=== PATIENT | female | born 1965 | race Caucasian/White ===

== ENCOUNTER 2022-11-30 10:48 | Outpatient (RCR) | payer OTHER, SELFPAY | END 2022-12-21 23:59 | LOC: NS 10:48 | PROVIDERS: PCP Family Medicine; Referring Provider Family Medicine; Visit Provider Family Medicine | DX: Z71.3 Dietary counseling and surveillance (principal); R63.4 Abnormal weight loss | CPT/HCPCS: 97802 ==

== ENCOUNTER 2023-01-20 07:30 | Outpatient (RCR) | payer OTHER, SELFPAY | END 2023-01-20 23:59 | LOC: NS 07:30 | PROVIDERS: PCP Family Medicine; Referring Provider Family Medicine; Visit Provider Family Medicine | DX: Z71.3 Dietary counseling and surveillance (principal); R63.4 Abnormal weight loss | CPT/HCPCS: 97803 ==

== ENCOUNTER → 2023-11-11 | Outpatient (CLI) | payer OTHER, SELFPAY ==
--- NOTE | 2023-11-11 15:10 | US_ITS ---
STUDY: ULTRASOUND OF THE FEMALE PELVIS - COMPLETE REASON FOR EXAM: Female, 57 years old. post menopausal bleeding LMP: 02/21/2018 TECHNIQUE: Transabdominal and Transvaginal TECHNICAL QUALITY: Adequate. COMPARISON: None. FINDINGS: The uterus is anteverted and is in a midline position. The uterus measures 6.9 x 4.5 x 2.4 cm. Normal uterine cervix. The endometrium measures 4 mm in thickness, and is hyperechoic. A tiny 2 mm polyp of calcification seen in the fundus of the endometrial cavity. There is no demonstrated myometrial mass. However the uterus is diffusely heterogeneous suggestive of diffuse leiomyomatous change. Several myometrial calcifications are seen. The right ovary is visualized. The right ovary measures 2.8 x 1.9 x 1.7 cm. There is no right ovarian cyst or ovarian mass. There is no visualized right adnexal mass or complex lesion. There is normal arterial and normal venous vascularity. The left ovary is visualized. The left ovary measures 2.7 x 1.6 x 1.8 cm. There is no left ovarian cyst or ovarian mass. There is no visualized left adnexal mass or complex lesion. There is normal arterial and normal venous vascularity. There is no fluid in the cul-de-sac. The pre void volume of the bladder was 200 ml. US/Pelvic w/ Transvaginal IMPRESSION: Abnormal appearance of the uterus suspicious for extensive leiomyomatous changes. Tiny calcification or polyp at the fundus of the endometrial cavity. Electronically Signed: Berto Coreas MD at 17:57 EDT ,
== END | disposition home or self-care (01) ==
LOC: US 15:09
PROVIDERS: PCP Family Medicine; Referring Provider Nurse Practitioner Family; Visit Provider Nurse Practitioner Family
DX: N95.0 Postmenopausal bleeding (principal); N63.0 Unspecified lump in unspecified breast; N64.52 Nipple discharge
CPT/HCPCS: 76830; 76856

== ENCOUNTER 2024-01-10 10:22 | Day surgery (SDC) | payer OTHER, SELFPAY ==
--- NOTE | 2024-01-04 07:06 | EKG12_ITS ---
Test Reason : PREOP Blood Pressure : */* mmHG Vent. Rate : 73 BPM Atrial Rate : 73 BPM P-R Int : 124 ms QRS Dur : 68 ms QT Int : 380 ms P-R-T Axes : 52 62 51 degrees QTcB Int : 418 ms Normal sinus rhythm Normal ECG Confirmed by ANGELICA LOZANO, ALEXANDER ([id number]), pictures editor RUSSELL RIOS ([id number]) on 01/04/2024 2:11:15 PM Referred By: Elen Bray Confirmed By: ALEXANDER DOMINGUEZ MD
[2024-01-04 07:45] LABS: Hematocrit 45.3 % (37-47); Hemoglobin 15.2 g/dL (12.0-15.0); Mean Corp Hgb Conc 33.6 g/dL (32-36); Mean Corpuscular Hgb 30.6 pg (27.0-32.0); Mean Corpuscular Volume 91.3 fL (81-99); Mean Platelet Vol. 9.6 fl (6.2-12.0); Platelet Count 259 K/mm3 (150-450); RBC Distribution Width CV 12.4 % (11.6-14.6); RBC Distribution Width SD 41.3 fl (35.1-43.9); Red Blood Count 4.96 M/mm3 (4.2-5.4)
[2024-01-04 08:13] LABS: ALB/GLOB Ratio 1.1 RATIO (0.9-2.4); AST(SGOT) 26 U/L (15-37); Alanine Aminotransfer ALT/SGPT 40 U/L (13-56); Albumin, Serum 3.4 g/dL (3.2-5.0); Alkaline Phosphatase 102 U/L (45-117); Anion Gap 2 (5-15); BUN 12 mg/dL (7-18); Calcium,Total 8.8 mg/dL (8.5-10.1); Chloride 113 mmol/L (98-107); Creatinine, Serum 0.75 mg/dL (0.55-1.02); EST Glomerular Filtration Rate 85 mL/min (>60); Est Glom Filt Rate - Afr Amer 102 mL/min (>60); Globulin 3.1 g/dL (2.2-4.2); Glucose 59 mg/dL (74-106); Potassium 4.1 mmol/L (3.5-5.1); Protein, Total 6.5 g/dL (6.4-8.2); Sodium Level 143 mmol/L (136-145)
[2024-01-10] VITALS (8 sets, daily range): BP systolic 103–120; BP diastolic 67–80; PULSE 67–81; RESP 16; TEMP 36.1–37; O2SAT 97–100; BMI 19.9
--- NOTE | 2024-01-10 11:19 | HP.PCM_ITS ---
History and Physical Intake Vital Signs 11/01/2406:55 12/18/2414:18 Height 5 ft 10 in 5 ft 10 in Weight: 141 lb BMI 20.2 BP 118/75 Intake Visit Reasons: Surgical consultation Resident Assistant Required: No Is patient in pain?: Yes (chronic pain - headache and back pain) Feel stressed/tense/nervous/anxious/difficulty sleeping: not at all Allergies albuterol Allergy (Verified 12/19/23 15:20) Hives Medications ?Medication ?Instructions ?Recorded ?Confirmed ?Type albuterol sulfate 90 mcg/actuation 1 puff inhalation ONCE 11/02/23 12/19/23 History aerosol inhaler beclomethasone dipropionate 40 1 inh inhalation BID 11/02/23 12/19/23 History mcg/actuation HFA breath activated aerosol (Qvar RediHaler) biotin 1 mg capsule 1 mg PO QDAY 11/02/23 12/19/23 History dextrin 3 gram/3.8 gram oral g PO 11/02/23 12/19/23 History powder (Easy Fiber) levothyroxine 100 mcg tablet 100 mcg PO QDAY 11/02/23 12/19/23 History multivitamin 1 tab PO QDAY 11/02/23 12/19/23 History omega-3 acid ethyl esters 1 gram 1 cap PO QDAY 11/02/23 12/19/23 History capsule calcium carbonate (Antacid Ultra 400 mg PO QDAY 12/19/23 12/19/23 History Strength) cholecalciferol (vitamin D3) 250 250 mcg PO QWEEK 12/19/23 12/19/23 History mcg (10,000 unit) capsule cyanocobalamin (vitamin B-12) 100 mcg IM QMONTH 12/19/23 12/19/23 History 1,000 mcg/mL injection solution Is last menstrual period known: No Post menopausal: Yes Patient : No : No PFSH Medical History (Updated 12/19/23 @ 15:[address] Elen Bray MD) Osteoporosis Bladder cancer Fibromyalgia GERD (gastroesophageal reflux disease) Naseem's disease Asthma Surgical History (Updated 11/02/23 @ 08:26 by Miriam Handley) History of appendectomy H/O total cystectomy H/O tubal ligation History of Rustam fundoplication Family History (Updated 11/02/23 @ 08:27 by Miriam Handley) Mother Diabetes Thyroid disorder Hypertension Brain cancerFather Bone cancerGrandmother CVA (cerebral vascular accident) Diabetes CAD (coronary artery disease) Hypertension Social History (Updated 11/02/23 @ 08:28 by Miriam Handley) adopted: No household members: spouse and family number of children: 3 current occupational status: employed 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 she has had several episodes of vaginal bleeding for the last few months on and off. she has a history of bladder cancer that was removed in 2018 and she has had routine followup for that. she has been on vaginal estrogen. she has struggled with weight loss after 2022 rustam surgery. she has some dyspareunia and vaginal estrogen didn't help with that. this started years after her bladder surgery. Female Reproductive History Menopausal Symptoms: No night sweats ROS Const Constitutional: Reports fatigue and weight loss; Denies night sweats or weight gain ENT ENT: Reports system reviewed and no additional complaints, except as documented Cardio Card: Reports chest pain (evaluated in the ER for this not cardiac) Resp Resp: Denies cough or dyspnea GI GI: Reports as per HPI, abdominal pain and nausea; Denies constipation or vomiting : Reports nipple discharge, urinary frequency, urinary incontinence and urinary urgency; Denies urinary hesitancy, vaginal discharge, vaginal dryness, vaginal odor or vaginal pruritus Musc Musc: Reports arthralgias and back pain; Denies muscle weakness Skin Skin/Breast: Reports nipple discharge; Denies alopecia, change in hair, dry skin, breast mass, breast pain or breast skin changes Neuro Neuro: Reports system reviewed and no additional complaints, except as documented Psych Psych: Reports system reviewed and no additional complaints, except as documented Endo Endo: Reports cold intolerance; Denies excessive sweating, heat intolerance or polydipsia Sai/Lymph Hematologic/Lymphatic: Reports easy bleeding, Reports easy bruising and Denies lymphadenopathy Exam Const General: cooperative, healthy appearing, comfortable, no acute distress and well developed Orientation: alert HENMT Head: normal to inspection and normocephalic Ears: hearing grossly normal bilaterally and external ears normal Nose: external nose normal and nares normal Face and sinus: normal facial exam Neck Neck: normal visual inspection and no lymphadenopathy Thyroid: thyroid normal Chest Chest palpation & inspection: normal inspection of the chest Resp Effort & Inspection: normal respiratory effort Auscultation: clear to auscultation bilaterally Cardio Rate: regular rate Rhythm: regular rhythm Heart Sounds: S1 normal and S2 normal GI Inspection: normal to inspection and non-distended Palpation: soft and no hepatosplenomegaly General: bladder normal to palpation External Female Exam: normal external appearance and normal appearance of the urethra Urethra: normal appearance of the urethra, normal palpation and no discharge Speculum Exam - Vagina: normal appearance of the vagina and normal vaginal discharge Speculum Exam - Cervix: normal appearance of the cervix and nontender Bimanual Exam- Vagina & Uterus: normal bimanual exam, uterine size normal, bladder normal to palpation, uterine shape normal, No tender, uterine mobility normal, consistency normal, normal palpation and non-tender Bimanual Exam- Adnexa, other: normal adnexae, adnexae mobile, no masses and normal Pelvic Support: normal Musc Other: gross motor intact no deficits, full bilateral strength Skin General: no rashes or lesions noted Neuro General: patient alert, patient awake, moves all extremities and no focal motor deficits Motor: muscle tone normal throughout Extrem General: normal to inspection and no pedal edema Psych Appearance: grossly normal Mental Status: mental status grossly normal Affect: normal affect Speech and Movement: speech and movement normal Coding Level of Care Code Off vis,est,level 4 Diagnoses Post-menopausal bleeding N95.0 Breast discharge N64.52 Breast lump N63.0 Breast pain, right N64.4 Assessment and Plan Assessment and Plan (1) Post-menopausal bleeding: Status: Acute Comment: recommend d and c hysteroscopy, vaginal estrogen held (2) Breast discharge: Status: Acute (3) Breast lump: Status: Acute Comment: gen surg referral (4) Breast pain, right: Status: Acute Plan After discussing the patient's diagnosis and treatment plan options, patient wishes to proceed with surgical management. I have discussed with the patient the risks, benefits, and alternatives of the procedure which include but are not limited to risks of anesthesia, bleeding, infection, possible damage to bowel, bladder, or surrounding vasculature which could lead to additional surgery to evaluate any complications. Patient agrees to procedure and wishes to proceed. ACOG/uptodate references given for additional information regarding procedure. UPDATE- I have seen the patient and performed any clinically relevant updates t o the history and physical exam. Elen Bray MD
--- NOTE | 2024-01-10 12:05 | EMB_PTH ---
PATIENT: THOM CHRISTIANSON RACHELLE [place] [facility] [place][id number] AGE/SX: 58/F ROOM: RE01/10/[address]: Dr. Elen Bray MD : 1965 BED: DIS: 01/10/2024 SPEC #: [id number] RECD: 01/10/24 14:25 STATUS: JOHN REAshley #: [id number] VAUGHN: 01/10/24 12:[address]: Elen Bray DEPT: SURGICAL PATHOLOGY RECD BY: Gregorio Dwyer ENTERED: 01/11/24 09:20 SP TYPE: ENDOM BX/C ANDREAS DR: Dr. Trey Allred MD Tissues: Endometrium, NOS Procedures: Surgery Specimen Level IV HEADER OPERATION: Hysteroscopy, D&C PRE-OP DIAGNOSIS: Dysfunctional uterine bleeding TISSUE SUBMITTED: Endometrial curettings MICROSCOPIC DIAGNOSIS Endometrial curettings: Scant fragments of superficial benign endometrial tissue. Fragments of benign ectocervical epithelium, blood and mucus. SJ. 01/12/2024 MICROSCOPIC DESCRIPTION Slides are reviewed. GROSS DESCRIPTION Received in fixative is one container labeled with the patient's name and designated Endometrial curettings. The specimen consists of grayish-hamilton mucoid material measuring in aggregate 1.0 x 0.5 x 0.1cm. The entire specimen is submitted in one cassette. FA. 01/11/2024 TC:4 CPT:87636
--- NOTE | 2024-01-10 12:16 | PRE.ANES_ITS ---
ASA Classification* ASA Classification ASA Classification: 2 Assessment & Plan Anesthesia* Anesthesia Assessment Anesthesia Assessment: Discussed sedation and/or anesthesia options, risks, benefits, and alternatives with patient/parents/legal guardian/POA. Questions invited. The patient/parents/legal guardian/POA seems to understand and agrees to proceed with anesthesia plan. Reviewed the physical assessment, medical history, allergy history and patient home medications list prior to surgery/procedure/anesthetic and documented any changes. Performed airway and anesthesia risk assessments. Anesthesia Type Anesthesia Type: MAC History Source History Obtained from:: Patient and Chart Anesthesia Focused Assessment* Temperature: 98.5 F Pulse Rate: 77 Blood Pressure: 115/80 Respiratory Rate: 16 Pulse Ox: 100 Oxygen Delivery Method: Room Air Airway Assessment Mouth opens: >3 cm Mallampati Score: III Teeth Condition: Caps/Crowns (Patient has a Cap on left upper molar. It is tight. rest of the teeth are tight) Neck Range of motion (ROM): Full ROM Focused Labs Anesthesia Preop lab: CBC WBC 6.0 K/mm3 (4.4-11.0) 01/04/24 07:20 RBC 4.96 M/mm3 (4.2-5.4) 01/04/24 07:20 Hgb 15.2 g/dL (12.0-15.0) H 01/04/24 07:20 Hct 45.3 % (37-47) 01/04/24 07:20 Plt Count 259 K/mm3 (150-450) 01/04/24 07:20 CHEMISTRY Potassium 4.1 mmol/L (3.5-5.1) 01/04/24 07:20 Sodium 143 mmol/L (136-145) 01/04/24 07:20 BUN 12 mg/dL (7-18) 01/04/24 07:20 Creatinine 0.75 mg/dL (0.55-1.02) 01/04/24 07:20 Glucose 59 mg/dL (74-106) L 01/04/24 07:20 COAG Pre-Assessment Diagnosis/Proposed Procedure Planned Operative Procedure(s): Hysteroscopy,D&C, Possible Symphion Anesthesia History 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 When Was Last Pacemaker Check QUESTION #4 FULL TEXT: You/Your Family Experience fever (hyperthermia) with Anesthesia Last Oral Intake Last Oral intake: Last Oral Intake NPO since 07:00 01/10/24 10:51 Meds taken in AM with sips of Yes 01/10/24 10:51 water? 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 Female Yes 01/03/24 13:19 HX of Motion Sickness Yes 01/03/24 13:19 HX of N/V After Surgery Yes 01/03/24 13:19 Non-Smoker Yes 01/03/24 13:19 Duration of Surgery greater No 01/03/24 13:19 than 60 minutes Number of Risk Factors 4 01/03/24 13:19 PONV Score Severe Risk 01/03/24 13:19 Height & Weight Height & Weight: Anesthesia: Height & Weight Height 5 ft 10 in 01/10/24 10:51 Weight: 63 kg 01/10/24 10:51 Body Mass Index (BMI) 19.9 01/10/24 10:51 Respiratory Assessment Respiratory Assessment - cargo tank mechanic: Respiratory Tract Infection Hx - cargo tank mechanic Hx Respiratory Tract Infection No 01/03/24 13:19 STOP Sleep Apnea STOP Sleep Apnea - cargo tank mechanic: STOP Sleep Apnea - cargo tank mechanic Hx Hypertension No 01/03/24 13:19 Hx Sleep Apnea No 01/03/24 13:19 CPAP BIPAP Do you snore loudly (louder No 01/03/24 13:19 than talking or can be heard Do you often feel tired/ No 01/03/24 13:19 fatigued/ sleepy during daytime? Has anyone observed you stop No 01/03/24 13:19 breathing during sleep? STOP Results Negative 01/03/24 13:19 QUESTION #5 FULL TEXT : Do you snore loudly (louder than talking or can be heard through closed doors)? 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 Specify any problems Hx of Preganancy in last 3 No 01/03/24 13:19 Months Nurse Filling Out Transfusion VCHRISTIN 01/03/24 13:19 & Questions: Date: 01/03/24 01/03/24 13:19 Time: 13:21 01/03/24 13:19 Patient unable to answer at this time (ie. confused, unrespo /Reproduction History /Reproductive History - cargo tank mechanic: /Reproductive Hx- cargo tank mechanic Hx Now No 01/03/24 13:19 Gestational Age (in weeks): EDC: Hx Hx Para Hx Section SAB No 01/03/24 13:19 [facility] Medical History Wears glasses Post-menopausal Cancer Thyroid disease Kidney stones Back pain History of hiatal hernia Non-smoker Leg cramps History of irregular heartbeat Nipple discharge Osteoporosis Fibromyalgia GERD (gastroesophageal reflux disease) Naseem's disease Asthma Bladder cancer Home Medications ?Medication ?Instructions ?Recorded ?Last Taken ?Type albuterol sulfate 90 mcg/actuation 1 puff inhalation ONCE 11/02/23 Unknown History aerosol inhaler beclomethasone dipropionate 40 1 inh inhalation BID 11/02/23 12/06/23 History mcg/actuation HFA breath activated aerosol (Qvar RediHaler) dextrin 3 gram/3.8 gram oral 3 g PO DAILY 11/02/23 01/09/24 History powder (Easy Fiber) levothyroxine 100 mcg tablet 100 mcg PO QDAY 11/02/23 01/09/24 History multivitamin 1 tab PO QDAY 11/02/23 01/09/24 History calcium carbonate (Antacid Ultra 400 mg PO TID 12/19/23 01/09/24 History Strength) cyanocobalamin (vitamin B-12) 100 mcg IM QMONTH 12/19/23 12/28/23 History 1,000 mcg/mL injection solution misoprostol 200 mcg tablet 200 mcg PO .complex #2 tabs 12/20/23 01/10/24 Rx (Cytotec) ergocalciferol (vitamin D2) 1,250 1,250 mcg PO QWEEK 01/03/24 01/07/24 History mcg (50,000 unit) capsule olodaterol 2.5 mcg/actuation mist 2 puff inhalation DAILY 01/03/24 12/07/23 History for inhalation (Striverdi Respimat) Allergy/AdvReac Type Severity Reaction Status Date / Time albuterol Allergy Hives Verified 01/10/24 10:45 Family History Mother Diabetes Thyroid disorder Hypertension Brain cancer Father Bone cancer Grandmother CVA (cerebral vascular accident) Diabetes CAD (coronary artery disease) Hypertension Surgical History History of appendectomy H/O total cystectomy H/O tubal ligation History of Rustam fundoplication Social History adopted: No household members: spouse and family number of children: 3 current occupational status: employed 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
[2024-01-10] MEDS: Lidocaine 1% (20 ml mdv) 20 ML Vial (12:56)
--- NOTE | 2024-01-10 13:11 | PCM.OPRPT ---
Problems Associated Problem List Diagnoses (1) Post-menopausal bleeding: Operative Report (Standard) Operative Information Surgery/Procedure Performed: dilation and curettage hysteroscopy Surgeon: Elen Bray Date of Procedure: 01/10/24 Procedure Start Time: 12:56 Procedure Stop Time: 13:08 Pre-Operative Diagnosis: see problem list Post-Operative Diagnosis: same Select all DRAINS/GRAFTS/IMPLANTS that apply: None Type of Anesthesia: IV Sedation and Local Estimated Blood Loss: 25 Specimen collected: Yes Description of specimen(s) removed: endometrial curettings Description of surgery: Patient was prepped and draped in a normal sterile fashion under MAC anesthesia. A weighted speculum was placed in the vagina and the anterior lip of the cervix was grasped with a single-tooth tenaculum. A paracervical block was placed with 1% lidocaine. Cervix was progressively dilated to allow passage of a 5 mm hysteroscope. The lining was fully visualized and noted to have think atrophic lining . Uterine sounded to 6 cm. Curettage was performed and small amount of tissue rremoved , sent to pathology. All instruments were removed from the vagina and excellent hemostasis was noted. Patient was awoken and taken to recovery in stable condition. Surgical Findings: nl uterine cavity Computer Aide strategic partnership specialist: No Complications Complications: No Multi Select Codes Urinary/Genital Urinary/Genital CPT Codes: 16460 Hysteroscopy,EMC, Polypectomy
--- NOTE | 2024-01-10 13:16 | EX.PCM.DISCH ---
Discharge Instructions Procedure D&C Diet Discharge Diet: No restrictions Activity Discharge Activity: Return to Normal Activity, May Shower and May Take a Tub Bath (after 1 week) May resume sexual activity in: 1-2 weeks Weight Bearing Status: Weight bearing as tolerated Lifting Restrictions: none Dressing / Incision Call your doctor if you observe: Fever of 101 or Higher, Using more than 1 pad per hour, Shortness of breath and Uncontrolled pain Follow Up Care Please Follow Up With: Elen Bray MD When: Call [phone] to schedule appointment. Test Results: Test results from this visit will be discussed in further detail at your follow-up appointment, if applicable. Discharge Plan Admission Attending Provider: Elen Bray Primary Care Provider: Trey Allred Instructions Print Language: Turkish Discharge Orders/Prescriptions Prescriptions: No Action albuterol sulfate 90 mcg/actuation HFA aerosol inhaler 1 puff inhalation ONCE Patient Comments: rescue inhaler Qvar RediHaler 40 mcg/actuation HFA aerosol breath activated 1 inh inhalation BID levothyroxine 100 mcg tablet 100 mcg PO QDAY multivitamin Tablet 1 tab PO QDAY Easy Fiber 3 gram/3.8 gram powder 3 g PO DAILY cyanocobalamin (vitamin B-12) 1,000 mcg/mL solution 100 mcg IM QMONTH calcium carbonate [Antacid Ultra Strength] 400 mg calcium (1,000 mg) tablet,chewable 400 mg PO TID ergocalciferol (vitamin D2) 1,250 mcg (50,000 unit) capsule 1,250 mcg PO QWEEK Striverdi Respimat 2.5 mcg/actuation mist 2 puff inhalation DAILY misoprostol [Cytotec] 200 mcg tablet 200 mcg PO .complex Qty: 2 1RF Rx Instructions: take the night before and two hours prior to the procedure Referrals / Follow Up: Trey Allred MD [Primary Care Provider] - Disposition Disposition (needs filled in before D/C Order can be placed): Home, Self Care
--- NOTE | 2024-01-10 13:18 | PCM.POST.ANE ---
Anesthesia: Postop Eval I Current Vital Signs Temperature: 98.6 F Pulse Rate: 81 Blood Pressure: 114/75 Respiratory Rate: 16 Pulse Ox: 97 Oxygen Delivery Method: Room Air Assessment Airway patent: Yes Spontaneous unlabored respirations: Yes Mental status: Awake nausea: No Vomiting: No Anesthesia Complication: No Fluid Hydration Crystalloid volume administer (ml): 30 Total IV fluid infused: 30 Progress Note Anesthesia document: Postop Eval 1 completed: Yes
[2024-01-10] MEDS: HYDROcodone Bitartrate/Apap 5/325 Tablet PO (13:58)
--- NOTE | 2024-01-10 16:09 | POSTOPAN2_ITS ---
Anesthesia Postop Eval I Sum Postop Eval Completion status Anesthesia document: Postop Eval 1 completed: Yes Anesthesia Postop Eval I Summary Anesthesia Postop Eval I Summary: Anesthesia Postop Eval I: Assessment Summary Airway patent Yes 01/10/24 13:19 REAL ESTATE [email or web address] Spontaneous unlabored Yes 01/10/24 13:19 REAL ESTATE [email or web address] respirations Mental status Awake 01/10/24 13:19 REAL ESTATE [email or web address] nausea No 01/10/24 13:19 REAL ESTATE MANAGER.[email or web address] Vomiting No 01/10/24 13:19 REAL ESTATE [email or web address] Anesthesia Postop Eval I: Fluid Summary Crystalloid volume administer 30 01/10/24 13:19 REAL ESTATE MANAGER.JDEF (ml) Colloids volume administered ( ml) Blood Product volume administered (ml) Total IV fluid infused 30 01/10/24 13:19 REAL ESTATE [email or web address] Anesthesia Postop Eval I: Summary Notes Anesthesia Complication No 01/10/24 13:19 REAL ESTATE MANAGER.[email or web address] Anesthesia Complication Comment: Post-operative progress note Anesthesia: Postop Eval II Evaluation Mental status: Awake and Calm Pain Level: 1 nausea: No Vomiting: No Complications Anesthesia Complication: No
--- NOTE | 2024-01-10 16:09 | PCM.POSTANE2 ---
Anesthesia Postop Eval I Sum Postop Eval Completion status Anesthesia document: Postop Eval 1 completed: Yes Anesthesia Postop Eval I Summary Anesthesia Postop Eval I Summary: Anesthesia Postop Eval I: Assessment Summary Airway patent Yes 01/10/24 13:19 TALLOW [email or web address] Spontaneous unlabored Yes 01/10/24 13:19 TALLOW [email or web address] respirations Mental status Awake 01/10/24 13:19 TALLOW [email or web address] nausea No 01/10/24 13:19 TALLOW [email or web address].JDEF Vomiting No 01/10/24 13:19 TALLOW [email or web address] Anesthesia Postop Eval I: Fluid Summary Crystalloid volume administer 30 01/10/24 13:19 TALLOW [email or web address] (ml) Colloids volume administered ( ml) Blood Product volume administered (ml) Total IV fluid infused 30 01/10/24 13:19 TALLOW [email or web address] Anesthesia Postop Eval I: Summary Notes Anesthesia Complication No 01/10/24 13:19 TALLOW [email or web address].JDEF Anesthesia Complication Comment: Post-operative progress note Anesthesia: Postop Eval II Evaluation Mental status: Awake and Calm Pain Level: 1 nausea: No Vomiting: No Complications Anesthesia Complication: No
== END 2024-01-10 14:34 | disposition home or self-care (01) ==
LOC: SDC 10:23 → AC 10:24
PROVIDERS: PCP Family Medicine; Referring Provider Obstetrics & Gynecology; Visit Provider Obstetrics & Gynecology
PROC: 0UB98ZZ Excision of Uterus, Via Natural or Artificial Opening Endoscopic (ICD-10-PCS; CPT 58558; principal; 2024-01-10 11:50)
DX: N95.0 Postmenopausal bleeding (principal); E06.3 Autoimmune thyroiditis; Z79.890 Hormone replacement therapy
CPT/HCPCS: 58558; 00952; 36415; 80053; 85027; 86850; 86900; 86901; 88305; 93005; A4216

== ENCOUNTER → 2024-07-30 | Outpatient (CLI) | payer OTHER, SELFPAY ==
--- OUTSIDE RECORDS SUMMARY | 2024-07-30 07:15 | XMS RPT_ITS | CCD ---
Author Organization [facility] Care Team Providers Care Shampoo Technician Name Role Phone Robin Allred Elmer Unavailable KATALINA JACOOB Unavailable Unavailable ROSARIO, JED YADIRA Unavailable Unavailable BRIGIDA, ROBIN ELMER Unavailable Unavailable ROSARIO, JED YADIRA Unavailable Unavailable BRIGIDA, ROBIN ELMER Unavailable Unavailable ROSARIO, JED YADIRA Unavailable Unavailable BRIGIDA, ROBIN ELMER Unavailable Unavailable ROSARIO, JED YADIRA Unavailable Unavailable BRIGIDA, ROBIN ELMER Unavailable Unavailable VASQUEZ, CORRINE L Unavailable Unavailable SELF, SELF Unavailable Unavailable VASQUEZ, CORRINE L Unavailable Unavailable VASQUEZ, CORRINE L Unavailable Unavailable Rosario, Jed A Unavailable Unavailable Rosario, Jed A Unavailable Unavailable Sourav, Elpidio U. Unavailable Unavailable Miscellaneous, SJ Unavailable Unavailable Miscellaneous, SJ Unavailable Unavailable Brigida, Robin Primary Care Provider Irp, Brooklynn L Admitting Unavailable Rip, Brooklynn L Attending Unavailable Brigida, Robin Primary Care Unavailable Thomae, Preeti R Admitting Unavailable Thomae, Preeti R Attending Unavailable Rip, Brooklynn L Referring Unavailable Brigida, Robin Primary Care Unavailable Rip, Brooklynn L Admitting Unavailable Rip, Brooklynn L Attending Unavailable Brigida, Robin Primary Care Unavailable Rip, Brooklynn L Admitting Unavailable Rip, Brooklynn L Attending Unavailable Brigida, Robin Primary Care Unavailable Rip, Brooklynn L Admitting Unavailable Rip, Brooklynn L Attending Unavailable Brigida, Robin Primary Care Unavailable Sourav, Elpidio U Admitting Unavailable Sourav, Elpidio U Attending Unavailable Brigida, Robin Primary Care Unavailable Rip, Brooklynn L Admitting Unavailable Rip, Brooklynn L Attending Unavailable Brigida, Robin Primary Care Unavailable Brigida, Robin Admitting Unavailable Brigida, Robin Attending Unavailable Brigida, Robin Primary Care Unavailable Brigida, Robin Admitting Unavailable Brigida, Robin Attending Unavailable Brigida, Robin Primary Care Unavailable Spike Gandhi Attending Unavailable Brigida, Robin Primary Care Unavailable Rip, Brooklynn L Admitting Unavailable Rip, Brooklynn L Attending Unavailable Brigida, Robin Primary Care Unavailable Rip, Brooklynn L Admitting Unavailable Rip, Brooklynn L Attending Unavailable Brigida, Robin Primary Care Unavailable Brigida, Robin Attending Unavailable Iván Collins Unavailable Brigida, Robin Primary Care Unavailable Mcwilliams MAE Ru Unavailable Unavailable Brigida, Robin Unavailable Unavailable Brigida, Robin L Unavailable Unavailable Ruby Nina Unavailable Unavailable Sourav, Elpidio U Unavailable Unavailable [facility] PROCEDURE RM, [id number] Unava ilable Unavailable Rip, Brooklynn Unavailable Unavailable Brigida, Robin Unavailable Unavailable Ru Mcwilliams Unavailable Unavailable [facility] NURSE, [id number] Unavailable Unavailable McwilliamsRu gandhi II Unavailable Unavailable [facility] NURSE, [id number] Unavailable Unavailable Brigida, Robin Primary Care Provider Thomae, Preeti Unavailable Unavailable Ru Mcwilliams Unavailable Unavailable Brigida, Robin Unavailable Unavailable Brigida, Robin Unavailable Unavailable [facility] PROCEDURE RM, [id number] Unava ilable Unavailable Briigda, Robin Elmer Primary Care Provider [phone] Rakesh, Sanots Unavailable Unavailable Sourav, Elpidio U Unavailable Unavailable Mallapareddi, Edison Nag Unavailable Unavailab le Brigida, Robin L Unavailable Unavailable Unavailable Brigida, Robin Elmer Unavailable Alisa Antonio Unavailable Unavailable Mcwilliams, Ru Unavailable Jelly Veras Unavailable Alisa Cesar Unavailable Unavailable [facility] NURSE, [id number] Unavailable Unavailable McwilliamsRu gandhi II, MD Unavailable Unavailable Thomae DO, Preeti Unavailable Unavailable Robin Allred MD Unavailable Unavailable Brigida, Robin L Unavailable Unavailable Ru Mcwilliams Unavailable Unavailable Ruby Nina MD Unavailable Unavailable Sourav, Elpidio U Unavailable Unavailable Unavailable Unavailable Unavailable Unavailable Robin Allred MD Primary Care Provider [phone] Preeti Jay DO Unavailable [phone] Towe, Dr. Yaneth Vidal Attending Unavailable Brigida, Dr. Robin Payne Primary Care Unavailab le Towe, Dr. Yaneth Vidal Referring Unavailable Jean-ApulAntonio benitez Attending Unavailable Antonio Jeong Admitting Unavailable Brigida, Dr. Robin Payne Primary Care Unavailab le Brigida, Dr. Robin Payne Primary Care Unavailab le Towe, Dr. Yaneth Vidal Attending Unavailable Thoman, Dr. Preeti Voss Referring Unavailable Brigida, Dr. Robin Payne Primary Care Unavailab le Mcwilliams II, Dr. Ru York Attending Unavai lable Mcwilliams II, Dr. Ru York Referring Unavai lable Brigida, Dr. Robin Payne Primary Care Unavailab le Towe, Dr. Yaneth Vidal Attending Unavailable Brigida, Dr. Robin Payne Primary Care Unavailab le Towe, Dr. Yaneth Vidal Attending Unavailable Brigida, Dr. Robin Payne Attending Unavailab le Brigida, Dr. Robin Payne Referring Unavailab le Brigida, Dr. Robin Payne Primary Care Unavailab le Brigida, Dr. Robin Payne Primary Care Unavailab le Brigida, Dr. Robin Payne Attending Unavailab le Brigida, Dr. Robin Payne Primary Care Unavailab le Mcwilliams II, Dr. Ru York Attending Unavai lable Mcwilliams II, Dr. Ru York Referring Unavai lable Brigida, Dr. Robin Payne Primary Care Unavailab le Mallapareddi, Dr. Edison Bowden Attending Unavailable Brigida, Dr. Robin Payne Primary Care Unavailab le Mallapareddi, Dr. Edison Bowden Attending Unavailable Brigida, Dr. Robin Payne Attending Unavailab le Brigida, Dr. Robin Payne Primary Care Unavailab le Jelly Veras Attending Unavailable Jelly Veras Referring Unavailable Brigida, Dr. Robin Payne Primary Care Unavailab tono Ho, Dr. Jordin Lee Referring Unavai lable Brigida, Dr. Robin Payne Primary Care Unavailab le Thoman, Dr. Preeti Voss Admitting Unavailable Thomae, Dr. Preeti Voss Attending Unavailable Brigida, Dr. Robin Payne Primary Care Unavailab le Thomae, Dr. Preeti Voss Admitting Unavailable Thomae, Dr. Preeti Voss Attending Unavailable Thomae, Dr. Preeti Voss Referring Unavailable Brigida, Dr. Robin Payne Primary Care Unavailab le Thomae, Dr. Preeti Voss Attending Unavailable Robin Allred MD Primary Care Provider [place] CARTOGRAPHIC TECHNICIAN-HOSPICE HOME CARE COORDINATOR, Yovani Live Unavailable Juanis LOZANO MPH, Edison Ayala S Unavailable Luca CARTOGRAPHIC TECHNICIAN-HOSPICE HOME CARE COORDINATOR, Yovani L Unavailable [phone] Robin Allred MD Unavailable [phone] KAUSHIK BARBER Attending Unavailable RUI VARGAS Referring Unavailable BRIGIDA, ROBIN L Primary Care Unavailable Ru Mcwilliams MD Unavailable BRIGIDA, ROBIN L Primary Care Unavailable BRIGIDA, ROBIN L Primary Care Unavailable BRIGIDA, ROBIN L Primary Care Unavailable BRIGIDA, ROBIN L Primary Care Unavailable BRIGIDA, ROBIN L Primary Care Unavailable Robin lAlred MD Primary Care Provider Robin Allred MD Unavailable [phone] Ru Mcwilliams MD Unavailable RU MCWILLIAMS Referring Unavailable BRIGIDA, ROBIN L Primary Care Unavailable JELLY VERAS Referring Unavailable BRIGIDA, ROBIN L Primary Care Unavailable BRIGIDA, ROBIN L Referring Unavailable BRIGIDA, ROBIN L Primary Care Unavailable JELLY VERAS Referring Unavailable BRIGIDA, ROBIN L Primary Care Unavailable VARGAS RUI C Referring Unavailable BRIGIDA, ROBIN L Primary Care Unavailable VARGAS, RUI C Referring Unavailable BRIGIDA, ROBIN L Primary Care Unavailable NIRANJAN ACEVEDO Attending Unavailable SPEEDY, RUI C Referring Unavailable BRIGIDA, ROBIN L Primary Care Unavailable RAYMOND AYERS Referring Unavailable BRIGIDA, ROBIN L Primary Care Unavailable BRIGIDA, ROBIN L Referring Unavailable BRIGIDA, ROBIN L Primary Care Unavailable BRIGIDA, ROBIN L Primary Care Unavailable JED QUIROZ Attending Unavailable JED QUIROZ Referring Unavailable BRIGIDA, ROBIN L Primary Care Unavailable JED QUIROZ Referring Unavailable BRIGIDA, ROBIN L Primary Care Unavailable BRIGIDA, ROBIN L Referring Unavailable BRIGIDA, ROBIN L Primary Care Unavailable BROOKLYNN CHRISTENSEN Referring Unavailable BRIGIDA, ROBIN L Primary Care Unavailable BONY SY Referring Unavailable BRIGIDA, ROBIN L Primary Care Unavailable BRIGIDA, ROBIN L Primary Care Unavailable BRIGIDA, ROBIN L Referring Unavailable BRIGIDA, ROBIN L Primary Care Unavailable Brigida, Robin Primary Care Unavailable Tierra Capellan Attending Unavailable Tierra Capellan Referring Unavailable TaliaonyElen Referring Unavailable Brigida, Robin Primary Care Unavailable Nelda Velez Attending Unavailable Brigida, Robin Referring Unavailable Brigida, Robin Primary Care Unavailable Elen Bray Attending Unavailable Brigida, Robin Primary Care Unavailable Brigida, Robin Attending Unavailable Brigida, Robin Primary Care Unavailable Brigida, Robin Attending Unavailable Brigida, Robin Primary Care Unavailable Tierra Capellan Attending Unavailable BarkTierra quintana Referring Unavailable Brigida, Robin Primary Care Unavailable Tierra Capellan Attending Unavailable BarkTierra quintana Referring Unavailable Brigida, Robin Primary Care Unavailable Brigida, Robin Attending Unavailable Brigida, Robin Referring Unavailable BarkTierra quintana Attending Unavailable Brigida, Robin Primary Care Unavailable Elen Bray Consulting Unavailable Brigida, Robin Primary Care Unavailable Elen Bray Attending Unavailable Marcanthony Elen Referring Unavailable Brigida, Robin Primary Care Unavailable Elen Bray Attending Unavailable Brigida, Robin Referring Unavailable Ceasar Louie Attending Unavailable Brigida, Robin Primary Care Unavailable TaliaonyElen Referring Unavailable Marcanthony Elen Referring Unavailable Brigida, Robin Primary Care Unavailable TaliaonyElen Attending Unavailable JELLY VERAS Attending Unavailable BRIGIDA, ROBIN L Primary Care Unavailable RUI VARGAS Attending Unavailable JELLY VERAS Referring Unavailable BRIGIDA, ROBIN L Primary Care Unavailable RUI VARGAS Attending Unavailable BRIGIDA, ROBIN L Primary Care Unavailable BRIGIDA, ROBIN L Primary Care Unavailable RAYMOND AYERS Attending Unavailable BRIGIDA, ROBIN L Primary Care Unavailable BRIGIDA, ROBIN L Attending Unavailable BRIGIDA, ROBIN L Primary Care Unavailable BROOKLYNN CHRISTENSEN Attending Unavailable BRIGIDA, ROBIN L Primary Care Unavailable BRIGIDA, ROBIN L Primary Care Unavailable BRIGIDA, ROBIN L Primary Care Unavailable BONY SY Attending Unavailable BRIGIDA, ROBIN L Primary Care Unavailable BONY SY Attending Unavailable BRIGIDA, ROBIN L Primary Care Unavailable BRIGIDA, ROBIN L Primary Care Unavailable BRIGIDA, ROBIN L Primary Care Unavailable BRIGIDA, ROBIN L Primary Care Unavailable BRIGIDA, ROBIN L Referring Unavailable BRIGIDA, ROBIN L Attending Unavailable BRIGIDA, ROBIN L Primary Care Unavailable BRIGIDA, ROBIN L Primary Care Unavailable BRIGIDA, ROBIN L Referring Unavailable BRIGIDA, ROBIN L Primary Care Unavailable BRIGIDA, ROBIN L Referring Unavailable Allergies Allergy Classification Reported Allergen(s) Allergy Type Date of Onset Reaction(s) Facility Albuterol (9 sources) Albuterol; Translations: [albuterol] Drug Allergy 3 Hives, Rash, Unknown [facility] (20 sources) albuterol; Translations: [ALBUTEROL] Propensity to adverse reactions to drug 8 Anxiety, Headache, Unknown, Hives, Rash [facility] (1 source) Albuterol Drug Allergy 4 [facility] Repository Medications Current Medications Medication Drug Class(es) Dates Sig (Normalized) Sig (Original) acetaminophen 325 mg / HYDROcodone bitartrate 5 mg oral tablet (5 sources) Opioid Agonist Start: 04-05-2023 End: 04-28-2023 take 1 tablet by mouth every six hours for pain HYDROcodone-acetami nophen ([place]) 5-325 mg tablet Indications: Malignant neoplasm of urinary bladder, unspecified site (CMS/HCC) Take 1 tablet by mouth every 6 hours if needed for severe pain (7 - 10). 20 tablet 0 04/05/2023 04/28/2023 Discontinued (Med List Cleanup) Start: 12-18-2019 take 1 tablet by shari th every six hours as needed Lincoln 5 mg-325 mg oral tablet ; 1 tab(s) orally every 6 hours, As Needed Quantity: 24 Refills: 0 Ordered: 18-Dec-2019 Ru Mcwilliams Start: 18-Dec-2019 Status: Other Generic Substitution Allowed Comments: Caution federal law prohibits the transfer of this drug to any person other than the person for whom it was prescribed.May cause drowsiness. Alcohol may intensify this effect. Use care when operating dangerous machinery.This product contains acetaminophen. Do not use with any other product containing acetaminophen to prevent possible liver damage.Using more of this medication than prescribed may cause serious breathing problems. Comment on above: Caution [employer] law prohibits the transfer of this drug to any person other than the person for whom it was prescribed.May cause drowsiness. Alcohol may intensify this effect. Use care when operating dangerous machinery.This product contains acetaminophen. Do not use with any other product containing acetaminophen to prevent possible liver damage.Using more of this medication than prescribed may cause serious breathing problems. acetaminophen 325 mg / oxyCODONE hydrochloride 5 mg oral tablet (1 source) Opioid Agonist Start: 019 take 1 tablet by mouth every six hours as needed Percocet 5/325 oral tablet ; 1 tab(s) orally every 6 hours, As Needed -for pain Quantity: 24 Refills: 0 Ordered: 30-Jan-2019 Ru Mcwilliams Start: 30-Jan-2019 Status: Other Generic Substitution Allowed Comments: Caution [employer] law prohibits the transfer of this drug to any person other than the person for whom it was prescribed.May cause drowsiness. Alcohol may intensify this effect. Use care when operating dangerous machinery.This prescription cannot be refilled.This product contains acetaminophen. Do not use with any other product containing acetaminophen to prevent possible liver damage.Using more of this medication than prescribed may cause serious breathing problems. Comment on above: Caution [employer] law prohibits the transfer of this drug to any person other than the person for whom it was prescribed.May cause drowsiness. Alcohol may intensify this effect. Use care when operating dangerous machinery.This prescription cannot be refilled.This product contains acetaminophen. Do not use with any other product containing acetaminophen to prevent possible liver damage.Using more of this medication than prescribed may cause serious breathing problems. [id number] 200 actuat albuterol 0.09 mg/actuat metered dose inhaler (20 sources) beta2-Adrenergic Agonist Start: 024 take 2 puff(s) by inhalation every four hours albuterol 90 mcg/actuation inhaler Indications: Moderate persistent asthma without complication ([facility]) Inhale 2 puffs every 4 hours. 18 g 1 11/23/2023 Active Start: 08-06-2021 take 2 puff(s) by in halation every four hours albuterol 90 mcg/actuation inhaler Inhale 2 puffs every 4 hours. 08/06/2021 Active Start: 12-22-2020 End: 01-20-2023 take 1 puff(s) by inhalation three times daily albuterol (ProAir RespiClick) 90 mcg/actuation aerosol powdr breath activated inhaler Inhale 1 puff 3 times a day. 0 12/22/2020 01/20/2023 Discontinued (Therapy completed) Start: 12-22-2020 take 2 puff(s) by in halation three times daily as needed for wheezing ProAir RespiClick 108 (90 Base) MCG/ACT Inhalation Aerosol Powder Breath Activated INHALE 2 PUFFS 3 times daily PRN wheezing Quantity: 1 Refills: 11 Ordered: 25-May-2021 Robin Allred MD Start : 22-Dec-2020 Active Start: 11-20-2020 End: 12-19-2020 take 2 puff(s) by inhalation every four hours albuterol 90 mcg/inh inhalation aerosol ; 2 puff(s) inhaled every 4 hours Quantity: 18 Refills: 0 Ordered: 20-Nov-2020 Alisa Antonio Start: 20-Nov-2020 End: 19-Dec-2020 Generic Substitution Allowed Comments: For inhalation only.It is very important that you take or use this exactly as directed. Do not skip doses or discontinue unless directed by your doctor.Obtain medical advice before taking any non-prescription drugs as some may affect the action of this medication.Shake well before use. Start: 06-04-2020 take 2 puff(s) by mo uth four times daily as needed for wheezing Albuterol Sulfate HFA 108 (90 Base) MCG/ACT Inhalation Aerosol Solution 2 PUFF(S) BY MOUTH, FOUR TIMES A DAY, NEEDED FOR WHEEZING Quantity: 1 Refills: 1 Robin Allred MD Start : 04-Jun-2020 Active 8.5 GM Inhaler Start: 01-24-2019 take 2 puff(s) by in halation three times daily as needed for wheezing ProAir RespiClick 108 (90 Base) MCG/ACT Inhalation Aerosol Powder Breath Activated INHALE 2 PUFFS 3 times daily PRN wheezing Quantity: 1 Refills: 1 Robin Allred MD Start : 24-Jan-2019 Active Comment on above: For inhalation only. It is very important that you take or use this exactly as directed. Do not skip doses or discontinue unless directed by your doctor.Obtain medical advice before taking any non-prescription drugs as some may affect the action of this medication.Shake well before use. alendronic acid 70 mg oral tablet (4 sources) Bisphosphonate Start: 11-28-19 End: 11-28-19 take 1 tablet by mouth in the morning alendronate (Fosamax) 70 mg tablet Indications: Age-related osteoporosis without current pathological fracture Take 1 tablet (70 mg) by mouth every 7 days. Take in the morning with a full glass of water, on an empty stomach, and do not take anything else by mouth or lie down for the next 30 min. 4 tablet 11/28/2023 12/20/2023 Discontinued (Discontinued by another clinician) amoxicillin 500 mg oral capsule (2 sources) Penicillin-class Antibacterial Start: 12-20-19 End: 12-30-19 take 1 capsule by mouth every eight hours amoxicillin (Amoxil) 500 mg capsule Indications: Acute frontal sinusitis, recurrence not specified Take 1 capsule (500 mg) by mouth every 8 hours for 10 days. 30 capsule 12/20/2023 12/30/2023 Active amoxicillin 875 mg / clavulanate 125 mg oral tablet (2 sources) Penicillin-class Antibacterial Start: 02-10-20 End: 02-20-20 take 1 tablet by mouth twice daily amoxicillin-pot clavulanate (Augmentin) 875-125 mg tablet Indications: Upper respiratory tract infection, unspecified type Take 1 tablet (875 mg) by mouth 2 times a day for 10 days. 20 tablet 02/10/2024 02/20/2024 Active ascorbic acid 500 mg oral tablet (1 source) Vitamin C Start: 11-21-19 End: 12-04-19 take 1 tablet by mouth twice daily Vitamin C 500 mg oral tablet ; 1 tab(s) orally 2 times a day Quantity: 28 Refills: 0 Ordered: 20-Nov-2020 Alisa Antonio Start: 20-Nov-2020 End: 03-Dec-2020 Generic Substitution Allowed azithromycin 250 mg oral tablet (8 sources) Macrolide Antimicrobial Start: 02-07-20 24 End: 04-03-20 25 azithromycin (Zithromax Z-Amandeep) 250 mg tablet Indications: Upper respiratory tract infection, unspecified type Take 2 tabs (500 mg) by mouth today, then take 1 tab daily for 4 days. 6 tablet 1 02/07/2024 05/24/2024 Discontinued (Med List Cleanup) Start: 01-13-2022 Azithromycin 2 50 MG Oral Tablet TAKE 2 TABLETS ON DAY 1 THEN TAKE 1 TABLET A DAY FOR 4 DAYS. Quantity: 1 Refills: 1 Ordered: 13-Jan-2022 Juanis LOZANO, MPH, Edison Ayala Start : 13-Jan-2022 Active B complex-vitamin C-folic acid (Nephro-Johana Rx) 1-60-300 mg-mg-mcg tablet (19 sources) take 1 tablet by mouth twice daily B complex-vitamin C-folic acid (Nephro-Johana Rx) 1-60-300 mg-mg-mcg tablet Take 1 tablet by mouth 2 times a day. Active breath-actuated 120 actuat beclomethasone dipropionate 0.08 mg/actuat metered dose inhaler (20 sources) Corticosteroid Start: End: 5 beclomethasone dipropionate (Qvar) 80 mcg/actuation inhaler Indications: Moderate persistent asthma without complication ([facility]) Inhale 2 Inhalations 2 times a day. Rinse mouth with water after use to reduce aftertaste and incidence of candidiasis. Do not swallow. 8.7 g 1 12/26/2023 12/25/2024 Active Start: 12-10-2020 End: 12-22-2020 take 1 puff(s) by inhalation twice daily Qvar RediHaler 80 MCG/ACT Inhalation Aerosol Breath Activated INHALE 1 PUFFS Twice daily Quantity: 1 Refills: 1 Ordered: 10-Dec-2020 Robin Allred MD Start : 10-Dec-2020 End : 22-Dec-2020 Complete beclomethasone H FA (Qvar) 40 mcg/actuation inhaler Inhale 2 Inhalations 2 times a day. Rinse mouth with water after use to reduce aftertaste and incidence of candidiasis. Do not swallow. Active 60 actuat budesonide 0.09 mg/actuat dry powder inhaler (20 sources) Corticosteroid Start: 11-20-2020 End: 12-19-2020 take 2 puff(s) by inhalation twice daily Pulmicort Flexhaler 90 mcg/inh inhalation powder ; 2 puff(s) inhaled 2 times a day Quantity: 1 Refills: 0 Ordered: 20-Nov-2020 Alisa Antonio Start: 20-Nov-2020 End: 19-Dec-2020 Generic Substitution Allowed Comments: For inhalation only.Rinse mouth thoroughly after use. Start: 09-19-2015 take 1 puff(s) by mo [facility] twice daily Pulmicort Flexhaler 180 MCG/ACT Inhalation Aerosol Powder Breath Activated INHALE 1 PUFF TWICE DAILY. RINSE MOUTH AFTER USE. Quantity: 3 Refills: 3 Ordered: 20-Nov-2020 Robin Allred MD Start : 19-Sep-2015 Active take 0.25 mg by inha lation twice daily budesonide 0.25 MG/2ML inhalation suspension Inhale 0.25 mg 2 times daily. 0 Active Budesonide Powde r Refills: 0 DO Active Budesonide Powde r Refills: 0 Active Comment on above: For inhalation only. Rinse mouth thoroughly after use. calcium carbonate 500 mg chewable tablet (10 sources) calcium carbonat e (Tums) 200 mg calcium chewable tablet Chew 1 tablet (500 mg) 3 times a day. Active cevimeline 30 mg oral capsule (20 sources) Cholinergic Receptor Agonist Start: 07-21-19 End: 11-23-19 take 1 capsule by mouth three times daily cevimeline (Evoxac) 30 mg capsule Indications: Dry mouth Take 1 capsule (30 mg) by mouth 3 times a day. 90 capsule 11 11/23/2023 11/22/2024 Active ciprofloxacin 250 mg oral tablet (20 sources) Quinolone Antimicrobial Start: 03-10-19 End: 03-13-19 take 1 tablet by mouth twice daily ciprofloxacin (Cipro) 250 mg tablet Indications: History of bladder cancer Take 1 tablet (250 mg) by mouth 2 times a day for 3 days. 6 tablet 0 03/10/2023 03/13/2023 Active Start: 10-20-2022 take 1 tablet by [facility] twice daily Ciprofloxacin HCl - 250 MG Oral Tablet Take 1 tablet twice daily Quantity: 6 Refills: 0 Ordered: 20-Oct-2022 Ru Mcwilliams II, MD Start : 20-Oct-2022 Active Start: 04-14-2022 take 1 tablet by shari th twice daily Ciprofloxacin HCl - 250 MG Oral Tablet Take 1 tablet twice daily Quantity: 6 Refills: 0 Ordered: 14-Apr-2022 Ru Mcwilliams II, MD Start : 14-Apr-2022 Active Start: 2021 take 1 tablet by shari th twice daily Ciprofloxacin HCl - 250 MG Oral Tablet Take 1 tablet twice daily Quantity: 6 Refills: 0 Ordered: 09-Dec-2021 Ru Mcwilliams II, MD Start : 09-Dec-2021 Active Start: 08-05-2021 End: 08-31-2021 take 1 tablet by mouth twice daily Ciprofloxacin HCl - 250 MG Oral Tablet Take 1 tablet twice daily Quantity: 6 Refills: 0 Ordered: 05-Aug-2021 Ru Mcwilliams II, MD Start : 05-Aug-2021 End : 31-Aug-2021 Complete Start: 01-19-2021 take 1 tablet by shari th twice daily Ciprofloxacin HCl - 250 MG Oral Tablet Take 1 tablet twice daily Quantity: 6 Refills: 0 Ordered: 19-Jan-2021 Ru Mcwilliams II, MD Start : 19-Jan-2021 Active Start: 05-05-2020 take 1 tablet by shari th twice daily Ciprofloxacin HCl - 250 MG Oral Tablet Take 1 tablet twice daily Quantity: 6 Refills: 0 Ordered: 08-Sep-2020 Ru Mcwilliams II, MD Start : 08-Sep-2020 Active Start: 10-03-2019 take 1 tablet by shari th twice daily Ciprofloxacin HCl - 250 MG Oral Tablet Take 1 tablet twice daily Quantity: 6 Refills: 0 Ru Mcwilliams II, MD Start : 03-Oct-2019 Active Start: 05-23-2019 take 1 tablet by shari th every twelve hours Ciprofloxacin HCl - 250 MG Oral Tablet TAKE 1 TABLET Every twelve hours Quantity: 6 Refills: 0 Ru Mcwilliams II, MD Start : 23-May-2019 Active Start: 01-17-2019 take 1 tablet by shari th twice daily Ciprofloxacin HCl - 250 MG Oral Tablet Take 1 tablet twice daily Quantity: 6 Refills: 0 Ru Mcwilliams II, MD Start : 17-Jan-2019 Active cycloSPORINE 0.5 mg/ml ophthalmic suspension (1 source) Calcineurin Inhibitor Immunosuppressant Start: 02-11-2023 End: 02-18-2023 take 1 drop(s) into the eye(s) twice daily cycloSPORINE (Restasis) 0.05 % ophthalmic emulsion Indications: Keratoconjunctivitis sicca (CMS/HCC) Administer 1 drop into both eyes 2 times a day. 60 each 1 02/11/2023 02/18/2023 Discontinued (Therapy completed) ergocalciferol 1.25 mg oral capsule (14 sources) Provitamin D2 Compound Start: 11-23-2023 End: 02-06-2025 take 1 capsule by mouth every week ergocalciferol (Vitamin D-2) 1.25 MG (58666 UT) capsule Indications: Hypovitaminosis D Take 1 capsule (50,000 Units) by mouth 1 (one) time per week. 12 capsule 1 02/07/2024 02/06/2025 Active esomeprazole 40 mg delayed release oral capsule (1 source) Proton Pump Inhibitor Start: 02-10-2023 End: 04-11-2023 take 1 capsule by mouth once daily before mealtime esomeprazole (NexIUM) [address] capsule Indications: History of Wen fundoplication Take 1 capsule (40 mg) by mouth once daily in the morning. Take before meals. Do not open capsule. 30 capsule 1 02/10/2023 04/11/2023 Active estradiol 0.1 mg/ml vaginal cream (20 sources) Estrogen Start: 08-02-2023 End: 08-01-2024 estradiol (Estrace) 0.01 % (0.1 mg/gram) vaginal cream Indications: Vaginal dryness, menopausal Insert 0.5 Applicatorfuls (2 g) into the vagina once daily at bedtime. At bedtime for 2 weeks, then at bedtime twice a week. 42.5 g 11 08/02/2023 05/24/2024 Discontinued (Med List Cleanup) 14 actuat fluticasone furoate 0.1 mg/actuat dry powder inhaler (3 sources) Corticosteroid Start: 03-09-2024 End: 05-24-2024 take 1 puff(s) by mouth once daily fluticasone furoate (Arnuity Ellipta) 100 mcg/actuation inhaler Indications: Moderate persistent asthma without complication ([facility]) Inhale 1 puff once daily. Rinse mouth with water after use to reduce aftertaste and incidence of candidiasis. Do not swallow. 1 each 11 03/09/2024 05/24/2024 Discontinued (Med List Cleanup) Start: 08-06-2021 End: 08-07-2021 take 2 puff(s) by mouth twice daily Fluticasone Propionate HFA 110 MCG/ACT Inhalation Aerosol INHALE 2 PUFFS TWICE DAILY. RINSE MOUTH AFTER USE. Quantity: 1 Refills: 3 Ordered: 06-Aug-2021 Robin Allred MD Start : 06-Aug-2021 End : 07-Aug-2021 Complete lifitegrast 50 mg/ml ophthalmic solution (1 source) Lymphocyte Function-Associated Antigen-1 Antagonist Start: 02-10-2023 End: 03-12-2023 take 1 drop(s) into the eye(s) twice daily lifitegrast (Xiidra) 5 % dropperette Indications: Keratoconjunctivitis sicca (CMS/HCC) Administer 1 drop into affected eye(s) 2 times a day. 60 each 0 02/10/2023 03/12/2023 Active megestrol acetate 40 mg oral tablet (9 sources) Progestin Start: 02-18-2023 End: 02-18-2024 take 3 tablets by mouth once daily megestrol (Megace) 40 mg tablet Indications: Cachexia (CMS/HCC) Take 3 tablets (120 mg total) by mouth once daily. 42 tablet 25 02/18/2023 04/28/2023 Discontinued (Med List Cleanup) 120 actuat mometasone furoate 0.22 mg/actuat dry powder inhaler (3 sources) Corticosteroid Start: 09-19-2015 End: 12-15-2020 take 2 puff(s) by inhalation twice daily Asmanex (120 Metered Doses) 220 MCG/INH Inhalation Aerosol Powder Breath Activated INHALE 2 PUFFS TWICE DAILY. Quantity: 1 Refills: 0 Ordered: 26-Nov-2020 Juanis LOZANO, MPH, Edison Ayala Start : 19-Sep-2015 End : 15-Dec-2020 Complete multivitamin tablet (20 sources) take 1 tablet by mouth once daily multivitamin tablet Take 1 tablet by mouth once daily. Active take 1 tablet by mouth once yolanda y multivitamin tablet Take 1 tablet by mouth once daily. 0 Active nutritional supplements powder (20 sources) Start: 02-03-2023 End: 02-03-2024 take 1 dose by mouth once daily nutritional supplements powder Take 1 packet by mouth once daily. 02/03/2023 02/03/2024 Active Start: 02-03-2023 End: 02-03-2024 take 1 dose by mouth once daily nutritional supplements powder Take 1 packet by mouth once daily. 0 02/03/2023 02/03/2024 Active Start: 02-03-2023 End: 02-18-2023 nutritional supplements powd er Indications: CPT 67881 DX E44.0 Take 1 packet by mouth once daily. Pro Source Extra Calories supplementTake 1 bottle by mouth if needed (moderate protein calorie malnutrition). Pro Source Extra Calories supplement 780 g 11 02/03/2023 02/18/2023 Discontinued (Therapy completed) Start: 02-03-2023 End: 02-03-2024 nutritional supplements powd er Indications: CPT 20771 DX E44.0 Take 1 packet by mouth once daily. Pro Source Extra Calories supplementTake 1 bottle by mouth if needed (moderate protein calorie malnutrition). Pro Source Extra Calories supplement 780 g 11 02/03/2023 02/03/2024 Active 60 actuat olodaterol 0.0025 mg/actuat inhalation spray (20 sources) beta2-Adrenergic Agonist Start: 12-26-2023 take 2 puff(s) by inhalation once daily olodaterol (Striverdi Respimat) 2.5 mcg/actuation inhaler Indications: Moderate persistent asthma without complication ([facility]HS-HCC) Inhale 2 puffs once daily. 4 g 1 12/26/2023 Active Start: 08-12-2023 take 2 puff(s) by in halation once daily olodaterol (Striverdi Respimat) 2.5 mcg/actuation inhaler Indications: Moderate persistent asthma without complication (HHS-HCC) Inhale 2 puffs once daily. 4 g 1 11/23/2023 Active Start: 11-21-2020 End: 12-16-2020 take 2 puff(s) by inhalation once daily Striverdi Respimat 2.5 MCG/ACT Inhalation Aerosol Solution INHALE 2 PUFFS Daily Quantity: 1 Refills: 11 Ordered: 25-May-2021 Robin Allred MD Start : 21-Nov-2020 Active omega-3 acid ethyl esters (long-term) 1000 mg oral capsule (20 sources) omega-3 acid eth yl esters (Lovaza) 1 gram capsule Take 1 capsule (1 g) by mouth 2 times a day. Active omeprazole 20 mg delayed release oral capsule (20 sources) Proton Pump Inhibitor Start: 08-08-2017 omeprazole (PRILOSEC) 20 MG capsule Start: 05-09-2017 take 1 capsule by mo [facility] once daily Omeprazole 40 MG Oral Capsule Delayed Release TAKE 1 CAPSULE Daily Quantity: 30 Refills: 11 Ordered: 25-May-2021 Robin Allred MD Start : 09-May-2017 Active take 1 tablet by shari th once daily omeprazole 20 mg oral delayed release tablet ; 1 tab(s) orally once a day Quantity: 0 Refills: 0 Ordered: 26-Jan-2019 Maryan Fuentes Status: Other Generic Substitution Allowed ondansetron 4 mg oral tablet (20 sources) Serotonin-3 Receptor Antagonist Start: 05-24-2024 End: 05-31-2024 take 1 tablet by mouth every eight hours for nausea ondansetron (Zofran) 4 mg tablet Indications: History of Wen fundoplication Take 1 tablet (4 mg) by mouth every 8 hours if needed for nausea or vomiting for up to 7 days. 20 tablet 05/24/2024 05/31/2024 Active Start: 11-20-2020 End: 11-22-2020 take 1 tablet by mouth three times daily ondansetron 4 mg oral tablet, disintegrating ; 1 tab(s) orally 3 times a day Quantity: 9 Refills: 0 Ordered: 20-Nov-2020 Alisa Antonio Start: 20-Nov-2020 End: 22-Nov-2020 Generic Substitution Allowed Start: 03-21-2020 take 1 tablet by shari th three times daily as needed for nausea Ondansetron 4 MG Oral Tablet Disintegrating TAKE 4 MG 3 times daily prn nausea Quantity: 30 Refills: 1 Ordered: 21-Mar-2020 Preeti Jay DO Start : 21-Mar-2020 Active Start: 08-10-2019 take 1 tablet by shari th three times daily as needed for nausea Ondansetron 4 MG Oral Tablet Disintegrating TAKE 4 MG 3 times daily prn nausea Quantity: 10 Refills: 1 Preeti Jay DO Start : 10-Aug-2019 Active pantoprazole 40 mg delayed release oral tablet (12 sources) Proton Pump Inhibitor Start: 02-11-2023 End: 02-18-2023 take 1 tablet by mouth once daily pantoprazole (ProtoNix) 40 mg EC tablet Indications: Epigastric pain Take 1 tablet (40 mg) by mouth once daily. Do not crush, chew, or split. 30 tablet 1 02/11/2023 02/18/2023 Discontinued (Therapy completed) Start: 01-04-2022 End: 08-03-2022 take 1 tablet by mouth twice daily pantoprazole (ProtoNix) 40 mg EC tablet Take 1 tablet (40 mg) by mouth 2 times a day. 0 01/04/2022 08/03/2022 Discontinued (Therapy completed) phenazopyridine hydrochloride 200 mg oral tablet (5 sources) Start: 04-05-2023 End: 04-28-2023 take 1 tablet by mouth three times daily as needed for muscle spasms phenazopyridine (Pyridium) 200 mg tablet Indications: Malignant neoplasm of urinary bladder, unspecified site (CMS/HCC) Take 1 tablet (200 mg) by mouth 3 times a day as needed for bladder spasms. 30 tablet 0 04/05/2023 04/28/2023 Discontinued (Med List Cleanup) Start: 01-30-2019 take 1 tablet by shari th every eight hours as needed Pyridium 200 mg oral tablet ; 1 tab(s) orally every 8 hours, As Needed Quantity: 21 Refills: 0 Ordered: 30-Jan-2019 Ru Mcwilliams Start: 30-Jan-2019 Status: Other Generic Substitution Allowed Comments: May discolor urine or feces.Medication should be taken with plenty of water.Take with food or milk. Comment on above: May discolor urine o r feces.Medication should be taken with plenty of water.Take with food or milk. sulfamethoxazole 800 mg / trimethoprim 160 mg oral tablet (1 source) Dihydrofolate Reductase Inhibitor Antibacterial, Sulfonamide Antimicrobial Start: 019 take 1 tablet by mouth twice daily Bactrim DS 800 mg-160 mg oral tablet ; 160 milligram(s) orally 2 times a day Quantity: 6 Refills: 0 Ordered: 30-Jan-2019 Ru Mcwilliams Start: 30-Jan-2019 Status: Other Generic Substitution Allowed Comments: Avoid prolonged or excessive exposure to direct and/or artificial sunlight while taking this medication.Finish all this medication unless otherwise directed by prescriber.Medicati on should be taken with plenty of water. Comment on above: Avoid prolonged or e xcessive exposure to direct and/or artificial sunlight while taking this medication.Finish all this medication unless otherwise directed by prescriber.Medication should be taken with plenty of water. levothyroxine sodium 0.1 mg oral tablet (20 sources) l-Thyroxine Start: 020 Levothyroxine Sodium 75 MCG Oral Tablet Quantity: 30 Refills: 0 Ordered: 23-Sep-2019 DO Start : 27-Aug-2019 Active Start: 01-24-2019 End: 12-25-2024 take 1 tablet by mouth once daily levothyroxine (Synthroid, Levoxyl) 100 mcg tablet Indications: Acquired hypothyroidism Take 1 tablet (100 mcg) by mouth once daily. 30 tablet 11 12/26/2023 12/25/2024 Active Start: 01-24-2019 take 1 tablet by shari th once daily levothyroxine 50 MCG tablet Take 50 mcg by mouth daily. 0 07/24/2019 Active Start: 01-24-2019 take 1 tablet by shari th once daily Levothyroxine Sodium 75 MCG Oral Tablet Take 1 tablet daily Quantity: 30 Refills: 5 Robin Allred MD Start : 24-Jan-2019 Active Start: 06-30-2017 levothyroxine (SYNTHROID, LEVOTHROID) 25 MCG tablet take 1 tablet by shari th once daily levothyroxine 100 mcg (0.1 mg) oral tablet ; 1 tab(s) orally once a day Quantity: 0 Refills: 0 Ordered: 20-Nov-2020 Debi Garcia Generic Substitution Allowed take 1 tablet by shari th once daily levothyroxine 50 mcg (0.05 mg) oral tablet ; 1 tab(s) orally once a day Quantity: 0 Refills: 0 Ordered: 07-Aug-2019 Llia Lanza Status: Other Generic Substitution Allowed traMADol hydrochloride 50 mg oral tablet (7 sources) Opioid Agonist Start: 06-27-2017 traMADol (ULTR AM) 50 mg tablet vitamin b12 1 mg/ml injectable solution (20 sources) Vitamin B12 cyanocobalamin, vitamin B-12, 1,000 mcg/mL kit Inject 1,000 mcg as directed every 28 (twenty-eight) days. Active take 1 tablet by mouth once yolanda y Vitamin B12 1000 mcg oral tablet ; 1 tab(s) orally once a day Quantity: 0 Refills: 0 Ordered: 26-Jan-2019 Maryan Fuentes Status: Other Generic Substitution Allowed Cyanocobalamin ( Vitamin B 12) 500 MCG tablet Take by mouth. 0 Active Vitamin B 12 TAB S Refills: 0 DO Active Vitamin B 12 TAB S Refills: 0 Active zinc sulfate 220 mg oral capsule (1 source) Start: 11-20-2020 End: 12-03-2020 take 1 capsule by mouth once daily at mealtime zinc sulfate 220 mg oral capsule ; 1 cap(s) orally once a day Quantity: 14 Refills: 0 Ordered: 20-Nov-2020 Alisa Antonio Start: 20-Nov-2020 End: 03-Dec-2020 Generic Substitution Allowed Comments: Take with food or milk. Comment on above: Take with food or milk. Completed/Discontinued Medications Medication Drug Class(es) Dates Sig (Normalized) Sig (Original) barium sulfate (E-Z-Paque) 96 % (w/w) suspension 110 mL (1 source) Start: 07-25-2023 End: 07-25-2023 take 110 mL by mouth once 110 mL, oral, Once in imaging, Starting on Tue07/25/23 at 0936, For 1 dose barium sulfate (EZ HD BARIUM) 98 % suspension 347 mL (1 source) Start: 07-25-2023 End: 07-25-2023 347 mL (rounded from 346.9388 mL = 340 g), oral, Once in imaging, Starting on Tue07/25/23 at 0936, For 1 dose benzonatate 200 mg oral capsule (9 sources) Non-narcotic Antitussive Start: 01-13-2022 take 1 capsule by mouth three times daily as needed Benzonatate 200 MG Oral Capsule TAKE 1 CAPSULE 3 TIMES DAILY NEEDED. Quantity: 30 Refills: 1 Ordered: 13-Jan-2022 Juanis LOZANO, MPH, Edison Ayala Start : 13-Jan-2022 Active busPIRone hydrochloride 10 mg oral tablet (6 sources) Start: 06-29-2022 take 1 tablet by mouth three times daily busPIRone HCl - 10 MG Oral Tablet TAKE 1 TABLET 3 TIMES DAILY. Quantity: 90 Refills: 3 Ordered: 29-Jun-2022 Preeti Jay DO Start : 29-Jun-2022 Active codeine phosphate 2 mg/ml / guaiFENesin 20 mg/ml oral solution (2 sources) Opioid Agonist Start: 01-19-2022 take 10 mL by mouth every six hours guaiFENesin-Codeine 100-10 MG/5ML Oral Solution TAKE 10 ML Every 6 hours as needed Quantity: 100 Refills: 0 Ordered: 19-Jan-2022 Juanis LOZANO, MPH, Edison Ayala Start : 19-Jan-2022 Active dexlansoprazole 60 mg delayed release oral capsule (12 sources) Proton Pump Inhibitor Start: 12-17-2021 End: 08-03-2022 take 1 capsule by mouth once daily dexlansoprazole (Dexilant) [address] capsule Take 1 capsule (60 mg) by mouth once daily. 0 12/17/2021 08/03/2022 Discontinued (Therapy completed) Dosoquin 5500-200 UNIT-MCG Oral Tablet (2 sources) Start: 08-16-2019 Dosoquin 5500-200 UNIT-MCG Oral Tablet Refills: 0 Robin Allred MD Start : 16-Aug-2019 Active gadoterate meglumine (Dotarem) 0.5 mmol/mL contrast injection 12 mL (1 source) Start: 08-23-2023 End: 08-23-2023 inject 12 mL intravenously once 12 mL, intravenous, Once in imaging, Starting on Tue08/23/23 at 1401, For 1 dose, Administer undiluted as rapid I.V. bolus injection iohexol (OMNIPaque) 350 mg iodine/mL solution 72 mL (2 sources) Start: 03-21-2023 End: 03-21-2023 iohexol (OMNIPaque) 350 mg iodine/mL solution 72 mL levoFLOXacin 750 mg oral tablet (2 sources) Quinolone Antimicrobial Start: 01-19-2022 take 1 tablet by mouth once daily levoFLOXacin 750 MG Oral Tablet TAKE 1 TABLET ONCE DAILY. Quantity: 7 Refills: 0 Ordered: 19-Jan-2022 Juanis LOZANO, MPH, Edison Ayala Start : 19-Jan-2022 Active 24 hr metoprolol succinate 50 mg extended release oral tablet (20 sources) beta-Adrenergic Lorrie Start: 12-22-2018 End: 07-22-2022 take 1 tablet by mouth every twenty-four hours in the morning metoprolol succinate XL (Toprol-XL) 50 mg 24 hr tablet Take 1 tablet (50 mg) by mouth in the morning. 0 12/22/2018 07/22/2022 Discontinued (Reorder) Start: 12-22-2018 take 2 tablets by mo [facility] once daily Metoprolol Succinate ER 50 MG Oral Tablet Extended Release 24 Hour TAKE 2 TABLETS DAILY. Quantity: 60 Refills: 11 Ordered: 25-May-2021 Robin Allred MD Start : 22-Dec-2018 Active Start: 12-22-2018 take 1.5 tablets by mouth once daily Metoprolol Succinate ER 50 MG Oral Tablet Extended Release 24 Hour TAKE 1.5 TABLET Daily Quantity: 45 Refills: 2 Robin Allred MD Start : 22-Dec-2018 Active Start: 04-20-2018 take 1 tablet by shari once daily metoprolol succinate 50 MG tablet XL Take 50 mg by mouth daily. 0 07/24/2019 Active Start: 04-20-2018 take 1 tablet by shari once daily Metoprolol Succinate ER 25 MG Oral Tablet Extended Release 24 Hour TAKE 1 TABLET BY MOUTH DAILY Quantity: 30 Refills: 11 Robin Allred MD Start : 20-Apr-2018 Active take 1 tablet by shari once daily metoprolol tartrate 50 mg oral tablet ; 1 tab(s) orally once a day Quantity: 0 Refills: 0 Ordered: 07-Aug-2019 Lila Lanza Status: Other Generic Substitution Allowed oxyCODONE hydrochloride 5 mg oral tablet (6 sources) Opioid Agonist take 1 tablet by mouth every eight hours oxyCODONE HCl - 5 MG Oral Tablet TAKE 1 TABLET Every 8 hours PRN Quantity: 0 Refills: 0 Ordered: 09-Jun-2022 DO Active predniSONE 50 mg oral tablet (7 sources) Start: 01-13-2022 take 1 tablet by mouth once daily predniSONE 50 MG Oral Tablet TAKE 1 TABLET DAILY DIRECTED. Quantity: 5 Refills: 1 Ordered: 13-Jan-2022 Juanis LOZANO, MPH, Edison Ayala Start : 13-Jan-2022 Active Start: 08-31-2021 predniSONE 10 MG Oral Tablet take 4 tablets for 2 days, then 3 tablets for 2, take 2 tablets for 2 days then take 1 tablet for 2 days. Quantity: 21 Refills: 0 Ordered: 31-Aug-2021 Luca MAEMAJORYovani Start : 31-Aug-2021 Active Start: 11-20-2020 End: 11-28-2020 take 3 tablets by mouth once daily at mealtime, then take 1 tablet by mouth once daily, then take 1 tablet by mouth once daily predniSONE 20 mg oral tablet ; 3 tab(s) orally once a day x 3 days2 tab(s) orally once a day x 3 days1 tab(s) orally once a day x 3 days Quantity: 18 Refills: 0 Ordered: 20-Nov-2020 Alisa Antonio Start: 20-Nov-2020 End: 28-Nov-2020 Generic Substitution Allowed Comments: It is very important that you take or use this exactly as directed. Do not skip doses or discontinue unless directed by your doctor.Obtain medical advice before taking any non-prescription drugs as some may affect the action of this medication.Take with food or milk. Comment on above: It is very important that you take or use this exactly as directed. Do not skip doses or discontinue unless directed by your doctor.Obtain medical advice before taking any non-prescription drugs as some may affect the action of this medication.Take with food or milk. 60 actuat salmeterol 0.05 mg/actuat dry powder inhaler (20 sources) beta2-Adrenergic Agonist Start: 09-19-2015 End: 11-21-2020 Serevent Diskus 50 MCG/DOSE Inhalation Aerosol Powder Breath Activated USE ONE INHALATION BY MOUTH TWICE DAILY IN THE MORNING AND EVENING(APPROXIMATELY 12 HOURS APART) Quantity: 3 Refills: 3 Ordered: 20-Nov-2020 Robin Allred MD Start : 19-Sep-2015 End : 21-Nov-2020 Complete take 1 puff(s) by inhalation twi ce daily Serevent Diskus 50 mcg inhalation powder ; 1 puff(s) inhaled 2 times a day Quantity: 0 Refills: 0 Ordered: 20-Nov-2020 Debi Garcia Generic Substitution Allowed take 1 puff(s) by inhalation twi ce daily salmeterol (SEREVENT DISKUS) 50 MCG/DOSE Aerosol Powder, breath activated Inhale 1 puff 2 times daily. 0 Active sincalide 0.005 mg injection (1 source) Cholecystokinin Analog Start: 2022 End: 2022 sincalide (Kinevac) injection 1.4 mcg Start: 2022 End: 2022 sincalide (Kinevac) injectio n 1.4 mcg SUMAtriptan 50 mg oral tablet (1 source) Serotonin-1b and Serotonin-1d Receptor Agonist Start: 06-04-2020 take 1 tablet by mouth every two hours SUMAtriptan Succinate 50 MG Oral Tablet TAKE 1 TABLET FOR MIGRAINE RELIEF. MAY REPEAT EVERY 2 HOURS. MAX 200MG/DAY. Quantity: 9 Refills: 1 Juanis LOZANO, MPH, Edison Ayala Start : 04-Jun-2020 Active technetium Tc-99m mebrofenin (Choletec) radio-isotope injection 6 millicurie (1 source) Start: 2022 End: 2022 technetium Tc-99m mebrofenin (Choletec) radio-isotope injection 6 millicurie technetium Tc-99m sulfur colloid (Nycomed-SC) radio-isotope solution 1.1 millicurie (1 source) Start: 11-22-2022 End: 11-22-2022 technetium Tc-99m sulfur colloid (Nycomed-SC) radio-isotope solution 1.1 millicurie Problems Active Problems Problem Classification Problem Date Documented Date Episodic/Chronic Abdominal hernia (20 sources) Hiatal hernia; Translations: [Diaphragmatic hernia without obstruction or gangrene] Onset: 05-12-19 Episodic Acute and chronic tonsillitis (2 sources) Tonsillitis; Translations: [Acute tonsillitis] Episodic Asthma (20 sources) Asthma; Translations: [Asthma, unspecified type, unspecified] Onset: 08-15-19 20 08-15-2019 Chronic Blindness and vision defects (4 sources) Eye / vision finding; Translations: [Unspecified visual disturbance] Onset: 05-25-19 25 05-24-2024 Episodic Cancer; other and unspecified primary (20 sources) H/O: malignant neoplasm; Translations: [Personal history of malignant neoplasm of bladder] Onset: 08-15-19 20 08-15-2019 Episodic Cardiac dysrhythmias (20 sources) Ventricular premature beats; Translations: [Other premature beats] Onset: 04-02-19 23 04-02-2022 Chronic Cardiac dysrhythmias (20 sources) Palpitations; Translations: [Palpitations] Episodic Essential hypertension (20 sources) Benign essential hypertension; Translations: [Benign essential hypertension] Onset: 04-02-1904-02-2022 Chronic Fluid and electrolyte disorders (8 sources) Dehydration; Translations: [Dehydration] 11-20-2020 Episodic Gastritis and duodenitis (1 source) Unspecified chronic gastritis without bleeding; Translations: [Unspecified chronic gastritis without bleeding] Onset: 06-30-19 Chronic Genitourinary symptoms and ill-defined conditions (15 sources) Urinary incontinence; Translations: [Urinary incontinence] Chronic Genitourinary symptoms and ill-defined conditions (20 sources) Nocturia; Translations: [Blood in urine] 03-10-2023 Episodic Headache; including migraine (20 sources) Refractory migraine with aura; Translations: [Migraine with aura, with intractable migraine, so stated, without mention of status migrainosus] Onset: 04-02-1904-02-2022 Chronic Headache; including migraine (20 sources) Tension-type headache; Translations: [Headache] Episodic Heart valve disorders (1 source) Non-rheumatic mitral valve prolapse; Translations: [Nonrheumatic mitral (valve) prolapse] 07-17-2022 Chronic Lymphadenitis (20 sources) Lymphadenopathy; Translations: [Enlargement of lymph nodes] Episodic Malaise and fatigue (12 sources) Fatigue; Translations: [Fatigue, unspecified type] Onset: 08-15-1908-15-2019 Episodic Menopausal disorders (6 sources) Postmenopausal bleeding; Translations: [Postmenopausal bleeding] Onset: 07-20-19 24 07-19-2023 Chronic Multiple myeloma (1 source) Multiple myeloma 10-16-2020 Comment on above: BLADDER CA, FHX MICHELLE ST CA, OVARIAN, PROSTATE, MULTIPLE MYELOMA Nausea and vomiting (20 sources) Nausea; Translations: [Nausea alone] Onset: 05-12-19 Episodic Neoplasms of unspecified nature or uncertain behavior (10 sources) Neoplasm of bladder; Translations: [Neoplasm of unspecified behavior of bladder] 04-14-2023 Episodic Noninfectious gastroenteritis (12 sources) Colitis; Translations: [Colitis] Onset: 08-15-1924-2020 Episodic Nutritional deficiencies (20 sources) Vitamin D deficiency; Translations: [Unspecified vitamin D deficiency] Onset: 04-02-1904-02-2022 Chronic Osteoarthritis (20 sources) Primary osteoarthritis, right hand; Translations: [Primary osteoarthritis, right ankle and foot] Onset: 08-15-19 20 08-15-2019 Chronic Osteoporosis (10 sources) Senile osteoporosis; Translations: [Age-related osteoporosis without current pathological fracture] Onset: 12-15-19 24 12-15-2023 Chronic Other bone disease and musculoskeletal deformities (12 sources) Disorder of skeletal system; Translations: [Disorder of bone and cartilage] Onset: 08-15-1908-15-2019 Chronic Other circulatory disease (20 sources) H/O: heart disorder; Translations: [Personal history of other diseases of circulatory system] Episodic Other connective tissue disease (2 sources) Pain in right hand; Translations: [Pain in right hand] Onset: 09-14-19 Episodic Other connective tissue disease (20 sources) Neuropathic pain; Translations: [Neuralgia, neuritis, and radiculitis, unspecified] Episodic Other connective tissue disease (12 sources) Trochanteric bursitis; Translations: [Greater trochanteric bursitis of right hip] Onset: 08-15-19 20 08-15-2019 Episodic Other connective tissue disease (20 sources) Pain in left lower limb; Translations: [Pain in limb] Episodic Other connective tissue disease (12 sources) Pain of bilateral hands; Translations: [Bilateral hand pain] Onset: 08-15-19 20 08-15-2019 Other diseases of bladder and urethra (14 sources) Mass of urinary bladder; Translations: [Bladder mass] Episodic Other eye disorders (20 sources) Dry eyes; Translations: [Tear film insufficiency, unspecified] Onset: 08-15-19 20 08-15-2019 Episodic Other gastrointestinal disorders (2 sources) Swallowing problem; Translations: [Dysphagia, unspecified] Episodic Other gastrointestinal disorders (7 sources) Esophageal dysphagia; Translations: [Other dysphagia] Episodic Other gastrointestinal disorders (2 sources) Dysphagia, pharyngoesophageal phase; Translations: [Dysphagia, pharyngoesophageal phase] Onset: 05-12-19 Episodic Other gastrointestinal disorders (1 source) Other ascites; Translations: [Other ascites] Onset: 10-13-19 Episodic Other gastrointestinal disorders (1 source) Other specified diseases of intestine; Translations: [Other specified diseases of intestine] Onset: 08-04-19 Episodic Other gastrointestinal disorders (1 source) Constipation, unspecified; Translations: [Constipation, unspecified] Onset: 08-04-19 Episodic Other gastrointestinal disorders (1 source) Dysphagia; Translations: [Dysphagia, unspecified] 07-17-2022 Episodic Other injuries and conditions due to external causes (20 sources) Effects of lightning; Translations: [Late effect of certain other external causes] Episodic Other lower respiratory disease (20 sources) Solitary nodule of lung; Translations: [Solitary pulmonary nodule] Episodic Comment on above: [address] cardiac s eptember 2019 pt low risk and recommend repeat October 2020; Other lower respiratory disease (17 sources) Dyspnea; Translations: [Shortness of breath] Onset: 01-14-20 Episodic Other lower respiratory disease (16 sources) Cough; Translations: [Cough] Episodic Other lower respiratory disease (6 sources) Rib pain; Translations: [Pleurodynia] 12-20-2023 Episodic Other nervous system disorders (1 source) Neuropathy; Translations: [Idiopathic progressive neuropathy] 07-17-2022 Chronic Other nervous system disorders (1 source) Mortons neuroma of left foot; Translations: [Lesion of plantar nerve, left lower limb] 05-24-2024 Chronic Other nervous system disorders (4 sources) Other chronic pain; Translations: [Other chronic pain] Onset: 05-25-19 Chronic Other nervous system disorders (20 sources) Numbness and tingling sensation of skin; Translations: [Disturbance of skin sensation] Episodic Other non-traumatic joint disorders (20 sources) Hip pain; Translations: [Pain in joint, pelvic region and thigh] Episodic Other non-traumatic joint disorders (6 sources) Pain in left knee; Translations: [Pain in joint, lower leg] Onset: 05-25-1905-24-2024 Episodic Other non-traumatic joint disorders (2 sources) Chronic pain of right upper limb; Translations: [Pain in right shoulder] 05-24-2024 Episodic Other non-traumatic joint disorders (4 sources) Pain in right shoulder; Translations: [Pain in right shoulder] Onset: 05-25-19 Episodic Other non-traumatic joint disorders (12 sources) Pain in right hip joint; Translations: [Hip pain, right] Onset: 08-15-1908-15-2019 Other non-traumatic joint disorders (12 sources) Bilateral wrist pain; Translations: [Bilateral wrist pain] Onset: 08-15-1908-15-2019 Other nutritional; endocrine; and metabolic disorders (2 sources) Hypermagnesemia; Translations: [Hypermagnesemia] Chronic Other nutritional; endocrine; and metabolic disorders (13 sources) Obesity; Translations: [Obesity, unspecified] Chronic Other nutritional; endocrine; and metabolic disorders (20 sources) H/O: thyroid disorder; Translations: [Personal history of other endocrine, metabolic, and immunity disorders] Episodic Other nutritional; endocrine; and metabolic disorders (1 source) Weight loss; Translations: [Abnormal weight loss] 12-20-2022 Episodic Other and delivery including normal (20 sources) Delivery normal; Translations: [Normal delivery] Episodic Comment on above: 02/14/1983-40 WEEKS, VAGINAL, FEMALE #7 1oz07/18/1984-40 WEEKS, VAGINAL, MALE #8 12oz10/04/1990-40 WEEKS, VAGINAL, FEMALE #7 8oz; Other screening for suspected conditions (not mental disorders or infectious disease) (20 sources) Endometrium thickened; Translations: [Nonspecific (abnormal) findings on radiological and other examination of genitourinary organs] Chronic Other screening for suspected conditions (not mental disorders or infectious disease) (20 sources) Thyroid hormone tests abnormal; Translations: [Mammography abnormal] Onset: 04-02-19 Resolved : 07-22-19 Episodic Comment on above: october 2019 = 0; 06/22/2021: Janice Canas. Genetic Result: Negative Breast Cancer Riskscore- Remaining Lifetime Risk 15.4%; Other skin disorders (2 sources) Feeling of lump in throat; Translations: [Other symptoms involving head and neck] Episodic Other upper respiratory disease (20 sources) Chronic pharyngitis; Translations: [Chronic pharyngitis] Onset: 04-02-19 Resolved : 11-23-1904-02-2022 Chronic Other upper respiratory disease (2 sources) Edema of pharynx; Translations: [Edema of pharynx or nasopharynx] Episodic Pleurisy; pneumothorax; pulmonary collapse (16 sources) Pneumothorax; Translations: [Other pneumothorax] Onset: 06-05-19 Episodic Pneumonia (except that caused by tuberculosis or sexually transmitted disease) (18 sources) Pneumonia due to other virus not elsewhere classified; Translations: [Pneumonia] Onset: 06-05-1911-20-2020 Episodic Pneumonia (except that caused by tuberculosis or sexually transmitted disease) (1 source) Pneumonia (except that caused by tuberculosis or sexually transmitted disease) 11-20-2020 Residual codes; unclassified (13 sources) Hypersomnia; Translations: [Hypersomnia, unspecified] Chronic Residual codes; unclassified (12 sources) Family history of arthritis; Translations: [Family history of rheumatoid arthritis] Onset: 08-15-1908-15-2019 Episodic Residual codes; unclassified (7 sources) H/O: ; Translations: [Personal history of other genital system and obstetric disorders] Episodic Residual codes; unclassified (20 sources) History of clinical finding in subject; Translations: [Asymptomatic postmenopausal status (age-related) (natural)] Episodic Comment on above: 2017; Residual codes; unclassified (3 sources) Other specified postprocedural states; Translations: [Other specified postprocedural states] Onset: 06-30-19 Episodic Residual codes; unclassified (1 source) Early satiety; Translations: [Early satiety] Episodic Residual codes; unclassified (3 sources) History of fundoplication; Translations: [Other specified postprocedural states] 02-10-2023 Episodic Residual codes; unclassified (2 sources) Menopause present; Translations: [Asymptomatic menopausal state] 11-23-2023 Episodic Rheumatoid arthritis and related disease (20 sources) Inflammatory polyarthropathy; Translations: [Unspecified inflammatory polyarthropathy] Chronic Spondylosis; intervertebral disc disorders; other back problems (20 sources) Thoracic spondylosis; Translations: [Thoracic spondylosis without myelopathy] Chronic Spondylosis; intervertebral disc disorders; other back problems (20 sources) Neck pain; Translations: [Backache] Onset: 08-15-19 20 08-15-2019 Episodic Sprains and strains (1 source) Strain of supraspinatus muscle; Translations: [Strain of other muscles, fascia and tendons at shoulder and upper arm level, left arm, initial encounter] 05-24-2024 Episodic Syncope (1 source) Syncope and collapse; Translations: [Syncope and collapse] 07-17-2022 Episodic Systemic lupus erythematosus and connective tissue disorders (20 sources) Keratoconjunctivitis sicca; 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] Onset: 08-15-19 20 08-15-2019 Chronic Thyroid disorders (20 sources) Hypothyroidism; Translations: [Hypothyroidism, unspecified] Onset: 08-15-19 20 08-15-2019 Chronic Unclassified (1 source) Unknown / UNK(Unknown) Onset: 01-02-20 18 Unclassified (2 sources) SOB + 11-20-2020 Comment on above: SOB + Unclassified (1 source) 4 MOS 09-08-2020 Comment on above: 4 MOS Unclassified (3 sources) Cough, unspecified; Translations: [Cough, unspecified] Onset: 01-20-20 22 Unclassified (2 sources) Chronic pain of right upper limb 05-24-2024 Unclassified (2 sources) Chronic pain of left knee 05-24-2024 Unclassified (2 sources) Results; Translations: [Results] Onset: 08-02-19 24 Past or Other Problems Problem Classification Problem Date Documented Da te Episodic/Chronic Abdominal pain (20 sources) Abdominal pain; Translations: [Right upper quadrant pain] Onset: 3 09-24-2022 Episodic Administrative/social admission (1 source) Patient care statuses; Translations: [Encounter for nonprocreative genetic counseling] 10-12-2023 Episodic Calculus of urinary tract (20 sources) Kidney stone; Translations: [History of calculus of kidney] Onset: 3 07-17-2022 Episodic Cancer of bladder (20 sources) Malignant tumor of urinary bladder; Translations: [Malignant neoplasm of bladder, part unspecified] Onset: 3 Resolved: 4 Chronic Cancer of bladder (2 sources) Personal history of malignant neoplasm of bladder; Translations: [Personal history of malignant neoplasm of bladder] Onset: 4 Episodic Diseases of mouth; excluding dental (20 sources) Xerostomia; Translations: [Disturbance of salivary secretion] Onset: 0 08-15-2019 Episodic Esophageal disorders (20 sources) Gastroesophageal reflux disease; Translations: [Esophageal reflux] Onset: 3 Resolved: 3 Chronic Fracture of upper limb (11 sources) Displaced fracture of medial phalanx of right little finger, initial encounter for closed fracture; Translations: [Closed fracture of middle phalanx of little finger] Onset: 8 06-29-2017 Episodic Nonmalignant breast conditions (20 sources) Pain of breast; Translations: [Mastodynia] Onset: 4 Resolved: 4 07-19-2023 Episodic Nonspecific chest pain (20 sources) Chest pain; Translations: [Chest pain, unspecified] Onset: 2 11-30-2023 Episodic Nutritional deficiencies (4 sources) Cachexia; Translations: [Cachexia] Onset: 4 02-18-2023 Episodic Other and unspecified benign neoplasm (1 source) Polyp of stomach and duodenum; Translations: [Polyp of stomach and duodenum] Onset: 3 Episodic Other connective tissue disease (20 sources) Fibromyalgia; Translations: [Myalgia and myositis, unspecified] Onset: 3 04-02-2022 Episodic Other gastrointestinal disorders (3 sources) Heartburn; Translations: [Heartburn] Onset: 3 Episodic Other gastrointestinal disorders (2 sources) Other dysphagia; Translations: [Other dysphagia] Onset: 3 Episodic Other gastrointestinal disorders (4 sources) Dysphagia, unspecified; Translations: [Dysphagia, unspecified] Onset: 3 Episodic Other infections; including parasitic (1 source) History of hepatitis C; Translations: [Personal history of other infectious and parasitic diseases] Episodic Other lower respiratory disease (1 source) Other disorders of lung; Translations: [Other disorders of lung] Onset: 3 Episodic Other lower respiratory disease (3 sources) Shortness of breath; Translations: [Shortness of breath] Onset: 2 Episodic Other lower respiratory disease (4 sources) Pleurodynia; Translations: [Pleurodynia] Onset: 4 Episodic Other nutritional; endocrine; and metabolic disorders (5 sources) Abnormal weight loss; Translations: [Abnormal weight loss] Onset: 3 Episodic Other upper respiratory infections (20 sources) Acute frontal sinusitis; Translations: [Acute frontal sinusitis, unspecified] Onset: 4 12-20-2023 Episodic Residual codes; unclassified (17 sources) Family history of breast cancer; Translations: [Family history of malignant neoplasm of breast] Onset: 4 10-12-2023 Episodic Residual codes; unclassified (17 sources) Family history of malignant neoplasm of ovary; Translations: [Family history of malignant neoplasm of ovary] Onset: 4 10-12-2023 Episodic Residual codes; unclassified (17 sources) Family history of cancer of colon; Translations: [Family history of malignant neoplasm of digestive organs] Onset: 4 10-12-2023 Episodic Residual codes; unclassified (4 sources) Asymptomatic menopausal state; Translations: [Asymptomatic menopausal state] Onset: 4 Episodic Unclassified (1 source) [id number] G37.9 URGENT Onset: 8 Unclassified (20 sources) Patient encounter status; Translations: [Encounter for routine gynecological examination] Unclassified (6 sources) History of clinical finding in subject; Translations: [History of menopause] Unclassified (3 sources) Coronary artery finding; Translations: [Agatston coronary artery calcium score less than 100] Unclassified (1 source) Cough, unspecified; Translations: [Cough, unspecified] Onset: 2 Unclassified (20 sources) Onset: 4 Resolved: 4 07-21-2023 Viral infection (20 sources) Disease caused by 2019-nCoV; Translations: [Other specified viral infection] Resolved: 1 Episodic NEGATED: Highlighted row has not occurred!Residual codes; unclassified (20 sources) Disease Episodic Results Test Name Value Interpretation Reference Range Facility XR KNEE LEFT 1-2 VIEWSon XR KNEE LEFT 1-2 VIEWS Interpreted By: Leonela Bobby, STUDY: XR KNEE LEFT 1-2 VIEWS; ; 05/24/2024 9:32 am INDICATION: Signs/Symptoms:pain. ,M25.562 Pain in left knee,G89.29 Other chronic pain COMPARISON: None. ACCESSION NUMBER(S): [id number] ORDERING CLINICIAN: ROBIN ALLRED FINDINGS: Two views of the left knee were performed. There is no acute fracture or dislocation. There are mild tricompartmental degenerative changes, more pronounced in the medial femorotibial compartment with joint space narrowing and small marginal osteophytes. No significant suprapatellar joint effusion is noted. No obvious soft tissue abnormality. IMPRESSION: Mild tricompartmental osteoarthrosis, more pronounced in the medial femorotibial compartment. MACRO: None Signed by: Leonela Bobby 05/25/2024 2:30 PM Dictation workstation: [id number] [facility] XR SHOULDER RIGHT 2+ VIEWSon 05-24-2024 XR SHOULDER RIGHT 2+ VIEWS Interpreted By: Leonela Bobby, STUDY: XR SHOULDER RIGHT 2+ VIEWS; ; 05/24/2024 9:33 am INDICATION: Signs/Symptoms:pain. ,M25.511 Pain in right shoulder,G89.29 Other chronic pain COMPARISON: None. ACCESSION NUMBER(S): [id number] ORDERING CLINICIAN: ROBIN ALLRED FINDINGS: There is an amorphous calcific density projecting over the expected location of the distal rotator cuff tendons just superior to the greater tuberosity of the proximal right humerus, concerning for hydroxyapatite deposition. There is no acute fracture or dislocation. Moderate degenerative changes of the acromioclavicular joint are noted. No obvious soft tissue abnormality. IMPRESSION: 1. Findings concerning for calcific tendinitis of the rotator cuff tendons. 2. Moderate acromioclavicular joint arthrosis. MACRO: None Signed by: Leonela Bobby 05/25/2024 2:12 PM Dictation workstation: [id number] [facility] TSH W/REFLEX TO FT4on 2024 TSH W/REFLEX TO FT4 0.56 mIU/L Normal 0.40-4.50 [facility] Comment on above: Performed By: #### 1 3850, 546, 76520 #### [facility] [address], [address] [place] [id number] Rn Supplemental: Shoaib Xie MD VITAMIN B12on 05-16-2024 Cobalamin (Vitamin B12) [Mass/Vol] 508 pg/mL Normal 200-1100 [facility] Comment on above: Performed By: #### 1 7306, 927, 48181 #### [facility] [address], [address] [place] [address] Rn Supplemental: Shoaib Xie MD VITAMIN D,25-OH,TOTAL,IAon 0 05-16-2024 VITAMIN D,25-OH,TOTAL,IA 84 ng/mL Normal 30-100 [facility] Comment on above: Result Comment: Ninfa min D Status 25-OH Vitamin D: Deficiency: <20 ng/mL Insufficiency: 20 - 29 ng/mL Optimal: > or = 30 ng/mL For 25-OH Vitamin D testing on patients on D2-supplementation and patients for whom quantitation of D2 and D3 fractions is required, the QuestAssureD(TM) 25-OH VIT D, (D2,D3), LC/MS/MS is recommended: order code 75098 (patients >2yrs). See Note 1 Note 1 For additional information, please refer to http://education.Hoonto/faq/UPA294 (This link is being provided for informational/ educational purposes only.) Performed By: #### 1 7306, 927, 74685 #### [facility] [address], [address] [place] [address] Rn Supplemental: Shoaib Xie MD Comprehensive metabolic 2000 panelon 05-15-2024 Albumin BCP dye [Mass/Vol] 4.0 g/dL Normal 3.4-5.0 [facility] Comment on above: Performed By: #### 2 4323-8 ####GORAN SLATER ([id number])[facility] ([place])[address] [place] [address] ALP [Catalytic activity/Vol] 49 U/L Normal 33-110 [facility] Comment on above: Performed By: #### 2 4323-8 ####GORAN SLATER (58843)[facility] ([place])[address] [place] [address]17 ALT With P-5'-P [Catalytic activity/Vol] 17 U/L Normal 7-45 [facility] Comment on above: Result Comment: Neeru ents treated with Sulfasalazine may generate falsely decreased results for ALT. Performed By: #### 2 4323-8 ####GORAN SLATER (32456)[facility] ([place])[address] [place] [address]2096 Anion gap [Moles/Vol] 9 mmol/L Low 10-20 [facility] Comment on above: Performed By: #### 2 4323-8 ####GORAN SLATER (79381)[facility] ([place])[address] [place] [address] 16268 AST With P-5'-P [Catalytic activity/Vol] 15 U/L Normal 9-39 [facility] Comment on above: Performed By: #### 2 4323-8 ####GORAN SLATER (50574)[facility] ([place])[address] [place] [address] 93510 Bilirubin [Mass/Vol] 0.8 mg/dL Normal 0.0-1.2 [facility] Comment on above: Performed By: #### 2 432-8 ####GORAN SLATER (51185)[facility] ([place])[address] [place] [address] Calcium [Mass/Vol] 8.8 mg/dL Normal 8.6-10.3 [facility] Comment on above: Performed By: #### 2 432-8 ####GORAN SLATER (15556)[facility] ([place])[address] [place] [address] 68222 Chloride [Moles/Vol] 107 mmol/L Normal 98-107 [facility] Comment on above: Result Comment: Conf irmed by repeat analysis Performed By: #### 2 4323-8 ####GORAN SLATER (93772)[facility] ([place])[address] [place] [address] 95666 CO2 [Moles/Vol] 29 mmol/L Normal 21-32 [facility] Comment on above: Result Comment: Conf irmed by repeat analysis Performed By: #### 2 4323-8 ####GORAN SLATER (15720)[facility] ([place])[address] [place] [address] 53543 Creatinine [Mass/Vol] 0.71 mg/dL Normal 0.50-1.05 [facility] Comment on above: Performed By: #### 2 4323-8 ####GORAN SLATER (39566)[facility] ([place])[address] [place] [address]271 GFR/1.73 sq M.predicted MDRD (S/P/Bld) [Vol rate/Area] mL/min/{1.73_m2} Normal >60 [facility] Comment on above: Result Comment: Calc ulations of estimated GFR are performed using the 2020 CKD-EPI Study Refit equation without the race variable for the IDMS-Traceable creatinine methods. https://jasn.asnjournals.org/content/early//ASN.322483097 8 Performed By: #### 2 4323-8 ####GORAN SLATER (54814)[facility] ([place])[address] [place] [address] 67738 Glucose [Mass/Vol] 82 mg/dL Normal 74-99 [facility] Comment on above: Performed By: #### 2 4323-8 ####GORAN SLATER (74390)[facility] ([place])[address] [place] [address] 98050 Potassium [Moles/Vol] 4.1 mmol/L Normal 3.5-5.3 [facility] Comment on above: Result Comment: Conf irmed by repeat analysis Performed By: #### 2 4323-8 ####GORAN SLATER (31777)[facility] ([place])[address] [place] [address] 92388 Protein [Mass/Vol] 6.0 g/dL Low 6.4-8.2 [facility] Comment on above: Performed By: #### 2 4323-8 ####GORAN SLATER (73275)[facility] ([place])[address] [place] [address] 81195 Sodium [Moles/Vol] 141 mmol/L Normal 136-145 [facility] Comment on above: Result Comment: Conf irmed by repeat analysis Performed By: #### 2 4323-8 ####GORAN SLATER (52059)[facility] ([place])[address] [place] [address] Urea nitrogen [Mass/Vol] 13 mg/dL Normal 6-23 [facility] Comment on above: Performed By: #### 2 4323-8 ####GORAN SLATER (78052)[facility] ([place])[address] [place] [address] Heterophile Abon 02-10-2024 Heterophile Ab IA.rapid Ql (S/P/Bld) Negative Normal Negative [facility] Comment on above: Performed By: #### 2 4323-8 #### GORAN SLATER (50241) [facility] ([place]) [address] [place] [address]237 XR CHEST 2 VIEWSon XR CHEST 2 VIEWS Interpreted By: Simeon Levine, STUDY: XR CHEST 2 VIEWS INDICATION: Signs/Symptoms:Rib Pain. COMPARISON: None ACCESSION NUMBER(S): [id number] ORDERING CLINICIAN: BONY SY FINDINGS: No consolidation, effusion, edema, pneumothorax. Heart size within normal limits. IMPRESSION: Evidence of acute intrathoracic abnormality. Signed by: Simeon Watters 02/11/2024 10:35 AM Dictation workstation: [id number] Normal [facility] Paper Cutter Office Visit Reporton 01-25-2024 Paper Cutter Office Visit Report [facility] [address], [address] [place] [address] OFFICE VISIT Date of Service: 01/25/24 MR#: [id number] Acct: [id number] Name: FELA CHRISTIANSON JULY Rep #: [id number] : 1965 Provider: Dr. Elne savage MD Age/Sex: 58/F Location: [facility] [place] Status: Signed Intake Vital Signs 12/19/23 15:18 01/10/24 10:51 01/25/24 12:52 Height 5 ft 10 in 5 ft 10 in 5 ft 10 in Weight: 140 lb 2 oz BMI 20.0 BP 113/75 Intake Visit Reasons: 2 wk D C Patient Registration Manager Required: No Is patient in pain?: No Feel stressed/tense/nervous/anxio us/difficulty sleeping: not at all Allergies albuterol Allergy (Verified 01/25/24 12:52) Hives Medications ???Medication ???Instructions ???Recorded ???Confirmed ???Type albuterol sulfate 90 mcg/actuation 1 puff inhalation ONCE 11/02/23 01/25/24 History aerosol inhaler beclomethasone dipropionate 40 1 inh inhalation BID 11/02/23 01/25/24 History mcg/actuation HFA breath activated aerosol (Qvar RediHaler) dextrin 3 gram/3.8 gram oral 3 g PO DAILY 11/02/23 01/25/24 History powder (Easy Fiber) levothyroxine 100 mcg tablet 100 mcg PO QDAY 11/02/23 01/25/24 History multivitamin 1 tab PO QDAY 11/02/23 01/25/24 History calcium carbonate (Antacid Ultra 400 mg PO TID 12/19/23 01/25/24 History Strength) cyanocobalamin (vitamin B-12) 100 mcg IM QMONTH 12/19/23 01/25/24 History 1,000 mcg/mL injection solution misoprostol 200 mcg tablet 200 mcg PO .complex #2 tabs 12/20/23 01/25/24 Rx (Cytotec) ergocalciferol (vitamin D2) 1,250 1,250 mcg PO QWEEK 01/03/24 01/25/24 History mcg (50,000 unit) capsule olodaterol 2.5 mcg/actuation mist 2 puff inhalation DAILY 01/03/24 01/25/24 History for inhalation (Striverdi Respimat) Patient : No : No PFSH Medical History Wears glasses Post-menopausal Cancer Thyroid disease Kidney stones Back pain History of hiatal hernia Non-smoker Leg cramps History of irregular heartbeat Nipple discharge Osteoporosis Fibromyalgia GERD (gastroesophageal reflux disease) Naseem's disease Asthma Bladder cancer Surgical History History of appendectomy H/O total cystectomy H/O tubal ligation History of Wen fundoplication Family History Mother Diabetes Thyroid disorder Hypertension Brain cancer Father Bone cancer Grandmother CVA (cerebral vascular accident) Diabetes CAD (coronary artery disease) Hypertension Social History adopted: No household members: spouse and family number of children: 3 current occupational status: employed 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 ROS Const Constitutional: Reports system reviewed and no additional complaints, except as documented GI GI: Denies abdominal pain, cramping, nausea or vomiting : Denies pelvic pain, urinary frequency, urinary incontinence, urinary urgency, vaginal discharge, vaginal dryness or vaginal odor Exam Const General: cooperative, healthy appearing, comfortable and no acute distress GI Inspection: normal to inspection Palpation: soft and nontender Coding Level of Care Code Off vis,est,level 3 Diagnoses Post-menopausal bleeding N95.0 Assessment and Plan Assessment and Plan (1) Post-menopausal bleeding: Status: Acute Comment: recommend d and c hysteroscopy, vaginal estrogen held Plan Problem list updated and treatment plans were reviewed with the patient and relevant educational handouts given. See problem list details for specific plan information. 01/25/24 1302 Date lEen Andrade Signature: Date (if applicable) CC: Normal [facility] Discharge Instructionon 12-22 Discharge Instruction [facility] Medical Records Department [address] [place] [address] Instructions for Home/Discharge Instructions 01/10/24 1316 MR#: [id number] Acct: [id number] Name: FELA CHRISTIANSON Rep #: [id number] : 1965 58 From: Elen Bray MD PCP: Dr. Robin Allred MD Status:REG SDC Discharge Instructions Procedure D C Diet Discharge Diet: No restrictions Activity Discharge Activity: Return to Normal Activity, May Shower and May Take a Tub Bath (after 1 week) May resume sexual activity in: 1-2 weeks Weight Bearing Status: Weight bearing as tolerated Lifting Restrictions: none Dressing / Incision Call your doctor if you observe: Fever of 101 or Higher, Using more than 1 pad per hour, Shortness of breath and Uncontrolled pain Follow Up Care Please Follow Up With: Elen Bray MD When: Call [phone] to schedule appointment. Test Results: Test results from this visit will be discussed in further detail at your follow-up appointment, if applicable. Discharge Plan Admission Attending Provider: Elen Bray Primary Care Provider: Robin Allred Instructions Print Language: Latvian Discharge Orders/Prescriptions Prescriptions: No Action albuterol sulfate 90 mcg/actuation HFA aerosol inhaler 1 puff inhalation ONCE Patient Comments: rescue inhaler Qvar RediHaler 40 mcg/actuation HFA aerosol breath activated 1 inh inhalation BID levothyroxine 100 mcg tablet 100 mcg PO QDAY multivitamin Tablet 1 tab PO QDAY Easy Fiber 3 gram/3.8 gram powder 3 g PO DAILY cyanocobalamin (vitamin B-12) 1,000 mcg/mL solution 100 mcg IM QMONTH calcium carbonate [Antacid Ultra Strength] 400 mg calcium (1,000 mg) tablet,chewable 400 mg PO TID ergocalciferol (vitamin D2) 1,250 mcg (50,000 unit) capsule 1,250 mcg PO QWEEK Striverdi Respimat 2.5 mcg/actuation mist 2 puff inhalation DAILY misoprostol [Cytotec] 200 mcg tablet 200 mcg PO .complex Qty: 2 1RF Rx Instructions: take the night before and two hours prior to the procedure Referrals / Follow Up: Robin Allred MD [Primary Care Provider] - Disposition Disposition (needs filled in before D/C Order can be placed): Home, Self Care 01/10/241315 Elen Bray MD CC: Dr. Robin Allred MD Signed [facility] MR/POSTOP.ANEon 01-10-2024 MR/POSTOP.[facility] Medical Records Department [address] [place] [address] Anesthesia Postop Eval I 01/10/24 1318 MR#: [id number] Acct: [id number] Name: FELA CHRISTIANSON JULY Rep #: [id number] : 1965 58 From: Sonia Prajapati CRNA PCP: Dr. Robin Allred MD Status:REG SDC Y Race: C Location: [place] [address] Anesthesia: Postop Eval I Current Vital Signs Temperature: 98.6 F Pulse Rate: 81 Blood Pressure: 114/75 Respiratory Rate: 16 Pulse Ox: 97 Oxygen Delivery Method: Room Air Assessment Airway patent: Yes Spontaneous unlabored respirations: Yes Mental status: Awake nausea: No Vomiting: No Anesthesia Complication: No Fluid Hydration Crystalloid volume administer (ml): 30 Total IV fluid infused: 30 Progress Note Anesthesia document: Postop Eval 1 completed: Yes 01/10/241318 Date Sonia Estevezigneugenie Signature: Date CC: Signed [facility] MR/WWEYOIKU4ci 01-10-2024 MR/POSTOPAN2 [facility] Medical Records Department [address] [place] [address] Anesthesia Postop Eval II 01/10/24 1609 MR#: [id number] Acct: [id number] Name: FELA CHRISTIANSON JULY Rep #: [id number] : 1965 58 From: Darian Murray MD PCP: Dr. Robin Allred MD Status:DEP [facility] Y Race: C Location: [facility] Anesthesia Postop Eval I Sum Postop Eval Completion status Anesthesia document: Postop Eval 1 completed: Yes Anesthesia Postop Eval I Summary Anesthesia Postop Eval I Summary: Anesthesia Postop Eval I: Assessment Summary Airway patent Yes 01/10/24 13:19 ENFORCEMENT MANAGER.JDEF Spontaneous unlabored Yes 01/10/24 13:19 ENFORCEMENT MANAGER.JDEF respirations Mental status Awake 01/10/24 13:19 ENFORCEMENT MANAGER.JDEF nausea No 01/10/24 13:19 ENFORCEMENT MANAGER.JDEF Vomiting No 01/10/24 13:19 ENFORCEMENT MANAGER.JDEF Anesthesia Postop Eval I: Fluid Summary Crystalloid volume administer 30 01/10/24 13:19 ENFORCEMENT MANAGER.JDEF (ml) Colloids volume administered ( ml) Blood Product volume administered (ml) Total IV fluid infused 30 01/10/24 13:19 ENFORCEMENT MANAGER.JDEF Anesthesia Postop Eval I: Summary Notes Anesthesia Complication No 01/10/24 13:19 ENFORCEMENT MANAGER.JDEF Anesthesia Complication Comment: Post-operative progress note Anesthesia: Postop Eval II Evaluation Mental status: Awake and Calm Pain Level: 1 nausea: No Vomiting: No Complications Anesthesia Complication: No 01/10/24 1610 Date Darian Murray MD Cosigner Signature: Date CC: Signed Normal [facility] Operative Reporton 4 Operative Report [facility] Medical Records Department [address] [place] [address] Operative Report 01/10/24 1311 MR#: [id number] Acct: [id number] Name: FELA CHRISTIANSON RACHELLE Rep #: [id number] : 1965 58 From: Elen Bray MD PCP: Dr. Robin Allred MD Status:REG [facility] Location: [place] [address] Problems Associated Problem List Diagnoses (1) Post-menopausal bleeding: Operative Report (Standard) Operative Information Surgery/Procedure Performed: dilation and curettage hysteroscopy Surgeon: Elen Bray Date of Procedure: 01/10/24 Procedure Start Time: 12:56 Procedure Stop Time: 13:08 Pre-Operative Diagnosis: see problem list Post-Operative Diagnosis: same Select all DRAINS/GRAFTS/IMPLANTS that apply: None Type of Anesthesia: IV Sedation and Local Estimated Blood Loss: 25 Specimen collected: Yes Description of specimen(s) removed: endometrial curettings Description of surgery: Patient was prepped and draped in a normal sterile fashion under MAC anesthesia. A weighted speculum was placed in the vagina and the anterior lip of the cervix was grasped with a single-tooth tenaculum. A paracervical block was placed with 1% lidocaine. Cervix was progressively dilated to allow passage of a 5 mm hysteroscope. The lining was fully visualized and noted to have think atrophic lining . Uterine sounded to 6 cm. Curettage was performed and small amount of tissue rremoved , sent to pathology. All instruments were removed from the vagina and excellent hemostasis was noted. Patient was awoken and taken to recovery in stable condition. Surgical Findings: nl uterine cavity Motion Picture Projectionist structural fitter: No Complications Complications: No Multi Select Codes Urinary/Genital Urinary/Genital CPT Codes: 08696 Hysteroscopy,EMC, Polypectomy 01/10/24 1316 Cosigner Signature (if applicable): CC: Dr. Robin Allred MD; Dr. Elen Bray MD Signed Normal [facility] Surgery Specimen Level Bryn 01-10-2024 Surgery Specimen Level IV -------- Patient Age/Sex Location Account Attending Physician -------- MEGHANFELA July/ [facility] [id number] Dr. Elen Bray MD -------- Specimen: [id number] Received: 01/10/24 Status: JOHN Holm Num: [id number] Spec Type: ENDOM BX/C Subm Dr: Dr. Elen Bray MD HEADER OPERATION: Hysteroscopy, D C PRE-OP DIAGNOSIS: Dysfunctional uterine bleeding TISSUE SUBMITTED: Endometrial curettings -------- MICROSCOPIC DIAGNOSIS Endometrial curettings: Scant fragments of superficial benign endometrial tissue. Fragments of benign ectocervical epithelium, blood and mucus. SJ. 01/12/2024 MICROSCOPIC DESCRIPTION Slides are reviewed. GROSS DESCRIPTION Received in fixative is one container labeled with the patient's name and designated Endometrial curettings. The specimen consists of grayish-hamilton mucoid material measuring in aggregate 1.0 x 0.5 x 0.1cm. The entire specimen is submitted in one cassette. FA. 01/11/2024 TC:4 CPT:94467 -------- Patient Age/Sex Location Account Attending Physician -------- FELA CHRISTIANSON July [facility] [id number] Dr. Elen Bray MD -------- Signed (signature on file) Dr. David Sethi MD 01/12/24 1503 -------- Normal [facility] Comment on above: Performed By: #### P ELAINA #### [facility] [address] [place], [address] 12 Lead EKGon 01-04-2024 12 Lead EKG [facility] Cardiovascular Services [address] [place] [address] 12 Lead EKG 01/04/24 0712 MR#: [id number] Acct: [id number] Name: FELA CHRISTIANSON Rep #: [id number] : 1965 58 From: Ceasar Louie MD Attending Dr: Dr. Elen Bray MD Status: PRE [facility] Ordering Dr: Elen Bray MD Date: 01/04/24 Location: [facility] Sex: F C Admitted: Test Reason : PREOP Blood Pressure : */* mmHG Vent. Rate : 73 BPM Atrial Rate : 73 BPM P-R Int : 124 ms QRS Dur : 68 ms QT Int : 380 ms P-R-T Axes : 52 62 51 degrees QTcB Int : 418 ms Normal sinus rhythm Normal ECG Confirmed by CEASAR LOUIE MD ([id number]), photography editor TASNEEM RIOS ([id number]) on 01/04/2024 2:11:15 PM Referred By: Elen Bray Confirmed By: CEASAR LOUIE MD 01/04/24 1411 Date Ceasar Louie MD CC: Dr. Robin Allred MD; Dr. Elen Bray MD Signed Normal [facility] CBC-Complete Blood Cnt No Di ffon 01-04-2024 Erythrocyte distribution width (RBC) [Ratio] 12.4 % Normal 11.6-14.6 [facility] Comment on above: Performed By: #### L 100.0500, L500.4050, BTSPAT #### [facility] [address] [place], [address] Hematocrit (Bld) [Volume fraction] 45.3 % Normal 37-47 [facility] Comment on above: Performed By: #### L 100.0500, L500.4050, BTSPAT #### [facility] [address] [place], [address] Hemoglobin (Bld) [Mass/Vol] 15.2 g/dL High 12.0-15.0 [facility] Comment on above: Performed By: #### L 100.0500, L500.4050, BTSPAT #### [facility] [address] [place], [address] MCH (RBC) [Entitic mass] 30.6 pg Normal 27.0-32.0 [facility] Comment on above: Performed By: #### L 100.0500, L500.4050, BTSPAT #### [facility] [address] [place], [address] MCHC (RBC) [Mass/Vol] 33.6 g/dL Normal 32-36 [facility] Comment on above: Performed By: #### L 100.0500, L500.4050, BTSPAT #### [facility] [address] [place], [address] MCV (RBC) [Entitic vol] 91.3 fL Normal 81-99 [facility] Comment on above: Performed By: #### L 100.0500, L500.4050, BTSPAT #### [facility] [address] [place], [address] Platelet mean volume (Bld) [Entitic vol] 9.6 fL Normal 6.2-12.0 [facility] Comment on above: Performed By: #### L 100.0500, L500.4050, BTSPAT #### [facility] [address] [place], [address] Platelets (Bld) [#/Vol] 259 10*3/uL Normal 150-450 [facility] Comment on above: Performed By: #### L 100.0500, L500.4050, BTSPAT #### [facility] [address] [place], [address] RBC (Bld) [#/Vol] 4.96 10*6/uL Normal 4.2-5.4 [facility] Comment on above: Performed By: #### L 100.0500, L500.4050, BTSPAT #### [facility] [address] [place], [address] RDW SD 41.3 fl Normal 35.1-43.9 [facility] Comment on above: Performed By: #### L 100.0500, L500.4050, BTSPAT #### [facility] [address] [place], [address] WBC (Bld) [#/Vol] 6.0 10*3/uL Normal 4.4-11.0 [facility] Comment on above: Performed By: #### L 100.0500, L500.4050, BTSPAT #### [facility] [address] [place], [address] Comprehensive Metabolic Prof [facility] 01-04-2024 Albumin [Mass/Vol] 3.4 g/dL Normal 3.2-5.0 [facility] Comment on above: Performed By: #### L 100.0500, L500.4050, BTSPAT #### [facility] [address] [place], [address] Albumin/Globulin [Mass ratio] 1.1 {ratio} Normal 0.9-2.4 [facility] Comment on above: Performed By: #### L 100.0500, L500.4050, BTSPAT #### [facility] [address] [place], [address] ALK P 102 U/L Normal 45-117 [facility] Comment on above: Performed By: #### L 100.0500, L500.4050, BTSPAT #### [facility] [address] [place], [address] ALT [Catalytic activity/Vol] 40 U/L Normal 13-56 [facility] Comment on above: Performed By: #### L 100.0500, L500.4050, BTSPAT #### [facility] [address] [place], [address] AST [Catalytic activity/Vol] 26 U/L Normal 15-37 [facility] Comment on above: Performed By: #### L 100.0500, L500.4050, BTSPAT #### [facility] [address] [place], [address] Bilirubin [Mass/Vol] 0.60 mg/dL Normal 0.20-1.00 [facility] Comment on above: Result Comment: For patients on eltrombopag therapy, use of Dimension [place] TBIL is not recommended. Performed By: #### L 100.0500, L500.4050, BTSPAT #### [facility] [address] [place], [address] BUN/CRE 16.0 RATIO Normal 10-20 [facility] Comment on above: Performed By: #### L 100.0500, L500.4050, BTSPAT #### [facility] [address] [place], [address] CA,Total 8.8 mg/dL Normal 8.5-10.1 [facility] Comment on above: Performed By: #### L 100.0500, L500.4050, BTSPAT #### [facility] [address] [place], [address] Chloride [Moles/Vol] 113 mmol/L High 98-107 [facility] Comment on above: Performed By: #### L 100.0500, L500.4050, BTSPAT #### [facility] [address] [place], [address] CO2 [Moles/Vol] 29.0 mmol/L Normal 21.0-32.0 [facility] Comment on above: Performed By: #### L 100.0500, L500.4050, BTSPAT #### [facility] [address] [place], [address] Creatinine [Mass/Vol] 0.75 mg/dL Normal 0.55-1.02 [facility] Comment on above: Result Comment: The validity of the calculated GFR GFRAA in patients over 70 years has not been determined. Clinical correlation is essential. Performed By: #### L 100.0500, L500.4050, BTSPAT #### [facility] [address] [place], [address] EST GFR - AA 102 mL/min Normal >60 [facility] Comment on above: Result Comment: Afri can [place] GFR Calc Performed By: #### L 100.0500, L500.4050, BTSPAT #### [facility] [address] [place], [address] GAP 2 Low 5-15 [facility] Comment on above: Performed By: #### L 100.0500, L500.4050, BTSPAT #### [facility] [address] [place], [address] GFR/1.73 sq M.predicted among non-blacks MDRD (S/P/Bld) [Vol rate/Area] 85 mL/min/{1.73_m2} Normal >60 [facility] Comment on above: Result Comment: Non- GFR Calc Performed By: #### L 100.0500, L500.4050, BTSPAT #### [facility] [address] [place], [address] Globulin (S) [Mass/Vol] 3.1 g/dL Normal 2.2-4.2 [facility] Comment on above: Performed By: #### L 100.0500, L500.4050, BTSPAT #### [facility] [address] [place], [address] Glucose [Mass/Vol] 59 mg/dL Low 74-106 [facility] Comment on above: Performed By: #### L 100.0500, L500.4050, BTSPAT #### [facility] [address] [place], [address] Potassium [Moles/Vol] 4.1 mmol/L Normal 3.5-5.1 [facility] Comment on above: Performed By: #### L 100.0500, L500.4050, BTSPAT #### [facility] [address] [place], [address] Sodium [Moles/Vol] 143 mmol/L Normal 136-145 [facility] Comment on above: Performed By: #### L 100.0500, L500.4050, BTSPAT #### [facility] [address] [place], [address] T PROT 6.5 g/dL Normal 6.4-8.2 [facility] Comment on above: Performed By: #### L 100.0500, L500.4050, BTSPAT #### [facility] [address] [place], [address] Urea nitrogen [Mass/Vol] 12 mg/dL Normal 7-18 [facility] Comment on above: Performed By: #### L 100.0500, L500.4050, BTSPAT #### [facility] [address] [place], [address] Type AND Screen - PAT ONLYon 01-04-2024 Ab SCREEN GEL Negative Normal [facility] Comment on above: Order Comment: Surge ry Date: 01/10/24 Reason for Laboratory Test PRE-OP [id number] No N N S HYSTEROSCOPY, D C, SYMPHION Performed By: #### L 100.0500, L500.4050, BTSPAT #### [facility] [address] [place], [address] ABO and Rh group Nom (Bld) Blood group O Rh(D) positive Normal [facility] Comment on above: Order Comment: Surge ry Date: 01/10/24 Reason for Laboratory Test PRE-OP [id number] No N N S HYSTEROSCOPY, D C, SYMPHION Performed By: #### L 100.0500, L500.4050, BTSPAT #### [facility] [address] [place], [address] CT CHEST WO IV CONTRASTon CT CHEST WO IV CONTRAST Interpreted By: Karthik Brar, STUDY: CT CHEST WO IV CONTRAST; 12/29/2023 8:02 am INDICATION: Signs/Symptoms:Continuing left rib pain. COMPARISON: CT chest dated 11/20/2020. ACCESSION NUMBER(S): [id number] ORDERING CLINICIAN: BROOKLYNN CHRISTENSEN TECHNIQUE: Helical data acquisition of the chest was obtained without IV contrast material. Images were reformatted in axial, coronal, and sagittal planes. FINDINGS: LUNGS AND AIRWAYS: The trachea and central airways are patent. No endobronchial lesion. There is mild biapical pleuroparenchymal scarring. No focal consolidation, pleural effusion, or pneumothorax. A few calcified granulomas are visualized within the bilateral lungs. No discrete suspicious noncalcified solid pulmonary nodules. MEDIASTINUM AND LINDA, LOWER NECK AND AXILLA: The visualized thyroid gland is within normal limits. No evidence of thoracic lymphadenopathy by CT criteria. Esophagus appears within normal limits as seen. HEART AND VESSELS: The thoracic aorta is of normal course and caliber with mild vascular calcifications. Main pulmonary artery and its branches are normal in caliber. No coronary artery calcifications are seen. The study is not optimized for evaluation of coronary arteries. The cardiac chambers are not enlarged. No evidence of pericardial effusion. UPPER ABDOMEN: The visualized subdiaphragmatic structures demonstrate no remarkable findings. CHEST WALL AND OSSEOUS STRUCTURES: The chest wall soft tissues are unremarkable. No acute osseous abnormalities or suspicious osseous lesions. Multilevel discogenic degenerative changes are noted throughout the thoracic spine with scattered intervertebral disc space narrowing and vertebral body osteophytosis. IMPRESSION: 1. No acute osseous abnormalities or suspicious osseous lesions. 2. No acute cardiopulmonary process. MACRO: None Signed by: Karthik Brar 12/30/2023 7:18 PM Dictation workstation: [id number] [facility] Surgery Visit Reporton 12-27 Surgery Visit Report [facility] [address] [place], [place] [address] OFFICE VISIT Date of Service: 12/28/23 MR#: [id number] Acct: [id number] Name: FELA CHRISTIANSON Rep #: [id number] : 1965 Provider: Dr. Nelda jordan MD Age/Sex: 58/F Location: [facility] Status: Signed Intake Vital Signs 12/19/23 15:18 12/28/23 08:53 Height 5 ft 10 in 5 ft 10 in Weight: 141 lb 140 lb BMI 20.2 20.0 BP 118/75 111/72 Blood Pressure Location Rt brachial Position Sitting Respiration 18 Pulse 87 Pulse Source Monitor Temp 97.3 F L Temp Source Temporal Pulse Oximetry (%) 99 Oxygen Delivery Method room air Intake Visit Reasons: BREAST PAIN/NIPPLE DISCHARGE Chief Complaint: breast pain/ nipple discharge Is patient in pain?: No Allergies albuterol Allergy (Verified 12/28/23 08:54) Hives Medications ???Medication ???Instructions ???Recorded ???Confirmed ???Type albuterol sulfate 90 mcg/actuation 1 puff inhalation ONCE 11/02/23 12/28/23 History aerosol inhaler beclomethasone dipropionate 40 1 inh inhalation BID 11/02/23 12/28/23 History mcg/actuation HFA breath activated aerosol (Qvar RediHaler) biotin 1 mg capsule 1 mg PO QDAY 11/02/23 12/28/23 History dextrin 3 gram/3.8 gram oral g PO 11/02/23 12/28/23 History powder (Easy Fiber) levothyroxine 100 mcg tablet 100 mcg PO QDAY 11/02/23 12/28/23 History multivitamin 1 tab PO QDAY 11/02/23 12/28/23 History omega-3 acid ethyl esters 1 gram 1 cap PO QDAY 11/02/23 12/28/23 History capsule calcium carbonate (Antacid Ultra 400 mg PO QDAY 12/19/23 12/28/23 History Strength) cholecalciferol (vitamin D3) 250 250 mcg PO QWEEK 12/19/23 12/28/23 History mcg (10,000 unit) capsule cyanocobalamin (vitamin B-12) 100 mcg IM QMONTH 12/19/23 12/28/23 History 1,000 mcg/mL injection solution misoprostol 200 mcg tablet 200 mcg PO .complex #2 tabs 12/20/23 12/28/23 Rx (Cytotec) PFSH Medical History (Updated 12/28/23 @ 08:53 by Marley Brar LPN) Nipple discharge Osteoporosis Bladder cancer Fibromyalgia GERD (gastroesophageal reflux disease) Naseem's disease Asthma Surgical History History of appendectomy H/O total cystectomy H/O tubal ligation History of Wen fundoplication Family History Mother Diabetes Thyroid disorder Hypertension Brain cancer Father Bone cancer Grandmother CVA (cerebral vascular accident) Diabetes CAD (coronary artery disease) Hypertension Social History adopted: No household members: spouse and family number of children: 3 current occupational status: employed 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 Patient states she has had this for quite a while but does seem like its gotten worse more recently since she has had weight loss due to her Wen surgery/complications with surgery. Patient is lost about 88 pounds. Patient states that she does get spontaneous clear nipple discharge daily. Patient states the pain is a burning type pain and can occasionally be throbbing. Patient did have an MRI however the read states the quality is limited due to the breast not being against the coils-but does call it negative for malignancy. Patient does have a strong family history of breast cancer her 3 paternal aunts were diagnosed as well as her maternal aunt and her niece is currently dealing with inflammatory breast cancer. Patient did have genetic testing in 2021 myriad which was negative. Patient was also seen at the breast center at . Nurse practitioner who did review all these results and did recommend evening primrose oil back in August. Patient states that the primrose oil did not do anything to help with the pain or discomfort. ROS General General: Yes weight change (loss 88) and fatigue; No appetite, colon cancer, breast cancer or weakness HEENT HEENT: Yes swollen glands; No difficulty swallowing, eye injury, eye surgery or hoarseness Endo Endocrine: Yes thyroid disease; No diabetes mellitus, thyroid cancer, Hair loss, heat intolerance or cold intolerance Skin Skin: No rash or changing moles Breast Breast: Yes nipple discharge and breast pain; No left breast lump, right breast lump, abnormal mammog (more content not included)... Normal [facility] Paper Cutter Office Visit Reporton 12-19-2023 Paper Cutter Office Visit Report [facility]'s [address], [address] [place] [address] OFFICE VISIT Date of Service: 12/19/23 MR#: [id number] Acct: [id number] Name: FELA CHRISTIANSON JULY Rep #: [id number] : 1965 Provider: Dr. Elen savage MD Age/Sex: 58/F Location: [facility] [place] Status: Signed Intake Vital Signs 11/02/23 07:55 12/19/23 15:18 Height 5 ft 10 in 5 ft 10 in Weight: 141 lb BMI 20.2 BP 118/75 Intake Visit Reasons: Surgical consultation Patient Registration Manager Required: No Is patient in pain?: Yes (chronic pain - headache and back pain) Feel stressed/tense/nervous/anxio us/difficulty sleeping: not at all Allergies albuterol Allergy (Verified 12/19/23 15:20) Hives Medications ???Medication ???Instructions ???Recorded ???Confirmed ???Type albuterol sulfate 90 mcg/actuation 1 puff inhalation ONCE 11/02/23 12/19/23 History aerosol inhaler beclomethasone dipropionate 40 1 inh inhalation BID 11/02/23 12/19/23 History mcg/actuation HFA breath activated aerosol (Qvar RediHaler) biotin 1 mg capsule 1 mg PO QDAY 11/02/23 12/19/23 History dextrin 3 gram/3.8 gram oral g PO 11/02/23 12/19/23 History powder (Easy Fiber) levothyroxine 100 mcg tablet 100 mcg PO QDAY 11/02/23 12/19/23 History multivitamin 1 tab PO QDAY 11/02/23 12/19/23 History omega-3 acid ethyl esters 1 gram 1 cap PO QDAY 11/02/23 12/19/23 History capsule calcium carbonate (Antacid Ultra 400 mg PO QDAY 12/19/23 12/19/23 History Strength) cholecalciferol (vitamin D3) 250 250 mcg PO QWEEK 12/19/23 12/19/23 History mcg (10,000 unit) capsule cyanocobalamin (vitamin B-12) 100 mcg IM QMONTH 12/19/23 12/19/23 History 1,000 mcg/mL injection solution Is last menstrual period known: No Post menopausal: Yes Patient : No : No [facility] Medical History (Updated 12/19/23 @ 15:[address] Elen Bray MD) Osteoporosis Bladder cancer Fibromyalgia GERD (gastroesophageal reflux disease) Naseem's disease Asthma Surgical History (Updated 11/02/23 @ 08:26 by Miriam Handley) History of appendectomy H/O total cystectomy H/O tubal ligation History of Wen fundoplication Family History (Updated 11/02/23 @ 08:27 by Miriam Handley) Mother Diabetes Thyroid disorder Hypertension Brain cancer Father Bone cancer Grandmother CVA (cerebral vascular accident) Diabetes CAD (coronary artery disease) Hypertension Social History (Updated 11/02/23 @ 08:28 by Miriam Handley) adopted: No household members: spouse and family number of children: 3 current occupational status: employed 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 she has had several episodes of vaginal bleeding for the last few months on and off. she has a history of bladder cancer that was removed in 2019 and she has had routine followup for that. she has been on vaginal estrogen. she has struggled with weight loss after 2022 wen surgery. she has some dyspareunia and vaginal estrogen didn't help with that. this started years after her bladder surgery. Female Reproductive History Menopausal Symptoms: No night sweats ROS Const Constitutional: Reports fatigue and weight loss; Denies night sweats or weight gain ENT ENT: Reports system reviewed and no additional complaints, except as documented Cardio Card: Reports chest pain (evaluated in the ER for this not cardiac) Resp Resp: Denies cough or dyspnea GI GI: Reports as per HPI, abdominal pain and nausea; Denies constipation or vomiting : Reports nipple discharge, urinary frequency, urinary incontinence and urinary urgency; Denies urinary hesitancy, vaginal discharge, vaginal dryness, vaginal odor or vaginal pruritus Musc Musc: Reports arthralgias and back pain; Denies muscle weakness Skin Skin/Breast: Reports nipple discharge; Denies alopecia, change in hair, dry skin, breast mass, breast pain or breast skin changes Neuro Neuro: Reports system reviewed and no additional complaints, except as documented Psych Psych: Reports system reviewed and no additional complaints, except as documented Endo Endo: Reports cold intolerance; Denies excessive sweating, heat intolerance or polydipsia Sai/Lymph Hematologic/Lymphatic: Reports easy bleeding, Reports easy bruising and Denies lymphadenopathy Exam Const General: cooperative, healthy appearing, comfortable, no ac (more content not included)... Normal [facility] CBC W Auto Differential pane l (Bld)on 11-30-2023 Basophils (Bld) [#/Vol] 0.03 10*3/uL [facility] Basophils/100 WBC (Bld) 0.5 % 0.0 - 2.0 % [facility] Eosinophils (Bld) [#/Vol] 0.17 10*3/uL [facility] Eosinophils/100 WBC (Bld) 2.8 % 0.0 - 6.0 % [facility] Erythrocyte distribution width (RBC) [Ratio] 12.2 % 11.5 - 14.5 % [facility] Hematocrit (Bld) [Volume fraction] 43.8 % 36.0 - 46.0 % [facility] Hemoglobin (Bld) [Mass/Vol] 14.5 g/dL 12.0 - 16.0 g/dL [facility] Immature granulocytes (Bld) [#/Vol] 0.01 10*3/uL [facility] Immature granulocytes/100 WBC (Bld) 0.2 % 0.0 - 0.9 % [facility] Comment on above: Immature Granulocyte Count (IG) includes promyelocytes, myelocytes and metamyelocytes but does not include bands. Percent differential counts (%) should be interpreted in the context of the absolute cell counts (cells/UL). Lymphocytes (Bld) [#/Vol] 1.69 10*3/uL [facility] Lymphocytes/100 WBC (Bld) 28.1 % 13.0 - 44.0 % [facility] MCH (RBC) [Entitic mass] 30.2 pg 26.0 - 34.0 pg [facility] MCHC (RBC) [Mass/Vol] 33.1 g/dL 32.0 - 36.0 g/dL [facility] MCV (RBC) [Entitic vol] 91 fL 80 - 100 fL [facility] Monocytes (Bld) [#/Vol] 0.55 10*3/uL [facility] Monocytes/100 WBC (Bld) 9.1 % 2.0 - 10.0 % [facility] Neutrophils (Bld) [#/Vol] 3.57 10*3/uL [facility] Comment on above: Percent differential counts (%) should be interpreted in the context of the absolute cell counts (cells/uL). Neutrophils/100 WBC (Bld) 59.3 % 40.0 - 80.0 % [facility] Nucleated RBC/100 WBC (Bld) [Ratio] 0.0 % [facility] Platelets (Bld) [#/Vol] 180 10*3/uL [facility] RBC (Bld) [#/Vol] 4.80 10*6/uL [facility] WBC (Bld) [#/Vol] 6.0 10*3/uL [facility] Basophils (Bld) [#/Vol] 0.03 x10*3/uL Normal 0.00-0.10 [facility] Comment on above: Performed By: #### 7021-8 #### GORAN SLATER ([id number]) [facility] ([place]) [address] [place] [address] 89274 Basophils/100 WBC (Bld) 0.5 % Normal 0.0-2.0 [facility] Comment on above: Performed By: #### 7021-8 #### GORAN SLATER ([id number]) [facility] ([place]) [address] [place] [address] 81882 Eosinophils (Bld) [#/Vol] 0.17 x10*3/uL Normal 0.00-0.70 [facility] Comment on above: Performed By: #### 70-8 #### GORAN SLATER ([id number]) [facility] ([place]) [address] [place] [address] 46995 Eosinophils/100 WBC (Bld) 2.8 % Normal 0.0-6.0 [facility] Comment on above: Performed By: #### 70-8 #### GORAN SLATER ([id number]) [facility] ([place]) [address] [place] [address] 32879 Erythrocyte distribution width (RBC) [Ratio] 12.2 % Normal 11.5-14.5 [facility] Comment on above: Performed By: #### 7021-8 #### GORAN SLATER ([id number]) [facility] ([place]) [address] [place] [address] 91846 Hematocrit (Bld) [Volume fraction] 43.8 % Normal 36.0-46.0 [facility] Comment on above: Performed By: #### 7021-8 #### GORAN SLATER ([id number]) [facility]) [address] [place] [address] 98656 Hemoglobin (Bld) [Mass/Vol] 14.5 g/dL Normal 12.0-16.0 [facility] Comment on above: Performed By: #### 7021-8 #### GORAN SLATER ([id number]) [facility]) [address] [place] [address] 49707 Immature granulocytes (Bld) [#/Vol] 0.01 x10*3/uL Normal 0.00-0.70 [facility] Comment on above: Performed By: #### 5 7021-8 #### GORAN SLATER ([id number]) [facility]) [address] [place] [address] 55628 Immature granulocytes/100 WBC (Bld) 0.2 % Normal 0.0-0.9 [facility] Comment on above: Result Comment: Rosey ture Granulocyte Count (IG) includes promyelocytes, myelocytes and metamyelocytes but does not include bands. Percent differential counts (%) should be interpreted in the context of the absolute cell counts (cells/UL). Performed By: #### 5 7021-8 #### GORAN SLATER ([id number]) [facility]) [address] [place] [address] 20849 Lymphocytes (Bld) [#/Vol] 1.69 x10*3/uL Normal 1.20-4.80 [facility] Comment on above: Performed By: #### 5 7021-8 #### GORAN SLATER ([id number]) [facility]) [address] [place] [address] 58556 Lymphocytes/100 WBC (Bld) 28.1 % Normal 13.0-44.0 [facility] Comment on above: Performed By: #### 5 7021-8 #### GORAN SLATER ([id number]) [facility]) [address] [place] [address] 33405 MCH (RBC) [Entitic mass] 30.2 pg Normal 26.0-34.0 [facility] Comment on above: Performed By: #### 5 7021-8 #### GORAN SLATER ([id number]) [facility]) [address] [place] [address] 29596 MCHC (RBC) [Mass/Vol] 33.1 g/dL Normal 32.0-36.0 [facility] Comment on above: Performed By: #### 5 7021-8 #### GORAN SLATER (49701) [facility]) [facility] [place] [address] MCV (RBC) [Entitic vol] 91 fL Normal 80-100 [facility] Comment on above: Performed By: #### 5 7021-8 #### GORAN SLATER ([id number]) [facility]) [address] [place] [address] 81303 Monocytes (Bld) [#/Vol] 0.55 x10*3/uL Normal 0.10-1.00 [facility] Comment on above: Performed By: #### 5 7021-8 #### GORAN SLATER (50193) [facility]) [address] [place] [address] 93460 Monocytes/100 WBC (Bld) 9.1 % Normal 2.0-10.0 [facility] Comment on above: Performed By: #### 5 7021-8 #### GORAN SLATER (48201) [facility]) [address] [place] [address] 72173 Neutrophils (Bld) [#/Vol] 3.57 x10*3/uL Normal 1.20-7.70 [facility] Comment on above: Result Comment: Perc ent differential counts (%) should be interpreted in the context of the absolute cell counts (cells/uL). Performed By: #### 5 7021-8 #### GORAN SLATER (84022) [facility]) [address] [place] [address] 19888 Neutrophils/100 WBC (Bld) 59.3 % Normal 40.0-80.0 [facility] Comment on above: Performed By: #### 5 7021-8 #### GORAN SLATER ([id number]) [facility]) [address] [place] [address] 57069 Nucleated RBC/100 WBC (Bld) [Ratio] 0.0 /100 WBCs Normal 0.0-0.0 [facility] Comment on above: Performed By: #### 5 7021-8 #### GORAN SLATER (93087) [facility]) [facility] [place] [address] Platelets (Bld) [#/Vol] 180 x10*3/uL Normal 150-450 [facility] Comment on above: Performed By: #### 5 7021-8 #### GORAN SLATER ([id number]) [facility]) [facility] [place] [address] RBC (Bld) [#/Vol] 4.80 x10*6/uL Normal 4.00-5.20 [facility] Comment on above: Performed By: #### 5 7021-8 #### GORAN SLATER ([id number]) [facility]) [address] [place] [address] WBC (Bld) [#/Vol] 6.0 x10*3/uL Normal 4.4-11.3 [facility] Comment on above: Performed By: #### 5 7021-8 #### GORAN SLATER ([id number]) [facility]) [address] [place] [address] Comprehensive metabolic 2000 panelon 11-30-2023 Albumin BCP dye [Mass/Vol] 4.0 g/dL 3.4 - 5.0 g/dL [facility] ALP [Catalytic activity/Vol] 73 U/L 33 - 110 U/L [facility] ALT With P-5'-P [Catalytic activity/Vol] 19 U/L 7 - 45 U/L [facility] Comment on above: Patients treated wit h Sulfasalazine may generate falsely decreased results for ALT. Anion gap [Moles/Vol] 9 mmol/L Low 10 - 20 mmol/L [facility] AST With P-5'-P [Catalytic activity/Vol] 16 U/L 9 - 39 U/L [facility] Bilirubin [Mass/Vol] 0.7 mg/dL 0.0 - 1.2 mg/dL [facility] Calcium [Mass/Vol] 9.1 mg/dL 8.6 - 10. 3 mg/dL [facility] Chloride [Moles/Vol] 107 mmol/L 98 - 107 mmol/L [facility] CO2 [Moles/Vol] 29 mmol/L 21 - 32 mmol/L [facility] Creatinine [Mass/Vol] 0.82 mg/dL 0.50 - 1.05 mg/dL [facility] GFR/1.73 sq M.predicted among non-blacks MDRD (S/P/Bld) [Vol rate/Area] 84 mL/min/{1.73_m2} - PINF [facility] Comment on above: Calculations of alexia mated GFR are performed using the 2020 CKD-EPI Study Refit equation without the race variable for the IDMS-Traceable creatinine methods. https://jasn.asnjournals.org/content//ASN.451027622 8 Glucose [Mass/Vol] 79 mg/dL 74 - 99 mg/dL [facility] Interpretation and review of laboratory results Abnormal [facility] Potassium [Moles/Vol] 3.6 mmol/L 3.5 - 5.3 mmol/L [facility] Protein [Mass/Vol] 6.3 g/dL Low 6.4 - 8.2 g/dL [facility] Sodium [Moles/Vol] 141 mmol/L 136 - 145 mmol/L [facility] Urea nitrogen [Mass/Vol] 17 mg/dL 6 - 23 mg/dL [facility] Albumin BCP dye [Mass/Vol] 4.0 g/dL Normal 3.4-5.0 [facility] Comment on above: Performed By: #### 2 4323-8 #### GORAN SLATER ([id number]) [facility]) [address] [place] [address] 32613 ALP [Catalytic activity/Vol] 73 U/L Normal 33-110 [facility] Comment on above: Performed By: #### 2 4323-8 #### GORAN SLATER ([id number]) [facility]) [facility] [place] [address] ALT With P-5'-P [Catalytic activity/Vol] 19 U/L Normal 7-45 [facility] Comment on above: Result Comment: Neeru ents treated with Sulfasalazine may generate falsely decreased results for ALT. Performed By: #### 2 4323-8 #### GORAN SLATER (21485) [facility]) [address] [place] [address] 90356 Anion gap [Moles/Vol] 9 mmol/L Low 10-20 [facility] Comment on above: Performed By: #### 2 4323-8 #### GORAN SLATER (23117) [facility]) [address] [place] [address] 07339 AST With P-5'-P [Catalytic activity/Vol] 16 U/L Normal 9-39 [facility] Comment on above: Performed By: #### 2 4323-8 #### GORAN SLATER (34292) [facility]) [address] [place] [address] 75722 Bilirubin [Mass/Vol] 0.7 mg/dL Normal 0.0-1.2 [facility] Comment on above: Performed By: #### 2 4323-8 #### GORAN SLATER (62087) [facility]) [address] [place] [address] 11892 Calcium [Mass/Vol] 9.1 mg/dL Normal 8.6-10.3 [facility] Comment on above: Performed By: #### 2 4323-8 #### GORAN SLATER (71079) [facility]) [address] [place] [address] 13849 Chloride [Moles/Vol] 107 mmol/L Normal 98-107 [facility] Comment on above: Performed By: #### 2 4323-8 #### GORAN SLATER (99829) [facility]) [address] [place] [address] 92194 CO2 [Moles/Vol] 29 mmol/L Normal 21-32 [facility] Comment on above: Performed By: #### 2 4323-8 #### GORAN SLATER (55735) [facility]) [address] [place] [address] 85818 Creatinine [Mass/Vol] 0.82 mg/dL Normal 0.50-1.05 [facility] Comment on above: Performed By: #### 2 432-8 #### GORAN SLATER (77562) [facility]) [address] [place] [address] 67032 Glomerular filtration rate/1.73 sq M.predicted 84 mL/min/1.73m*2 Normal >60 [facility] Comment on above: Result Comment: Calc ulations of estimated GFR are performed using the 2020 CKD-EPI Study Refit equation without the race variable for the IDMS-Traceable creatinine methods. https://jasn.asnjournals.org/content//ASN.480914071 8 Performed By: #### 2 432-8 #### GORAN SLATER ([id number]) [facility]) [address] [place] [address] 12733 Glucose [Mass/Vol] 79 mg/dL Normal 74-99 [facility] Comment on above: Performed By: #### 2 4322-8 #### GORAN SLATER (77790) [facility]) [address] [place] [address] 31287 Potassium [Moles/Vol] 3.6 mmol/L Normal 3.5-5.3 [facility] Comment on above: Performed By: #### 2 4322-8 #### GORAN SLATER ([id number]) [facility]) [address] [place] [address] 92660 Protein [Mass/Vol] 6.3 g/dL Low 6.4-8.2 [facility] Comment on above: Performed By: #### 2 4322-8 #### GORAN SLATER ([id number]) [facility]) [address] [place] [address] 22192 Sodium [Moles/Vol] 141 mmol/L Normal 136-145 [facility] Comment on above: Performed By: #### 2 4322-8 #### GORAN SLATER ([id number]) [facility]) [address] [place] [address] Urea nitrogen [Mass/Vol] 17 mg/dL Normal 6-23 [facility] Comment on above: Performed By: #### 2 4323-8 #### GORAN SLATER ([id number]) [facility]) [address] [place] [address] D-Dimer, VTE ExclusionOrdere d By: Sherrie Glez on 11-30-2023 Fibrin D-dimer FEU (PPP) [Mass/Vol] 215 NINF [facility] ECG 12 leadOrdered By: Mindy Whaley on 11-30-2023 Atrial Rate 72 BPM [facility] Work Phone: P Bath 71 degrees [facility] Work Phone: P Offset 184 [facility] Work Phone: P Onset 134 [facility] Work Phone: CT Interval 168 [facility] Work Phone: Q Onset 218 [facility] Work Phone: QRS Count 12 beats [facility] Work Phone: QRS Duration 78 ms [facility] Work Phone: QT Interval 392 [facility] Work Phone: QTC Calculation(Bazett ) 429 [facility] Work Phone: QTC Fredericia 416 [facility] Work Phone: R Bath 70 degrees [facility] Work Phone: T Bath 61 degrees [facility] Work Phone: T Offset 414 [facility] Work Phone: Ventricular Rate 72 BPM [facility] Work Phone: [facility] Work Phone: Atrial Rate 78 BPM [facility] Work Phone: P Bath 74 degrees [facility] Work Phone: P Offset 187 ms [facility] Work Phone: P Onset 137 ms [facility] Work Phone: CT Interval 158 ms [facility] Work Phone: Q Onset 216 ms [facility] Work Phone: QRS Count 13 beats [facility] Work Phone: QRS Duration 86 ms [facility] Work Phone: QT Interval 384 ms [facility] Work Phone: QTC Calculation(Bazett ) 437 ms [facility] Work Phone: QTC Fredericia 419 ms [facility] Work Phone: R Bath 59 degrees [facility] Work Phone: T Bath 57 degrees [facility] Work Phone: T Offset 408 ms [facility] Work Phone: Ventricular Rate 78 BPM [facility] Work Phone: [facility] Work Phone: ECG 12 leadon 11-30-2023 Normal sinus rhythm Normal ECG No previous ECGs available See ED provider note for full interpretation and clinical correlation Confirmed by Alisa Whaley ([id number]) on 11/30/2023 5:52:43 PM MUSE Carine Whaley, CARTOGRAPHIC TECHNICIAN-HOSPICE HOME CARE COORDINATOR - 11/30/2023 Normal sinus rhythm Normal ECG No previous ECGs available See ED provider note for full interpretation and clinical correlation Confirmed by Alisa Whaley ([id number]) on 11/30/2023 5:52:43 PM [facility] Work Phone: Normal sinus rhythm Normal ECG When compared with ECG of 29-MAY-2022 13:34, T wave amplitude has increased in Anterior leads See ED provider note for full interpretation and clinical correlation Confirmed by Alisa Whaley ([id number]) on 11/30/2023 5:51:41 PM MUSE Carine Whaley APRN-HOSPICE HOME CARE COORDINATOR - 11/30/2023 Normal sinus rhythm Normal ECG When compared with ECG of 29-MAY-2022 13:34, T wave amplitude has increased in Anterior leads See ED provider note for full interpretation and clinical correlation Confirmed by Alisa Whaley ([id number]) on 11/30/2023 5:51:41 PM [facility] Work Phone: ECG 12-LEADon 11-30-2023 ECG 12-LEAD Ventricular Rate 72 Atrial Rate 72 P-R Interval 168 QRS Duration 78 Q-T Interval 392 QTC Calculation(Bazett) 429 P Bath 71 R Bath 70 T Bath 61 QRS Count 12 Q Onset 218 P Onset 134 P Offset 184 T Offset 414 QTC Fredericia 416 Diagnosis Normal sinus rhythm Normal ECG No previous ECGs available See ED provider note for full interpretation and clinical correlation Confirmed by Alisa Whaley ([id number]) on 11/30/2023 5:52:43 PM Normal [facility] ECG 12-LEAD Ventricular Rate 78 Atrial Rate 78 P-R Interval 158 QRS Duration 86 Q-T Interval 384 QTC Calculation(Bazett) 437 P Bath 74 R Bath 59 T Bath 57 QRS Count 13 Q Onset 216 P Onset 137 P Offset 187 T Offset 408 QTC Fredericia 419 Diagnosis Normal sinus rhythm Normal ECG When compared with ECG of 29-MAY-2022 13:34, T wave amplitude has increased in Anterior leads See ED provider note for full interpretation and clinical correlation Confirmed by Alisa Whaley ([id number]) on 11/30/2023 5:51:41 PM Normal [facility] Fibrin D-dimer FEUon 024 Fibrin D-dimer FEU (PPP) [Mass/Vol] 215 ng/mL FEU Normal <=500 [facility] Comment on above: Order Comment: The V TE Exclusion D-Dimer assay is reported in ng/mL Fibrinogen Equivalent Units (FEU).Per project controls scheduler's instructions for use, a value of less than 500 ng/mL (FEU) may help to exclude DVT or PE in outpatients when the assay is used with a clinical pretest probability assessment.(AEMR must utilize and document eCalc 'Wells Score Deep Vein Thrombosis Risk' for DVT exclusion only. Emergency Department should utilize Guidelines for Emergency Department Use of the VTE Exclusion D-Dimer and Clinical Pretest probability assessment model for DVT or PE exclusion.) Performed By: #### 4 8065-7 ####ZIMMER BRYON ([id number])[facility])[address] [place] [address] Fibrin D-dimer FEU (PPP) [Ma ss/Vol]Ordered By: Sherrie Glez on 11-30-2023 Interpretation and review of laboratory results Normal [facility] The VTE Exclusion D- Dimer assay is reported in ng/mL Fibrinogen Equivalent Units (FEU). Per project controls scheduler's instructions for use, a value of less than 500 ng/mL (FEU) may help to exclude DVT or PE in outpatients when the assay is used with a clinical pretest probability assessment.(AEMR must utilize and document eCalc 'Wells Score Deep Vein Thrombosis Risk' for DVT exclusion only. Emergency Department should utilize Guidelines for Emergency Department Use of the VTE Exclusion D-Dimer and Clinical Pretest probability assessment model for DVT or PE exclusion.) [facility] Natriuretic peptide B [Mass/ Vol]on 11-30-2023 Interpretation and review of laboratory results Normal [facility] Natriuretic peptide B (Bld) [Mass/Vol] 35 pg/mL 0 - 99 pg/mL [facility] <100 pg/mL - Heart f ailure unlikely 100-299 pg/mL - Intermediate probability of acute heart failure exacerbation. Correlate with clinical context and patient history. >=300 pg/mL - Heart Failure likely. Correlate with clinical context and patient history. BNP testing is performed using different testing methodology at [facility] than [facility]. Direct result comparisons should only be made within the same method. [facility] Natriuretic peptide B (Bld) [Mass/Vol] 35 pg/mL Normal 0-99 [facility] Comment on above: Order Comment: <100 pg/mL - Heart failure grdqnbsy256-028 pg/mL - Intermediate probability of acute heart failure exacerbation. Correlate with clinical context and patient history. >=300 pg/mL - Heart Failure likely. Correlate with clinical context and patient history.BNP testing is performed using different testing methodology at [facility] than at other [facility]. Direct result comparisons should only be made within the same method. Performed By: #### 3 [id number] ####GORAN SLATER ([id number])[facility] ([place])[facility] [place] [id number] SARS coronavirus 2 RNAon SARS-CoV-2 (COVID-19) RNA OCTAVIANO+probe Ql (Resp) Not detected Normal Not Detected [facility] Comment on above: Order Comment: This assay has received FDA Emergency Use Authorization (EUA) and is only authorized for the duration of time that circumstances exist to justify the authorization of the emergency use of in vitro diagnostic tests for the detection of SARS-CoV-2 virus and/or diagnosis of COVID-19 infection under section 564(b)(1) of the Act, 21 U.S.C. 360bbb-3(b)(1). This assay is an in vitro diagnostic nucleic acid amplification test for the qualitative detection of SARS-CoV-2 from nasopharyngeal specimens and has been validated for use at [facility]. Negative results do not preclude COVID-19 infections and should not be used as the sole basis for diagnosis, treatment, or other management decisions. Performed By: #### 9 [id number] ####GORAN SLATER ([id number])[facility] ([place])[address] [place] [id number] SARS-CoV-2 (COVID-19) RNA NA A+probe Ql (Resp)on 11-30-2023 Interpretation and review of laboratory results Normal [facility] This assay has recei estella FDA Emergency Use Authorization (EUA) and is only authorized for the duration of time that circumstances exist to justify the authorization of the emergency use of in vitro diagnostic tests for the detection of SARS-CoV-2 virus and/or diagnosis of COVID-19 infection under section 564(b)(1) of the Act, 21 U.S.C. 360bbb-3(b)(1). This assay is an in vitro diagnostic nucleic acid amplification test for the qualitative detection of SARS-CoV-2 from nasopharyngeal specimens and has been validated for use at [facility]. Negative results do not preclude COVID-19 infections and should not be used as the sole basis for diagnosis, treatment, or other management decisions. [facility] Sars-CoV-2 PCRon 11-30-2023 SARS-CoV-2 (COVID-19) RNA OCTAVIANO+probe Ql (Resp) Not detected Not Detected [facility] Tropinin I.cardiac panel Hig h sensitivity methodon 11-30-2023 Interpretation and review of laboratory results Normal [facility] Less than 99th perce ntile of normal range cutoff- Female and children under 18 years old <14 ng/L; Male <21 ng/L: Negative Repeat testing should be performed if clinically indicated. Female and children under 18 years old 14-50 ng/L; Male 21-50 ng/L: Consistent with possible cardiac damage and possible increased clinical risk. Serial measurements may help to assess extent of myocardial damage. >50 ng/L: Consistent with cardiac damage, increased clinical risk and myocardial infarction. Serial measurements may help assess extent of myocardial damage. NOTE: Children less than 1 year old may have higher baseline troponin levels and results should be interpreted in conjunction with the overall clinical context. NOTE: Troponin I testing is performed using a different testing methodology at [facility] than at [facility]. Direct result comparisons should only be made within the same method. [facility] Interpretation and review of laboratory results Normal [facility] Less than 99th perce ntile of normal range cutoff- Female and children under 18 years old <14 ng/L; Male <21 ng/L: Negative Repeat testing should be performed if clinically indicated. Female and children under 18 years old 14-50 ng/L; Male 21-50 ng/L: Consistent with possible cardiac damage and possible increased clinical risk. Serial measurements may help to assess extent of myocardial damage. >50 ng/L: Consistent with cardiac damage, increased clinical risk and myocardial infarction. Serial measurements may help assess extent of myocardial damage. NOTE: Children less than 1 year old may have higher baseline troponin levels and results should be interpreted in conjunction with the overall clinical context. NOTE: Troponin I testing is performed using a different testing methodology at [facility] than [facility] other [facility]. Direct result comparisons should only be made within the same method. [facility] Troponin I, High Sensitivity , Initialon 11-30-2023 Tropinin I.cardiac panel High sensitivity method ng/L 0 - 13 ng/L [facility] Troponin I.cardiac panelon 1 Tropinin I.cardiac panel High sensitivity method <3 Normal 0-13 [facility] Comment on above: Order Comment: Less than 99th percentile of normal range cutoff-Female and children under 18 years old <14 ng/L; Male <21 ng/L: NegativeRepeat testing should be performed if clinically indicated.Female and children under 18 years old 14-50 ng/L; Male 21-50 ng/L:Consistent with possible cardiac damage and possible increased clinicalrisk. Serial measurements may help to assess extent of myocardial damage.>50 ng/L: Consistent with cardiac damage, increased clinical risk andmyocardial infarction. Serial measurements may help assess extent ofmyocardial damage.NOTE: Children less than 1 year old may have higher baseline troponinlevels and results should be interpreted in conjunction with the overallclinical context.NOTE: Troponin I testing is performed using a differenttesting methodology at [facility] than at [facility]. Direct result comparisons should onlybe made within the same method. Performed By: #### 8 [id number] ####ZIMMER BRYON ([id number])[facility] ([place])[address] [place] [address] Tropinin I.cardiac panel High sensitivity method <3 Normal 0-13 [facility] Comment on above: Order Comment: Less than 99th percentile of normal range cutoff-Female and children under 18 years old <14 ng/L; Male <21 ng/L: NegativeRepeat testing should be performed if clinically indicated.Female and children under 18 years old 14-50 ng/L; Male 21-50 ng/L:Consistent with possible cardiac damage and possible increased clinicalrisk. Serial measurements may help to assess extent of myocardial damage.>50 ng/L: Consistent with cardiac damage, increased clinical risk andmyocardial infarction. Serial measurements may help assess extent ofmyocardial damage.NOTE: Children less than 1 year old may have higher baseline troponinlevels and results should be interpreted in conjunction with the overallclinical context.NOTE: Troponin I testing is performed using a differenttesting methodology at [facility] than at [facility]. Direct result comparisons should onlybe made within the same method. Performed By: #### 8 [id number] ####ZIMMER BRYON ([id number])[facility] ([place])[address] [place] [address] Troponin, High Sensitivity, 1 Houron 11-30-2023 Tropinin I.cardiac panel High sensitivity method ng/L 0 - 13 ng/L [facility] XR CHEST 1 VIEWon 11-30-2023 XR CHEST 1 VIEW Interpreted By: Wesley Subramanian, STUDY: XR CHEST 1 VIEW; 11/30/2023 12:26 pm INDICATION: Signs/Symptoms:sob. COMPARISON: 11/08/2023. ACCESSION NUMBER(S): [id number] ORDERING CLINICIAN: JED QUIROZ FINDINGS: CARDIOMEDIASTINAL SILHOUETTE: Cardiomediastinal silhouette is normal in size and configuration. LUNGS: Mild irregular interstitial thickening is seen. No localized consolidation. No pleural effusion or pneumothorax. ABDOMEN: No remarkable upper abdominal findings. BONES: No acute osseous changes. IMPRESSION: 1. Mild irregular interstitial thickening which may be chronic. Interstitial edema and atypical infection not excluded. No focal consolidation. MACRO: None. Signed by: Wesley Carbajal 11/30/2023 12:49 PM Dictation workstation: [id number] [facility] XR Chest Single viewon 11-29 1. Mild irregular interstitial thickening which may be chronic. Interstitial edema and atypical infection not excluded. No focal consolidation. MACRO: None. Signed by: Wesley Carbajal 11/30/2023 12:49 PM Dictation workstation: [id number] MMODAL Interpreted By: Wesley Subramanian, STUDY: XR CHEST 1 VIEW; 11/30/2023 12:26 pm INDICATION: Signs/Symptoms:sob. COMPARISON: 11/08/2023. ACCESSION NUMBER(S): [id number] ORDERING CLINICIAN: JED QUIROZ FINDINGS: CARDIOMEDIASTINAL SILHOUETTE: Cardiomediastinal silhouette is normal in size and configuration. LUNGS: Mild irregular interstitial thickening is seen. No localized consolidation. No pleural effusion or pneumothorax. ABDOMEN: No remarkable upper abdominal findings. BONES: No acute osseous changes. [facility] MMODAL Wesley Carbajal MD - 11/30/2023 Interpreted By: Wesley Carbajal, STUDY: XR CHEST 1 VIEW; 11/30/2023 12:26 pm INDICATION: Signs/Symptoms:sob. COMPARISON: 11/08/2023. ACCESSION NUMBER(S): [id number] ORDERING CLINICIAN: JED QUIROZ FINDINGS: CARDIOMEDIASTINAL SILHOUETTE: Cardiomediastinal silhouette is normal in size and configuration. LUNGS: Mild irregular interstitial thickening is seen. No localized consolidation. No pleural effusion or pneumothorax. ABDOMEN: No remarkable upper abdominal findings. BONES: No acute osseous changes. IMPRESSION: 1. Mild irregular interstitial thickening which may be chronic. Interstitial edema and atypical infection not excluded. No focal consolidation. MACRO: None. Signed by: Wesley Carbajal 11/30/2023 12:49 PM Dictation workstation: [id number] [facility] Work Phone: Radiology Study observation (narrative) [facility] Work Phone: XR Chest Single viewOrdered By: Wesley Carbajal on 11-30-2023 [facility] Work Phone: DEXA BONE DENSITYon 11-25-19 DEXA BONE DENSITY Interpreted By: Elmer Garcia, STUDY: DEXA BONE AJUEHQX06/4/2024 8:02 am INDICATION: Signs/Symptoms:screen. The patient is a 57 y/o year old F. COMPARISON: None. ACCESSION NUMBER(S): [id number] ORDERING CLINICIAN: ROBIN ALLRED TECHNIQUE: DEXA BONE DENSITY FINDINGS: SPINE L1-L4 Bone Mineral Density: 0.972 T-Score -1.8 Z-Score -0.8 Bone Mineral Density change vs baseline: Not reported Bone Mineral Density change vs previous: Not reported LEFT FEMUR -TOTAL Bone Mineral Density: 0.763 T-Score -1.9 Z-Score -1.2 Bone Mineral Density change vs baseline: Not reported Bone Mineral Density change vs previous: Not reported LEFT FEMUR -NECK Bone Mineral Density: 0.774 T-Score -1.9 Z-Score -0.8 RIGHT FEMUR -TOTAL Bone Mineral Density: 0.688 T-Score -2.5 Z-Score -1.8 Bone Mineral Density change vs baseline: Not reported Bone Mineral Density change vs previous: Not reported RIGHT FEMUR -NECK Bone Mineral Density: 0.707 T-Score -2.4 Z-Score -1.3 World Health Organization (WHO) criteria for post-menopausal, Women: Normal: T-score at or above -1 SD Osteopenia: T-score between -1 and -2.5 SD Osteoporosis: T-score at or below -2.5 SD 10-year Fracture Risk: Major Osteoporotic Fracture 8.5 Hip Fracture 1.6 Note: If no FRAX score is reported, it is because: Some T-score for Spine Total or Hip Total or Femoral Neck at or below -2.5 This exam was performed at [facility]'s [facility] on a [employer] Dexa Unit. IMPRESSION: DEXA: According to World Health Organization criteria, classification is osteoporosis. Followup recommended in two years or sooner as clinically warranted. All images and detailed analysis are available on the Radiology PACS. MACRO: None Signed by: Elmer Tijerina 11/25/2023 11:14 AM Dictation workstation: [id number] [facility] DXA Skeletal system Views fo r bone densityon 11-25-2023 DEXA: According to W orld Health Organization criteria, classification is osteoporosis. Followup recommended in two years or sooner as clinically warranted. All images and detailed analysis are available on the Radiology PACS. MACRO: None Signed by: Elmer Tijerina 11/25/2023 11:14 AM Dictation workstation: [id number] MMODAL Interpreted By: Elmer Garica, STUDY: DEXA BONE [id number]/4/2024 8:02 am INDICATION: Signs/Symptoms:screen. The patient is a 57 y/o year old F. COMPARISON: None. ACCESSION NUMBER(S): [id number] ORDERING CLINICIAN: ROBIN ALLRED TECHNIQUE: DEXA BONE DENSITY FINDINGS: SPINE L1-L4 Bone Mineral Density: 0.972 T-Score -1.8 Z-Score -0.8 Bone Mineral Density change vs baseline: Not reported Bone Mineral Density change vs previous: Not reported LEFT FEMUR -TOTAL Bone Mineral Density: 0.763 T-Score -1.9 Z-Score -1.2 Bone Mineral Density change vs baseline: Not reported Bone Mineral Density change vs previous: Not reported LEFT FEMUR -NECK Bone Mineral Density: 0.774 T-Score -1.9 Z-Score -0.8 RIGHT FEMUR -TOTAL Bone Mineral Density: 0.688 T-Score -2.5 Z-Score -1.8 Bone Mineral Density change vs baseline: Not reported Bone Mineral Density change vs previous: Not reported RIGHT FEMUR -NECK Bone Mineral Density: 0.707 T-Score -2.4 Z-Score -1.3 World Health Organization (WHO) criteria for post-menopausal, Women: Normal: T-score at or above -1 SD Osteopenia: T-score between -1 and -2.5 SD Osteoporosis: T-score at or below -2.5 SD 10-year Fracture Risk: Major Osteoporotic Fracture 8.5 Hip Fracture 1.6 Note: If no FRAX score is reported, it is because: Some T-score for Spine Total or Hip Total or Femoral Neck at or below -2.5 This exam was performed at [facility] on a [employer] Dexa Unit. [facility] Elmer Tijerina MD - 11/25/2023 Interpreted By: Elmer Tijerina, STUDY: DEXA BONE [id number]/4/2024 8:02 am INDICATION: Signs/Symptoms:screen. The patient is a 57 y/o year old F. COMPARISON: None. ACCESSION NUMBER(S): [id number] ORDERING CLINICIAN: ROBIN ALLRED TECHNIQUE: DEXA BONE DENSITY FINDINGS: SPINE L1-L4 Bone Mineral Density: 0.972 T-Score -1.8 Z-Score -0.8 Bone Mineral Density change vs baseline: Not reported Bone Mineral Density change vs previous: Not reported LEFT FEMUR -TOTAL Bone Mineral Density: 0.763 T-Score -1.9 Z-Score -1.2 Bone Mineral Density change vs baseline: Not reported Bone Mineral Density change vs previous: Not reported LEFT FEMUR -NECK Bone Mineral Density: 0.774 T-Score -1.9 Z-Score -0.8 RIGHT FEMUR -TOTAL Bone Mineral Density: 0.688 T-Score -2.5 Z-Score -1.8 Bone Mineral Density change vs baseline: Not reported Bone Mineral Density change vs previous: Not reported RIGHT FEMUR -NECK Bone Mineral Density: 0.707 T-Score -2.4 Z-Score -1.3 World Health Organization (WHO) criteria for post-menopausal, Women: Normal: T-score at or above -1 SD Osteopenia: T-score between -1 and -2.5 SD Osteoporosis: T-score at or below -2.5 SD 10-year Fracture Risk: Major Osteoporotic Fracture 8.5 Hip Fracture 1.6 Note: If no FRAX score is reported, it is because: Some T-score for Spine Total or Hip Total or Femoral Neck at or below -2.5 This exam was performed at [facility] on a [employer] Dexa Unit. IMPRESSION: DEXA: According to World Health Organization criteria, classification is osteoporosis. Followup recommended in two years or sooner as clinically warranted. All images and detailed analysis are available on the Radiology PACS. MACRO: None Signed by: Elmer Tijerina 11/25/2023 11:14 AM Dictation workstation: [id number] [facility] Work Phone: Radiology Study observation (narrative) [facility] Work Phone: DXA Skeletal system Views fo r bone densityOrdered By: Elmer Tijerina on 11-25-2023 [facility] Work Phone: Pelvic w/ Transvaginalon Pelvic w/ Transvaginal [facility] Imaging Services [address] [place] [address] Pelvic w/ Transvaginal MR#: [id number] Acct: [id number] Name: FELA CHRISTIANSON Rep #: [id number] : 1965 F 57 From: Berto gilliam MD PCP: Dr. Robin Allred MD Status: REG CLI Study: Pelvic w/ Transvaginal Date of Exam: 11/11/23 Exam# [id number] Ordering Dr: Tierra Capellan :[id number] STUDY: ULTRASOUND OF THE FEMALE PELVIS - COMPLETE REASON FOR EXAM: Female, 57 years old. post menopausal bleeding LMP: 02/21/2018 TECHNIQUE: Transabdominal and Transvaginal TECHNICAL QUALITY: Adequate. COMPARISON: None. FINDINGS: The uterus is anteverted and is in a midline position. The uterus measures 6.9 x 4.5 x 2.4 cm. Normal uterine cervix. The endometrium measures 4 mm in thickness, and is hyperechoic. A tiny 2 mm polyp of calcification seen in the fundus of the endometrial cavity. There is no demonstrated myometrial mass. However the uterus is diffusely heterogeneous suggestive of diffuse leiomyomatous change. Several myometrial calcifications are seen. The right ovary is visualized. The right ovary measures 2.8 x 1.9 x 1.7 cm. There is no right ovarian cyst or ovarian mass. There is no visualized right adnexal mass or complex lesion. There is normal arterial and normal venous vascularity. The left ovary is visualized. The left ovary measures 2.7 x 1.6 x 1.8 cm. There is no left ovarian cyst or ovarian mass. There is no visualized left adnexal mass or complex lesion. There is normal arterial and normal venous vascularity. There is no fluid in the cul-de-sac. The pre void volume of the bladder was 200 ml. US/Pelvic w/ Transvaginal IMPRESSION: Abnormal appearance of the uterus suspicious for extensive leiomyomatous changes. Tiny calcification or polyp at the fundus of the endometrial cavity. Electronically Signed: Berto Coreas MD at 17:57 EDT , CC: LUIZA Capellan; Dr. Robin Allred MD Dynamic Balancer: Signed [facility] XR RIBS 2 VIEWS LEFT WITH CH EST PA OR APon 11-08-2023 XR RIBS 2 VIEWS LEFT WITH CHEST PA OR AP Interpreted By: Leonela Bobby, STUDY: XR RIBS 2 VIEWS LEFT WITH CHEST PA OR AP; ; 11/08/2023 8:44 am INDICATION: Signs/Symptoms:pain. ,R07.81 Pleurodynia COMPARISON: Chest radiograph dated 06/09/2022 ACCESSION NUMBER(S): [id number] ORDERING CLINICIAN: RAYMOND AYERS FINDINGS: Cardiac silhouette is stable in size and morphology. Bilateral lungs demonstrate hyperinflation with coarse interstitial markings, likely favored to be related to chronic lung parenchymal changes. No consolidative airspace opacity. No large pleural effusions or pneumothorax. Evaluation for nondisplaced fractures is limited due to diffuse osseous demineralization. Within this limitation, no definite radiographic evidence of displaced rib fractures. IMPRESSION: Diffuse osseous demineralization limiting evaluation for subtle nondisplaced fractures. Within this limitation, no displaced fracture deformity in the left thoracic rib cage. A CT chest can be performed for definitive evaluation if there is persistent clinical concern. MACRO: None Signed by: Leonela Bobby 11/09/2023 2:52 PM Dictation workstation: [id number] [facility] Paper Cutter Office Visit Reporton 11-02-2023 Paper Cutter Office Visit Report [facility] [address], [address] [place] [address] OFFICE VISIT Date of Service: 11/02/23 MR#: [id number] Acct: [id number] Name: FELA CHRISTIANSON JULY Rep #: [id number] : 1965 Provider: LUIZA Alvarado Age/Sex: 57/F Location: [facility] [place] Status: Signed Intake Vital Signs 01/20/23 07:30 11/02/23 07:55 Height 5 ft 10 in 5 ft 10 in Weight: 138 lb BMI 19.8 BP 109/72 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 breast Patient Registration Manager Required: No Is patient in pain?: Yes (rt breast) Pain scale (1-10): 3 Allergies albuterol Allergy (Verified 11/02/23 08:21) Hives Medications ???Medication ???Instructions ???Recorded ???Confirmed ???Type albuterol sulfate 90 mcg/actuation 1 puff inhalation ONCE 11/02/23 11/02/23 History aerosol inhaler beclomethasone dipropionate 40 1 inh inhalation BID 11/02/23 11/02/23 History mcg/actuation HFA breath activated aerosol (Qvar RediHaler) biotin 1 mg capsule 1 mg PO QDAY 11/02/23 11/02/23 History dextrin 3 gram/3.8 gram oral g PO 11/02/23 11/02/23 History powder (Easy Fiber) levothyroxine 100 mcg tablet 100 mcg PO QDAY 11/02/23 11/02/23 History multivitamin 1 tab PO QDAY 11/02/23 11/02/23 History omega-3 acid ethyl esters 1 gram 1 cap PO QDAY 11/02/23 11/02/23 History capsule Is last menstrual period known: Yes Last Menstrual Period: 10/04/18 Post menopausal: Yes Patient : No : No Control Method: menopause PFSH Medical History (Updated 11/02/23 @ 09:57 by LUIZA Carvalho) Bladder cancer Fibromyalgia GERD (gastroesophageal reflux disease) Naseem's disease Asthma Surgical History (Updated 11/02/23 @ 08:26 by Miriam Handley) History of appendectomy H/O total cystectomy H/O tubal ligation History of Wen fundoplication Family History (Updated 11/02/23 @ 08:27 by Miriam Handley) Mother Diabetes Thyroid disorder Hypertension Brain cancer Father Bone cancer Grandmother CVA (cerebral vascular accident) Diabetes CAD (coronary artery disease) Hypertension Social History (Updated 11/02/23 @ 08:28 by Miriam Handley) adopted: No household members: spouse and family number of children: 3 current occupational status: employed 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 She reports she is have right breast pain and discharge. She reports she did have MRI of breast tissue that was negative however that on the report it states the image did not have good placement. We do not have records today to review. Also have concerns with vaginal dryness; currently taking estrogen cream via applicator. Does not feel this has been helpful thus far. She reports when she had intercourse she feels needles. History of bladder cancer-diagnosed 2018. Treatment through Dr. Mcwilliams. Routine follow ups every 6 months. Patient reports she has had 2 episode of bleeding; she cannot determine whether this is from urethra or from vagina. States approx 3 weeks ago she was in shower and all of a sudden started bleeding. This stopped on its own. Does not believe she has had ultrasound to further evaluate. Last PAP: June of 2023 patient reports as negative. History of abnormal PAP: no Last mammogram: June 2023 see above. History of abnormal mammogram: no Colon cancer screenin Other preventative health care screenings: Brigida- pcp; Dr. Champagne-Gynecology; Dr. Blanton- breast surgeon. Female Reproductive History Last Menstrual Period: 10/04/18 Questions: sexually active: Yes (painful; see hpi), dyspareunia: Yes and PCB: No Menopausal Treatment: Yes Vaginal Estrogen ROS Const Constitutional: Denies chills, fatigue, fever(s), headache(s) or weight loss Eyes Eyes: Denies change in vision ENT ENT: Denies dizziness Resp Resp: Denies cough GI GI: Denies abdominal pain, constipation or nausea : Denies difficulty voiding, dysuria, hematuria, pelvic pain, prolapse symptoms, urinary incontinence, vaginal discharge, vaginal dryness, vaginal odor or vaginal pruritus Skin Skin/Breast: Denies alopecia or rash Neuro Neuro: Denies dizziness Psych Psych: Denies anxiety or depression Endo Endo: Denies cold intolerance, excessive sweating or heat intolerance Exam Const General: cooperative, healthy appearing, comfortable, n (more content not included)... Normal [facility] CBC panel Auto (Bld)on 10-27 Erythrocyte distribution width (RBC) [Ratio] 12.5 % Normal 11.5-14.5 [facility] Comment on above: Performed By: #### 2 432-8 #### GORAN SLATER ([id number]) [facility] ([place]) [address] [place] [address] 93925 Hematocrit (Bld) [Volume fraction] 48.2 % High 36.0-46.0 [facility] Comment on above: Performed By: #### 2 4322-8 #### GORAN SLATER ([id number]) [facility] ([place]) [address] [place] [address] 83113 Hemoglobin (Bld) [Mass/Vol] 15.7 g/dL Normal 12.0-16.0 [facility] Comment on above: Performed By: #### 2 4322-8 #### GORAN SLATER ([id number]) [facility] ([place]) [address] [place] [address] 50795 MCH (RBC) [Entitic mass] 30.7 pg Normal 26.0-34.0 [facility] Comment on above: Performed By: #### 2 4322-8 #### GORAN SLATER ([id number]) [facility] ([place]) [address] [place] [address] 06007 MCHC (RBC) [Mass/Vol] 32.6 g/dL Normal 32.0-36.0 [facility] Comment on above: Performed By: #### 2 4322-8 #### GORAN SLATER ([id number]) [facility] ([place]) [address] [place] [address] 93849 MCV (RBC) [Entitic vol] 94 fL Normal 80-100 [facility] Comment on above: Performed By: #### 2 4322-8 #### GORAN SLATER ([id number]) [facility] ([place]) [address] [place] [address] 36269 Nucleated RBC/100 WBC (Bld) [Ratio] 0.0 /100 WBCs Normal 0.0-0.0 [facility] Comment on above: Performed By: #### 2 432-8 #### GORAN SLATER ([id number]) [facility] ([place]) [address] [place] [address] 68702 Platelets (Bld) [#/Vol] 219 x10*3/uL Normal 150-450 [facility] Comment on above: Performed By: #### 2 4323-8 #### GORAN SLATER ([id number]) [facility] ([place]) [address] [place] [address] 89869 RBC (Bld) [#/Vol] 5.12 x10*6/uL Normal 4.00-5.20 [facility] Comment on above: Performed By: #### 2 4323-8 #### GORAN SLATER ([id number]) [facility] ([place]) [address] [place] [address] 80340 WBC (Bld) [#/Vol] 5.7 x10*3/uL Normal 4.4-11.3 [facility] Comment on above: Performed By: #### 2 4323-8 #### GORAN SLATER ([id number]) [facility] ([place]) [address] [place], [place] [id number] Calcidiolon 10-28-2023 25-hydroxyvitamin D3 [Mass/Vol] 19 ng/mL Low 30-100 [facility] Comment on above: Order Comment: Defic iency: < 20 ng/mlInsufficiency: 20-29 ng/mlSufficiency: 30-100 ng/mlThis assay accurately quantifies the sum of Vitamin D3, 25-Hydroxy and Vitamin D2,25-Hydroxy. Performed By: #### 2 4323-8 #### GORAN SLATER ([id number]) [facility] ([place]) [address] [place] [address] 45812 Cobalaminson 10-28-2023 Cobalamin (Vitamin B12) [Mass/Vol] 247 pg/mL Normal 211-911 [facility] Comment on above: Performed By: #### 2 4323-8 #### GORAN SLATER ([id number]) [facility] ([place]) [address] [place] [address] 58357 Comprehensive metabolic 2000 panelon 10-28-2023 Albumin BCP dye [Mass/Vol] 4.1 g/dL Normal 3.4-5.0 [facility] Comment on above: Performed By: #### 2 4323-8 #### GORAN SLATER ([id number]) [facility] ([place]) [facility] [place] [address] ALP [Catalytic activity/Vol] 73 U/L Normal 33-110 [facility] Comment on above: Performed By: #### 2 4323-8 #### GORAN SLATER ([id number]) [facility] ([place]) [address] [place] [address] 80903 ALT With P-5'-P [Catalytic activity/Vol] 21 U/L Normal 7-45 [facility] Comment on above: Result Comment: Neeru ents treated with Sulfasalazine may generate falsely decreased results for ALT. Performed By: #### 2 4323-8 #### GORAN SLATER ([id number]) [facility] ([place]) [address] [place] [address] 06797 Anion gap [Moles/Vol] 11 mmol/L Normal 10-20 [facility] Comment on above: Performed By: #### 2 432-8 #### GORAN SLATER ([id number]) [facility] ([place]) [address] [place] [address] 28872 AST With P-5'-P [Catalytic activity/Vol] 17 U/L Normal 9-39 [facility] Comment on above: Performed By: #### 2 4323-8 #### GORAN SLATER ([id number]) [facility] ([place]) [address] [place] [address] 21282 Bilirubin [Mass/Vol] 0.9 mg/dL Normal 0.0-1.2 [facility] Comment on above: Performed By: #### 2 4323-8 #### GORAN SLATER ([id number]) [facility] ([place]) [address] [place] [address] 61555 Calcium [Mass/Vol] 9.3 mg/dL Normal 8.6-10.3 [facility] Comment on above: Performed By: #### 2 4323-8 #### GORAN SLATER ([id number]) [facility] ([place]) [address] [place] [address] 19172 Chloride [Moles/Vol] 105 mmol/L Normal 98-107 [facility] Comment on above: Performed By: #### 2 4323-8 #### GORAN SLATER ([id number]) [facility] ([place]) [address] [place] [address] 30585 CO2 [Moles/Vol] 30 mmol/L Normal 21-32 [facility] Comment on above: Performed By: #### 2 4323-8 #### GORAN SLATER ([id number]) [facility] ([place]) [address] [place] [address] 42025 Creatinine [Mass/Vol] 0.77 mg/dL Normal 0.50-1.05 [facility] Comment on above: Performed By: #### 2 4323-8 #### GORAN SLATER ([id number]) [facility] ([place]) [address] [place] [address] 44974 GFR/1.73 sq M.predicted MDRD (S/P/Bld) [Vol rate/Area] mL/min/{1.73_m2} Normal >60 [facility] Comment on above: Result Comment: Calc ulations of estimated GFR are performed using the 2020 CKD-EPI Study Refit equation without the race variable for the IDMS-Traceable creatinine methods. https://jasn.asnjournals.org/content//ASN.035370999 8 Performed By: #### 2 4323-8 #### GORAN SLATER ([id number]) [facility] ([place]) [address] [place] [address] 32495 Glucose [Mass/Vol] 87 mg/dL Normal 74-99 [facility] Comment on above: Performed By: #### 2 4323-8 #### GORAN SLATER (26692) [facility] ([place]) [address] [place] [address] 45701 Potassium [Moles/Vol] 3.9 mmol/L Normal 3.5-5.3 [facility] Comment on above: Performed By: #### 2 4323-8 #### GORAN SLATER ([id number]) [facility] ([place]) [facility] [place] [address] Protein [Mass/Vol] 6.3 g/dL Low 6.4-8.2 [facility] Comment on above: Performed By: #### 2 4323-8 #### GORAN SLATER ([id number]) [facility] ([place]) [address] [place] [address] 76343 Sodium [Moles/Vol] 142 mmol/L Normal 136-145 [facility] Comment on above: Performed By: #### 2 4323-8 #### GORAN SLATER ([id number]) [facility] ([place]) [address] [place], [place] [address] Urea nitrogen [Mass/Vol] 18 mg/dL Normal 6-23 [facility] Comment on above: Performed By: #### 2 4323-8 #### GORAN SLATER ([id number]) [facility] ([place]) [address] [place], [place] [address] BI MR BREAST BILATERAL WITH CONTRAST FULL PROTOCOLon 08-23-2023 BI MR BREAST BILATERAL WITH CONTRAST FULL PROTOCOL Interpreted By: Kathryn Kenny and Jiang Sirui STUDY: BI MR BREAST BILATERAL WITH CONTRAST FULL PROTOCOL; 08/23/2023 2:00 pm ACCESSION NUMBER(S): [id number] ORDERING CLINICIAN: RUI VARGAS INDICATION: Right breast nipple pain with discharge. Recent negative screening mammogram 07/28/2023 and recent negative sonographic evaluation of the subareolar right breast 08/09/2023. COMPARISON: Ultrasound 08/09/2023 Mammogram 07/28/2023 TECHNIQUE: Using a dedicated breast coil, STIR axial and T1-weighted fat saturation axial images of the breasts were obtained, the latter both before and after intravenous administration of Gadolinium DTPA. On an independent workstation, 3-D images were formulated using Alex and Ani including time enhancement curves, subtraction images and MIP images. Intravenous contrast: 12 mL of Dotarem FINDINGS: The breasts are suboptimally positioned in the coil, with bilateral lateral deviation of the nipples. Density: Heterogeneous fibroglandular tissue. There is symmetric marked bilateral background enhancement, limiting the sensitivity of breast MRI. RIGHT BREAST: No suspicious mass or nonmass enhancement is identified. Nonenhancing proteinaceous debris throughout the subareolar ducts. No axillary or internal mammary lymphadenopathy is appreciated. LEFT BREAST: No suspicious mass or nonmass enhancement is identified. Nonenhancing proteinaceous debris throughout the subareolar ducts. No axillary or internal mammary lymphadenopathy is appreciated. NON-BREAST FINDINGS: None, although evaluation of intrathoracic and intra-abdominal structures is limited due to artifacts. IMPRESSION: No MRI evidence of malignancy in either breast. Bilateral ductal ectasia. Independent clinical evaluation of the nipple discharge recommended. BI-RADS CATEGORY: BI-RADS Category: 2 Benign. Recommendation: Clinical Follow-up and Continued Annual Screening. Recommended Date: 1 Year. Laterality: Bilateral. For any future breast imaging appointments, please call [phone]). I personally reviewed the image(s) / study and I agree with the findings as stated by Will Camara MD. This study was interpreted at [facility], [place], [place]. MACRO: None Signed by: Kathryn Kenny 08/24/2023 10:16 AM Dictation workstation: [id number] [facility] BI US BREAST LIMITED RIGHTon 08-09-2023 BI US BREAST LIMITED RIGHT Interpreted By: Adryan Aguero, STUDY: BI US BREAST LIMITED RIGHT; 08/09/2023 10:16 am ACCESSION NUMBER(S): [id number] ORDERING CLINICIAN: RUI VARGAS INDICATION: Nipple discharge COMPARISON: None. FINDINGS: Targeted ultrasound was performed of the right breast by a registered system operator. The examination was limited to the nipple and periareolar area. There is no ductal dilatation. No solid or cystic mass. No architectural distortion. IMPRESSION: No abnormality seen. BI-RADS CATEGORY: BI-RADS Category: 1 Negative. Recommendation: Annual Screening. Recommended Date: 1 Year. Laterality: Bilateral. For any future breast imaging appointments, please call [phone] ([phone]). MACRO: None Signed by: Adryan Aguero 08/09/2023 12:35 PM Dictation workstation: [id number] [facility] US Breast - right limitedon 08-09-2023 No abnormality seen. BI-RADS CATEGORY: BI-RADS Category: 1 Negative. Recommendation: Annual Screening. Recommended Date: 1 Year. Laterality: Bilateral. For any future breast imaging appointments, please call [phone] ([phone]). MACRO: None Signed by: Adryan Aguero 08/09/2023 12:35 PM Dictation workstation: [id number] [facility] Interpreted By: Adryan Hernandes, STUDY: BI US BREAST LIMITED RIGHT; 08/09/2023 10:16 am ACCESSION NUMBER(S): [id number] ORDERING CLINICIAN: RUI VARGAS INDICATION: Nipple discharge COMPARISON: None. FINDINGS: Targeted ultrasound was performed of the right breast by a registered system operator. The examination was limited to the nipple and periareolar area. There is no ductal dilatation. No solid or cystic mass. No architectural distortion. MMODAL Adryan Aguero MD - 08/09/2023 Interpreted By: Adryan Aguero, STUDY: BI US BREAST LIMITED RIGHT; 08/09/2023 10:16 am ACCESSION NUMBER(S): [id number] ORDERING CLINICIAN: RUI VARGAS INDICATION: Nipple discharge COMPARISON: None. FINDINGS: Targeted ultrasound was performed of the right breast by a registered system operator. The examination was limited to the nipple and periareolar area. There is no ductal dilatation. No solid or cystic mass. No architectural distortion. IMPRESSION: No abnormality seen. BI-RADS CATEGORY: BI-RADS Category: 1 Negative. Recommendation: Annual Screening. Recommended Date: 1 Year. Laterality: Bilateral. For any future breast imaging appointments, please call [phone] ([phone]). MACRO: None Signed by: Adryan Aguero 08/09/2023 12:35 PM Dictation workstation: [id number] [facility] Work Phone: Radiology Study observation (narrative) [facility] Work Phone: US Breast - right limitedOrd ered By: Adryan Aguero on 08-09-2023 [facility] Work Phone: BI MAMMO BILATERAL SCREENING TOMOSYNTHESISon 07-28-2023 BI MAMMO BILATERAL SCREENING TOMOSYNTHESIS Interpreted By: Elmer Tijerina, STUDY: BI MAMMO BILATERAL SCREENING TOMOSYNTHESIS; 07/28/2023 7:45 am ACCESSION NUMBER(S): [id number] ORDERING CLINICIAN: JELLY VERAS INDICATION: Screening. COMPARISON: Digital mammograms dated 07/21/2022 FINDINGS: CC and MLO 2D digital mammograms and digital breast tomosynthesis images were obtained of the bilateral breasts. 3-D volume images were reconstructed in 4 views at an independent workstation as 1 mm slices through the breasts in both the CC and MLO projections. Density: There are areas of scattered fibroglandular tissue. Well-defined ovoid mass is seen in the medial aspect of the left breast, similar to prior studies. No new or enlarging mass or focal asymmetry is identified. No suspicious microcalcifications or foci of architectural distortion are seen. There has been no significant change. This study was interpreted with CAD. IMPRESSION: No mammographic evidence of malignancy. BI-RADS CATEGORY: BI-RADS Category: 2 Benign. Recommendation: Routine Screening Mammogram in 1 Year. Recommended Date: 1 Year. Laterality: Bilateral. MACRO: None Signed by: Elmer Tijerina 07/28/2023 9:37 AM Dictation workstation: [id number] [facility] DBT Breast - bilateralon No mammographic evid ence of malignancy. BI-RADS CATEGORY: BI-RADS Category: 2 Benign. Recommendation: Routine Screening Mammogram in 1 Year. Recommended Date: 1 Year. Laterality: Bilateral. MACRO: None Signed by: Elmer Tijerina 07/28/2023 9:37 AM Dictation workstation: [id number] [facility] Interpreted By: Elmer Garcia, STUDY: BI MAMMO BILATERAL SCREENING TOMOSYNTHESIS; 07/28/2023 7:45 am ACCESSION NUMBER(S): [id number] ORDERING CLINICIAN: JELLY VERAS INDICATION: Screening. COMPARISON: Digital mammograms dated 07/21/2022 FINDINGS: CC and MLO 2D digital mammograms and digital breast tomosynthesis images were obtained of the bilateral breasts. 3-D volume images were reconstructed in 4 views at an independent workstation as 1 mm slices through the breasts in both the CC and MLO projections. Density: There are areas of scattered fibroglandular tissue. Well-defined ovoid mass is seen in the medial aspect of the left breast, similar to prior studies. No new or enlarging mass or focal asymmetry is identified. No suspicious microcalcifications or foci of architectural distortion are seen. There has been no significant change. This study was interpreted with CAD. [facility]AL Elmer Tijerina MD - 07/28/2023 Interpreted By: Elmer Tijerina, STUDY: BI MAMMO BILATERAL SCREENING TOMOSYNTHESIS; 07/28/2023 7:45 am ACCESSION NUMBER(S): [id number] ORDERING CLINICIAN: JELLY VERAS INDICATION: Screening. COMPARISON: Digital mammograms dated 07/21/2022 FINDINGS: CC and MLO 2D digital mammograms and digital breast tomosynthesis images were obtained of the bilateral breasts. 3-D volume images were reconstructed in 4 views at an independent workstation as 1 mm slices through the breasts in both the CC and MLO projections. Density: There are areas of scattered fibroglandular tissue. Well-defined ovoid mass is seen in the medial aspect of the left breast, similar to prior studies. No new or enlarging mass or focal asymmetry is identified. No suspicious microcalcifications or foci of architectural distortion are seen. There has been no significant change. This study was interpreted with CAD. IMPRESSION: No mammographic evidence of malignancy. BI-RADS CATEGORY: BI-RADS Category: 2 Benign. Recommendation: Routine Screening Mammogram in 1 Year. Recommended Date: 1 Year. Laterality: Bilateral. MACRO: None Signed by: Elmer Tijerina 07/28/2023 9:37 AM Dictation workstation: [id number] [facility] Work Phone: Radiology Study observation (narrative) [facility] Work Phone: DBT Breast - bilateralOrdere d By: Elmer Tijerina on 07-28-2023 [facility] Work Phone: FL UPPER GI W KUBon 07-25-19 24 FL UPPER GI W KUB Interpreted By: Elmer Garcia, STUDY: Double-contrast upper GI series with small-bowel follow-through dated 07/25/2023. INDICATION: Pain. COMPARISON: None. ACCESSION NUMBER(S): [id number] ORDERING CLINICIAN: ROBIN ALLRED TECHNIQUE: Furnace Fitter radiograph of the abdomen was obtained. The patient was then asked to drink liquid barium solution while the esophagus stomach and duodenal sweep were assessed under active fluoroscopy.. FINDINGS: The visualized lungs are clear. There is a nonspecific nonobstructive bowel gas pattern. Postoperative changes status post Wen fundoplication are present. Contrast readily passes down the esophagus into the stomach. The esophageal mucosa is unremarkable. The gastric mucosa is unremarkable. The duodenal bulb was grossly unremarkable. The duodenal sweep has a normal anatomic lie. IMPRESSION: 1. Postoperative changes, as above. 2. No evidence of persistent mass or stenosis identified. Signed by: Elmer Tijerina 07/25/2023 12:57 PM Dictation workstation: [id number] [facility] XR Abdomen and RF Gastrointe stinal tract upper W contrast Cami 07-25-2023 1. Postoperative arnel nges, as above. 2. No evidence of persistent mass or stenosis identified. Signed by: Elmer Tijerina 07/25/2023 12:57 PM Dictation workstation: [id number] [facility] Interpreted By: Elmer Garcia, STUDY: Double-contrast upper GI series with small-bowel follow-through dated 07/25/2023. INDICATION: Pain. COMPARISON: None. ACCESSION NUMBER(S): [id number] ORDERING CLINICIAN: ROBIN ALLRED TECHNIQUE: Furnace Fitter radiograph of the abdomen was obtained. The patient was then asked to drink liquid barium solution while the esophagus stomach and duodenal sweep were assessed under active fluoroscopy.. FINDINGS: The visualized lungs are clear. There is a nonspecific nonobstructive bowel gas pattern. Postoperative changes status post Wen fundoplication are present. Contrast readily passes down the esophagus into the stomach. The esophageal mucosa is unremarkable. The gastric mucosa is unremarkable. The duodenal bulb was grossly unremarkable. The duodenal sweep has a normal anatomic lie. [facility]AL Elmer Tijerina MD - 07/25/2023 Interpreted By: Elmer Tijerina, STUDY: Double-contrast upper GI series with small-bowel follow-through dated 07/25/2023. INDICATION: Pain. COMPARISON: None. ACCESSION NUMBER(S): [id number] ORDERING CLINICIAN: ROBIN ALLRED TECHNIQUE: Furnace Fitter radiograph of the abdomen was obtained. The patient was then asked to drink liquid barium solution while the esophagus stomach and duodenal sweep were assessed under active fluoroscopy.. FINDINGS: The visualized lungs are clear. There is a nonspecific nonobstructive bowel gas pattern. Postoperative changes status post Wen fundoplication are present. Contrast readily passes down the esophagus into the stomach. The esophageal mucosa is unremarkable. The gastric mucosa is unremarkable. The duodenal bulb was grossly unremarkable. The duodenal sweep has a normal anatomic lie. IMPRESSION: 1. Postoperative changes, as above. 2. No evidence of persistent mass or stenosis identified. Signed by: Elmer Tijerina 07/25/2023 12:57 PM Dictation workstation: [id number] [facility] Work Phone: Radiology Study observation (narrative) [facility] Work Phone: XR Abdomen and RF Gastrointe stinal tract upper W contrast POOrdered By: Elmer Tijerina on 07-25-2023 [facility] Work Phone: Sjogrens syndrome-A extracta ble nuclear Abon 07-21-2023 Sjogrens syndrome-A extractable nuclear Ab IA Qn (S) <0.2 Normal <1.0 [facility] Comment on above: Result Comment: < 1. 0 = NEGATIVE >=1.0 = POSITIVE Performed By: #### 3 3569-5 #### CONNIE Live ([id number]) [facility] ([facility]) [address] [place] [address] Sjogrens syndrome-B extracta ble nuclear Abon 07-21-2023 Sjogrens syndrome-B extractable nuclear Ab IA Qn (S) <0.2 Normal <1.0 [facility] Comment on above: Result Comment: < 1. 0 = NEGATIVE >=1.0 = POSITIVE Performed By: #### 4 5142-7 #### CONNIE Live ([id number]) [facility] ([facility]) [address] [place] [address] US PELVIS TRANSABDOMINAL WIT H TRANSVAGINALon 07-20-2023 US PELVIS TRANSABDOMINAL WITH TRANSVAGINAL Interpreted By: Jessenia Lord, STUDY: US PELVIS TRANSABDOMINAL WITH TRANSVAGINAL; 07/20/2023 9:03 am INDICATION: Signs/Symptoms:Possible vaginal bleeding. LMP 2019 COMPARISON: None. ACCESSION NUMBER(S): [id number] ORDERING CLINICIAN: JELLY VERAS TECHNIQUE: Multiple multiplanar static dobson scale, color and spectral waveform sonographic images of the pelvis were obtained. Transabdominal and endovaginal ultrasound was performed. Transabdominal imaging is limited because the bladder is not well distended FINDINGS: UTERUS: The uterus is normal in size measuring 7.3 x 4.4 x 2.9 cm in longitudinal, transverse and AP dimensions respectively. ENDOMETRIUM: The endometrial canal is normal in thickness measuring 0.4 cm. RIGHT ADNEXA: The right ovary is not visualized. LEFT ADNEXA: The left ovary is not visualized. CUL DE SAC: No gross free fluid is seen in the pelvic cul-de-sac. IMPRESSION: Normal-size uterus with no endometrial canal thickening. Nonvisualization of ovaries; no adnexal masses. MACRO: None Signed by: Jessenia Lord 07/21/2023 11:09 AM Dictation workstation: [id number] [facility] XR ABDOMEN 1 VIEWon 07-06-19 XR ABDOMEN 1 VIEW Interpreted By: Chun Lane, STUDY: XR ABDOMEN 1 VIEW; 07/06/2023 10:30 am INDICATION: Signs/Symptoms:KIDNEY STONES. COMPARISON: 04/14/2023 ACCESSION NUMBER(S): [id number] ORDERING CLINICIAN: RU MCWILLIAMS FINDINGS: No definitive calcifications are seen overlying the expected location of the bilateral kidneys. Nonobstructive bowel gas pattern. Limited evaluation of pneumoperitoneum on supine imaging, however no gross evidence of free air is noted. Osseous structures demonstrate no acute bony changes. IMPRESSION: 1. No definitive evidence of nephrolithiasis. Further evaluation with ultrasound may imaging may be obtained as indicated. MACRO: None Signed by: Chun Wynn 07/08/2023 8:38 PM Dictation workstation: [id number] [facility] CBC panel Auto (Bld)on 06-20 Erythrocyte distribution width (RBC) [Ratio] 12.7 % Normal 11.5-14.5 [facility] Comment on above: Performed By: #### 5 8410-2 #### GORAN SLATER ([id number]) [facility] [facility] ([place]) [address] [place] [address] 95989 Hematocrit (Bld) [Volume fraction] 44.2 % Normal 36.0-46.0 [facility] Comment on above: Performed By: #### 5 8410-2 #### GORAN SLATER ([id number]) [facility] ([place]) [address] [place] [address] Hemoglobin (Bld) [Mass/Vol] 14.1 g/dL Normal 12.0-16.0 [facility] Comment on above: Performed By: #### 5 8410-2 #### GORAN SLATER ([id number]) [facility] ([place]) [address] [place], [place] [id number] MCH (RBC) [Entitic mass] 29.9 pg Normal 26.0-34.0 [facility] Comment on above: Performed By: #### 5 8410-2 #### GORAN SLATER (64684) [facility] ([place]) [address] [place] [address] 84608 MCHC (RBC) [Mass/Vol] 31.9 g/dL Low 32.0-36.0 [facility] Comment on above: Performed By: #### 5 8410-2 #### GORAN SLATER (95481) [facility] ([place]) [address] [place] [address] 96789 MCV (RBC) [Entitic vol] 94 fL Normal 80-100 [facility] Comment on above: Performed By: #### 5 8410-2 #### GORAN SLATER ([id number]) [facility] ([place]) [address] [place] [address] 63477 Nucleated RBC/100 WBC (Bld) [Ratio] 0.0 /100 WBCs Normal 0.0-0.0 [facility] Comment on above: Performed By: #### 5 8410-2 #### GORAN SLATER (43589) [facility] ([place]) [address] [place] [address] 33925 Platelets (Bld) [#/Vol] 217 x10*3/uL Normal 150-450 [facility] Comment on above: Performed By: #### 5 8410-2 #### GORAN SLATER (43455) [facility] ([place]) [address] [place] [address] RBC (Bld) [#/Vol] 4.71 x10*6/uL Normal 4.00-5.20 [facility] Comment on above: Performed By: #### 5 8410-2 #### GORAN SLATER ([id number]) [facility] ([place]) [address] [place] [address] WBC (Bld) [#/Vol] 4.9 x10*3/uL Normal 4.4-11.3 [facility] Comment on above: Performed By: #### 5 8410-2 #### GORAN SLATER ([id number]) [facility] ([place]) [address] [place] [address] Comprehensive metabolic 2000 panelon 06-21-2023 Albumin BCP dye [Mass/Vol] 3.9 g/dL Normal 3.4-5.0 [facility] Comment on above: Performed By: #### 2 4323-8 #### GORAN SLATER (11096) [facility] ([place]) [address] [place] [address] ALP [Catalytic activity/Vol] 69 U/L Normal 33-110 [facility] Comment on above: Performed By: #### 2 4323-8 #### GORAN SLATER (07337) [facility] ([place]) [address] [place] [address] ALT With P-5'-P [Catalytic activity/Vol] 27 U/L Normal 7-45 [facility] Comment on above: Result Comment: Neeru ents treated with Sulfasalazine may generate falsely decreased results for ALT. Performed By: #### 2 4322-8 #### GORAN SLATER (51660) [facility] ([place]) [address] [place] [address] Anion gap [Moles/Vol] 8 mmol/L Low 10-20 [facility] Comment on above: Performed By: #### 2 4322-8 #### GORAN SLATER ([id number]) [facility] ([place]) [address] [place] [address] AST With P-5'-P [Catalytic activity/Vol] 21 U/L Normal 9-39 [facility] Comment on above: Performed By: #### 2 4322-8 #### GORAN SLATER (87109) [facility] ([place]) [address] [place] [address] 92959 Bilirubin [Mass/Vol] 0.8 mg/dL Normal 0.0-1.2 [facility] Comment on above: Performed By: #### 2 4322-8 #### GORAN SLATER ([id number]) [facility] ([place]) [address] [place] [address] Calcium [Mass/Vol] 9.1 mg/dL Normal 8.6-10.3 [facility] Comment on above: Performed By: #### 2 4322-8 #### GORAN SLATER (97650) [facility] ([place]) [address] [place] [address] Chloride [Moles/Vol] 106 mmol/L Normal 98-107 [facility] Comment on above: Performed By: #### 2 4322-8 #### GORAN SLATER (08441) [facility] ([place]) [address] [place] [address] CO2 [Moles/Vol] 31 mmol/L Normal 21-32 [facility] Comment on above: Performed By: #### 2 4322-8 #### GORAN SLATER (50127) [facility] ([place]) [address] [place] [address] Creatinine [Mass/Vol] 0.73 mg/dL Normal 0.50-1.05 [facility] Comment on above: Performed By: #### 2 4323-8 #### GORAN SLATER (76791) [facility] ([place]) [address] [place] [address] 94679 GFR/1.73 sq M.predicted MDRD (S/P/Bld) [Vol rate/Area] mL/min/{1.73_m2} Normal >60 [facility] Comment on above: Result Comment: Calc ulations of estimated GFR are performed using the 2020 CKD-EPI Study Refit equation without the race variable for the IDMS-Traceable creatinine methods. https://jasn.asnjournals.org/content/early/ASN.811781639 8 Performed By: #### 2 4323-8 #### GORAN SLATER (73512) [facility] ([place]) [address] [place] [address] 68932 Glucose [Mass/Vol] 86 mg/dL Normal 74-99 [facility] Comment on above: Performed By: #### 2 4323-8 #### GORAN SLATER (34838) [facility] ([place]) [address] [place] [address] 06196 Potassium [Moles/Vol] 4.3 mmol/L Normal 3.5-5.3 [facility] Comment on above: Performed By: #### 2 4323-8 #### GORAN SLATER (35750) [facility] ([place]) [address] [place] [address] 62035 Protein [Mass/Vol] 5.8 g/dL Low 6.4-8.2 [facility] Comment on above: Performed By: #### 2 4323-8 #### GORAN SLATER (50593) [facility] ([place]) [address] [place] [address] 13814 Sodium [Moles/Vol] 141 mmol/L Normal 136-145 [facility] Comment on above: Performed By: #### 2 4323-8 #### GORAN SLATER (42128) [facility] ([place]) [address] [place] [address] 61240 Urea nitrogen [Mass/Vol] 16 mg/dL Normal 6-23 [facility] Comment on above: Performed By: #### 2 4323-8 #### GORAN SLATER (39505) [facility] ([place]) [facility] [place] [address] Lipid 1996 panelon 4 Cholesterol [Mass/Vol] 148 mg/dL Normal 0-199 [facility] Comment on above: Result Comment: Age Desirable Borderline High High 0-19 Y 0 - 169 170 - 199 >/= 200 20-24 Y 0 - 189 190 - 224 >/= 225 >24 Y 0 - 199 200 - 239 >/= 240 All ranges are based on fasting samples. Specific therapeutic targets will vary based on patient-specific cardiac risk. Pediatric guidelines reference:Pediatrics 2011, 128(S5).Adult guidelines reference: NCEP ATPIII Guidelines,CODIE 2001, 258:2486-97 Venipuncture immediately after or during the administration of Metamizole may lead to falsely low results. Testing should be performed immediately prior to Metamizole dosing. Performed By: #### 2 4331-1 #### GORAN SLATER (06382) [facility] ([place]) [address] [place] [address] 01615 Cholesterol in HDL [Mass/Vol] 49.0 mg/dL Normal [facility] Comment on above: Result Comment: Age Very Low Low Normal High 0-19 Y < 35 < 40 40-45 ---- 20-24 Y ---- < 40 >45 ---- >24 Y ---- < 40 40-60 >60 Performed By: #### 2 4331-1 #### GORAN SLATER (75071) [facility] ([place]) [facility] [place] [address] Cholesterol in LDL [Mass/Vol] 88 mg/dL Normal <=99 [facility] Comment on above: Result Comment: Near Borderline AGE Desirable Optimal High High Very High 0-19 Y 0 - 109 --- 110-129 >/= 130 ---- 20-24 Y 0 - 119 --- 120-159 >/= 160 ---- >24 Y 0 - 99 100-129 130-159 160-189 >/=190 Performed By: #### 2 4331-1 #### GORAN SLATER (21922) [facility] ([place]) [address] [place] [address] 43994 Cholesterol in VLDL [Mass/Vol] 11 mg/dL Normal 0-40 [facility] Comment on above: Performed By: #### 2 4331-1 #### GORAN SLATER (34005) [facility] ([place]) [address] [place] [address] 92421 CHOLESTEROL/HDL RATIO 3.0 Normal [facility] Comment on above: Result Comment: Ref Values Desirable < 3.4 High Risk > 5.0 Performed By: #### 2 4331-1 #### GORAN SLATER (75226) [facility] ([place]) [address] [place] [address] 80711 NON HDL CHOLESTEROL 99 mg/dL Normal 0-149 [facility] Comment on above: Result Comment: Age Desirable Borderline High High Very High 0-19 Y 0 - 119 120 - 144 >/= 145 >/= 160 20-24 Y 0 - 149 150 - 189 >/= 190 ---- >24 Y 30 mg/dL above LDL Cholesterol goal Performed By: #### 2 4331-1 #### GORAN SLATER (07613) [facility] ([place]) [address] [place] [address] 79561 Triglyceride [Mass/Vol] 56 mg/dL Normal 0-149 [facility] Comment on above: Result Comment: Age Desirable Borderline High High Very High 0 D-90 D 19 - 174 ---- ---- ---- 91 D- 9 Y 0 - 74 75 - 99 >/= 100 ---- 10-19 Y 0 - 89 90 - 129 >/= 130 ---- 20-24 Y 0 - 114 115 - 149 >/= 150 ---- >24 Y 0 - 149 150 - 199 200- 499 >/= 500 Venipuncture immediately after or during the administration of Metamizole may lead to falsely low results. Testing should be performed immediately prior to Metamizole dosing. Performed By: #### 2 4331-1 #### GORAN SLATER (90310) [facility] ([place]) [address] [place] [address] TSH WITH REFLEX TO FREE T4 I F ABNORMALon 06-21-2023 TSH Qn 2.46 m[IU]/L Normal 0.44-3.98 [facility] Comment on above: Order Comment: TSH t esting is performed using different testing methodology at [facility] other [facility] Direct result comparisons should only be made within the same method. Performed By: #### T HYDS #### GORAN SLATER (03512) [facility] ([place]) [address] [place] [address] CBC panel Auto (Bld)on 04-24 Erythrocyte distribution width (RBC) [Ratio] 12.9 % Normal 11.5-14.5 [facility] Comment on above: Performed By: #### 5 8410-2 #### GOARN SLATER (67385) [facility] ([place]) [address] [place] [address] Hematocrit (Bld) [Volume fraction] 42.5 % Normal 36.0-46.0 [facility] Comment on above: Performed By: #### 5 8410-2 #### GORAN SLATER (22524) [facility] ([place]) [address] [place] [address] Hemoglobin (Bld) [Mass/Vol] 13.9 g/dL Normal 12.0-16.0 [facility] Comment on above: Performed By: #### 5 8410-2 #### GORAN SLATER (22414) [facility] ([place]) [address] [place], [place] [address] MCH (RBC) [Entitic mass] 30.8 pg Normal 26.0-34.0 [facility] Comment on above: Performed By: #### 5 8410-2 #### GORAN SLATER (97827) [facility] ([place]) [address] [place] [address] MCHC (RBC) [Mass/Vol] 32.7 g/dL Normal 32.0-36.0 [facility] Comment on above: Performed By: #### 5 8410-2 #### GORAN SLATER (27008) [facility] ([place]) [address] [place] [address] 26595 MCV (RBC) [Entitic vol] 94 fL Normal 80-100 [facility] Comment on above: Performed By: #### 5 8410-2 #### GORAN SLATER (65141) [facility] ([place]) [address] [place] [address] 50053 Nucleated RBC/100 WBC (Bld) [Ratio] 0.0 /100 WBCs Normal 0.0-0.0 [facility] Comment on above: Performed By: #### 5 8410-2 #### GORAN SLATER (59976) [facility] ([place]) [address] [place] [address] 44649 Platelets (Bld) [#/Vol] 295 x10*3/uL Normal 150-450 [facility] Comment on above: Performed By: #### 5 8410-2 #### GORAN SLATER (59434) [facility] ([place]) [address] [place] [address] 00073 RBC (Bld) [#/Vol] 4.52 x10*6/uL Normal 4.00-5.20 [facility] Comment on above: Performed By: #### 5 8410-2 #### GORAN SLATER (99658) [facility] ([place]) [address] [place] [address] 84466 WBC (Bld) [#/Vol] 4.5 x10*3/uL Normal 4.4-11.3 [facility] Comment on above: Performed By: #### 5 8410-2 #### GORAN SLATER (93551) [facility] ([place]) [address] [place] [address] 79088 Comprehensive metabolic 2000 panelon 04-25-2023 Albumin BCP dye [Mass/Vol] 3.6 g/dL Normal 3.4-5.0 [facility] Comment on above: Performed By: #### 2 4323-8 #### GORAN SLATER (03829) [facility] ([place]) [address] [place] [address] ALP [Catalytic activity/Vol] 102 U/L Normal 33-110 [facility] Comment on above: Performed By: #### 2 4323-8 #### GORAN SLATER (79453) [facility] ([place]) [address] [place] [address] ALT With P-5'-P [Catalytic activity/Vol] 25 U/L Normal 7-45 [facility] Comment on above: Result Comment: Neeru ents treated with Sulfasalazine may generate falsely decreased results for ALT. Performed By: #### 2 432-8 #### GORAN SLATER (07347) [facility] ([place]) [address] [place] [address] Anion gap [Moles/Vol] 9 mmol/L Low 10-20 [facility] Comment on above: Performed By: #### 2 432-8 #### GORAN SLATER (95439) [facility] ([place]) [address] [place] [address] AST With P-5'-P [Catalytic activity/Vol] 19 U/L Normal 9-39 [facility] Comment on above: Performed By: #### 2 4323-8 #### GORAN SLATER (73365) [facility] ([place]) [address] [place] [address] Bilirubin [Mass/Vol] 0.6 mg/dL Normal 0.0-1.2 [facility] Comment on above: Performed By: #### 2 4323-8 #### GORAN SLATER (34005) [facility] ([place]) [address] [place] [address] Calcium [Mass/Vol] 9.2 mg/dL Normal 8.6-10.3 [facility] Comment on above: Performed By: #### 2 4323-8 #### GORAN SLATER (03639) [facility] ([place]) [address] [place] [address] Chloride [Moles/Vol] 108 mmol/L High 98-107 [facility] Comment on above: Performed By: #### 2 4323-8 #### GORAN SLATER (44440) [facility] ([place]) [address] [place] [address] 42956 CO2 [Moles/Vol] 31 mmol/L Normal 21-32 [facility] Comment on above: Performed By: #### 2 4323-8 #### GORAN SLATER (24028) [facility] ([place]) [address] [place] [address] 56238 Creatinine [Mass/Vol] 0.75 mg/dL Normal 0.50-1.05 [facility] Comment on above: Performed By: #### 2 4323-8 #### GORAN SLATER (04767) [facility] ([place]) [address] [place] [address] 31256 GFR/1.73 sq M.predicted MDRD (S/P/Bld) [Vol rate/Area] mL/min/{1.73_m2} Normal >60 [facility] Comment on above: Result Comment: Calc ulations of estimated GFR are performed using the 2020 CKD-EPI Study Refit equation without the race variable for the IDMS-Traceable creatinine methods. https://jasn.asnjournals.org/content//ASN.611006949 8 Performed By: #### 2 4323-8 #### GORAN SLATER ([id number]) [facility] ([place]) [address] [place] [address] 93419 Glucose [Mass/Vol] 87 mg/dL Normal 74-99 [facility] Comment on above: Performed By: #### 2 4323-8 #### GORAN SLATER (54742) [facility]) [address] [place] [address] 42184 Potassium [Moles/Vol] 4.2 mmol/L Normal 3.5-5.3 [facility] Comment on above: Performed By: #### 2 4323-8 #### GORAN SLATER (58063) [facility]) [address] [place] [address] 39791 Protein [Mass/Vol] 5.9 g/dL Low 6.4-8.2 [facility] Comment on above: Performed By: #### 2 4323-8 #### GORAN SLATER (40005) [facility]) [address] [place] [address] Sodium [Moles/Vol] 144 mmol/L Normal 136-145 [facility] Comment on above: Performed By: #### 2 4323-8 #### GORAN SLATER (92898) [facility] ([place]) [address] [place] [address] 37139 Urea nitrogen [Mass/Vol] 13 mg/dL Normal 6-23 [facility] Comment on above: Performed By: #### 2 4323-8 #### GORAN SLATER (87181) [facility]) [address] [place] [address] 04652 Lipid 1996 panelon 4 Cholesterol [Mass/Vol] 145 mg/dL Normal 0-199 [facility] Comment on above: Result Comment: Age Desirable Borderline High High 0-19 Y 0 - 169 170 - 199 >/= 200 20-24 Y 0 - 189 190 - 224 >/= 225 >24 Y 0 - 199 200 - 239 >/= 240 All ranges are based on fasting samples. Specific therapeutic targets will vary based on patient-specific cardiac risk. Pediatric guidelines reference:Pediatrics 2011, 128(S5).Adult guidelines reference: NCEP ATPIII Guidelines,CODIE 2001, 258:2486-97 Venipuncture immediately after or during the administration of Metamizole may lead to falsely low results. Testing should be performed immediately prior to Metamizole dosing. Performed By: #### 2 4331-1 #### GORAN SLATER (34090) [facility] ([place]) [address] [place] [address] 74403 Cholesterol in HDL [Mass/Vol] 46.0 mg/dL Normal [facility] Comment on above: Result Comment: Age Very Low Low Normal High 0-19 Y < 35 < 40 40-45 ---- 20-24 Y ---- < 40 >45 ---- >24 Y ---- < 40 40-60 >60 Performed By: #### 2 4331-1 #### GORAN SLATER (84316) [facility] ([place]) [address] [place] [address] 93893 Cholesterol in LDL [Mass/Vol] 87 mg/dL Normal <=99 [facility] Comment on above: Result Comment: Near Borderline AGE Desirable Optimal High High Very High 0-19 Y 0 - 109 --- 110-129 >/= 130 ---- 20-24 Y 0 - 119 --- 120-159 >/= 160 ---- >24 Y 0 - 99 100-129 130-159 160-189 >/=190 Performed By: #### 2 4331-1 #### GORAN SLATER (40500) [facility]) [address] [place] [address] 33282 Cholesterol in VLDL [Mass/Vol] 12 mg/dL Normal 0-40 [facility] Comment on above: Performed By: #### 2 4331-1 #### GORAN SLATER (98485) [facility] ([place]) [address] [place] [address] 25790 CHOLESTEROL/HDL RATIO 3.2 Normal [facility] Comment on above: Result Comment: Ref Values Desirable < 3.4 High Risk > 5.0 Performed By: #### 2 4331-1 #### GORAN SLATER (71334) [facility] ([place]) [address] [place] [address] 50520 NON HDL CHOLESTEROL 99 mg/dL Normal 0-149 [facility] Comment on above: Result Comment: Age Desirable Borderline High High Very High 0-19 Y 0 - 119 120 - 144 >/= 145 >/= 160 20-24 Y 0 - 149 150 - 189 >/= 190 ---- >24 Y 30 mg/dL above LDL Cholesterol goal Performed By: #### 2 4331-1 #### GORAN SLATER (36342) [facility] ([place]) [address] [place] [address] 63068 Triglyceride [Mass/Vol] 61 mg/dL Normal 0-149 [facility] Comment on above: Result Comment: Age Desirable Borderline High High Very High 0 D-90 D 19 - 174 ---- ---- ---- 91 D- 9 Y 0 - 74 75 - 99 >/= 100 ---- 10-19 Y 0 - 89 90 - 129 >/= 130 ---- 20-24 Y 0 - 114 115 - 149 >/= 150 ---- >24 Y 0 - 149 150 - 199 200- 499 >/= 500 Venipuncture immediately after or during the administration of Metamizole may lead to falsely low results. Testing should be performed immediately prior to Metamizole dosing. Performed By: #### 2 4331-1 #### ZIMMER BRYON ([id number]) [facility] ([place]) [address] [place] [address] TSH WITH REFLEX TO FREE T4 I F ABNORMALon 04-25-2023 TSH Qn 1.57 m[IU]/L Normal 0.44-3.98 [facility] Comment on above: Order Comment: TSH t esting is performed using different testing methodology at [facility] than [facility] other [facility]. Direct result comparisons should only be made within the same method. Performed By: #### T HYDS #### ZIMMER BRYON ([id number]) [facility] ([place]) [address] [place], [place] [id number] XR Abdomen Single viewon 1. Bilateral double- J ureteral stents now present. 2. Multiple small pelvic calcifications may represent phleboliths. Ureteral calculi can not be excluded by x-ray. Signed by: Wesley Carbajal 04/15/2023 9:46 AM Dictation workstation: [id number] [facility] Interpreted By: Wesley Subramanian, STUDY: XR ABDOMEN 1 VIEW; 04/14/2023 9:02 am INDICATION: Signs/Symptoms:KIDNEY STONES. COMPARISON: CT urogram of 03/21/2023. X-ray of 08/03/2022. ACCESSION NUMBER(S): [id number] ORDERING CLINICIAN: RU MCWILLIAMS FINDINGS: 2 frontal views of the abdomen were obtained. Lung bases are clear. There is moderate gaseous distention of the stomach. Moderate colonic fecal residue and bowel gas partially obscures visualization of the central and lower abdomen. A nonspecific nonobstructive bowel gas pattern is demonstrated. Bilateral double-J ureteral stents are now seen with proximal coils projecting at the renal pelves level and distal coils projecting in the region of the urinary bladder near midline. There are multiple small round pelvic calcifications which may represent phleboliths. Suture line overlies the pubic symphysis. Lower lumbar degenerative changes are again seen. [facility] Wesley Carbajal MD - 04/15/2023 Interpreted By: Wesley Carbajal, STUDY: XR ABDOMEN 1 VIEW; 04/14/2023 9:02 am INDICATION: Signs/Symptoms:KIDNEY STONES. COMPARISON: CT urogram of 03/21/2023. X-ray of 08/03/2022. ACCESSION NUMBER(S): [id number] ORDERING CLINICIAN: RU MCWILLIAMS FINDINGS: 2 frontal views of the abdomen were obtained. Lung bases are clear. There is moderate gaseous distention of the stomach. Moderate colonic fecal residue and bowel gas partially obscures visualization of the central and lower abdomen. A nonspecific nonobstructive bowel gas pattern is demonstrated. Bilateral double-J ureteral stents are now seen with proximal coils projecting at the renal pelves level and distal coils projecting in the region of the urinary bladder near midline. There are multiple small round pelvic calcifications which may represent phleboliths. Suture line overlies the pubic symphysis. Lower lumbar degenerative changes are again seen. IMPRESSION: 1. Bilateral double-J ureteral stents now present. 2. Multiple small pelvic calcifications may represent phleboliths. Ureteral calculi can not be excluded by x-ray. Signed by: Wesley Carbajal 04/15/2023 9:46 AM Dictation workstation: [id number] [facility] Work Phone: XR Abdomen Single viewOrdere d By: Wesley Carbajal on 04-15-2023 [facility] Work Phone: XR Abdomen Single viewon Radiology Study observation (narrative) [facility] Work Phone: CT Kidney and Ureter and Uri nary bladder 3D post processing WO and W contrast Bryn 03-22-2023 Interpreted By: Cristian Singh and Tavana Shahrzad STUDY: CT UROGRAPHY WITH 3D VOLUME RENDERED IMAGING; 03/21/2023 4:00 pm INDICATION: Signs/Symptoms:hx of bladder cancer, hematuria. Per clinical notes: Patient has a history of bladder cancer diagnosed in 2019 under surveillance by cystoscopy. Last cystoscopy was on 03/10/2023 without evidence of malignancy. COMPARISON: CT 10/12/2022 ACCESSION NUMBER(S): [id number] ORDERING CLINICIAN: RU MCWILLIAMS TECHNIQUE: Multiple contiguous axial images of the abdomen and pelvis were obtained without contrast. Then, multiple contiguous axial images of the abdomen and pelvis were obtained after the intravenous administration of 72 cc Omnipaque 350. Contrast utilizing CT urography protocol. Coronal and sagittal reformatted images were reconstructed from the axial data. 3D-reconstructions of the pelvocaliceal systems, urinary bladder, and kidneys were processed on an independent workstation and reviewed. FINDINGS: KIDNEY PARENCHYMA: No suspicious renal lesions identified. PELVICALICEAL SYSTEM/URETERS: No evidence of duplication of the collecting systems. No hydroureteronephrosis. No nephroureterolithiasis. Evaluation mid to distal right ureter as well as the mid left ureter is suboptimal due to poor contrast opacification. However, no abnormal ureteral thickening or focal filling defects are identified within the opacified segments. BLADDER: The bladder is under distended, limiting evaluation. Within this limitation, no focal bladder lesion or abnormal bladder wall thickening is identified. REPRODUCTIVE ORGANS: The uterus is present. No suspicious adnexal lesions. LIVER: Unchanged simple cyst in segment 8. BILE DUCTS: No significant intrahepatic or extrahepatic dilatation. GALLBLADDER: No significant abnormality. SPLEEN: No significant abnormality. PANCREAS: No significant abnormality. ADRENALS: No significant abnormality. VESSELS: Mild vascular calcifications. No aneurysm. RETROPERITONEUM/LYMPH NODES: No evidence of abdominopelvic lymphadenopathy by CT criteria. BOWEL/MESENTERY/PERITONEUM: Apparent postsurgical changes of Wen fundoplication noted. No inflammatory bowel wall thickening or dilatation. The appendix is not definitively visualized, however, there are no secondary signs of appendicitis. There is organized fluid collection. Small free fluid is noted in the cul-de-sac, similar to prior examination on 09/22/2022. ABDOMINAL WALL: Small fat containing periumbilical hernia. MUSCULOSKELETAL: Mild degenerative changes of the lumbar spine, most pronounced at L4-5 with loss of intervertebral disc height and endplate sclerosis. No acute osseous abnormalities. LOWER CHEST: No acute abnormality. [facility] Cristian Robles M D - 03/22/2023 Interpreted By: Cristian Robles and Tavana Shahrzad STUDY: CT UROGRAPHY WITH 3D VOLUME RENDERED IMAGING; 03/21/2023 4:00 pm INDICATION: Signs/Symptoms:hx of bladder cancer, hematuria. Per clinical notes: Patient has a history of bladder cancer diagnosed in 2019 under surveillance by cystoscopy. Last cystoscopy was on 03/10/2023 without evidence of malignancy. COMPARISON: CT 10/12/2022 ACCESSION NUMBER(S): [id number] ORDERING CLINICIAN: RU MCWILLIAMS TECHNIQUE: Multiple contiguous axial images of the abdomen and pelvis were obtained without contrast. Then, multiple contiguous axial images of the abdomen and pelvis were obtained after the intravenous administration of 72 cc Omnipaque 350. Contrast utilizing CT urography protocol. Coronal and sagittal reformatted images were reconstructed from the axial data. 3D-reconstructions of the pelvocaliceal systems, urinary bladder, and kidneys were processed on an independent workstation and reviewed. FINDINGS: KIDNEY PARENCHYMA: No suspicious renal lesions identified. PELVICALICEAL SYSTEM/URETERS: No evidence of duplication of the collecting systems. No hydroureteronephrosis. No nephroureterolithiasis. Evaluation mid to distal right ureter as well as the mid left ureter is suboptimal due to poor contrast opacification. However, no abnormal ureteral thickening or focal filling defects are identified within the opacified segments. BLADDER: The bladder is under distended, limiting evaluation. Within this limitation, no focal bladder lesion or abnormal bladder wall thickening is identified. REPRODUCTIVE ORGANS: The uterus is present. No suspicious adnexal lesions. LIVER: Unchanged simple cyst in segment 8. BILE DUCTS: No significant intrahepatic or extrahepatic dilatation. GALLBLADDER: No significant abnormality. SPLEEN: No significant abnormality. PANCREAS: No significant abnormality. ADRENALS: No significant abnormality. VESSELS: Mild vascular calcifications. No aneurysm. RETROPERITONEUM/LYMPH NODES: No evidence of abdominopelvic lymphadenopathy by CT criteria. BOWEL/MESENTERY/PERITONEUM: Apparent postsurgical changes of Wen fundoplication noted. No inflammatory bowel wall thickening or dilatation. The appendix is not definitively visualized, however, there are no secondary signs of appendicitis. There is organized fluid collection. Small free fluid is noted in the cul-de-sac, similar to prior examination on 09/22/2022. ABDOMINAL WALL: Small fat containing periumbilical hernia. MUSCULOSKELETAL: Mild degenerative changes of the lumbar spine, most pronounced at L4-5 with loss of intervertebral disc height and endplate sclerosis. No acute osseous abnormalities. LOWER CHEST: No acute abnormality. IMPRESSION: 1. Suboptimal evaluation of the mid to distal right and the mid left ureter due to poor contrast opacification. Otherwise, no abnormal ureteral thickening or filling defects identified within the collecting systems bilaterally. 2. No nephroureterolithiasis or hydroureteronephrosis. No suspicious renal lesions. No evidence of metastatic disease in the abdomen or pelvis. 3. Evaluation of the bladder is limited due to underdistention. Within this limitation, no focal soft tissue lesion or abnormal bladder wall thickening is identified. Recommend correlation with recent cystoscopy findings. 4. Additional findings as above. I personally reviewed the images/study and I agree with the findings as stated. This study was interpreted at [place], [place]. MACRO: None Signed by: Cristian Robles 03/22/2023 7:25 PM Dictation workstation: [id number] [facility] Work Phone: CT Kidney and Ureter and Uri nary bladder 3D post processing WO and W contrast IVOrdered By: Cristian Robles on 03-22-2023 [facility] Work Phone: CT Kidney and Ureter and Uri nary bladder 3D post processing WO and W contrast Bryn 03-21-2023 Radiology Study observation (narrative) [facility] Work Phone: NM Gallbladder Views W richard cystokinin and W radionuclide Bryn 2022 Normal hepatobiliary imaging with no sign of cystic duct obstruction or biliary dyskinesia. Images were interpreted at [facility]. MACRO: None Signed by: Corrine Sy 2022 12:23 PM Dictation workstation: [id number] [facility] Interpreted By: Corrine Ch, STUDY: NM HEPATOBILIARY W CHOLECYSTOKININ; 2022 12:00 pm INDICATION: Signs/Symptoms:Post-prandial upper abdominal pain, unintentional weight loss. Normal RUQ US. Please assess function of gallbladder.. COMPARISON: None. ACCESSION NUMBER(S): [id number] ORDERING CLINICIAN: BRADY LI TECHNIQUE: DIVISION OF NUCLEAR MEDICINE [facility]PATOBILIARY SCAN [facility]), QUANTITATIVE The patient received an intravenous dose of 6 mCi of Tc-99m mebrofenin (Choletec). Sequential images of the upper abdomen were then acquired over the next 60 minutes. An intravenous infusion of the cholecystokinin (CCK) analogue, Sincalide, was then administered followed by an additional period of imaging. Computer quantification of gallbladder emptying was also performed FINDINGS: There is prompt accumulation of activity within the liver and normal subsequent excretion via the biliary ductal system into the small bowel. The gallbladder first visualizes at about 10-15 minutes after radiopharmaceutical injection and progressively fills. After Sincalide administration, there is prompt contraction of the gallbladder with further anterograde transit of activity into the small bowel. The gallbladder ejection fraction is calculated to be 93 % (normal above 38%). [facility] Corrine Sy MD - 2022 Interpreted By: Corrine Sy, STUDY: NM HEPATOBILIARY W CHOLECYSTOKININ; 2022 12:00 pm INDICATION: Signs/Symptoms:Post-prandial upper abdominal pain, unintentional weight loss. Normal RUQ US. Please assess function of gallbladder.. COMPARISON: None. ACCESSION NUMBER(S): [id number] ORDERING CLINICIAN: BRADY LI TECHNIQUE: DIVISION OF NUCLEAR MEDICINE HEPATOBILIARY SCAN ([facility]), QUANTITATIVE The patient received an intravenous dose of 6 mCi of Tc-99m mebrofenin (Choletec). Sequential images of the upper abdomen were then acquired over the next 60 minutes. An intravenous infusion of the cholecystokinin (CCK) analogue, Sincalide, was then administered followed by an additional period of imaging. Computer quantification of gallbladder emptying was also performed FINDINGS: There is prompt accumulation of activity within the liver and normal subsequent excretion via the biliary ductal system into the small bowel. The gallbladder first visualizes at about 10-15 minutes after radiopharmaceutical injection and progressively fills. After Sincalide administration, there is prompt contraction of the gallbladder with further anterograde transit of activity into the small bowel. The gallbladder ejection fraction is calculated to be 93 % (normal above 38%). IMPRESSION: Normal hepatobiliary imaging with no sign of cystic duct obstruction or biliary dyskinesia. Images were interpreted at [facility]. MACRO: None Signed by: Corrine Sy 2022 12:23 PM Dictation workstation: [id number] [facility] Work Phone: Radiology Study observation (narrative) [facility] Work Phone: NM Gallbladder Views W richard cystokinin and W radionuclide IVOrdered By: Corrine Sy on 2022 [facility] Work Phone: US Abdomen RUQon 12-07-2022 Normal ultrasound of the liver and gallbladder. Pancreas poorly visualized. MACRO: None Signed by: Adryan Aguero 12/07/2022 3:06 PM Dictation workstation: [id number] [facility] Interpreted By: Adryan Hernandes, STUDY: US RIGHT UPPER QUADRANT; 12/07/2022 8:06 am INDICATION: Signs/Symptoms:Post-prandial pain that radiates to her back, assess for gallstones. COMPARISON: None. ACCESSION NUMBER(S): [id number] ORDERING CLINICIAN: BRADY LI TECHNIQUE: Multiple images of the right upper quadrant were obtained. FINDINGS: LIVER: The visualized portions of the liver are grossly unremarkable and free of any focal lesions. The length of the right lobe is 15.2 cm. GALLBLADDER: The gallbladder is nondistended, and demonstrates no evidence of gallstones, wall thickening or surrounding fluid. The gallbladder wall measures 2 mm. Sonographic Velez's sign is negative. BILIARY TREE: No intra or extrahepatic biliary dilatation is identified. The common bile duct measures 2 mm. PANCREAS: The pancreas is poorly visualized due to overlying bowel gas. RIGHT KIDNEY: The right kidney is normal in size, measuring 11 cm in craniocaudal dimension. The renal cortical echogenicity and thickness are within normal limits. No hydronephrosis or renal calculi are seen. [facility] Adryan Aguero MD - 12/07/2022 Interpreted By: Adryan Aguero, STUDY: US RIGHT UPPER QUADRANT; 12/07/2022 8:06 am INDICATION: Signs/Symptoms:Post-prandial pain that radiates to her back, assess for gallstones. COMPARISON: None. ACCESSION NUMBER(S): [id number] ORDERING CLINICIAN: BRADY LI TECHNIQUE: Multiple images of the right upper quadrant were obtained. FINDINGS: LIVER: The visualized portions of the liver are grossly unremarkable and free of any focal lesions. The length of the right lobe is 15.2 cm. GALLBLADDER: The gallbladder is nondistended, and demonstrates no evidence of gallstones, wall thickening or surrounding fluid. The gallbladder wall measures 2 mm. Sonographic Velez's sign is negative. BILIARY TREE: No intra or extrahepatic biliary dilatation is identified. The common bile duct measures 2 mm. PANCREAS: The pancreas is poorly visualized due to overlying bowel gas. RIGHT KIDNEY: The right kidney is normal in size, measuring 11 cm in craniocaudal dimension. The renal cortical echogenicity and thickness are within normal limits. No hydronephrosis or renal calculi are seen. IMPRESSION: Normal ultrasound of the liver and gallbladder. Pancreas poorly visualized. MACRO: None Signed by: Adryan Aguero 12/07/2022 3:06 PM Dictation workstation: [id number] [facility] Work Phone: Radiology Study observation (narrative) [facility] Work Phone: US Abdomen RUQOrdered By: Jerry Aguero on 12-07-2022 [facility] Work Phone: NM Stomach Views for gastric emptying solid phase W radionuclide Cami 11-22-2022 Interpreted By: Abelardo Narayanan and Ohs Zachary STUDY: NM GASTRIC EMPTYING SOLID; 11/22/2022 10:38 am INDICATION: Signs/Symptoms: Epigastric pain R10.13: Abdominal pain, epigastric. COMPARISON: Upper GI series with small-bowel follow-through dated 09/20/2022. ACCESSION NUMBER(S): [id number] ORDERING CLINICIAN: BRADY LI TECHNIQUE: DIVISION OF NUCLEAR MEDICINE GASTRIC EMPTYING QUANTIFICATION The patient received an oral radiolabeled solid-phase meal utilizing 1.1 mCi of Tc-99m sulfur colloid in cooked egg. Sequential anterior and posterior images of the abdomen were then acquired over the next four hours. Computer quantification of gastric emptying (using geometric mean activity) was performed. FINDINGS: The image series shows accelerated anterograde flow of radiotracer into the stomach and small bowel after a solid meal. Computer quantification demonstrates gastric retention as follows: 6 % at 1 hr (normal max 90%, normal min 30%) 2 % at 2 hr (normal max 60%) Emptying study was discontinued after 2 hours due to near complete emptying. IMPRESSION 1. Accelerated anterograde flow of radiotracer into the stomach and small bowel after a solid meal with <30% gastric retention after 1 hour, suggestive of rapid gastric emptying. I personally reviewed the images/study and I agree with the findings as stated. This study was interpreted at [place], [place]. Signed by: Abelardo Narayanan 11/22/2022 10:55 AM Dictation workstation: [id number] [facility] Abelardo Narayanan MD - 03/2022 Interpreted By: Abelardo Narayanan and Ohs Zachary STUDY: NM GASTRIC EMPTYING SOLID; 11/22/2022 10:38 am INDICATION: Signs/Symptoms: Epigastric pain R10.13: Abdominal pain, epigastric. COMPARISON: Upper GI series with small-bowel follow-through dated 09/20/2022. ACCESSION NUMBER(S): [id number] ORDERING CLINICIAN: BRADY LI TECHNIQUE: DIVISION OF NUCLEAR MEDICINE GASTRIC EMPTYING QUANTIFICATION The patient received an oral radiolabeled solid-phase meal utilizing 1.1 mCi of Tc-99m sulfur colloid in cooked egg.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 06/11/2020: Negative 04/20/2019: Negative History of Tension headache (307.81) (G44.209) History of Thoracic spondylosis (721.2) (M47.814) Surgical History History of Appendectomy History of Bladder surgery Removed cancer History of Colonoscopy History of Tubal Ligation Family History Family history of arthritis (V17.7) (Z82.61) Family history of asthma (V17.5) (Z82.5) Family history of diabetes mellitus (V18.0) (Z83.3) Family history of hyperlipidemia (V18.19) (Z83.438) Family history of hypertension (V17.49) (Z82.49) Family history of neoplasm of brain (V19.8) (Z84.89) Family history of Family history of multiple myeloma (V16.7) (Z80.7) Family history of asthma (V17.5) (Z82.5) Family history of polycystic ovarian syndrome (V18.7) (Z84.2) Family history of Graves' disease (V18.19) (Z83.49) Family history of gynecomastia (V18.7) (Z84.2) Family history of Cervical cancer screening Family history of asthma (V17.5) (Z82.5) Family history of diabetes mellitus (V18.0) (Z83.3) Family history of hyperlipidem (more content not included)... Normal [facility] Tobacco Screening.on Adult depression screening assessment No [facility] Work Phone: Tobacco use status CPHS b) No [facility] Work Phone: Radiologyon 09-01-2021 Thyroid gland Normal [facility] Work Phone: Tobacco Screening.on 022 Fall risk assessment a) No falls within the last year LD-Vqphivl-H [employer] Work Phone: Tobacco use status CPHS b) No PS-Ixewvll-G [employer] Phone: Blood Urea Nitrogen, Serumon 07-27-2021 Urea nitrogen [Mass/Vol] 13 mg/dL 6 - 23 IV-Mivmixg-M [facility] Work Phone: CT Abdomen and Pelvis with I V Contraston 07-27-2021 CT Abdomen and Pelvis W contrast IV Normal [facility] Work Phone: Creatinine, Serumon 07-28-19 Creatinine [Mass/Vol] 0.79 mg/dL See Below [facility] Work Phone: Comment on above: Reference Range: 0.5 0 - 1.05 Creatinine, Serum 88 {mL/min/1.73m2} >90 [facility] Work Phone: [phone] Comment on above: CALCULATIONS OF ALEXIA MATED GFR ARE PERFORMED USING THE 2020 CKD-EPI STUDY REFIT EQUATION WITHOUT THE RACE VARIABLE FOR THE IDMS-TRACEABLE CREATININE METHODS.https://jasn.asnjournals.org/content//ASN.2 727781175 LMPon 07-21-2021 Last menstrual period start date MENOPAUSE [facility] [address] Work Phone: [phone] Mamm - Screening Mammogram w / [employer] 06-24-2021 MG Breast Screening Normal [facility] [address] Work Phone: [phone] Laboratory - Cytologyon Cytology report Cyto stain.thin prep Doc (Cvx/Vag) [facility] [address] Work Phone: [phone] Tobacco Screening.on 022 Last menstrual period start date Menopause [facility] [address] Work Phone: [phone] Tobacco use status CPHS b) No [facility] [address] Work Phone: [phone] Hemoglobinon 05-25-2021 Hemoglobin (Bld) [Mass/Vol] 15.3 g/dL See Below [facility] Work Phone: Comment on above: Reference Range: 12. 0 - 16.0 Laboratory - Chemistry and C hemistry - challengeon 05-25-2021 Anion gap [Moles/Vol] 11 mmol/L 10 - 20 [facility] Work Phone: Calcium [Mass/Vol] 9.2 mg/dL 8.6 - 10.3 [facility] Work Phone: Chloride [Moles/Vol] 106 mmol/L 98 - 107 [facility] Work Phone: CO2 [Moles/Vol] 28 mmol/L 21 - 32 [facility] Work Phone: Creatinine [Mass/Vol] 0.77 mg/dL See Below [facility] Work Phone: Comment on above: Reference Range: 0.5 0 - 1.05 Glucose [Mass/Vol] 74 mg/dL 74 - 99 [facility] Work Phone: Potassium [Moles/Vol] 3.9 mmol/L 3.5 - 5.3 [facility] Work Phone: Sodium [Moles/Vol] 141 mmol/L 136 - 145 [facility] Work Phone: TSH Qn 3.67 m[IU]/L See Below [facility] Work Phone: Comment on above: Reference Range: 0.4 4 - 3.98 TSH testing is performed using different testing methodology at [facility] than at other [facility]. Direct result comparisons should only be made within the same method. Urea nitrogen [Mass/Vol] 17 mg/dL 6 - 23 [facility] Work Phone: No Panel Informationon 05-25 >90 >90 [facility] Work Phone: Comment on above: CALCULATIONS OF ALEXIA MATED GFR ARE PERFORMED USING THE 2020 CKD-EPI STUDY REFIT EQUATION WITHOUT THE RACE VARIABLE FOR THE IDMS-TRACEABLE CREATININE METHODS.https://jasn.asnjournals.org/content/22/ASN.2 013985858 Tobacco Screening.on Adult depression screening assessment No [facility] Work Phone: Tobacco use status CP b) No [facility] Work Phone: Vitamin B12, Serumon Cobalamin (Vitamin B12) [Mass/Vol] 326 pg/mL 211 - 911 [facility] Work Phone: Vitamin D 25-Hydroxyon 05-25 25-hydroxyvitamin D3 [Mass/Vol] 18 ng/mL Abnormal [facility] Work Phone: [phone] Comment on above: .DEFICIENCY: < 20 NG /MLINSUFFICIENCY: 20-29 NG/MLSUFFICIENCY: 30-100 NG/MLTHIS ASSAY ACCURATELY QUANTIFIES THE SUM OFVITAMIN D3, 25-HYDROXY AND VIT D2,25-HYDROXY. Tobacco Screening.on Tobacco use status CP b) No [facility] Work Phone: [phone] Tobacco Screening.on Fall risk assessment a) No falls within the last year OK-Muhljpw-U [facility] Work Phone: Tobacco use status CP b) No RT-Jbcekbx-G [facility] Work Phone: Radiologyon 01-14-2021 XR Chest 2 Views Normal [facility] Work Phone: Radiologyon 12-22-2020 XR Chest 2 Views Normal [facility] Work Phone: XR Chest 2 Views Please click on the link to view the study images Normal [facility] Work Phone: Tobacco Screening.on Tobacco use status CP b) No [facility] Work Phone: Complete Blood Count + Diffe rentialon 11-20-2020 Erythrocyte distribution width (RBC) [Ratio] 14.2 % See Below [facility] Work Phone: Comment on above: Reference Range: 11. 5 - 14.5 Hematocrit (Bld) [Volume fraction] 48.6 % above high threshold See Below [facility] Work Phone: Comment on above: Reference Range: 36. 0 - 46.0 Hemoglobin (Bld) [Mass/Vol] 16.3 g/dL above high threshold See Below [facility] Work Phone: [phone] Comment on above: Reference Range: 12. 0 - 16.0 MCHC (RBC) [Mass/Vol] 33.5 g/dL See Below [facility] Work Phone: [phone] Comment on above: Reference Range: 32. 0 - 36.0 MCV (RBC) [Entitic vol] 87 fL 80 - 100 [facility] Work Phone: [phone] Platelets (Bld) [#/Vol] 171 10*3/uL 150 - 450 [facility] Work Phone: [phone] RBC (Bld) [#/Vol] 5.59 {x10E12/L} above high threshold See Below [facility] Work Phone: [phone] Comment on above: Reference Range: 4.0 0 - 5.20 WBC (Bld) [#/Vol] 4.7 10*3/uL 4.4 - 11.3 [facility] Work Phone: Complete Blood Count + Differential SEE MANUAL DIFF [facility] Work Phone: Complete Blood Count + Differential 0.7 {/100_WBC} [facility] Work Phone: [phone] Laboratory - Chemistry and C hemistry - challengeon 11-20-2020 Anion gap [Moles/Vol] 11 mmol/L 10 - 20 [facility] Work Phone: [phone] Calcium [Mass/Vol] 8.4 mg/dL below low threshold 8.6 - 10.3 [facility] Work Phone: [phone] Chloride [Moles/Vol] 107 mmol/L 98 - 107 [facility] Work Phone: [phone] CO2 [Moles/Vol] 24 mmol/L 21 - 32 [facility] Work Phone: Creatinine [Mass/Vol] 0.68 mg/dL See Below [facility] Work Phone: Comment on above: Reference Range: 0.5 0 - 1.05 Glucose [Mass/Vol] 101 mg/dL above high threshold 74 - 99 [facility] Work Phone: Potassium [Moles/Vol] 3.6 mmol/L 3.5 - 5.3 [facility] Work Phone: Sodium [Moles/Vol] 138 mmol/L 136 - 145 [facility] Work Phone: Urea nitrogen [Mass/Vol] 14 mg/dL 6 - 23 [facility] Work Phone: Laboratory - Hematology and Cell countson 11-20-2020 Band form neutrophils/100 WBC (Bld) 11.0 % Abnormal 0.0 - 5.0 [facility] Work Phone: Basophils/100 WBC (Bld) 0.0 % 0.0 - 2.0 [facility] Work Phone: Lymphocytes/100 WBC (Bld) 14.0 % See Below [facility] Work Phone: Comment on above: Reference Range: 13. 0 - 44.0 Monocytes/100 WBC (Bld) 4.0 % 2.0 - 10.0 [facility] Work Phone: Lactate, Levelon 11-20-2020 Lactate [Moles/Vol] 0.8 mmol/L 0.4 - 2.0 [facility] Work Phone: Comment on above: Venipuncture immedia tely after or during the administration of Metamizole may lead to falsely low results. Testing should be performed immediately prior to Metamizole dosing. No Panel Informationon 11-20 NORMAL [facility] Work Phone: 0.05 {x10E9/L} See Below [facility] Work Phone: Comment on above: Reference Range: 0.0 0 - 0.50 0.00 {x10E9/L} See Below [facility] Work Phone: Comment on above: Reference Range: 0.0 0 - 0.10 Reference Range: 0.0 0 - 0.70 0.19 {x10E9/L} See Below [facility] Work Phone: Comment on above: Reference Range: 0.1 0 - 1.00 0.66 {x10E9/L} below low threshold See Below [facility] Work Phone: Comment on above: Reference Range: 1.2 0 - 4.80 0.52 {x10E9/L} See Below [facility] Work Phone: Comment on above: Reference Range: 0.0 0 - 0.70 3.29 {x10E9/L} See Below [facility] Work Phone: Comment on above: Reference Range: 1.2 0 - 7.00 3.81 {x10E9/L} See Below [facility] Work Phone: Comment on above: Reference Range: 1.2 0 - 7.70 1.0 % 0.0 - 2.0 [facility] Work Phone: 0.0 % 0.0 - 6.0 [facility] Work Phone: 70.0 % See Below [facility] Work Phone: [phone] Comment on above: Reference Range: 40. 0 - 80.0 Percent differential counts (%) should be interpreted in the context of the absolute cell counts (cells/L). >60 >60 [facility] Work Phone: Comment on above: CALCULATIONS OF ALEXIA MATED GFR ARE PERFORMED USING THE MDRD STUDY EQUATION FOR THE IDMS-TRACEABLE CREATININE METHODS. CLIN CHEM 2007;53:766-10 616 {ng/mL_FEU} Abnormal < or = 500 [facility] Work Phone: Comment on above: The VTE Exclusion D- Dimer assay is reported in ng/mL Fibrinogen Equivalent Units (FEU). Per manufacturers instructions for use, a value of less than 500 ng/mL (FEU) may help to exclude DVT or PE in outpatients when the assay is used with a clinical pretest probability assessment. (AEMR must utilize and document eCalc Wells Score Deep Vein Thrombosis Risk for DVT exclusion only; Emergency Department should utilize Guidelines for Emergency Department Use of the VTE Exclusion D-Dimer and Clinical Pretest probability assessment model for DVT or PE exclusion.) [email or web address] 1:8080/m usescripts/museweb.dll?Retri eveTestByDateTime?PatientID= [id number]&Date=20-11-2020&Ti me=[id number]&TestTyp e=ECG&Site=14&OutputType=PDF &Ext=PDF [facility] Work Phone: Please see physicia n note for formal interpretation confirmed by Scribe [facility] Work Phone: [phone] Normal [facility] Work Phone: [phone] [facility] Work Phone: [phone] [facility] Work Phone: [phone] [facility] Work Phone: [phone] [facility] Work Phone: [phone] 1 [facility] Work Phone: [phone] 1 [facility] Work Phone: [phone] 1 [facility] Work Phone: [phone] 1 [facility] Work Phone: [phone] 1 [facility] Work Phone: [phone] 1 [facility] Work Phone: [phone] 1 [facility] Work Phone: [phone] 1 [facility] Work Phone: [phone] [facility] Work Phone: [phone] [facility] Work Phone: Radiologyon 11-20-2020 XR Chest Single view Normal [facility] Work Phone: TH CT Angio Chest For PEon 0 11-20-[address] Angio Chest For PE Normal [facility] Work Phone: Troponin I, Serumon 11-21-19 Troponin I.cardiac [Mass/Vol] ng/mL See Below [facility] Work Phone: Comment on above: Reference Range: 0.0 0 - 0.03LESS THAN 0.04 NG/ML: NEGATIVEREPEAT TESTING IN THREE TO SIX HOURSIF CLINICALLY INDICATED.0.04 - 0.5 NG/ML: CONSISTENT WITH POSSIBLECARDIAC DAMAGE AND POSSIBLE INCREASEDCLINICAL RISK.SERIAL MEASUREMENTS MAY HELP ASSESS EXTENT OFMYOCARDIAL DAMAGE.>0.5 NG/ML: CONSISTENT WITH CARDIAC DAMAGE,INCREASED CLINICAL RISK AND MYOCARDIALINFARCTION. SERIAL MEASUREMENTS MAY HELPASSESS EXTENT OF MYOCARDIAL DAMAGE..Note: Troponin I testing is performed using different testing methodology at [facility] than at other [facility]. Direct result comparisons should only be made within the same method. ULTRASOUND LIMITED BREASTon 10-13-2020 ULTRASOUND LIMITED BREAST Patient Name: FELA CHRISTIANSON STUDY: BREAST ULTRASOUND; 10/13/2020 8:45 am ACCESSION NUMBER(S): [id number] ORDERING CLINICIAN: DANIELA JOHNSON INDICATION: Right breast lump associated with pain since 8 months. Family history of breast cancer in paternal aunt. COMPARISON: Screening mammogram dated 06/19/2020. FINDINGS: Targeted ultrasound the right breast in the region palpable concern was performed by registered system operator utilizing elastography. Sonographic evaluation of the subareolar region in the right breast demonstrates a dilated duct within the region of palpable concern. There is no solid mass or internal vascularity within this region. This region is soft on elastography. Targeted ultrasound reveals no other suspicious masses. IMPRESSION: 1. Benign dilated duct in the subareolar right breast corresponding to the region of palpable concern. Recommend clinical follow-up. 2. No sonographic evidence of malignancy. BI-RADS CATEGORY: Category: 2 - Benign. Recommendation: 1 Year Screening and clinical follow-up. For any future breast imaging appointments, please call [phone] I personally reviewed the images/study and I agree with the assistant professor of radiology physician, Dr. Leonela Bobby's findings, as stated. This study was interpreted at [facility]. Electronically signed by: ANGEL DUMONT MD Normal [facility] Ultrasound Limited Breaston 10-13-2020 MG Breast Screening Normal -[facility] Work Phone: Tobacco Screening.on 021 Fall risk assessment a) No falls within the last year FN-[facility]ntlkv[facility] Work Phone: Tobacco use status [facility] b) No PG-Fybkeex-T [facility] Work Phone: CT Urogramon 05-20-2020 CT Urogram Interpreted by: JH CREWS05/20/20 10:16N: [id number] Name: FELA CHRISTIANSON STUDY:CT UROGRAPHY WITH AND WITHOUT CONTRAST; 05/20/2020 9:53 am INDICATION:BLADDER CANCER. COMPARISON:Right upper quadrant ultrasound 16 April 2020; CT abdomen andpelvis with contrast 12 October 2019; CT urogram 29 December 2018 ORDERING CLINICIAN:RU MCWILLIAMS TECHNIQUE:CT Abdomen and pelvis from the lung bases through the symphysis pubisusing CT Urogram protocol, including CT of the abdomen and pelviswithout IV contrast, followed by 2-phase CT of both the abdomen andpelvis after the uneventful administration of 150 mL Omnipaque 350intravenous contrast, including nephrographic and excretory phases ofthe abdomen and pelvis. No oral contrast. Sagittal and coronalreformatted images of both the nephrographic and excretory phaseswere created and reviewed. 3D maximum intensity projections (3D MIPS) of the contrast-opacifiedurinary tract were created, reviewed and saved FINDINGS:KIDNEYS AND URINARY TRACT: RIGHT:Stone: NegativeHydronephrosis: NegativeUreteral stricture: NegativeParenchymal mass: Negative. No solid, enhancing or otherwise suspectparenchymal mass lesionUrothelial mass: Negative. No soft tissue attenuation fillingdefects in the excreted contrast-opacified collecting system orureter.Limitations: Distal 2/3 of the ureter was not well enough opacifiedto evaluate. No portion of the unopacified ureter is expansile tosuggest an underlying lesionCongenital variant anatomy: Negative; no variant anatomy such asduplicated uretersOther: n/a LEFT:Stone: Solitary 3 mm or smaller (too small to measure attenuation)nonobstructing lower pole stone is unchanged from the oldestcomparison exam available, CT urogram 08 January 2019. No new stone.No ureteral stoneHydronephrosis: NegativeUreteral stricture: NegativeParenchymal mass: Negative. No solid, enhancing or otherwise suspectparenchymal mass lesionUrothelial mass: Negative. No soft tissue attenuation fillingdefects in the excreted contrast-opacified collecting system orureter.Limitations: The middle one third of the ureter was not well enoughopacified on the excretory phase to evaluate for an underlyinglesion. No portion of the unopacified ureter is expansile to suggestan underlying lesionCongenital variant anatomy: Negative; no variant anatomy such asduplicated uretersOther: n/a URINARY BLADDER:Stone: NegativeUrothelial mass: Negative. No soft tissue attenuation fillingdefects in the excreted contrast-opacified urinary bladderLimitations: The nondependent one third of the urinary bladder wasnot well enough opacified with excreted contrast to evaluate for anunderlying lesionWall thickening: NegativeSurrounding acute inflammatory change: NegativeDiverticula: NegativeTrabeculations: NegativeCongenital variant anatomy: Negative. No variant anatomy such asurachal remnantFistula: NegativeOther: n/a ABDOMEN: LIVER: Normal. No enlargement or evidence of cirrhosis or fattychange. No mass or other suspect lesion. SPLEEN: Normal. No enlargement, mass or evidence of splenic veinthrombosis. PANCREAS: Normal. No CT evidence of acute or chronic pancreatitis. Noduct dilation. No mass. GALLBLADDER: Normal CT appearance. No dilation, calcified, orgas-containing stones. Other types of gallstones could be occult onCT and detectable only by ultrasound. BILE DUCTS: Normal. No biliary duct dilation. ADRENAL GLANDS: Normal. No nodule or mass. LYMPH NODES: No adenopathy, intraperitoneal, retroperitoneal, pelvicor otherwise APPENDIX: Diminutive or surgically absent. If the appendix is stillpresent I do not suspect appendicitis or neoplasm COLON: Normal. No sign of acute diverticulitis or other colitis. Noannular constricting mass. SMALL BOWEL: Normal. No small bowel dilation or any other sign ofsmall bowel obstruction. No sign of active inflammatory bowel disease. STOMACH / DUODENUM: Grossly normal by CT which has limitedsensitivity and specificity for the stomach and duodenum. RETROPERITONEUM: Normal. No acute hemorrhage or inflammatory change.Lymph nodes in a separate dedicated section. OMENTUM, MESENTERY AND PERITONEAL SPACES:Free intraperitoneal air: NegativeFree intraperitoneal fluid: NegativeAbscess: NegativeOther: n/a PELVIS: The uterus is present. There is no suspect adnexal cyst ormass. No free fluid, mass or adenopathy. VASCULATURE: No abdominal aortic or iliac artery aneurysm. No highgrade stenosis of the major abdominal aortic branch vessels. Portalvenous system patent. ABDOMINAL WALL:Hernia: NegativeOther: No acute or contributory abnormality. LOWER CHEST: No acute findings including no nodules suspect formetastatic disease or other malignancy BONES: No acute findings including no aggressive osseous lesionsuspect for metastatic disease or other malignancy IMPRESSION:3 MM OR SMALLER NONOBSTRUCTING LOWER POLE LEFT RENAL STONE REMAINSTHE ONLY STONE IN THE ENTIRE URINARY TRACT, UNCHANGED BACK TO THEOLDEST EXAM AVAILABLE, CT UROGRAM 08 JANUARY 2019 NO OTHER CONTRIBUTORY ABNORMALITIES NO EVIDENCE OF METACHRONOUS UROTHELIAL LESION IN THE OPACIFIEDURINARY TRACT, NOTING THAT THE NONDEPENDENT ONE THIRD OF THE URINARYBLADDER, THE DISTAL 2/3 OF THE RIGHT URETER AND THE MIDDLE ONE THIRDOF THE LEFT URETER WERE NOT WELL ENOUGH OPACIFIED TO EVALUATE. I NOTETHAT NO PORTION OF EITHER UNOPACIFIED URETER IS EXPANSILE TO SUGGESTAN UNDERLYING LESION NO METASTATIC DISEASE IN THE ABDOMEN OR PELVIS NO HYDROURETERONEPHROSIS NO EVIDENCE OF ACUTE INFLAMMATION ANYWHERE IN THE URINARY TRACT NO SOLID RENAL PARENCHYMAL MASS NO VARIANT ANATOMY SUCH URACHAL REMNANT OR DUPLICATED/ECTOPICURETERS NO ACUTE UNANTICIPATED PROCESS IN THE ABDOMEN OR PELVIS OUTSIDE THEURINARY TRACTElectronically signed by: JH CREWS 05/20/20 10:16 Normal RG-Sriniii-U [facility] Work Phone: Lipid Panelon 11-20-2019 Cholesterol [Mass/Vol] 196 mg/dL 0 - 199 [facility] Work Phone: Comment on above: . AGE DESIRABLE BORD HEMA HIGH HIGH 0-19 Y 0 - 169 170 - 199 >/= 200 20-24 Y 0 - 189 190 - 224 >/= 225 >24 Y 0 - 199 200 - 239 >/= 240 All ranges are based on fasting samples. Specific therapeutic targets will vary based on patient-specific cardiac risk.. Pediatric guidelines reference:Pediatrics 2011, 128(S5). Adult guidelines reference: NCEP ATPIII Guidelines, CODIE 2001, 258:2486-97. Venipuncture immediately after or during the administration of Metamizole may lead to falsely low results. Testing should be performed immediately prior to Metamizole dosing. Cholesterol in HDL [Mass/Vol] 42.0 mg/dL [facility] Work Phone: Comment on above: . AGE VERY LOW LOW N ORMAL HIGH 0-19 Y < 35 < 40 40-45 ---- 20- 24 Y ---- < 40 >45 ---- >24 Y ---- < 40 40-60 >60. Cholesterol in LDL [Mass/Vol] 136 mg/dL above high threshold 0 - 99 [facility] Work Phone: Comment on above: . NEAR BORD AGE BERENICE RABLE OPTIMAL HIGH HIGH VERY HIGH 0-19 Y 0 - 109 --- 110-129 >/= 130 ---- 20-24 Y 0 - 119 --- 120-159 >/= 160 ---- >24 Y 0 - 99 100-129 130-159 160-189 >/=190. Cholesterol.total/ Cholesterol in HDL [Mass ratio] 4.7 {ratio} [facility] Work Phone: Comment on above: REF VALUESDESIRABLE < 3.4HIGH RISK > 5.0 Triglyceride [Mass/Vol] 90 mg/dL 0 - 149 [facility] Work Phone: Comment on above: . AGE DESIRABLE BORD HEMA HIGH HIGH VERY HIGH 0 D-90 D 19 - 174 ---- ---- ----91 D- 9 Y 0 - 74 75 - 99 >/= 100 ---- 10-19 Y 0 - 89 90 - 129 >/= 130 ---- 20-24 Y 0 - 114 115 - 149 >/= 150 ---- >24 Y 0 - 149 150 - 199 200- 499 >/= 500. Venipuncture immediately after or during the administration of Metamizole may lead to falsely low results. Testing should be performed immediately prior to Metamizole dosing. Lipid Panel 18 mg/dL 0 - 40 [facility] Work Phone: Magnesium, Serumon 0 Magnesium [Mass/Vol] 2.20 mg/dL See Below [facility] Work Phone: Comment on above: Reference Range: 1.6 0 - 2.40 T4 - Free Thyroxine, Serumon 11-09-2019 Free T4 [Mass/Vol] 1.04 ng/dL See Below [facility] Work Phone: Comment on above: Reference Range: 0.6 1 - 1.12 Thyroxine Free testing is performed using different testing methodology at [facility] than at other [facility]. Direct result comparisons should only be made within the same method.. Biotin can cause falsely elevated free T4 results. Patients taking a Biotin dose of up to 10 mg/day should refrain from taking Biotin for 24 hours before sample collection. Patient taking a Biotin dose of >10 mg/day should consult with their physician or the laboratory before the blood draw. Thyroidon 11-09-2019 TSH Qn 5.12 {mIU/L} above high threshold See Below [facility] Work Phone: Comment on above: Reference Range: 0.4 4 - 3.98 TSH testing is performed using different testing methodology at [facility] than at other [facility]. Direct result comparisons should only be made within the same method. Otheron 11-07-2019 Name CHRISTIANSONTATY Isis Pathologist: OZZIE MCGREGORate of Procedure: 11/07/2019Date Received: 11/07/2019Date Reported 11/09/2019Submitting Physician: JELLY VERAS MDLocation: [facility] Copy To/Referring/Attending:JELLY VERAS MD Other External # FINAL DIAGNOSISA. ENDOMETRIUM, BIOPSY:-- SUPERFICIAL STRIPS OF INACTIVE ENDOMETRIUM.-- FRAGMENTS OF BENIGN SQUAMOUS AND ENDOCERVICAL EPITHELIUM. Electronically Signed Out By JUANITA BOX MD/SUADBy the signature on this report, the individual or group listed as making theFinal Interpretation/Diagnosis certifies that they have reviewed this case. Clinical History:Fixative (A): FORMALINClinical Diagnosis History: Thickened endometrium - (R93.89)Specimens Submitted As:A: ENDOMETRIAL BIOPSY Gross Description:Received in formalin, labeled with the patient's name and hospital number andEMB, are multiple fragments of mucus, blood and soft tissue, aggregating to1.1 x 0.2 x 0.1 cm. The specimen is submitted in toto in one cassette. 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 COMPARISON:CT urogram dated 01/08/2019; ORDERING CLINICIAN:RU MCWILLIAMS TECHNIQUE:CT of the abdomen and pelvis was performed. Standard contiguousaxial images were obtained at 3 mm slice thickness through theabdomen and pelvis. Coronal and sagittal reconstructions at 3 mmslice thickness were performed. 90 ml of contrast Omnipaque 350 were administered intravenouslywithout immediate complication. Positive oral contrast was alsoadministered. FINDINGS:LOWER CHEST:Included lung bases demonstrate mild dependent atelectasisbilaterally without focal consolidation or pleural effusion. Heart is normal in size without pericardial effusion. ABDOMEN: LIVER:Liver is normal in size and homogeneous in attenuation. There isredemonstration of several small low-density lesions measuring up to0.4 cm in size in segments 2, 7, and 8, which are similar in size andappearance compared to prior examination in December of 2018. There are no new liver lesions are seen. Portal vein is patent. BILE DUCTS:There is no intrahepatic or extrahepatic biliary dilatation. GALLBLADDER:Gallbladder is not distended, and is otherwise unremarkable inappearance with no radiopaque stones or wall thickening. PANCREAS:Pancreas is within normal limits, with no evidence of pancreaticductal dilatation or peripancreatic stranding. SPLEEN:Spleen is normal in size and otherwise unremarkable. ADRENAL GLANDS:Bilateral adrenal glands are within normal limits. KIDNEYS AND URETERS:Kidneys are normal in size and symmetric in enhancement, with noevidence of hydronephrosis bilaterally. A 0.4 cm stone is noted in the lower pole of the left kidney. PELVIS: BLADDER:Bladder is incompletely distended, but is otherwise unremarkableappearance, with no evidence of wall thickening or mass like lesions. REPRODUCTIVE ORGANS:Uterus is present, with prominent endometrial measuring up to 15 mm.No suspicious adnexal masses or fluid collections are seen. BOWEL:Stomach is decompressed and otherwise unremarkable in appearance.Small bowel is nondilated. Is not definitely visualized, but there isno evidence of free fluid or acute inflammatory changes in the rightlower quadrant. Colon is nondilated and otherwise is unremarkable new appearance. VESSELS:There is no aneurysmal dilatation of the abdominal aorta. The IVCappears normal. PERITONEUM/RETROPERITONEUM/L YMPH NODES:There is no free or loculated fluid collection, no freeintraperitoneal air. The retroperitoneum appears normal. Noabdominopelvic lymphadenopathy is present. BONES AND ABDOMINAL WALL:No suspicious osseous lesions are seen. There are multilevel discogenic degenerative changes of the lumbarspine, most pronounced at L4-L5. The abdominal wall soft tissues appear normal. IMPRESSION:1. Bladder is incompletely distended, but is otherwise unremarkablein appearance, with no evidence of focal wall thickening or mass likelesions. There is no abdominopelvic lymphadenopathy.2. If patient is postmenopausal, detailed gynecological examinationand ultrasound is recommended to further evaluate prominentendometrium.3. A 0.4 cm nonoccluding radiopaque stone is seen in the lower poleof the left kidney, stable in appearance compared to prior exam andof December 2018.4. Several tiny low-density lesions in segments 2, 7 and 8 of theliver could not be definitely characterize, but are unchanged in sizeor appearance compared to prior examination, and likely representsmall cysts. I personally reviewed the images/study and Dr. Mann'sinterpretation and I agree with the findings as stated. This studywas analyzed and interpreted at [place], [place].Electronically signed by: CRISTIAN ROBLES 10/13/19 14:31 Normal MV-Cpjkbhu-Y [facility] Work Phone: Comment on above: ORDER REVISED TO A C T ABDOMEN AND PELVIS W IV CONTRAST BY RADIOLOGIST; Original Order Number: [id number] HLA B27on 08-21-2019 HLA-B27 Negative Normal [facility] Comment on above: Result Comment: (NOT E) HLA-B*27 Negative B27 allele interpretation for all loci based on IMGT/HLA database version 3.38 This test was developed and its performance characteristics determined by [facility]. It has not been cleared or approved by the Food and Drug Administration. [facility] CLIA ID Number [id number] This test was performed using PCR (Polymerase Chain Reaction)/SSOP (Sequence Specific Oligonucleotide Probes) technique. SBT (Sequence Based Typing) and/or SSP (Sequence Specific Primers) may be used as supplemental methods when necessary. Please contact HLA Customer Service at if you have any questions. Director of HLA Laboratory Dr Juvenal Perez, PhD PERFORMED AT [facility] DNA Performed By: #### A CBC, CMPF, ESR, CPK, CREACT, MG, URIC, B12, TSH2 #### Testing performed at [facility] [address] [place] [address] #### LRBCF, LACEZ, LTTG, LUCILA, LIMEL #### Testing performed at [facility] [address] [place] [address] [address] [place] [address] #### [id number], LACCGA, LVB6 #### Testing performed at [facility] #### LANCA #### Testing performed at [facility] [address] [place] [address] [address] [place] [address] Testing performed at [facility] VIT.B1 THIAMINE-BLDon 2019 VIT.B1 THIAMINE-BLD 135.1 [facility] Comment on above: Result Comment: Refe rence range: 66.5 to 200.0 Unit: nmol/L (NOTE) This test was developed and its performance characteristics determined by [facility]. It has not been cleared or approved by the Food and Drug Administration. PERFORMED AT [facility] Performed By: #### A CBC, CMPF, ESR, CPK, CREACT, MG, URIC, B12, TSH2 #### [place] [address] #### LRBCF, LACEZ, LTTG, LUCILA, LIMEL #### Testing performed at [address] [address] #### [id number], LACCGA, LVB6 #### Testing performed at [facility] #### LANCA #### [place] [address] Testing performed at [facility] VITAMIN B6on 08-19-2019 VITAMIN B6 LVL 11.4 [facility] Comment on above: Result Comment: Refe rence range: 2.0 to 32.8 Unit: ug/L (NOTE) This test was developed and its performance characteristics determined by [facility]. It has not been cleared or approved by the Food and Drug Administration. PERFORMED AT [facility] Performed By: #### A CBC, CMPF, ESR, CPK, CREACT, MG, URIC, B12, TSH2 #### [place] [address] #### LRBCF, LACEZ, LTTG, LUCILA, LIMEL #### Testing performed at [address] [address] #### [id number], LACCGA, LVB6 #### Testing performed at [facility] #### LANCA #### Testing performed at [address] [address] Testing performed at [facility] CCP AB IGG IGAon 08-17-2019 ACC AB IGG IGA 4 [facility] Comment on above: Result Comment: Refe rence range: 0 to 19 Unit: units (NOTE) Negative <20 Weak positive 20 - 39 Moderate positive 40 - 59 Strong positive >59 PERFORMED AT [facility] Performed By: #### A CBC, CMPF, ESR, CPK, CREACT, MG, URIC, B12, TSH2 #### [place] [address] #### LRBCF, LACEZ, LTTG, LUCILA, LIMEL #### Testing performed [address] [place] [place] [address] #### [id number], LACCGA, LVB6 #### Testing performed at [facility] #### LANCA #### Testing performed at [address] [address] Testing performed at [facility] KYE W/REFLEX IF POSon 2019 KYE-DIRECT Negative [facility] Comment on above: Result Comment: Refe rence range: Negative PERFORMED AT [facility] Performed By: #### A CBC, CMPF, ESR, CPK, CREACT, MG, URIC, B12, TSH2 #### [place] [address] #### LRBCF, LACEZ, LTTG, LUCILA, LIMEL #### Testing performed at [address] [address] #### [id number], LACCGA, LVB6 #### Testing performed at [facility] #### LANCA #### Testing performed at [address] [place] [address] Testing performed at [facility] ANCA PANELon 08-16-2019 3 (CT-3) ABS <3.5 [facility] Comment on above: Result Comment: Refe rence range: 0.0 to 3.5 Unit: U/mL PERFORMED AT [facility] Performed By: #### A CBC, CMPF, ESR, CPK, CREACT, MG, URIC, B12, TSH2 #### Testing performed at [address] [address] #### LRBCF, LACEZ, LTTG, LUCILA, LIMEL #### Testing performed at [address] [place] [address] #### [id number], LACCGA, LVB6 #### Testing performed at [facility] #### LANCA #### Testing performed at [address] [place] [address] Testing performed at [facility] MPO ABS <9.0 Normal [facility] Comment on above: Result Comment: Refe rence range: 0.0 to 9.0 Unit: U/mL PERFORMED AT [facility] Performed By: #### A CBC, CMPF, ESR, CPK, CREACT, MG, URIC, B12, TSH2 #### [place] [address] #### LRBCF, LACEZ, LTTG, LUCILA, LIMEL #### Testing performed at [address] [place] [address] #### [id number], LACCGA, LVB6 #### Testing performed at [facility] #### LANCA #### Testing performed at [address] [address] Testing performed at [facility] ATYPICAL PANCA <1:20 Normal [facility] Comment on above: Result Comment: Refe rence range: Neg:<1:20 Unit: titer (NOTE) The atypical pANCA pattern has been observed in a significant percentage of patients with ulcerative colitis, primary sclerosing cholangitis and autoimmune hepatitis. PERFORMED AT [facility] Performed By: #### A CBC, CMPF, ESR, CPK, CREACT, MG, URIC, B12, TSH2 #### Testing performed at [address] [address] #### LRBCF, LACEZ, LTTG, LUCILA, LIMEL #### Testing performed at [address] [place] [address] #### [id number], LACCGA, LVB6 #### Testing performed at [facility] #### LANCA #### Testing performed at [address] [address] Testing performed at [facility] CYTOPLASMIC (C-ANCA) <1:20 Normal [facility] Comment on above: Result Comment: Refe rence range: Neg:<1:20 Unit: titer Performed By: #### A CBC, CMPF, ESR, CPK, CREACT, MG, URIC, B12, TSH2 #### Testing performed at [address] [address] #### LRBCF, LACEZ, LTTG, LUCILA, LIMEL #### Testing performed at [address] [address] #### [id number], LACCGA, LVB6 #### Testing performed at [facility] #### LANCA #### Testing performed at [address] [address] Testing performed at [facility] PERINUCLEAR (P-ANCA) <1:20 Normal [facility] Comment on above: Result Comment: Refe rence range: Neg:<1:20 Unit: titer (NOTE) The presence of positive fluorescence exhibiting P-ANCA or C-ANCA patterns alone is not specific for the diagnosis of Miguel's Granulomatosis (WG) or microscopic polyangiitis. Decisions about treatment should not be based solely on ANCA IFA results. The [employer] ANCA [employer] Consensus recommends follow up testing of positive sera with both CT-3 and MPO-ANCA enzyme immunoassays. As many as 5% serum samples are positive only by EIA. Ref. AM J Clin Pathol 1999;111:507-513. Performed By: #### A CBC, CMPF, ESR, CPK, CREACT, MG, URIC, B12, TSH2 #### Testing performed at [address] [address] #### LRBCF, LACEZ, LTTG, LUCILA, LIMEL #### Testing performed at [address] [place] [address] #### [id number], LACCGA, LVB6 #### Testing performed at [facility] #### LANCA #### Testing performed at [address] [place] [address] Testing performed at [facility] ANGIO-CONVERTING ENZon 08-15 MARIAH 26 Normal [facility] Comment on above: Result Comment: Refe rence range: 14 to 82 Unit: U/L PERFORMED AT [facility] Performed By: #### A CBC, CMPF, ESR, CPK, CREACT, MG, URIC, B12, TSH2 #### [place] [address] #### LRBCF, LACEZ, LTTG, LUCILA, LIMEL #### Testing performed at [address] [address] #### [id number], LACCGA, LVB6 #### Testing performed at [facility] #### LANCA #### Testing performed at [address] [address] Testing performed at [facility] HEP PANEL A,B,Con 08-16-2019 HEP A AB TOTAL Negative Normal NEGATIVE [facility] Comment on above: Performed By: #### A CBC, CMPF, ESR, CPK, CREACT, MG, URIC, B12, TSH2 #### [place] [address] #### LRBCF, LACEZ, LTTG, LUCILA, LIMEL #### Testing performed at [address] [place] [address] #### [id number], LACCGA, LVB6 #### Testing performed at [facility] #### LANCA #### Testing performed at [address] [place] [address] Testing performed at [facility] HEP B CORE AB Negative Normal NEGATIVE [facility] Comment on above: Performed By: #### A CBC, CMPF, ESR, CPK, CREACT, MG, URIC, B12, TSH2 #### Testing performed at [address] [address] #### LRBCF, LACEZ, LTTG, LUCILA, LIMEL #### Testing performed at [address] [address] #### [id number], LACCGA, LVB6 #### Testing performed at [facility] #### LANCA #### Testing performed at [address] [address] Testing performed at [facility] HEP B SURFACE AB Negative Abnormal POSITIVE [facility] Comment on above: Result Comment: Clinical Interpretation of Immune Status Negative: patient is considered to be not immune to infection with HBV Intermediate: unable to determine if anti-HBs is present at levels consistent with immunity Positive: anti-HBs detected, patient is considered to be immune to infection with HBV Performed By: #### A CBC, CMPF, ESR, CPK, CREACT, MG, URIC, B12, TSH2 #### Testing performed at [address] [address] #### LRBCF, LACEZ, LTTG, LUCILA, LIMEL #### Testing performed at [address] [address] #### [id number], LACCGA, LVB6 #### Testing performed at [facility] #### LANCA #### Testing performed at [address] [address] Testing performed at [facility] HEP C AB Negative Normal NEGATIVE [facility] Comment on above: Performed By: #### A CBC, CMPF, ESR, CPK, CREACT, MG, URIC, B12, TSH2 #### Testing performed at [address] [address] #### LRBCF, LACEZ, LTTG, LUCILA, LIMEL #### Testing performed at [address] [address] #### [id number], LACCGA, LVB6 #### Testing performed at [facility] #### LANCA #### Testing performed at [address] [address] Testing performed at [facility] HEP B SURFACE AG Negative Normal NEGATIVE [facility] Comment on above: Performed By: #### A CBC, CMPF, ESR, CPK, CREACT, MG, URIC, B12, TSH2 #### Testing performed at [address] [address] #### LRBCF, LACEZ, LTTG, LUCILA, LIMEL #### Testing performed at [address] [address] #### [id number], LACCGA, LVB6 #### Testing performed at [facility] #### LANCA #### Testing performed at [address] [address] Testing performed at [facility] PUSHPA AND PE, SERUMon 08-16-19 20 Albumin [Mass/Vol] 3.8 g/dL Normal [facility] Comment on above: Result Comment: Refe rence range: 2.9 to 4.4 Unit: g/dL Performed By: #### A CBC, CMPF, ESR, CPK, CREACT, MG, URIC, B12, TSH2 #### Testing performed at [address] [address] #### LRBCF, LACEZ, LTTG, LUCILA, LIMEL #### Testing performed at [address] [address] #### [id number], LACCGA, LVB6 #### Testing performed at [facility] #### LANCA #### Testing performed at [address] [address] Testing performed at [facility] Albumin/Globulin [Mass ratio] 1.2 {ratio} Normal [facility] Comment on above: Result Comment: Refe rence range: 0.7 to 1.7 Performed By: #### A CBC, CMPF, ESR, CPK, CREACT, MG, URIC, B12, TSH2 #### [place] [address] #### LRBCF, LACEZ, LTTG, LUCILA, LIMEL #### Testing performed at [address] [place] [address] #### [id number], LACCGA, LVB6 #### Testing performed at [facility] #### LANCA #### Testing performed at [address] [place] [address] Testing performed at [facility] [id number] 0.2 [facility] Comment on above: Result Comment: Refe rence range: 0.0 to 0.4 Unit: g/dL Performed By: #### A CBC, CMPF, ESR, CPK, CREACT, MG, URIC, B12, TSH2 #### [place] [address] #### LRBCF, LACEZ, LTTG, LUCILA, LIMEL #### Testing performed at [address] [place] [address] #### [id number], LACCGA, LVB6 #### Testing performed at [facility] #### LANCA #### Testing performed at [address] [place] [address] Testing performed at [facility] [id number] 0.8 Normal [facility] Comment on above: Result Comment: Refe rence range: 0.4 to 1.0 Unit: g/dL Performed By: #### A CBC, CMPF, ESR, CPK, CREACT, MG, URIC, B12, TSH2 #### Testing performed at [place] [id number] #### LRBCF, LACEZ, LTTG, LUCILA, LIMEL #### Testing performed at [address] [place] [address] #### [id number], LACCGA, LVB6 #### Testing performed at [facility] #### LANCA #### Testing performed at [address] [address] Testing performed at [facility] BETA GLOBULIN 1.2 [facility] Comment on above: Result Comment: Refe rence range: 0.7 to 1.3 Unit: g/dL Performed By: #### A CBC, CMPF, ESR, CPK, CREACT, MG, URIC, B12, TSH2 #### Testing performed at [address] [address] #### LRBCF, LACEZ, LTTG, LUCILA, LIMEL #### Testing performed at [address] [address] #### [id number], LACCGA, LVB6 #### Testing performed at [facility] #### LANCA #### Testing performed at [address] [address] Testing performed at [facility] GAMMA GLOBULIN 1.2 [facility] Comment on above: Result Comment: Refe rence range: 0.4 to 1.8 Unit: g/dL Performed By: #### A CBC, CMPF, ESR, CPK, CREACT, MG, URIC, B12, TSH2 #### Testing performed at [address] [address] #### LRBCF, LACEZ, LTTG, LUCILA, LIMEL #### Testing performed at [address] [address] #### [id number], LACCGA, LVB6 #### Testing performed at [facility] #### LANCA #### Testing performed at [address] [address] Testing performed at [facility] Globulin (S) [Mass/Vol] 3.4 g/dL [facility] Comment on above: Result Comment: Refe rence range: 2.2 to 3.9 Unit: g/dL Performed By: #### A CBC, CMPF, ESR, CPK, CREACT, MG, URIC, B12, TSH2 #### Testing performed at [place] [id number] #### LRBCF, LACEZ, LTTG, LUCILA, LIMEL #### Testing performed at [place] [address] [place] [address] [place] [address] #### [id number], LACCGA, LVB6 #### Testing performed at [facility] #### LANCA #### Testing performed at [place] [address] [place] [address] Testing performed at [facility] IgA [Mass/Vol] 237 mg/dL Normal [facility] Comment on above: Result Comment: Refe rence range: 87 to 352 Unit: mg/dL Performed By: #### A CBC, CMPF, ESR, CPK, CREACT, MG, URIC, B12, TSH2 #### [place] [address] #### LRBCF, LACEZ, LTTG, LUCILA, LIMEL #### Testing performed at [address] [place] [address] #### [id number], LACCGA, LVB6 #### Testing performed at [facility] #### LANCA #### Testing performed at [address] [place] [address] Testing performed at [facility] IgG [Mass/Vol] 1123 mg/dL Normal [facility] Comment on above: Result Comment: Refe rence range: 586 to 1602 Unit: mg/dL Performed By: #### A CBC, CMPF, ESR, CPK, CREACT, MG, URIC, B12, TSH2 #### Testing performed at [address] [address] #### LRBCF, LACEZ, LTTG, LUCILA, LIMEL #### Testing performed at [place] [address] [place] [address] #### [id number], LACCGA, LVB6 #### Testing performed at [facility] #### LANCA #### Testing performed at [address] [address] Testing performed at [facility] IgM [Mass/Vol] 143 mg/dL Normal [facility] Comment on above: Result Comment: Refe rence range: 26 to 217 Unit: mg/dL Performed By: #### A CBC, CMPF, ESR, CPK, CREACT, MG, URIC, B12, TSH2 #### Testing performed at [address] [address] #### LRBCF, LACEZ, LTTG, LUCILA, LIMEL #### Testing performed at [address] [address] #### [id number], LACCGA, LVB6 #### Testing performed at [facility] #### LANCA #### Testing performed at [address] [address] Testing performed at [facility] IMMUNOFIX: Comment Normal [facility] Comment on above: Result Comment: No m onoclonality detected. Performed By: #### A CBC, CMPF, ESR, CPK, CREACT, MG, URIC, B12, TSH2 #### Testing performed at [address] [address] #### LRBCF, LACEZ, LTTG, LUCILA, LIMEL #### Testing performed at [address] [address] #### [id number], LACCGA, LVB6 #### Testing performed at [facility] #### LANCA #### Testing performed at [address] [address] Testing performed at [facility] M-SPIKE Not Observed Normal [facility] Comment on above: Result Comment: Refe rence range: Not Observed Unit: g/dL Performed By: #### A CBC, CMPF, ESR, CPK, CREACT, MG, URIC, B12, TSH2 #### Testing performed at [address] [address] #### LRBCF, LACEZ, LTTG, LUCILA, LIMEL #### Testing performed at [address] [place] [address] #### [id number], LACCGA, LVB6 #### Testing performed at [facility] #### LANCA #### Testing performed at [address] [place] [address] Testing performed at [facility] PLEASE NOTE: Comment [facility] Comment on above: Result Comment: (NOT E) Protein electrophoresis scan will follow via computer, mail, or manager spa delivery. PERFORMED AT [facility] Performed By: #### A CBC, CMPF, ESR, CPK, CREACT, MG, URIC, B12, TSH2 #### Testing performed at [address] [address] #### LRBCF, LACEZ, LTTG, LUCILA, LIMEL #### Testing performed at [address] [place] [address] #### [id number], LACCGA, LVB6 #### Testing performed at [facility] #### LANCA #### Testing performed at [address] [place] [address] Testing performed at [facility] Protein [Mass/Vol] 7.2 g/dL [facility] Comment on above: Result Comment: Refe rence range: 6.0 to 8.5 Unit: g/dL Performed By: #### A CBC, CMPF, ESR, CPK, CREACT, MG, URIC, B12, TSH2 #### Testing performed at [address] [address] #### LRBCF, LACEZ, LTTG, LUCILA, LIMEL #### Testing performed at [address] [place] [address] #### [id number], LACCGA, LVB6 #### Testing performed at [facility] #### LANCA #### Testing performed at [address] [address] Testing performed at [facility] RBC FOLATEon 08-16-2019 FOLATE,HEMOLYSATE 464.0 [facility] Comment on above: Result Comment: Refe rence range: Not Estab. Unit: ng/mL Performed By: #### A CBC, CMPF, ESR, CPK, CREACT, MG, URIC, B12, TSH2 #### Testing performed at [address] [address] #### LRBCF, LACEZ, LTTG, LUCILA, LIMEL #### Testing performed at [address] [address] #### [id number], LACCGA, LVB6 #### Testing performed at [facility] #### LANCA #### Testing performed at [address] [address] Testing performed at [facility] FOLATE,RBC 1033 [facility] Comment on above: Result Comment: Refe rence range: >498 Unit: ng/mL PERFORMED AT [facility] Performed By: #### A CBC, CMPF, ESR, CPK, CREACT, MG, URIC, B12, TSH2 #### Testing performed at [address] [address] #### LRBCF, LACEZ, LTTG, LUCILA, LIMEL #### Testing performed at [address] [address] #### [id number], LACCGA, LVB6 #### Testing performed at [facility] #### LANCA #### Testing performed at [address] [address] Testing performed at [facility] Hematocrit (Bld) [Volume fraction] 44.9 % [facility] Comment on above: Result Comment: Refe rence range: 34.0 to 46.6 Unit: % Performed By: #### A CBC, CMPF, ESR, CPK, CREACT, MG, URIC, B12, TSH2 #### Testing performed at [address] [address] #### LRBCF, LACEZ, LTTG, LUCILA, LIMEL #### Testing performed at [address] [address] #### [id number], LACCGA, LVB6 #### Testing performed at [facility] #### LANCA #### Testing performed at [address] [address] Testing performed at [facility] D-QSLJQTALT-OLD,IGAon 2019 TTG- IGA <2 Normal [facility] Comment on above: Result Comment: Refe rence range: 0 to 3 Unit: U/mL (NOTE) Negative 0 - 3 Weak Positive 4 - 10 Positive >10 Tissue Transglutaminase (tTG) has been identified as the endomysial antigen. Studies have demonstr- ated that endomysial IgA antibodies have over 99% specificity for gluten sensitive enteropathy. PERFORMED AT [facility] Performed By: #### A CBC, CMPF, ESR, CPK, CREACT, MG, URIC, B12, TSH2 #### Testing performed at [address] [address] #### LRBCF, LACEZ, LTTG, LUCILA, LIMEL #### Testing performed at [address] [address] #### [id number], LACCGA, LVB6 #### Testing performed at [facility] #### LANCA #### Testing performed at [address] [address] Testing performed at [facility] VIT D, 1,25 DIHYDROXon 08-15 VIT. D 1,25 65.6 Normal [facility] Comment on above: Result Comment: Refe rence range: 19.9 to 79.3 Unit: pg/mL PERFORMED AT [facility] Performed By: #### A CBC, CMPF, ESR, CPK, CREACT, MG, URIC, B12, TSH2 #### Testing performed at [address] [address] #### LRBCF, LACEZ, LTTG, LUCILA, LIMEL #### Testing performed at [address] [address] #### [id number], LACCGA, LVB6 #### Testing performed at [facility] #### LANCA #### Testing performed at [address] [address] Testing performed at [facility] 25 0H VITAMIN D LEVELon 07-23 25 0H VITAMIN D LEVEL 21.3 NG/ML Low >30 [facility] Comment on above: Result Comment: DEFICIENT <20 NG/ML INSUFFICIENT 20-<30 NG/ML SUFFICIENT 30-100 NG/ML POTENTIAL TOXICITY >100 NG/ML Performed By: #### A CBC, CMPF, ESR, CPK, CREACT, MG, URIC, B12, TSH2 #### Testing performed at [address] [address] #### LRBCF, LACEZ, LTTG, LUCILA, LIMEL #### Testing performed at [address] [address] #### [id number], LACCGA, LVB6 #### Testing performed at [facility] #### LANCA #### Testing performed at [address] [address] Testing performed at [facility] C REACTIVE PROTEINon 020 CRP [Mass/Vol] 5.7 mg/L Normal 0-10.0 [facility] Comment on above: Performed By: #### A CBC, CMPF, ESR, CPK, CREACT, MG, URIC, B12, TSH2 #### Testing performed at [address] [address] #### LRBCF, LACEZ, LTTG, LUCILA, LIMEL #### Testing performed at [address] [address] #### [id number], LACCGA, LVB6 #### Testing performed at [facility] #### LANCA #### Testing performed at [address] [address] Testing performed at [facility] CBCon 08-15-2019 ABSOLUTE BAS 0.0 10*3/uL Normal 0.0-0.2 [facility] Comment on above: Performed By: #### A CBC, CMPF, ESR, CPK, CREACT, MG, URIC, B12, TSH2 #### [place] [address] #### LRBCF, LACEZ, LTTG, LUCILA, LIMEL #### Testing performed at [address] [address] #### [id number], LACCGA, LVB6 #### Testing performed at [facility] #### LANCA #### Testing performed at [address] [address] Testing performed at [facility] ABSOLUTE EOS 0.10 10*3/uL Normal 0.0-0.7 [facility] Comment on above: Performed By: #### A CBC, CMPF, ESR, CPK, CREACT, MG, URIC, B12, TSH2 #### [place] [address] #### LRBCF, LACEZ, LTTG, LUCILA, LIMEL #### Testing performed at [address] [address] #### [id number], LACCGA, LVB6 #### Testing performed at [facility] #### LANCA #### Testing performed at [address] [address] Testing performed at [facility] ABSOLUTE NEUTROPHIL COUNT 4.7 10*3/uL Normal 1.4-6.5 [facility] Comment on above: Performed By: #### A CBC, CMPF, ESR, CPK, CREACT, MG, URIC, B12, TSH2 #### Testing performed at [address] [address] #### LRBCF, LACEZ, LTTG, LUCILA, LIMEL #### Testing performed at [address] [place] [address] #### [id number], LACCGA, LVB6 #### Testing performed at [facility] #### LANCA #### Testing performed at [address] [place] [address] Testing performed at [facility] Basophils/100 WBC (Bld) 0.5 % Normal 0.0-2.0 [facility] Comment on above: Performed By: #### A CBC, CMPF, ESR, CPK, CREACT, MG, URIC, B12, TSH2 #### Testing performed at [address] [address] #### LRBCF, LACEZ, LTTG, LUCILA, LIMEL #### Testing performed at [address] [address] #### [id number], LACCGA, LVB6 #### Testing performed at [facility] #### LANCA #### Testing performed at [address] [address] Testing performed at [facility] DTYPE AUTO DIFF Normal [facility] Comment on above: Performed By: #### A CBC, CMPF, ESR, CPK, CREACT, MG, URIC, B12, TSH2 #### Testing performed at [address] [address] #### LRBCF, LACEZ, LTTG, LUCILA, LIMEL #### Testing performed at [address] [place] [address] #### [id number], LACCGA, LVB6 #### Testing performed at [facility] #### LANCA #### Testing performed at [address] [place] [address] Testing performed at [facility] Eosinophils/100 WBC (Bld) 1.7 % Normal 0.0-11.0 [facility] Comment on above: Performed By: #### A CBC, CMPF, ESR, CPK, CREACT, MG, URIC, B12, TSH2 #### [place] [address] #### LRBCF, LACEZ, LTTG, LUCILA, LIMEL #### Testing performed at [address] [place] [address] #### [id number], LACCGA, LVB6 #### Testing performed at [facility] #### LANCA #### Testing performed at [address] [address] Testing performed at [facility] Lymphocytes (Bld) [#/Vol] 1.80 10*3/uL Normal 1.2-3.4 [facility] Comment on above: Performed By: #### A CBC, CMPF, ESR, CPK, CREACT, MG, URIC, B12, TSH2 #### [place] [address] #### LRBCF, LACEZ, LTTG, LUCILA, LIMEL #### Testing performed at [address] [address] #### [id number], LACCGA, LVB6 #### Testing performed at [facility] #### LANCA #### Testing performed at [address] [place] [address] Testing performed at [facility] Lymphocytes/100 WBC (Bld) 25.1 % Normal 20.0-55.0 [facility] Comment on above: Performed By: #### A CBC, CMPF, ESR, CPK, CREACT, MG, URIC, B12, TSH2 #### Testing performed at [address] [address] #### LRBCF, LACEZ, LTTG, LUCILA, LIMEL #### Testing performed at [address] [place] [address] #### [id number], LACCGA, LVB6 #### Testing performed at [facility] #### LANCA #### Testing performed at [address] [place] [address] Testing performed at [facility] Monocytes (Bld) [#/Vol] 0.6 10*3/uL Normal 0.0-0.7 [facility] Comment on above: Performed By: #### A CBC, CMPF, ESR, CPK, CREACT, MG, URIC, B12, TSH2 #### [place] [address] #### LRBCF, LACEZ, LTTG, LUCILA, LIMEL #### Testing performed at [address] [address] #### [id number], LACCGA, LVB6 #### Testing performed at [facility] #### LANCA #### Testing performed at [address] [address] Testing performed at [facility] Monocytes/100 WBC (Bld) 8.0 % Normal 0.0-10.0 [facility] Comment on above: Performed By: #### A CBC, CMPF, ESR, CPK, CREACT, MG, URIC, B12, TSH2 #### [place] [address] #### LRBCF, LACEZ, LTTG, LUCILA, LIMEL #### Testing performed at [address] [place] [address] #### [id number], LACCGA, LVB6 #### Testing performed at [facility] #### LANCA #### Testing performed at [address] [place] [address] Testing performed at [facility] Neutrophils/100 WBC (Bld) 64.7 % Normal 37.0-75.0 [facility] Comment on above: Performed By: #### A CBC, CMPF, ESR, CPK, CREACT, MG, URIC, B12, TSH2 #### [place] [address] #### LRBCF, LACEZ, LTTG, LUCILA, LIMEL #### Testing performed at [address] [place] [address] #### [id number], LACCGA, LVB6 #### Testing performed at [facility] #### LANCA #### Testing performed [address] [facility] [place] [address] Testing performed at [facility] Erythrocyte distribution width (RBC) [Ratio] 14.4 % Normal 11.5-14.5 [facility] Comment on above: Performed By: #### A CBC, CMPF, ESR, CPK, CREACT, MG, URIC, B12, TSH2 #### [place] [address] #### LRBCF, LACEZ, LTTG, LUCILA, LIMEL #### Testing performed at [address] [place] [address] #### [id number], LACCGA, LVB6 #### Testing performed at [facility] #### LANCA #### Testing performed at [address] [place] [address] Testing performed at [facility] Hematocrit (Bld) [Volume fraction] 46.3 % Normal 36.0-48.0 [facility] Comment on above: Performed By: #### A CBC, CMPF, ESR, CPK, CREACT, MG, URIC, B12, TSH2 #### [place] [address] #### LRBCF, LACEZ, LTTG, LUCILA, LIMEL #### Testing performed at [address] [place] [address] #### [id number], LACCGA, LVB6 #### Testing performed at [facility] #### LANCA #### Testing performed at [address] [place] [address] Testing performed at [facility] Hemoglobin (Bld) [Mass/Vol] 15.0 g/dL Normal 12.0-16.0 [facility] Comment on above: Performed By: #### A CBC, CMPF, ESR, CPK, CREACT, MG, URIC, B12, TSH2 #### [place] [address] #### LRBCF, LACEZ, LTTG, LUCILA, LIMEL #### Testing performed at [address] [address] #### [id number], LACCGA, LVB6 #### Testing performed at [facility] #### LANCA #### Testing performed at [address] [address] Testing performed at [facility] MCH (RBC) [Entitic mass] 28.7 pg Normal 26.0-35.0 [facility] Comment on above: Performed By: #### A CBC, CMPF, ESR, CPK, CREACT, MG, URIC, B12, TSH2 #### [place] [address] #### LRBCF, LACEZ, LTTG, LUCILA, LIMEL #### Testing performed at [address] [address] #### [id number], LACCGA, LVB6 #### Testing performed at [facility] #### LANCA #### Testing performed at [address] [address] Testing performed at [facility] MCHC (RBC) [Mass/Vol] 32.5 g/dL Normal 27.0-37.0 [facility] Comment on above: Performed By: #### A CBC, CMPF, ESR, CPK, CREACT, MG, URIC, B12, TSH2 #### Testing performed at [facility] [place] [facility] [address] [place] [address] #### LRBCF, LACEZ, LTTG, LUCILA, LIMEL #### Testing performed at [address] [address] #### [id number], LACCGA, LVB6 #### Testing performed at [facility] #### LANCA #### Testing performed at [address] [address] Testing performed at [facility] MCV (RBC) [Entitic vol] 88.5 fL Normal 80.0-100.0 [facility] Comment on above: Performed By: #### A CBC, CMPF, ESR, CPK, CREACT, MG, URIC, B12, TSH2 #### Testing performed at [address] [address] #### LRBCF, LACEZ, LTTG, LUCILA, LIMEL #### Testing performed at [address] [address] #### [id number], LACCGA, LVB6 #### Testing performed at [facility] #### LANCA #### Testing performed at [address] [address] Testing performed at [facility] Platelet mean volume (Bld) [Entitic vol] 9.1 fL Normal 7.4-11.0 [facility] Comment on above: Performed By: #### A CBC, CMPF, ESR, CPK, CREACT, MG, URIC, B12, TSH2 #### Testing performed at [address] [address] #### LRBCF, LACEZ, LTTG, LUCILA, LIMEL #### Testing performed at [address] [address] #### [id number], LACCGA, LVB6 #### Testing performed at [facility] #### LANCA #### Testing performed at [address] [address] Testing performed at [facility] Platelets (Bld) [#/Vol] 262 10*3/uL Normal 130.0-400.0 [facility] Comment on above: Performed By: #### A CBC, CMPF, ESR, CPK, CREACT, MG, URIC, B12, TSH2 #### Testing performed at [address] [address] #### LRBCF, LACEZ, LTTG, LUCILA, LIMEL #### Testing performed at [address] [place] [address] #### [id number], LACCGA, LVB6 #### Testing performed at [facility] #### LANCA #### Testing performed at [address] [address] Testing performed at [facility] RBC (Bld) [#/Vol] 5.23 10*6/uL Normal 4.0-5.4 [facility] Comment on above: Performed By: #### A CBC, CMPF, ESR, CPK, CREACT, MG, URIC, B12, TSH2 #### Testing performed at [address] [address] #### LRBCF, LACEZ, LTTG, LUCILA, LIMEL #### Testing performed at [address] [address] #### [id number], LACCGA, LVB6 #### Testing performed at [facility] #### LANCA #### Testing performed at [address] [place] [address] Testing performed at [facility] WBC (Bld) [#/Vol] 7.3 10*3/uL Normal 3.6-11.0 [facility] Comment on above: Performed By: #### A CBC, CMPF, ESR, CPK, CREACT, MG, URIC, B12, TSH2 #### Testing performed at [address] [address] #### LRBCF, LACEZ, LTTG, LUCILA, LIMEL #### Testing performed at [address] [place] [address] #### [id number], LACCGA, LVB6 #### Testing performed at [facility] #### LANCA #### Testing performed at [address] [place] [address] [facility] FASTINGon 08-15-2019 A:G RATIO 1.2 RATIO Low 1.3-2.2 [facility] Comment on above: Performed By: #### A CBC, CMPF, ESR, CPK, CREACT, MG, URIC, B12, TSH2 #### [place] [address] #### LRBCF, LACEZ, LTTG, LUCILA, LIMEL #### Testing performed at [address] [address] #### [id number], LACCGA, LVB6 #### Testing performed at [facility] #### LANCA #### Testing performed at [address] [address] Testing performed at [facility] Albumin [Mass/Vol] 4.2 G/dl Normal 3.5-5.0 [facility] Comment on above: Performed By: #### A CBC, CMPF, ESR, CPK, CREACT, MG, URIC, B12, TSH2 #### Testing performed at [place] [address] #### LRBCF, LACEZ, LTTG, LUCILA, LIMEL #### Testing performed at [address] [place] [address] #### [id number], LACCGA, LVB6 #### Testing performed at [facility] #### LANCA #### Testing performed at [address] [place] [address] Testing performed at [facility] ALP [Catalytic activity/Vol] 98 U/L Normal 38-126 [facility] Comment on above: Performed By: #### A CBC, CMPF, ESR, CPK, CREACT, MG, URIC, B12, TSH2 #### Testing performed at [address] [address] #### LRBCF, LACEZ, LTTG, LUCILA, LIMEL #### Testing performed at [place] [address] [place] [address] #### [id number], LACCGA, LVB6 #### Testing performed at [facility] #### LANCA #### Testing performed at [address] [place] [address] Testing performed at [facility] ALT [Catalytic activity/Vol] 19 U/L Normal 14-54 [facility] Comment on above: Performed By: #### A CBC, CMPF, ESR, CPK, CREACT, MG, URIC, B12, TSH2 #### Testing performed at [address] [address] #### LRBCF, LACEZ, LTTG, LUCILA, LIMEL #### Testing performed at [address] [place] [address] #### [id number], LACCGA, LVB6 #### Testing performed at [facility] #### LANCA #### Testing performed at [address] [place] [address] Testing performed at [facility] AST [Catalytic activity/Vol] 18 U/L Normal 15-41 [facility] Comment on above: Performed By: #### A CBC, CMPF, ESR, CPK, CREACT, MG, URIC, B12, TSH2 #### Testing performed at [address] [address] #### LRBCF, LACEZ, LTTG, LUCILA, LIMEL #### Testing performed at [address] [place] [address] #### [id number], LACCGA, LVB6 #### Testing performed at [facility] #### LANCA #### Testing performed at [address] [place] [address] Testing performed at [facility] Bilirubin [Mass/Vol] 0.6 mg/dL Normal 0.2-1.2 [facility] Comment on above: Performed By: #### A CBC, CMPF, ESR, CPK, CREACT, MG, URIC, B12, TSH2 #### [place] [address] #### LRBCF, LACEZ, LTTG, LUCILA, LIMEL #### Testing performed at [address] [place] [address] #### [id number], LACCGA, LVB6 #### Testing performed at [facility] #### LANCA #### Testing performed at [address] [place] [address] Testing performed at [facility] Creatinine [Mass/Vol] 0.79 mg/dL Normal 0.52-1.04 [facility] Comment on above: Performed By: #### A CBC, CMPF, ESR, CPK, CREACT, MG, URIC, B12, TSH2 #### Testing performed at [address] [address] #### LRBCF, LACEZ, LTTG, LUCILA, LIMEL #### Testing performed at [address] [place] [address] #### [id number], LACCGA, LVB6 #### Testing performed at [facility] #### LANCA #### Testing performed at [address] [place] [address] Testing performed at [facility] EST. GFR, >60 Normal [facility] Comment on above: Performed By: #### A CBC, CMPF, ESR, CPK, CREACT, MG, URIC, B12, TSH2 #### Testing performed at [address] [address] #### LRBCF, LACEZ, LTTG, LUCILA, LIMEL #### Testing performed at [address] [place] [address] #### [id number], LACCGA, LVB6 #### Testing performed at [facility] #### LANCA #### Testing performed at [facility] [address] [place], [place] [address] [place] [address] Testing performed at [facility] EST. GFR,Non >60 Normal [facility] Comment on above: Performed By: #### A CBC, CMPF, ESR, CPK, CREACT, MG, URIC, B12, TSH2 #### Testing performed at [address] [address] #### LRBCF, LACEZ, LTTG, LUCILA, LIMEL #### Testing performed at [address] [address] #### [id number], LACCGA, LVB6 #### Testing performed at [facility] #### LANCA #### Testing performed at [address] [address] Testing performed at [facility] GFR/1.73 sq M predicted among non-blacks MDRD (S/P/Bld) [Vol rate/Area] Average GFR for 50-59 years old = 93. Normal [facility] Comment on above: Result Comment: Bleach Tester luis Kidney disease, GFR = <60. Kidney failure, GFR = <15. The GFR estimate is not adjusted for extreme body surface area or acute process, nor has it been validated for women or ethnic groups other than and . Performed By: #### A CBC, CMPF, ESR, CPK, CREACT, MG, URIC, B12, TSH2 #### Testing performed at [address] [address] #### LRBCF, LACEZ, LTTG, LUCILA, LIMEL #### Testing performed at [address] [place] [address] #### [id number], LACCGA, LVB6 #### Testing performed at [facility] #### LANCA #### Testing performed at [address] [place] [address] Testing performed at [facility] Protein [Mass/Vol] 7.7 g/dL Normal 6.3-8.2 [facility] Comment on above: Performed By: #### A CBC, CMPF, ESR, CPK, CREACT, MG, URIC, B12, TSH2 #### Testing performed at [place] [id number] #### LRBCF, LACEZ, LTTG, LUCILA, LIMEL #### Testing performed at [address] [place] [address] #### [id number], LACCGA, LVB6 #### Testing performed at [facility] #### LANCA #### Testing performed at [address] [place] [address] Testing performed at [facility] Urea nitrogen [Mass/Vol] 15 mg/dL Normal 7-20 [facility] Comment on above: Performed By: #### A CBC, CMPF, ESR, CPK, CREACT, MG, URIC, B12, TSH2 #### Testing performed at [address] [address] #### LRBCF, LACEZ, LTTG, LUCILA, LIMEL #### Testing performed at [address] [place] [address] #### [id number], LACCGA, LVB6 #### Testing performed at [facility] #### LANCA #### Testing performed at [address] [place] [address] Testing performed at [facility] Calcium [Mass/Vol] 9.6 mg/dL Normal 8.4-10.2 [facility] Comment on above: Performed By: #### A CBC, CMPF, ESR, CPK, CREACT, MG, URIC, B12, TSH2 #### Testing performed at [address] [address] #### LRBCF, LACEZ, LTTG, LUCILA, LIMEL #### Testing performed at [facility] [address] [place] [address] [place] [address] #### [id number], LACCGA, LVB6 #### Testing performed at [facility] #### LANCA #### Testing performed at [facility] [place] [address] [place] [address] [place] [address] Testing performed at [facility] Chloride [Moles/Vol] 107 mmol/L Normal 98-107 [facility] Comment on above: Performed By: #### A CBC, CMPF, ESR, CPK, CREACT, MG, URIC, B12, TSH2 #### Testing performed at [address] [address] #### LRBCF, LACEZ, LTTG, LUCILA, LIMEL #### Testing performed at [place] [address] [place] [address] [place] [address] #### [id number], LACCGA, LVB6 #### Testing performed at [facility] #### LANCA #### Testing performed at [address] [place] [address] [place] [address] Testing performed at [facility] CO2 [Moles/Vol] 26 mmol/L Normal 22-30 [facility] Comment on above: Performed By: #### A CBC, CMPF, ESR, CPK, CREACT, MG, URIC, B12, TSH2 #### Testing performed at [address] [address] #### LRBCF, LACEZ, LTTG, LUCILA, LIMEL #### Testing performed at [facility] [address] [place] [address] [place] [address] #### [id number], LACCGA, LVB6 #### Testing performed at [facility] #### LANCA #### Testing performed at [facility] [address] [address] [place] [address] Testing performed at [facility] Glucose [Mass/Vol] 95 mg/dL Normal 70-100 [facility] Comment on above: Result Comment: NORMAL <100 mg/dL PREDIABETES 101-126 mg/dL DIABETES 126 mg/dL or higher Performed By: #### A CBC, CMPF, ESR, CPK, CREACT, MG, URIC, B12, TSH2 #### Testing performed at [place] [id number] #### LRBCF, LACEZ, LTTG, LUCILA, LIMEL #### Testing performed at [address] [place] [address] #### [id number], LACCGA, LVB6 #### Testing performed at [facility] #### LANCA #### Testing performed at [address] [address] Testing performed at [facility] Potassium [Moles/Vol] 3.8 mmol/L Normal 3.5-5.1 [facility] Comment on above: Performed By: #### A CBC, CMPF, ESR, CPK, CREACT, MG, URIC, B12, TSH2 #### [place] [address] #### LRBCF, LACEZ, LTTG, LUCILA, LIMEL #### Testing performed at [address] [address] #### [id number], LACCGA, LVB6 #### Testing performed at [facility] #### LANCA #### Testing performed at [address] [address] Testing performed at [facility] Sodium [Moles/Vol] 142 mmol/L Normal 136-145 [facility] Comment on above: Performed By: #### A CBC, CMPF, ESR, CPK, CREACT, MG, URIC, B12, TSH2 #### Testing performed at [place] [address] #### LRBCF, LACEZ, LTTG, LUCILA, LIMEL #### Testing performed at [address] [place] [address] #### [id number], LACCGA, LVB6 #### Testing performed at [facility] #### LANCA #### Testing performed at [address] [address] Testing performed at [facility] CPKon 08-15-2019 CPK 81 IU/L Normal 26-140 [facility] Comment on above: Performed By: #### A CBC, CMPF, ESR, CPK, CREACT, MG, URIC, B12, TSH2 #### [place] [address] #### LRBCF, LACEZ, LTTG, LUCILA, LIMEL #### Testing performed at [address] [address] #### [id number], LACCGA, LVB6 #### Testing performed at [facility] #### LANCA #### Testing performed at [address] [address] Testing performed at [facility] ESRon 08-15-2019 ESR (Bld) [Velocity] 22 mm/h Normal 0-30 [facility] Comment on above: Performed By: #### A CBC, CMPF, ESR, CPK, CREACT, MG, URIC, B12, TSH2 #### Testing performed at [address] [address] #### LRBCF, LACEZ, LTTG, LUCILA, LIMEL #### Testing performed at [address] [place] [address] #### [id number], LACCGA, LVB6 #### Testing performed at [facility] #### LANCA #### Testing performed at [address] [place] [address] Testing performed at [facility] MAGNESIUMon 08-15-2019 Magnesium [Mass/Vol] 2.5 mg/dL High 1.6-2.3 [facility] Comment on above: Performed By: #### A CBC, CMPF, ESR, CPK, CREACT, MG, URIC, B12, TSH2 #### Testing performed at [facility] [address] [facility] [place] [address] #### LRBCF, LACEZ, LTTG, LUCILA, LIMEL #### Testing performed at [facility] [address] [place], [place] [address]ox [facility] [place] [address] [place] [address] #### [id number], LACCGA, LVB6 #### Testing performed at [facility] #### LANCA #### Testing performed at [facility] [address] [place], [place] [address]ox [facility] [place] [address] [place] [address] Testing performed at [facility] 08-15-2019 IMPRESSION: 1. Moder ate to severe degenerative disc changes L4-L5 and L5-S1 with lower lumbar facet osteoarthritis. 2. No acute osseous abnormality or listhesis. 3. Unremarkable SI joint series. [facility] EXAM: XR SPINE LUMBO SACRAL AP AND LATERAL, XR SACROILIAC JOINTS MIN 3 VIEWS HISTORY: Back pain. COMPARISON: None. TECHNIQUE: 3 views of the lumbar spine. 3 views of the sacroiliac joints. FINDINGS: LUMBAR SPINE: There are 5 lumbar type segments. There is moderate to severe intervertebral disc space narrowing L4-L5 and L5-S1. Both levels show vacuum disc phenomenon, endplate sclerosis, and endplate osteophytes. There is a small smooth bone fragment along the anterior superior corner of the L5 vertebrae which may be related to a limbus vertebrae or remote trauma. There is no acute compression fracture. There is mild lower lumbar facet osteoarthritis. There is no listhesis of the lumbar vertebrae. SACROILIAC JOINTS: The SI joint spaces appear generally symmetric and maintained. No dominant osseous erosions or abnormal joint line sclerosis. No osseous destructive lesion is seen. [facility] User, 08/15/2019 3:54 PM EDT EXAM: XR SPINE LUMBOSACRAL AP AND LATERAL, XR SACROILIAC JOINTS MIN 3 VIEWS HISTORY: Back pain. COMPARISON: None. TECHNIQUE: 3 views of the lumbar spine. 3 views of the sacroiliac joints. FINDINGS: LUMBAR SPINE: There are 5 lumbar type segments. There is moderate to severe intervertebral disc space narrowing L4-L5 and L5-S1. Both levels show vacuum disc phenomenon, endplate sclerosis, and endplate osteophytes. There is a small smooth bone fragment along the anterior superior corner of the L5 vertebrae which may be related to a limbus vertebrae or remote trauma. There is no acute compression fracture. There is mild lower lumbar facet osteoarthritis. There is no listhesis of the lumbar vertebrae. SACROILIAC JOINTS: The SI joint spaces appear generally symmetric and maintained. No dominant osseous erosions or abnormal joint line sclerosis. No osseous destructive lesion is seen. IMPRESSION IMPRESSION: 1. Moderate to severe degenerative disc changes L4-L5 and L5-S1 with lower lumbar facet osteoarthritis. 2. No acute osseous abnormality or listhesis. 3. Unremarkable SI joint series. [facility] IMPRESSION: No acute osseous abnormality or significant arthropathy of the hands and wrists. Bilateral negative ulnar variance. [facility] EXAM: XR HANDS-RHEUM ATOLOGY EVAL ONLY, XR WRIST RIGHT AP AND LATERAL, XR WRIST LEFT AP AND LATERAL HISTORY: Hand and wrist pain. COMPARISON: 08/24/2017. TECHNIQUE: Frontal and lateral views of the hands. Frontal and lateral views of the wrists. FINDINGS: Bilateral hands: Bone mineralization is appropriate. Alignment is anatomic. No acute fracture or dislocation is identified. There are suspected remote injury involving the volar base of the fifth digit middle phalanx. No significant erosive or degenerative arthropathy. Bilateral wrists: Bone mineralization is appropriate. Negative ulnar variance is present measuring 2 to 3 mm. No acute fracture or dislocation is identified. No significant erosive or degenerative arthropathy. [facility] User, Interfaces - 08/15/2019 3:18 PM EDT EXAM: XR HANDS-RHEUMATOLOGY EVAL ONLY, XR WRIST RIGHT AP AND LATERAL, XR WRIST LEFT AP AND LATERAL HISTORY: Hand and wrist pain. COMPARISON: 08/24/2017. TECHNIQUE: Frontal and lateral views of the hands. Frontal and lateral views of the wrists. FINDINGS: Bilateral hands: Bone mineralization is appropriate. Alignment is anatomic. No acute fracture or dislocation is identified. There are suspected remote injury involving the volar base of the fifth digit middle phalanx. No significant erosive or degenerative arthropathy. Bilateral wrists: Bone mineralization is appropriate. Negative ulnar variance is present measuring 2 to 3 mm. No acute fracture or dislocation is identified. No significant erosive or degenerative arthropathy. IMPRESSION IMPRESSION: No acute osseous abnormality or significant arthropathy of the hands and wrists. Bilateral negative ulnar variance. [facility] [employer] RHEUMATOID FACTORon 08-15-19 20 RHEUMATOID FACTOR <8.6 Normal <12 [facility] Comment on above: Performed By: #### A CBC, CMPF, ESR, CPK, CREACT, MG, URIC, B12, TSH2 #### Testing performed at [address] [address] #### LRBCF, LACEZ, LTTG, LUCILA, LIMEL #### Testing performed at [place] [address] [place] [address] #### [id number], LACCGA, LVB6 #### Testing performed at [facility] #### LANCA #### Testing performed at [address] [place] [address] Testing performed at [facility] TSHon 08-15-2019 TSH Qn 15.311 uIU/ML High 0.45-5.33 [facility] Comment on above: Performed By: #### A CBC, CMPF, ESR, CPK, CREACT, MG, URIC, B12, TSH2 #### [place] [address] #### LRBCF, LACEZ, LTTG, LUCILA, LIMEL #### Testing performed at [address] [place] [address] #### [id number], LACCGA, LVB6 #### Testing performed at [facility] #### LANCA #### Testing performed at [address] [place] [address] Testing performed at [facility] URIC ACIDon 08-15-2019 Urate [Mass/Vol] 4.5 mg/dL Normal 2.5-6.2 [facility] Comment on above: Performed By: #### A CBC, CMPF, ESR, CPK, CREACT, MG, URIC, B12, TSH2 #### Testing performed at [address] [address] #### LRBCF, LACEZ, LTTG, LUCILA, LIMEL #### Testing performed at [address] [place] [address] #### YUM625, LACCGA, LVB6 #### Testing performed at [facility] #### LANCA #### Testing performed at [address] [address] Testing performed at [facility] VITAMIN B12on 08-15-2019 Cobalamin (Vitamin B12) [Mass/Vol] 1191 pg/mL High 180-914 [facility] Comment on above: Performed By: #### A CBC, CMPF, ESR, CPK, CREACT, MG, URIC, B12, TSH2 #### Testing performed at [facility] [address] [place] [address] #### LRBCF, LACEZ, LTTG, LUCILA, LIMEL #### Testing performed at [address] [address] #### ARG553, LACCGA, LVB6 #### Testing performed at [facility] #### LANCA #### Testing performed at [address] [address] Testing performed at [facility] XR HANDS-RHEUMATOLOGY EVAL O NLYon 08-15-2019 XR HANDS-RHEUMATOLOGY EVAL ONLY EXAM: XR HANDS-RHEUMATOLOGY EVAL ONLY, XR WRIST RIGHT AP AND LATERAL, XR WRIST LEFT AP AND LATERAL HISTORY: Hand and wrist pain. COMPARISON: 08/24/2017. TECHNIQUE: Frontal and lateral views of the hands. Frontal and lateral views of the wrists. FINDINGS: Bilateral hands: Bone mineralization is appropriate. Alignment is anatomic. No acute fracture or dislocation is identified. There are suspected remote injury involving the volar base of the fifth digit middle phalanx. No significant erosive or degenerative arthropathy. Bilateral wrists: Bone mineralization is appropriate. Negative ulnar variance is present measuring 2 to 3 mm. No acute fracture or dislocation is identified. No significant erosive or degenerative arthropathy. IMPRESSION: No acute osseous abnormality or significant arthropathy of the hands and wrists. Bilateral negative ulnar variance. Normal [facility] XR SACROILIAC JOINTS MIN 3 V IEWSon 08-15-2019 XR SACROILIAC JOINTS MIN 3 VIEWS EXAM: XR SPINE LUMBOSACRAL AP AND LATERAL, XR SACROILIAC JOINTS MIN 3 VIEWS HISTORY: Back pain. COMPARISON: None. TECHNIQUE: 3 views of the lumbar spine. 3 views of the sacroiliac joints. FINDINGS: LUMBAR SPINE: There are 5 lumbar type segments. There is moderate to severe intervertebral disc space narrowing L4-L5 and L5-S1. Both levels show vacuum disc phenomenon, endplate sclerosis, and endplate osteophytes. There is a small smooth bone fragment along the anterior superior corner of the L5 vertebrae which may be related to a limbus vertebrae or remote trauma. There is no acute compression fracture. There is mild lower lumbar facet osteoarthritis. There is no listhesis of the lumbar vertebrae. SACROILIAC JOINTS: The SI joint spaces appear generally symmetric and maintained. No dominant osseous erosions or abnormal joint line sclerosis. No osseous destructive lesion is seen. IMPRESSION: 1. Moderate to severe degenerative disc changes L4-L5 and L5-S1 with lower lumbar facet osteoarthritis. 2. No acute osseous abnormality or listhesis. 3. Unremarkable SI joint series. Normal [facility] XR SPINE CERVICAL 4 VIEWSon 08-15-2019 XR SPINE CERVICAL 4 VIEWS EXAM: XR SPINE CERVICAL 4 VIEWS HISTORY: Neck pain COMPARISON: None. TECHNIQUE: 5 views of the cervical spine. FINDINGS: The cervical vertebral bodies are normally aligned. There is mild intervertebral disc space narrowing at C5-C6. Prevertebral soft tissues are normal in thickness. There is suggestion of mild bony foraminal narrowing on the right at C5-C6. Otherwise, neural foramina appear patent bilaterally. There are no dominant osseous erosions. Lung apices are grossly clear. IMPRESSION: 1. Mild degenerative disc changes at C5-C6. 2. Suggested mild bony foraminal narrowing on the right at C5-C6. 3. No acute osseous abnormality or subluxation. Normal [facility] IMPRESSION: 1. Mild degenerative disc changes at C5-C6. 2. Suggested mild bony foraminal narrowing on the right at C5-C6. 3. No acute osseous abnormality or subluxation. [facility] EXAM: XR SPINE CERVI STEFFANY 4 VIEWS HISTORY: Neck pain COMPARISON: None. TECHNIQUE: 5 views of the cervical spine. FINDINGS: The cervical vertebral bodies are normally aligned. There is mild intervertebral disc space narrowing at C5-C6. Prevertebral soft tissues are normal in thickness. There is suggestion of mild bony foraminal narrowing on the right at C5-C6. Otherwise, neural foramina appear patent bilaterally. There are no dominant osseous erosions. Lung apices are grossly clear. [facility] User, Interfaces - 08/15/2019 3:54 PM EDT EXAM: XR SPINE CERVICAL 4 VIEWS HISTORY: Neck pain COMPARISON: None. TECHNIQUE: 5 views of the cervical spine. FINDINGS: The cervical vertebral bodies are normally aligned. There is mild intervertebral disc space narrowing at C5-C6. Prevertebral soft tissues are normal in thickness. There is suggestion of mild bony foraminal narrowing on the right at C5-C6. Otherwise, neural foramina appear patent bilaterally. There are no dominant osseous erosions. Lung apices are grossly clear. IMPRESSION IMPRESSION: 1. Mild degenerative disc changes at C5-C6. 2. Suggested mild bony foraminal narrowing on the right at C5-C6. 3. No acute osseous abnormality or subluxation. [facility] XR SPINE LUMBOSACRAL AP AND LATERALon 08-15-2019 XR SPINE LUMBOSACRAL AP AND LATERAL EXAM: XR SPINE LUMBOSACRAL AP AND LATERAL, XR SACROILIAC JOINTS MIN 3 VIEWS HISTORY: Back pain. COMPARISON: None. TECHNIQUE: 3 views of the lumbar spine. 3 views of the sacroiliac joints. FINDINGS: LUMBAR SPINE: There are 5 lumbar type segments. There is moderate to severe intervertebral disc space narrowing L4-L5 and L5-S1. Both levels show vacuum disc phenomenon, endplate sclerosis, and endplate osteophytes. There is a small smooth bone fragment along the anterior superior corner of the L5 vertebrae which may be related to a limbus vertebrae or remote trauma. There is no acute compression fracture. There is mild lower lumbar facet osteoarthritis. There is no listhesis of the lumbar vertebrae. SACROILIAC JOINTS: The SI joint spaces appear generally symmetric and maintained. No dominant osseous erosions or abnormal joint line sclerosis. No osseous destructive lesion is seen. IMPRESSION: 1. Moderate to severe degenerative disc changes L4-L5 and L5-S1 with lower lumbar facet osteoarthritis. 2. No acute osseous abnormality or listhesis. 3. Unremarkable SI joint series. Normal [facility] XR WRIST LEFT AP AND LATERAL on 08-15-2019 XR WRIST LEFT AP AND LATERAL EXAM: XR HANDS-RHEUMATOLOGY EVAL ONLY, XR WRIST RIGHT AP AND LATERAL, XR WRIST LEFT AP AND LATERAL HISTORY: Hand and wrist pain. COMPARISON: 08/24/2017. TECHNIQUE: Frontal and lateral views of the hands. Frontal and lateral views of the wrists. FINDINGS: Bilateral hands: Bone mineralization is appropriate. Alignment is anatomic. No acute fracture or dislocation is identified. There are suspected remote injury involving the volar base of the fifth digit middle phalanx. No significant erosive or degenerative arthropathy. Bilateral wrists: Bone mineralization is appropriate. Negative ulnar variance is present measuring 2 to 3 mm. No acute fracture or dislocation is identified. No significant erosive or degenerative arthropathy. IMPRESSION: No acute osseous abnormality or significant arthropathy of the hands and wrists. Bilateral negative ulnar variance. Normal [facility] XR WRIST RIGHT AP AND LATERA [place]oco 08-15-2019 XR WRIST RIGHT AP AND LATERAL EXAM: XR HANDS-RHEUMATOLOGY EVAL ONLY, XR WRIST RIGHT AP AND LATERAL, XR WRIST LEFT AP AND LATERAL HISTORY: Hand and wrist pain. COMPARISON: 08/24/2017. TECHNIQUE: Frontal and lateral views of the hands. Frontal and lateral views of the wrists. FINDINGS: Bilateral hands: Bone mineralization is appropriate. Alignment is anatomic. No acute fracture or dislocation is identified. There are suspected remote injury involving the volar base of the fifth digit middle phalanx. No significant erosive or degenerative arthropathy. Bilateral wrists: Bone mineralization is appropriate. Negative ulnar variance is present measuring 2 to 3 mm. No acute fracture or dislocation is identified. No significant erosive or degenerative arthropathy. IMPRESSION: No acute osseous abnormality or significant arthropathy of the hands and wrists. Bilateral negative ulnar variance. Normal [facility] Otheron 08-10-2019 Name TATY CHRISTIANSON Pathologist: OZZIE BARKERate of Procedure: 08/10/2019Date Received: 08/10/2019Date Reported 08/13/2019Submitting Physician: PREETI JAY, DOLocation: [facility] Copy To/Referring/Attending:MARIBEL ALLRED MD Other External # FINAL DIAGNOSISA. ILEUM BIOPSY:--ILEAL MUCOSA WITH NO SIGNIFICANT DIAGNOSTIC ALTERATION.Interpretation performed at:[facility]ecyxxrit[address] [place] [id number]: Electronically Signed Out By KAYLEY AGUILERA MD/Kei the signature on this report, the individual or group listed as making theFinal Interpretation/Diagnosis certifies that they have reviewed this case. Clinical History:Physician Contact Number: [phone] (A): FormalinClinical Diagnosis History SCREENINGSpecimens Submitted As:A: SANDEEP PRITCHETT Gross Description:Received in formalin, labeled with the patient's name and hospital number andBX ileum, is a fragment of hamilton, soft tissue measuring 0.4 x 0.2 x 0.2 cm. The specimen is submitted in toto in one cassette.[facility]08/10/2019 [employer] [facility] Work Phone: [email or web address]?={[id number]} [employer] Work Phone: Otheron 08-08-2019 NOT DETECTED See Below [employer] Work Phone: Comment on above: SOURCE: Nasal, Nasop haryngealReference Range: Not Detected.This assay is designed to detect SARS-CoV-2 based on replication of specific regions of the RNA from the SARS-CoV-2 virus. A Not Detected result does not preclude 2019-nCoV infection since the adequacy of sample collection and/or low viral burden may result in presence of viral nucleic acids below the clinical sensitivity of this test method. Fact sheet for providers: https://www.fda.gov/media/198130/downloadFact sheet for patients: https://www.fda.gov/media/149131/downloadThis test has been validated by the project controls scheduler but [facility] independent review of this validation is pending. This test has been verified by [facility] ([facility]). This test is only authorized for the duration of time that circumstances exist to justify the authorization of the emergency use of in vitro diagnostic tests for the detection of SARS-CoV-2 virus and/or diagnosis of COVID-19 infection under section 564(b)(1) of the Act, 21 U.S.C. 360bbb-3(b)(1), unless the authorization is terminated or revoked sooner. [facility] is certified under CLIA-88 as qualified to perform high complexity testing. Testing is performed in the [facility] laboratories located at [address] [place] [address]. Otheron 08-06-2019 [id number] [place] [id number] ext-[phone], Mhwgrhvi Stress TestPatient Name: FELA CHRISTIANSON Ordering Physician:Study Date: 08/06/2019 Reading Physician: [id number] Danw Lockhart MDMRN/PID: [id number] SupervisingPhysician:Adam on/Order#: [id number] Referring Physician: [id number] Robin AllredDate of : 1965 PCP:Gender: F Fellow:Admit Date: 08/06/2019 Fellow:Admission Status: Outpatient Singer And Unloader: Brandyn Freed HARBOR BOAT PILOT,CCTHeight: 177.80 cm Nurse: NAWeight: 95.26 kg Supervisor Coil Winding: NABSA: 2.13 m2 Technologist:BMI: 30.13 kg/m2 Additional Staff:Age: 53 years cc report to:Patient Location: [facility] cc report to:Study Type: Cardiac Stress TestDiagnosis/ICD: R07.9-Chest pain, unspecifiedIndication: Chest PainProcedure/CPT: Stress Test Interpretation-20957; Stress Test Supervision-[id number] Risk: Low: Patient has low risk for sustaining a fall; environmental safety interventions in place.Study Details: Correct procedure and correct patient verified verbally and withID Band checked.Patient History: Family history of coronary artery disease.Allergies: Albuterol.Smoker: Never.Diabetes: No.Medications: Metoprolol and levothyroxine, omeprazole, ProAir, Pulmicort, Serevent. The patient did not take medications as prescribed.Patient Performance: The patient exercised to stage III on a Martin protocol for 7 minutes and 00 seconds, achieving 8.1 METS. The peak heart rate achieved was 158 bpm, which was 94 % of the age predicted target heart rate of 167 bpm. The resting blood pressure was 137/84 mmHg with a heart rate of 86 bpm. The standing blood pressure was 133/84 mmHg with a heart rate of 89 bpm. The patient developed shortness of breath during the stress exam. The symptoms resolved with rest 4 minutes into recovery. The blood pressure response was normal. The test was terminated due to: dyspnea and MPHR >85%.Baseline ECG: Resting ECG showed normal sinus rhythm with normal tracing.Stress ECG: Stress ECG showed normal sinus rhythm and sinus tachycardia, with no abnormal findings.Stress Stage Data:+ +---+ ------+-------+\F\ \F\HR \F\Sys BP\F\Cole BP\F\+ +---+ ------+-------+\F\Baseline Resting \F\86 \F\137 \F\84 \F\+ +---+-- ----+-------+\F\Baseline Standing\F\89 \F\133 \F\84 \F\+ +---+-- ----+-------+\F\Stage I \F\118\F\171 \F\84 \F\+ +---+-- ----+-------+\F\Stage II \F\158\F\178 \F\88 \F\+ +---+-- ----+-------+Recovery ECG: Recovery ECG showed normal sinus rhythm, with no abnormal findings. The heart rate recovery was normal.+ +---+---- --+-------+\F\ \F\HR \F\Sys BP\F\Cole BP\F\+ +---+------ +-------+\F\Recovery II\F\135\F\194 \F\64 \F\+ +---+------+- ------+\F\Recovery IV\F\98 \F\154 \F\70 \F\+ +---+------+- ------+Summary:1. Negative stress for ischemia.2. Baseline EKG shows NSR with RAD.3. Poor-fair exercise tolerance for age (8.1 METs), CI 0.87, DTS 7.4. With exercise no CP, arrhythmias or STT changes.5. Normal BP response and normal HR recovery.6. The adequate level of stress was achieved.[id number] Dawn Lockhart MDElectronically signed on 08/06/2019 at 10:27:18 AM Final [facility] [place] [address] Work Phone: Anti Nuclear Antibody (refle xes SARAH panel if Positive)on 07-20-2019 Nuclear Ab Hep2 substrate Ql (S) Negative NEGATIVE [facility] Work Phone: Otheron 05-15-2019 FFD mammogram Breast screening Interpreted by: ELMER TIJERINA05/16/19 08:17MRN: [id number] Name: FELA CHRISTIANSON STUDY:BREAST ULTRASOUND; 05/15/2019 1:27 pm INDICATION:abnormal mammogram left breast. COMPARISON:Screening mammogram dated 05/08/2019 ORDERING CLINICIAN:BROOKLYNN CHRISTENSEN TECHNIQUE:Multiple grayscale ultrasonographic images were obtained through theleft breast in the region of mammographic abnormality. FINDINGS:In the 9 o'clock position of the left breast, approximately 6 cm fromthe nipple, there is a cluster of well-defined anechoic cystsidentified, measuring at up to 1.2 x 0.8 x 0.3 cm, corresponding withthe mass seen on mammogram. Scattered additional smaller cysts arepresent. No definite solid mass is seen. IMPRESSION:Cysts in the left breast, as described above. These are benignfindings in the patient may return to normal yearly screeningmammogram schedule. BI-RADS CATEGORY:Category: 2 - Benign.Recommendation: 1 Year Screening.Electronically signed by: LEMER TIJERINA 05/16/19 08:17 Normal YQ-Ncrgqhw-V [facility] Work Phone: MG Breast screening Interpreted by: ELMER TIJERINA05/16/19 08:17MRN: [id number] Name: FELA CHRISTIANSON STUDY:BREAST ULTRASOUND; 05/15/2019 1:27 pm INDICATION:abnormal mammogram left breast. COMPARISON:Screening mammogram dated 05/08/2019 ORDERING CLINICIAN:BROOKLYNN CHRISTENSEN TECHNIQUE:Multiple grayscale ultrasonographic images were obtained through theleft breast in the region of mammographic abnormality. FINDINGS:In the 9 o'clock position of the left breast, approximately 6 cm fromthe nipple, there is a cluster of well-defined anechoic cystsidentified, measuring at up to 1.2 x 0.8 x 0.3 cm, corresponding withthe mass seen on mammogram. Scattered additional smaller cysts arepresent. No definite solid mass is seen. IMPRESSION:Cysts in the left breast, as described above. These are benignfindings in the patient may return to normal yearly screeningmammogram schedule. BI-RADS CATEGORY:Category: 2 - Benign.Recommendation: 1 Year Screening.Electronically signed by: ELMER TIJERINA 05/16/19 08:17 Normal XK-Tndyold-Z [facility] Work Phone: Mamm - Screening Mammogram w / Tomosynthesison 05-08-2019 MG Breast screening Interpreted by: ELMER TIJERINA05/08/19 10:40MRN: [id number] Name: FELA CHRISTIANSON STUDY:Digital mammography screening with georges; 05/08/2019 8:20 am ORDERING CLINICIAN:BROOKLYNN CHRISTENSEN INDICATION:Screening. COMPARISON:Comparison is made to prior digital mammograms dated05/04/2018 and04/27/2017 FINDINGS:CC and MLO 2D digital mammograms and digital breast tomosynthesisimages were obtained of the bilateral breasts. 3-D volume images werereconstructed in 4 views at an independent workstation as 1 mm slicesthrough the breasts in both the CC and MLO projections. There are areas of scattered fibroglandular tissue. Well-definedovoid mass is seen in the medial aspect of the left breast at mediumto posterior depth, increased in prominence from prior studies.Noadditional new or enlarging mass or focal asymmetry is identified. Nosuspicious microcalcifications or foci of architectural distortionare seen. This study was interpreted with CAD. IMPRESSION:Mass in the left breast, as described above. Further evaluation withultrasound is recommended. BI-RADS CATEGORY:Category: 0 - Incomplete; Need Additional Imaging Evaluation and/orPrior Mammograms for Comparison.Recommendation: Additional Views.Electronically signed by: ELMER TIJERINA 05/08/19 10:40 Normal FE-Ioqmrqq-A [place] Work Phone: Imm/Pathon 04-20-2019 Cytology report Cyto stain.thin prep Doc (Cvx/Vag) [facility] Work Phone: Otheron 04-20-2019 7 Date of Procedure: 04/20/2019 Pathologist: AUGUSTIN CORCORAN III, D.O.Date Reported: 05/02/2019Date Received: 04/20/2019Submitting Physician: BROOKLYNN CHRISTENSEN CNP FINAL CYTOLOGICAL INTERPRETATIONA. THINPREP PAP CERVICAL Reflex - Ascus only: Specimen adequacy: SATISFACTORY FOR EVALUATION. Quality Indicator: Endocervical/transformation zone component is present. General Categorization: NEGATIVE FOR INTRAEPITHELIAL LESION OR MALIGNANCY. Descriptive Interpretation: REACTIVE CELLULAR CHANGES. Ancillary Testing: Specimen does not meet the requisition-stated criteria for HPV testing.See Pap test interpretation above. This specimen has been analyzed by the Gram Games[employer] Imaging System ([employer]an automated imaging and review system, which assists the laboratory inevaluating cells on ThinPrep Pap tests. Following automated imaging, selectedfields from every slide were reviewed by a porter baggage and/or pathologist.Electronically Signed Out By AUGUSTIN CORCORAN III, D.O./CHERYL/VICENTA By the signature on this report, the individual or group listed as making theFinal Interpretation/Diagnosis certifies that they have reviewed this case.Educational Note:Cervical cytology is a screening procedure primarily for squamous cancers andprecursors and has associated false-negative and false-positive results asevidenced by published data. Your patient's test should be interpreted in thiscontext, together with patient's history and clinical findings. Regularsampling and follow-up of unexplained clinical signs and symptoms arerecommended to minimize false negative results. Clinical HistoryDate of Last Menstrual Period: 42 WEEKS AGOOther Clinical Conditions:HPV Reflex for ASC-US only - Include HPV Genotype [id number] Source of SpecimenA: THINPREP PAP CERVICAL Reflex - Ascus only ZE-Rxiubqb-V [facility] Work Phone: Otheron 01-30-2019 Name TATY CHRISTIANSON Pathologist: OZZIE Grimesate of Procedure: 01/30/2019Date Received: 01/31/2019Date Reported 02/05/2019Submitting Physician: RU MCWILLIAMS II, MDLocation: [facility] [place] External # [id number] FINAL DIAGNOSISA. BLADDER TUMOR, TRANSURETHRAL RESECTION: --NON-INVASIVE HIGH-GRADE PAPILLARY UROTHELIAL CARCINOMA. SEE NOTE.Note: Small fragments of detrusor muscle are present, and are not involved bymalignancy.The gross and/or microscopic findings were reviewed in conjunction withpathology resident, Amador Calvillo MD. Electronically Signed Out By Sivakumar Vaca MD/Panda the signature on this report, the individual or group listed as making theFinal Interpretation/Diagnosis certifies that they have reviewed this case. Clinical History:bladder tumorSpecimens Submitted As:A: BLADDER TUMOR Other Case Numbers [id number] Description:Received in formalin, labeled with the patient's name and hospital number andbladder tumor tissue, are multiple irregular fragments of soft, hamilton, tissueaggregating to 1.8 x 1.3 x 0.5 cm and weighing in aggregate 0.66 grams. Thespecimen is submitted in toto in one cassette.CJNcjn/01/31/2019 WM-Iztquyx-L [facility] Work Phone: Otheron 01-17-2019 XR Abdomen AP Please click on the link to view the study images Normal GI-Vkmpaat-L [facility] Work Phone: Comment on above: Ordering Provider: Ger MCWILLIAMS XR Abdomen AP Interpreted by: ELMER TIJERINA01/19/19 09:08MRN: [id number] Name: FELA CHRISTIANSON STUDY:ABDOMEN AP VIEW; 01/17/2019 8:02 am INDICATION:GROSS HEMATURIA. COMPARISON:CT dated 01/08/2019 ORDERING CLINICIAN:RU MCWILLIAMS FINDINGS:2 supine AP radiographs of the abdomen were obtained. No definiteabnormal calcifications are seen over the kidneys or ureters. Smallcalcifications are seen in the lower pelvis, most consistent withphleboliths. There is a nonobstructive bowel gas pattern present.Free intraperitoneal air and air-fluid levels cannot be excludedwithout upright or decubitus images. IMPRESSION:Nonobstructive bowel gas pattern.Electronically signed by: ELMER TIJERINA 01/19/19 09:08 Normal [facility] Work Phone: Comment on above: Ordering Provider: Ger MCWILLIAMS Otheron 01-08-2019 Interpreted by: JH CREWS01/09/19 08:45MRN: [id number] Name: FELA CHRISTIANSON STUDY:CT UROGRAPHY WITH AND WITHOUT CONTRAST; 01/08/2019 9:38 am INDICATION:gross hematuria. COMPARISON:Renal ultrasound, 22 December 2018 ORDERING CLINICIAN:RU MCWILLIAMS TECHNIQUE:CT Abdomen and pelvis from the lung bases through the symphysis pubisusing CT Urogram protocol, including CT of the abdomen and pelviswithout IV contrast, followed by 2-phase CT of both the abdomen andpelvis after the uneventful administration of 150 mL Omnipaque 350intravenous contrast, including nephrographic and excretory phases ofthe abdomen and pelvis. No oral contrast. Sagittal and coronalreformatted images of both the nephrographic and excretory phaseswere created and reviewed. 3D maximum intensity projections (3D MIPS) of the contrast-opacifiedurinary tract were created, reviewed and saved FINDINGS:KIDNEYS AND URINARY TRACT: RIGHT:Stone: NegativeHydronephrosis: NegativeParenchymal mass: Negative. No solid, enhancing or otherwise suspectparenchymal mass lesionUrothelial mass: Negative. No soft tissue attenuation filling defectsin the excreted contrast-opacified collecting system or ureter.Limitations: The proximal one third of the ureter was not well enoughopacified on the excretory phase to evaluate for an underlying lesionCongenital variant anatomy: Negative; no variant anatomy such asduplicated uretersOther: n/a LEFT:Stone: NegativeHydronephrosis: NegativeParenchymal mass: Negative. No solid, enhancing or otherwise suspectparenchymal mass lesionUrothelial mass: Negative. No soft tissue attenuation filling defectsin the excreted contrast-opacified collecting system or ureter.Limitations: None; the entire ureter was well opacified with excretedcontrast on the excretory phaseCongenital variant anatomy: Negative; no variant anatomy such asduplicated uretersOther: n/a URINARY BLADDER:Stone: NegativeUrothelial mass: Consent positive. For example on the excretory phaseaxial 139 and coronal 58, one or more (either a single larger ormultiple smaller adjacent) mass/masses are near the left UVJ, inaggregate involving approximately 3 cm transverse diameter footprintalong the wall of the urinary bladder at and around the left UVJ, 2.1cm craniocaudal footprint, extending about 6-7 mm into the bladderlumen. Elsewhere the opacified portions of the urinary bladder areclearLimitations: The nondependent one third of the urinary bladder wasnot well enough opacified with excreted contrast to evaluate for anunderlying lesionWall thickening / other inflammatory change: NegativeDiverticula: NegativeTrabeculations: NegativeCongenital variant anatomy: Negative. No variant anatomy such asurachal remnantFistula: NegativeOther: n/a ABDOMEN: LIVER: Normal except for a few subcentimeter too small tocharacterize but likely benign low attenuation parenchymal lesions.No enlargement or evidence of cirrhosis or fatty change. No mass orother suspect lesion. SPLEEN: Normal. No enlargement, mass or evidence of splenic veinthrombosis. PANCREAS: Normal. No CT evidence of acute or chronic pancreatitis. Noduct dilation. No mass. GALLBLADDER: Normal CT appearance. No dilation, calcified, orgas-containing stones. Other types of gallstones could be occult onCT and detectable only by ultrasound. BILE DUCTS: Normal. No biliary duct dilation. ADRENAL GLANDS: Normal. No nodule or mass. LYMPH NODES: No adenopathy, intraperitoneal, retroperitoneal, pelvicor otherwise APPENDIX: If the appendix is still present it is rudimentary and notinflamed. COLON: Normal. No sign of acute diverticulitis or other colitis. Noannular constricting mass. SMALL BOWEL: Normal. No small bowel dilation or any other sign ofsmall bowel obstruction. No sign of active inflammatory bowel disease. STOMACH / DUODENUM: Grossly normal by CT which has limitedsensitivity and specificity for the stomach and duodenum. RETROPERITONEUM: Normal. No acute hemorrhage or inflammatory change.Lymph nodes in a separate dedicated section. OMENTUM, MESENTERY AND PERITONEAL SPACES:Free intraperitoneal air: NegativeFree intraperitoneal fluid: NegativeAbscess: NegativeOther: n/a PELVIS: The endometrium is 12-13 mm thick. No suspect adnexalfindings. Suspect nabothian cysts at the cervix VASCULATURE: No abdominal aortic or iliac artery aneurysm. No highgrade stenosis of the major abdominal aortic branch vessels. Portalvenous system patent. ABDOMINAL WALL: No acute or contributory abnormality LOWER CHEST: No acute findings including no nodules suspect formetastatic disease or other malignancy BONES: No acute findings including no aggressive osseous lesionsuspect for metastatic disease or other malignancy IMPRESSION:URINARY BLADDER WALL MASS OR MULTIPLE ADJACENT SMALLER MASS ISCENTERED AT AND AROUND THE LEFT UVJ DETAILED ABOVE NO OTHER CONTRIBUTORY ABNORMALITY REGARDING HEMATURIA NO EVIDENCE FOR SYNCHRONOUS UROTHELIAL NEOPLASM ELSEWHERE, UPPER ORLOWER TRACT, NOTING THAT THE NONDEPENDENT ONE THIRD OF THE URINARYBLADDER AND PROXIMAL ONE THIRD OF THE RIGHT URETER WERE NOT WELLENOUGH OPACIFIED TO EVALUATE NO METASTATIC DISEASE IN THE ABDOMEN OR PELVIS NO STONE ANYWHERE IN THE URINARY TRACT. NO HYDROURETERONEPHROSIS. NO EVIDENCE OF ACUTE INFLAMMATION ANYWHERE IN THE URINARY TRACT. NO SOLID RENAL PARENCHYMAL MASS. NO VARIANT ANATOMY SUCH URACHAL REMNANT OR DUPLICATED/ECTOPICURETERS. THE ENDOMETRIUM IS 12-13 MM THICK, WOULD BE WITHIN EXPECTED LIMITS BERTHA PREMENOPAUSAL PATIENT, ABNORMAL IN A POSTMENOPAUSAL FEMALE. THEREALSO CT ABNORMALITIES AT THE CERVIX, PROBABLY NABOTHIAN CYSTS.CORRELATE WITH PELVIC EXAM AND/OR CERVICAL CYTOLOGYElectronically signed by: JH CREWS 01/09/19 08:45 Normal LO-Ekythcf-Y [employer] Work Phone: Please click on the link to view the study images Normal HI-Ianuzku-C [employer] Work Phone: [phone] Blood Urea Nitrogen, Serumon 01-04-2019 Urea nitrogen [Mass/Vol] 15 mg/dL 6 - 23 XQ-Yzhhlld-C [employer] Work Phone: [phone] Creatinine, Serumon 01-05-20 19 Creatinine [Mass/Vol] 0.80 mg/dL See Below LV-Rdmbijs-H [employer] Work Phone: [phone] Comment on above: Reference Range: 0.5 0 - 1.05 Creatinine [Mass/Vol] mg/dL >60 ZT-Orudduk-R [employer] [facility] Work Phone: [phone] Comment on above: CALCULATIONS OF ALEXIA MATED GFR ARE PERFORMED USING THE MDRD STUDY EQUATION FOR THE IDMS-TRACEABLE CREATININE METHODS. CLIN CHEM 2007;53:766-72 IO UA (automated w/o microsc opy)on 01-03-2019 Protein (U) [Mass/Vol] Negative Negative JV-Rnyjccc-G [employer] Work Phone: IO UA (automated w/o microscopy) 5.5 5.0-8.0 MU-Nprajfw-Z [employer] [facility] Work Phone: IO UA (automated w/o microscopy) Normal (0.2-1.0 mg/dl) Normal -Urolog y-A [employer] Work Phone: IO UA (automated w/o microscopy) Yellow Colorless-Y ellow FP-Dozjkrn-X [employer] Work Phone: IO UA (automated w/o microscopy) Negative Negative MD-Vpwmguv-D [employer] Work Phone: IO UA (automated w/o microscopy) 1.030 1.000-1.030 XL-Ccdbkks-G [employer] [facility] Work Phone: IO UA (automated w/o microscopy) (+++)large - 80 Negative AV-Xnrkkuk-X [employer] Work Phone: IO UA (automated w/o microscopy) Clear Clear PD-Ydwwhcl-Y [facility] Work Phone: Complete Blood Count + Diffe nayla 12-22-2018 Basophils (Bld) [#/Vol] 0.00 {x10E9/L} See Below [facility] Work Phone: Comment on above: Reference Range: 0.0 0 - 0.10 Basophils/100 WBC (Bld) 0.6 % 0.0 - 2.0 [facility] Work Phone: [phone] Eosinophils (Bld) [#/Vol] 0.10 {x10E9/L} See Below [facility] Work Phone: Comment on above: Reference Range: 0.0 0 - 0.70 Eosinophils/100 WBC (Bld) 1.9 % 0.0 - 6.0 [facility] Work Phone: [phone] Erythrocyte distribution width (RBC) [Ratio] 14.7 % above high threshold See Below [facility] Work Phone: Comment on above: Reference Range: 11. 5 - 14.5 Hematocrit (Bld) [Volume fraction] 44.2 % See Below [facility] Work Phone: Comment on above: Reference Range: 36. 0 - 46.0 Hemoglobin (Bld) [Mass/Vol] 14.6 g/dL See Below [facility] Work Phone: Comment on above: Reference Range: 12. 0 - 16.0 Lymphocytes (Bld) [#/Vol] 1.90 {x10E9/L} See Below [facility] Work Phone: Comment on above: Reference Range: 1.2 0 - 4.80 Lymphocytes/100 WBC (Bld) 27.5 % See Below [facility] Work Phone: Comment on above: Reference Range: 13. 0 - 44.0 MCHC (RBC) [Mass/Vol] 33.0 g/dL See Below [facility] Work Phone: [phone] Comment on above: Reference Range: 32. 0 - 36.0 MCV (RBC) [Entitic vol] 87 fL 80 - 100 [facility] Work Phone: [phone] Monocytes (Bld) [#/Vol] 0.80 {x10E9/L} See Below [facility] Work Phone: [phone] Comment on above: Reference Range: 0.1 0 - 1.00 Monocytes/100 WBC (Bld) 11.6 % 2.0 - 10.0 [facility] Work Phone: [phone] Neutrophils (Bld) [#/Vol] 4.00 {x10E9/L} See Below [facility] Work Phone: [phone] Comment on above: Reference Range: 1.2 0 - 7.70 Neutrophils/100 WBC (Bld) 58.4 % See Below [facility] Work Phone: [phone] Comment on above: Reference Range: 40. 0 - 80.0 Platelets (Bld) [#/Vol] 258 {x10E9/L} 150 - 450 [facility] Work Phone: [phone] RBC (Bld) [#/Vol] 5.07 {x10E12/L} See Below [facility] Work Phone: [phone] Comment on above: Reference Range: 4.0 0 - 5.20 WBC (Bld) [#/Vol] 0.1 {/100_WBC} [facility] Work Phone: [phone] WBC (Bld) [#/Vol] 6.9 {x10E9/L} 4.4 - 11.3 [facility] Work Phone: [phone] IO EKG Electrocardiogram- 12 Leadon 12-22-2018 EKG study [facility] Work Phone: [phone] Comment on above: Result document to b e provided separately IO EKG Electrocardiogram- 12 Lead [facility] Work Phone: [phone] Comment on above: Result document to b e provided separately Magnesium, Serumon 9 Magnesium [Mass/Vol] 2.14 mg/dL See Below [facility] Work Phone: Comment on above: Reference Range: 1.6 0 - 2.40 Metabolic Panelon 12-22-2018 ALP [Catalytic activity/Vol] 100 U/L 33 - 110 [facility] Work Phone: Anion gap [Moles/Vol] 8 mmol/L below low threshold 10 - 20 [facility] Work Phone: Bilirubin [Mass/Vol] 0.5 mg/dL 0.0 - 1.2 [facility] Work Phone: Calcium [Mass/Vol] 9.1 mg/dL 8.6 - 10.3 [facility] Work Phone: Chloride [Moles/Vol] 105 mmol/L 98 - 107 [facility] Work Phone: CO2 [Moles/Vol] 30 mmol/L 21 - 32 [facility] Work Phone: Creatinine [Mass/Vol] 0.72 mg/dL See Below [facility] Work Phone: Comment on above: Reference Range: 0.5 0 - 1.05 Glucose [Mass/Vol] 76 mg/dL 74 - 99 [facility] Work Phone: Potassium [Moles/Vol] 3.9 mmol/L 3.5 - 5.3 [facility] Work Phone: Protein [Mass/Vol] 6.9 g/dL 6.4 - 8.2 [facility] Work Phone: Sodium [Moles/Vol] 139 mmol/L 136 - 145 [facility] Work Phone: Urea nitrogen [Mass/Vol] 13 mg/dL 6 - 23 [facility] Work Phone: Otheron 12-22-2018 Interpreted by: MARLIN ROSARIO ZFAGOVCG99/02/19 22:44MRN: [id number] Name: FELA CHRISTIANSON STUDY: RENAL BILAT; 12/22/2018 1:29 pm INDICATION:gross hematuria. COMPARISON:None. ORDERING CLINICIAN:ROBIN ALLRED TECHNIQUE:Grayscale and color Doppler ultrasound evaluation of the kidneys andurinary bladder. FINDINGS:RIGHT KIDNEY:The right kidney measures 11.4 cm in length. No hydronephrosis. Nomass, calculus, or perinephric abnormality. LEFT KIDNEY:The left kidney measures 11.5 cm in length. No hydronephrosis.Nonobstructin g calculus lower pole measures 5 mm. No mass orperinephric abnormality. BLADDER:In the left posterolateral aspect of the bladder there is a focus ofirregular, hypoechoic masslike thickening measuring up to 1.9 cm ingreatest dimension (image 66 of 72). IMPRESSION:Nonobstructing left nephrolithiasis, as above. No hydronephrosisbilaterally. Possible irregular hypoechoic masslike thickening involving the leftposterolateral aspect of the urinary bladder, as discussed above;urothelial carcinoma of the bladder can have this appearance.Electronically signed by: SIMEON MCCOY 12/23/18 22:44 [facility] [employer] Work Phone: Please click on the link to view the study images Normal [facility] Work Phone: Albumin BCP dye [Mass/Vol] 4.0 g/dL 3.4 - 5.0 [facility] Work Phone: ALT With P-5'-P [Catalytic activity/Vol] 21 U/L 7 - 45 [facility] Work Phone: Comment on above: Patients treated wit h Sulfasalazine may generate falsely decreased results for ALT. AST With P-5'-P [Catalytic activity/Vol] 18 U/L 9 - 39 [facility] Work Phone: >60 >60 [facility] Work Phone: Comment on above: CALCULATIONS OF ALEXIA MATED GFR ARE PERFORMED USING THE MDRD STUDY EQUATION FOR THE IDMS-TRACEABLE CREATININE METHODS. CLIN CHEM 2007;53:766-72 T4 - Free Thyroxine, Serumon 12-22-2018 Free T4 [Mass/Vol] 0.72 ng/dL below low threshold See Below [facility] Work Phone: Comment on above: Reference Range: 0.7 8 - 1.48 Thyroxine Free testing is performed using different testing methodology at [facility] than at other [facility]. Direct result comparisons should only be made within the same method. Patients receiving more than 5 mg/day of biotin may have interference in test results. A sample should be taken no sooner than eight hours after previous dose. Thyroidon 12-22-2018 TSH Qn 8.60 {mIU/L} above high threshold See Below [facility] Work Phone: Comment on above: Reference Range: 0.4 4 - 3.98 TSH testing is performed using different testing methodology at [facility] than at other [facility]. Direct result comparisons should only be made within the same method. Vitamin B12, Serumon 019 Cobalamin (Vitamin B12) [Mass/Vol] 260 pg/mL 211 - 911 [facility] Work Phone: MA Mamm Screen w/CAD if perf ormed bilaton 05-04-2018 MA Mamm Screen w/CAD if performed bilat Exam Date/Time: 05/04/2018 07:43 EDT Reason for Exam: SCREENING;Screening Report STUDY: Digital mammography screening; 05/04/2018 7:43 am ACCESSION NUMBER(S): [id number] ORDERING CLINICIAN: Brooklynn Christensen INDICATION: Screening. COMPARISON: Comparison is made to prior digital mammograms dated 04/27/2017 and 04/20/2015 FINDINGS: CC and MLO 2D digital mammographic images of the bilateral breasts were obtained. There are areas of scattered fibroglandular tissue. No discrete mass or focal asymmetry is identified. No suspicious microcalcifications or foci of architectural distortion are seen. There has been no significant change. This study was interpreted with CAD. IMPRESSION: No mammographic evidence of malignancy. BI-RADS CATEGORY: Category: 1 - Negative. Recommendation: Normal Interval Follow-up, Over Age 40. Recall Interval: 12 Months. Breast Density: Scattered Fibroglandular Density. FINAL REPORT Dictated: 05/04/2018 10:48 am Elmer Tijerina MD Signed (Electronic Signature): 05/04/2018 10:48 am Signed by: Elmer Tijerina MD Technologist: CASSIDY Assessment: BI-RADS Category 1-Negative Recommendation: Normal interval follow-up Normal [facility] IGP W/hpv Rfx [id number] 04-26 Diagnosis: See Ref Lab Report Normal [facility] Comment on above: Performed By: #### 2 [id number] #### EVELYN Send Outs Subsection [facility] [place] [id number] Pathology ([facility])on 04-18-2018 Pathology ([facility]) FINAL GYNECOLOGIC CY TOLOGY REPORT [id number] SPECIMEN ADEQUACY Satisfactory for Evaluation Endocervical component absent but acceptable due to patient age/history GENERAL CATEGORIZATION Negative for Intraepithelial Lesion or Malignancy DESCRIPTIVE DIAGNOSIS Parakeratosis is present. COMMENT This smear is reviewed by a pathologist due to cells questioned by the porter baggage. CLINICAL HISTORY Comment: No LMP provided. SPECIMEN (A) SCREENING CERVICAL/ENDOCERVICAL THIN PREP VIAL Performed at [facility], [address] [place] [address] Screened by: GLADIS TERRAZAS Corporate Human Resources Manager Signed Out by: YU BARRETO M.D. Reported: 04/25/2018 Normal [facility] Comment on above: Performed By: #### G YN #### [facility] [address] [place] [id number] BMPon 03-21-2018 Anion gap molar conc 8 mmol/L Low 10-20 [facility] Comment on above: Performed By: #### 2 [id number] #### EVELYN Send Outs Subsection [facility] [place] [address] Calcium mass conc 9.0 mg/dL Normal 8.6-10.3 [facility] Comment on above: Performed By: #### 2 [id number] #### EVELYN Send Outs Subsection [facility] [place] [address] Chloride molar conc 105 mmol/L Normal 98-107 [facility] Comment on above: Performed By: #### 2 [id number] #### EVELYN Send Outs Subsection [address] [facility] [place] [address] CO2 molar conc 29.0 mmol/L Normal 21.0-32.0 [facility] Comment on above: Performed By: #### 2 [id number] #### EVELYN Send Outs Subsection [address] [place] [address] Creatinine mass conc 0.7 mg/dL Normal 0.5-1.1 [facility] Comment on above: Performed By: #### 2 [id number] #### EVELYN Send Outs Subsection [address] [place], [place] [id number] Glucose mass conc 73 mg/dL Normal 70-99 [facility] Comment on above: Performed By: #### 2 [id number] #### EVELYN Send Outs Subsection [address] [place] [address] Potassium molar conc 3.8 mmol/L Normal 3.5-5.3 [facility] Comment on above: Performed By: #### 2 [id number] #### EVELYN Send Outs Subsection [address] [place], [place] [id number] Sodium molar conc 138 mmol/L Normal 136-145 [facility] Comment on above: Performed By: #### 2 [id number] #### EVELYN Send Outs Subsection [address] [place], [place] [id number] Urea nitrogen mass conc 10 mg/dL Normal 6-23 [facility] Comment on above: Performed By: #### 2 [id number] #### EVELYN Send Outs Subsection [address] [place], [place] [id number] Urea nitrogen/Creatinin e mass ratio 14.3 ratio Normal 5.4-30.0 [facility] Comment on above: Performed By: #### 2 [id number] #### EVELYN Send Outs Subsection [address] [place] [address] Magnesiumon 03-21-2018 Magnesium mass conc 2.0 Int._Unit/L Normal 1.6-2.4 [facility] Comment on above: Performed By: #### 2 [id number] #### EVELYN Send Outs Subsection [address] [place] [address] TSHon 03-21-2018 Thyrotropin Qn 9.91 mcIU/mL High 0.30-5.60 [facility] Comment on above: Performed By: #### 2 [id number] #### EVELYN Send Outs Subsection [address] [place] [address] eGFRon 03-21-2018 GFR/1.73 sq M predicted among non-blacks MDRD vol rate/area (S/P/Bld) mL/min/{1.73_m2} Normal [facility] Comment on above: Order Comment: Order added by Discern Expert. Performed By: #### 2 [id number] #### EVELYN Send Outs Subsection [address] [place] [id number] BRAIN W AND WO CONTRASTon BRAIN W AND WO CONTRAST STUDY:BRAIN W WO CONTRAST; 01/01/2018 9:30 amINDICATION:DEMYELINATING DISEASE (G37.9).COMPARISON:None.ACCE SSION NUMBER(S):[id number] RING CLINICIAN:Elpidio SyedTECHNIQUE:Axial diffusion, axial T2, axial FLAIR, volumetric FLAIR, axial T1,post gadolinium volumetric T1, as well as post gadolinium axial B8hactdoez MRI images of the brain were obtained. The patient myscughp98 mL of MultiHance gadolinium intravenously.FINDINGS:The diffusion weighted images fail to demonstrate abnormal diffusionrestriction to suggest acute infarction.The ventricular system is nondilated.There are a couple of punctate nonspecific subcortical white matterchanges within the right frontal lobe as well as within the rightperiatrial white matter. While nonspecific, white matter changes canbe seen with migraine headaches, hypertension, small-vessel ischemicchange, or demyelinating processes among others.No abnormal intracranial mass lesion or abnormal intracranialenhancement is identified on the postcontrast images.The visualized paranasal sinuses and mastoid air cells are clear.IMPRESSION:There are a couple of punctate nonspecific subcortical white matterchanges within the right frontal lobe as well as within the rightperiatrial white matter. While nonspecific, white matter changes canbe seen with migraine headaches, hypertension, small-vessel ischemicchange, or demyelinating processes among others.No abnormal intracranial mass lesion or abnormal intracranialenhancement is identified on the postcontrast images.The study was interpreted at [facility]. Normal [facility] CERVICAL SP W AND WO CONon 1 03-03-2017 CERVICAL SP W AND WO CON STUDY:CERVICAL SP W WO CON; THORACIC SP W WO CON; 01/01/2018 9:30 amINDICATION:DEMYELINATING DISEASE (G37.9).COMPARISON:None.ACCE SSION NUMBER(S):[id number]; [id number] CLINICIAN:Elpidio BenjaminTECHNIQUE:Sagittal STIR, sagittal T2, sagittal T1, axial T2, as well as postgadolinium sagittal and axial T1 weighted MRI images through thecervical and thoracic spine were obtained. The patient received 18 mLof MultiHance gadolinium intravenously.FINDINGS:There is mild reversal of the normal lordotic curvature of the uppercervical spine likely related to patient positioning. There isminimal 1 mm of anterolisthesis of C7 on T1. The remaining cervicaland thoracic vertebrae are in anatomic alignment.There are Schmorl's nodes and mild degenerative changes noted alongendplates within the mid and lower thoracic region.Evaluation for spinal cord signal abnormality is somewhat limitedsecondary to motion on the obtained axial T2 weighted images. Theobtained motion degraded axial T2 images demonstrate vague areas ofincreased signal overlying the spinal cord which are not wellappreciated on the sagittal T2 images and are felt to likely betechnical/artifactual in origin. No definite spinal cord signalabnormality is noted. No abnormal enhancement of the spinal cord isnoted on the post gadolinium T1 weighted images.The conus terminates at the T12/L1 level.At the C2/3 level, there is no significant central canal stenosis orneuroforaminal stenosis.At the C3/4 level, there is no significant central canal stenosis orneuroforaminal stenosis.At the C4/5 level, there is a minimal posterior disc osteophytecomplex without significant central canal or neural foraminalnarrowing.At the C5/6 level, there is a posterior disc osteophyte complexcontributing to partial effacement of the ventral subarachnoid spacewithout significant cervical cord deformity. There are degenerativeuncovertebral joint changes and degenerative facet changescontributing to yggs-xg-xylsvamn encroachment upon the right neuralforamen. There is no significant left-sided neural foraminalnarrowing.At the C6/7 level, there is no significant central canal stenosis orneuroforaminal stenosis.At the C7/T1 level, there is minimal 1 mm of anterolisthesis of C7 onT1 along with a small central disc herniation without significantcentral canal narrowing or significant neural foraminal narrowing.There are mild degenerative facet changes.At the T1/2 level, there is no significant central canal narrowing.At the T2/3 level, there is no significant central canal stenosis.At the T3/4 level, there is no significant central canal stenosis.At the T4/5 level, there is no significant central canal stenosis.At the T5/6 level, there is no significant central canal stenosis.At the T6/7 level, there is no significant central canal narrowing.At the T7/8 level, there is a central disc herniation measuring 2 mmin AP dimension contributing to effacement of the ventralsubarachnoid space. There is minimal flattening of the ventralthoracic cord which drapes over the disc. There is no significantoverall central canal narrowing.At the T8/9 level, there is no significant central canal narrowing.At the T9/10 level, there is no significant central canal narrowing.At the T10/11 level, there is a small left-sided disc herniationmeasuring 2 mm in AP dimension contributing to mild impression uponthe left ventral subarachnoid space without significant overallcentral canal narrowing.At the T11/12 level, there is a small 2 mm left-sided disc herniationcontributing to mild impression upon the right ventral subarachnoidspace without significant overall central canal narrowing.At the T12/L1 level, there is no significant central canal narrowing.IMPRESSION:There is multilevel spondylosis as described above.Evaluation for spinal cord signal abnormality is somewhat limitedsecondary to motion on the obtained axial T2 weighted images. Theobtained motion degraded axial T2 images demonstrate vague areas ofincreased signal overlying the spinal cord which are not wellappreciated on the sagittal T2 images and are felt to likely betechnical/artifactual in origin. No definite spinal cord signalabnormality is noted. No abnormal enhancement of the spinal cord isnoted on the post gadolinium T1 weighted images.The study was interpreted at [facility]. Normal [facility] THORACIC SP W AND WO CONon 1 03-03-2017 THORACIC SP W AND WO CON STUDY:CERVICAL SP W WO CON; THORACIC SP W WO CON; 01/01/2018 9:30 amINDICATION:DEMYELINATING DISEASE (G37.9).COMPARISON:None.ACCE SSION NUMBER(S):[id number]; [id number] CLINICIAN:Elpidio Sargent:Sagittal STIR, sagittal T2, sagittal T1, axial T2, as well as postgadolinium sagittal and axial T1 weighted MRI images through thecervical and thoracic spine were obtained. The patient received 18 mLof MultiHance gadolinium intravenously.FINDINGS:There is mild reversal of the normal lordotic curvature of the uppercervical spine likely related to patient positioning. There isminimal 1 mm of anterolisthesis of C7 on T1. The remaining cervicaland thoracic vertebrae are in anatomic alignment.There are Schmorl's nodes and mild degenerative changes noted alongendplates within the mid and lower thoracic region.Evaluation for spinal cord signal abnormality is somewhat limitedsecondary to motion on the obtained axial T2 weighted images. Theobtained motion degraded axial T2 images demonstrate vague areas ofincreased signal overlying the spinal cord which are not wellappreciated on the sagittal T2 images and are felt to likely betechnical/artifactual in origin. No definite spinal cord signalabnormality is noted. No abnormal enhancement of the spinal cord isnoted on the post gadolinium T1 weighted images.The conus terminates at the T12/L1 level.At the C2/3 level, there is no significant central canal stenosis orneuroforaminal stenosis.At the C3/4 level, there is no significant central canal stenosis orneuroforaminal stenosis.At the C4/5 level, there is a minimal posterior disc osteophytecomplex without significant central canal or neural foraminalnarrowing.At the C5/6 level, there is a posterior disc osteophyte complexcontributing to partial effacement of the ventral subarachnoid spacewithout significant cervical cord deformity. There are degenerativeuncovertebral joint changes and degenerative facet changescontributing to owhc-cb-rxjexitb encroachment upon the right neuralforamen. There is no significant left-sided neural foraminalnarrowing.At the C6/7 level, there is no significant central canal stenosis orneuroforaminal stenosis.At the C7/T1 level, there is minimal 1 mm of anterolisthesis of C7 onT1 along with a small central disc herniation without significantcentral canal narrowing or significant neural foraminal narrowing.There are mild degenerative facet changes.At the T1/2 level, there is no significant central canal narrowing.At the T2/3 level, there is no significant central canal stenosis.At the T3/4 level, there is no significant central canal stenosis.At the T4/5 level, there is no significant central canal stenosis.At the T5/6 level, there is no significant central canal stenosis.At the T6/7 level, there is no significant central canal narrowing.At the T7/8 level, there is a central disc herniation measuring 2 mmin AP dimension contributing to effacement of the ventralsubarachnoid space. There is minimal flattening of the ventralthoracic cord which drapes over the disc. There is no significantoverall central canal narrowing.At the T8/9 level, there is no significant central canal narrowing.At the T9/10 level, there is no significant central canal narrowing.At the T10/11 level, there is a small left-sided disc herniationmeasuring 2 mm in AP dimension contributing to mild impression uponthe left ventral subarachnoid space without significant overallcentral canal narrowing.At the T11/12 level, there is a small 2 mm left-sided disc herniationcontributing to mild impression upon the right ventral subarachnoidspace without significant overall central canal narrowing.At the T12/L1 level, there is no significant central canal narrowing.IMPRESSION:There is multilevel spondylosis as described above.Evaluation for spinal cord signal abnormality is somewhat limitedsecondary to motion on the obtained axial T2 weighted images. Theobtained motion degraded axial T2 images demonstrate vague areas ofincreased signal overlying the spinal cord which are not wellappreciated on the sagittal T2 images and are felt to likely betechnical/artifactual in origin. No definite spinal cord signalabnormality is noted. No abnormal enhancement of the spinal cord isnoted on the post gadolinium T1 weighted images.The study was interpreted at [facility]. Normal [facility] U Prot Electroon 11-18-2017 M-Ender Percent See Ref Lab Rpt Normal [facility] Comment on above: Performed By: #### 2 [id number] #### EVELYN Send Outs Subsection [address] [place] [address] Protein mass conc See Ref Lab Rpt Normal [facility] Comment on above: Performed By: #### 2 [id number] #### EVELYN Send Outs Subsection [address] [place] [address] U Albumin See Ref Lab Rpt [facility] Comment on above: Performed By: #### 2 [id number] #### EVELYN Send Out[employer] Subsection [address] [place] [address] 89209 U Alpha 1 Glob See Ref Lab Rpt Normal [facility] Comment on above: Performed By: #### 2 513455 #### EVELYN Send Outs Subsection [address] [place] [address] 65326 U Alpha 2 Glob See Ref Lab Rpt Normal [facility] Comment on above: Performed By: #### 2 931625 #### EVELYN Send Outs Subsection [address] [place] [address] 50202 U Beta Glob See Ref Lab Rpt Normal [facility] Comment on above: Performed By: #### 2 317179 #### EVELYN Send Outs Subsection [address] [place] [address] 50850 U Gamma Glob See Ref Lab Rpt [facility] Comment on above: Performed By: #### 2 [id number] #### EVELYN [employer] Out[employer] Subsection [address] [place] [address] 87488 Lab Miscellaneouson 11-15-19 18 Status See Ref Lab Report Normal [facility] Comment on above: Performed By: #### 1 [id number] #### EVELYN Send Outs Subsection [address] [place] [address] Lab Miscellaneouson 11-11-19 18 Status See Ref Lab Report Normal [facility] Comment on above: Performed By: #### 1 [id number] #### EVELYN Send Outs Subsection [address] [place] [address] Status See Ref Lab Report Normal [facility] Comment on above: Performed By: #### 1 [id number] #### EVELYN [employer] Out[employer] Subsection [address] [place] [address] 05358 SPEon 11-08-2017 Albumin mass conc 3.6 g/dL [facility] Comment on above: Result Comment: No p atient age and/or gender provided Age Male Female 0 - 30 days Not Estab. Not Estab. >30 days 2.9 - 4.4 2.9 - 4.4 Performed By: #### 2 172816 #### EVELYN Send Out[employer] Subsection [address] [place] [address] 41467 Albumin/Globulin mass ratio 1.2 {ratio} Normal [facility] Comment on above: Result Comment: No p atient age and/or gender provided Age Male Female 0 - 30 days Not Estab. Not Estab. >30 days 0.7 - 1.7 0.7 - 1.7 Performed By: #### 2 803683 #### EVELYN Send Outs Subsection [address] [place] [address] 71672 Alpha 1 Glob 0.2 gm/dL Normal [facility] Comment on above: Result Comment: No p atient age and/or gender provided Age Male Female 0 - 30 days Not Estab. Not Estab. >30 days 0.0 - 0.4 0.0 - 0.4 Performed By: #### 2 212274 #### EVELYN Send Outs Subsection [address] [place] [address] 59217 Alpha 2 Glob 0.7 gm/dL Normal [facility] Comment on above: Result Comment: No p atient age and/or gender provided Age Male Female 0 - 30 days Not Estab. Not Estab. >30 days 0.4 - 1.0 0.4 - 1.0 Performed By: #### 2 485991 #### EVELYN Send Outs Subsection [address] [place] [address] 35294 Beta Glob 1.1 gm/dL [facility] Comment on above: Result Comment: No p atient age and/or gender provided Age Male Female 0 - 30 days Not Estab. Not Estab. 1 - 6 months 0.5 - 1.3 0.5 - 1.3 >6 months 0.7 - 1.3 0.7 - 1.3 Performed By: #### 2 102884 #### EVELYN Send Out[employer] Subsection [address] [place] [address] 55326 Gamma Glob 1.1 gm/dL Normal [facility] Comment on above: Result Comment: No p atient age and/or gender provided Age Male Female 0 - 30 days Not Estab. Not Estab. 1 - 6 months 0.3 - 1.6 0.3 - 1.6 7 months - 5 years 0.4 - 1.3 0.4 - 1.3 6 - 17 years 0.6 - 1.5 0.6 - 1.5 >17 years 0.4 - 1.8 0.4 - 1.8 Performed By: #### 2 094203 #### EVELYN Send Out[employer] Subsection [address] [place] [address] 63011 Globulin mass conc (S) 3.1 g/dL Normal [facility] Comment on above: Result Comment: No p atient age and/or gender provided Age Male Female 0 - 30 days Not Estab. Not Estab. >30 days 2.2 - 3.9 2.2 - 3.9 Performed By: #### 2 [id number] #### EVELYN Send Out[employer] Subsection [address] [place] [address] 54555 M-Ender Not Observed Normal Not Observed [facility] Comment on above: Performed By: #### 2 956122 #### EVELYN Send Outs Subsection [address] [place] [address] 23340 Protein mass conc Comment Normal [facility] Comment on above: Result Comment: The SPE pattern appears essentially unremarkable. Evidence of monoclonal protein is not apparent. Performed At: [facility] [id number] [place], [place] [id number] Ester Blue PhD Ph:[phone] Performed By: #### 2 [id number] #### EVELYN Send Outs Subsection [address] [place] [address] 22985 Protein mass conc Comment Normal [facility] Comment on above: Result Comment: Protein electrophoresis scan will follow via computer, mail, or manager spa delivery. Performed At: [facility] [address] [place], [place] [id number] Ester Blue PhD Ph:[phone] Performed By: #### 2 983299 #### EVELYN Send Outs Subsection [address] [place] [address] 46591 Protein mass conc 6.7 g/dL Normal 6.0-8.5 [facility] Comment on above: Performed By: #### 2 386008 #### EVELYN Send Outs Subsection [address] [place] [address] 19764 Folateon 11-07-2017 Folate Lvl 23.10 ng/mL Normal >=5.00 [facility] Comment on above: Result Comment: The WHO Technical Consultation on folate and vitamin B12 deficiencies has determined that deficient folate concentrations are considered to be less than 4ng/ml. Performed By: #### 2 [id number] #### EVELYN [employer] [address] [place] [address] [id number] 11-07-2017 Hemoglobin A1c/Hemoglobin.tot al mass fraction (Bld) 5.9 % Normal 4.0-6.3 [facility] Comment on above: Performed By: #### 3 [id number] #### EVELYN Chemistry Manual Subsection [address] [place] [address] Lab Miscellaneouson 11-08-19 18 Test Name heavy met urn Normal [facility] Comment on above: Performed By: #### 1 [id number] #### EVELYN Send Outs Subsection [address] [place] [address] Test Name paraneoplastic Normal [facility] Comment on above: Performed By: #### 1 [id number] #### EVELYN Send Outs Subsection [address] [place] [address] Test Name lyme screen r Normal [facility] Comment on above: Performed By: #### 1 [id number] #### EVELYN Send Outs Subsection [address] [place] [address] Vit B12on 11-07-2017 Cobalamin (Vitamin B12) mass conc 311 pg/mL Normal 180-914 [facility] Comment on above: Performed By: #### 2 [id number] #### EVELYN [employer] [address] [place] [address] PROGRESSon 09-13-2017 [facility] NOTES Normal [facility] Hep C Abon 08-30-2017 Hep C Ab 0.1 s/co ratio Normal 0.0-0.9 [facility] Comment on above: Result Comment: Nega tive: < 0.8 Indeterminate: 0.8 - 0.9 Positive: > 0.9 The CDC recommends that a positive HCV antibody result be followed up with a HCV Nucleic Acid Amplification test (230081). Performed At: [facility] [id number] Ester Blue PhD Ph:[phone] Performed By: #### 2 961530 #### EVELYN Send Outs Subsection [address] [place] [address] XR FINGER(S) RIGHT 2+ VIEWSo n 08-25-2017 XR FINGER(S) RIGHT 2+ VIEWS 2 views right little finger reveals congruous PIP joint with the volar avulsion fragment at the PIP jointDictated by: JED ROSARIO on TueAug 25, 2017 2:19:51 PM EDTTranscribed by: JED ROSARIO on TueAug 25, 2017 2:19:51 PM EDTFinalized by: JED ROSARIO on TueAug 25, 2017 2:19:51 PM EDT [facility] Miscellaneouson 08-23-19 18 Status See Ref Lab Report [facility] Comment on above: Order Comment: Hepat itis C Quantitative #[id number] Performed By: #### 1 [id number] #### EVELYN Send Outs Subsection [address] [place] [address] Lab Miscellaneouson 08-18-19 18 Test Name See Comment [facility] Comment on above: Order Comment: Hepat itis C Quantitative #[id number] Performed By: #### 1 [id number] #### EVELYN Send Outs Subsection [address] [place] [address] XR FINGER(S) RIGHT 2+ VIEWSo n 07-26-2017 XR FINGER(S) RIGHT 2+ VIEWS A volar plate avulsion fracture from the radial side is fairly sizable but with a congruous jointDictated by: JED ROSARIO on TueJul 26, 2017 12:02:49 PM EDTTranscribed by: JED ROSARIO on TueJul 26, 2017 12:02:49 PM EDTFinalized by: JED ROSARIO on TueJul 26, 2017 12:02:49 PM EDT Normal [facility] XR Finger(s) Right 2+ Viewso n 07-26-2017 XR Finger(s) Right 2+ Views A volar plate avulsion fracture from the radial side is fairly sizable but with a congruous joint Invalid Interpretation Code FUJI SYNAPSE [facility] SARAH ABS4on 07-23-2017 SARAH Antibodies See Report Normal [facility] Comment on above: Performed By: #### 1 56390, [id number], 504630, [id number] ####[facility] [address] [place] [address] Medical Director: Tyrone Tuttle MD ANTI DNAon 07-22-2017 ANTI-DNA Negative Normal [facility] Comment on above: Result Comment: This test is a screen, if positive refer to the quantitative test. Performed By: #### 1 68355, 195135, 230144, 836316 ####[facility] [address] [place] [address] Medical Director: Tyrone Tuttle MD CYCLIC CITRULLINATED PEPTIDE AB IGGon 07-22-2017 Cyclic Citrullinated Peptide Ab, IgG 4 Normal 0-19 [facility] Comment on above: Order Comment: FAX T O [phone] Result Comment: INTE RPRETIVE INFORMATION: Cyclic Citrullinated Peptide Antibody, IgG 19 Units or less ................... Negative 20-39 Units ........................ Weak Positive 40-59 Units ........................ Moderate Positive 60 Units or greater ................ Strong PositiveAnti-cyclic citrullinated peptide (anti-CCP), IgG antibodies are present in about 69-83 percent of patients with rheumatoid arthritis (RA) and have specificities of 93-95 percent. These autoantibodies may be present in the preclinical phase of disease, are associated with future RA development, and may predict radiographic joint destruction. Patients with weak positive results should be monitored and testing repeated.Performed by [employer], [address] [place] [address] www[employer], Florin Sesay MD - Lab. Director Performed By: #### 1 95546, [id number], 554347, [id number] ####[facility] [address] [place] [address] Medical Director: Tyrone Tuttle MD ACEon 07-21-2017 MARIAH (angiotensin converting enzyme) 15 unit/L Normal 9-67 [facility] Comment on above: Order Comment: FAX T O [phone] Result Comment: Perf ormed by [employer], [address] [place] [address] [employer], Florin Sesay MD - Lab. Director Performed By: #### 1 71371, [id number] ####[facility] [address] [place] [address] Medical Director: Tyrone Tuttle MD RFon 07-21-2017 Rheumatoid Factor Negative Normal [facility] Comment on above: Order Comment: FAX T O [phone] Result Comment: This test is a screen, if positive refer to quantitative test. Performed By: #### 1 05588, 353361, 573492, 697191 ####[facility] [address] [place] [address] Medical Director: Tyrone Tuttle MD ANAon 07-20-2017 Anti-Nuclear Antibody Positive Abnormal [facility] Comment on above: Order Comment: FAX T O [phone] Result Comment: This test is a screen, if positive refer to the quantitative test. Performed By: #### 1 65165, 330578, 554457, 687477 ####[facility] [address] [place] [address] Medical Director: Tyrone Tuttle MD KYE Qon 07-20-2017 KYE Pattern Speckled Normal [facility] Comment on above: Order Comment: KYE Q ordered by Discern Expert. Result Comment: KYE Pattern Types:Homogenous: High titers are suggestive of SLE.Speckled:High titers are suggestive of SLE, Scleroderma, or Sjogren's Syndrome/SICCA complex.Centromere:High titers are suggestive of CREST Syndrome.Nucleolar:High titers are prevalent in Scleroderma and Sjorgen's Syndrome.SSARo:High titers are suggestive of Sjorgen's Syndrome, SLE, and Subacute Cutaneous Lupus.Mixed:High titers are suggestive of Mixed Connective Tissue Disease. Performed By: #### 1 78236, 052063, 142917, 257214 ####[facility] [address] [place] [address] Medical Director: Tyrone Tuttle MD Anti-Nuclear Ab Quant 1:160 Normal [facility] Comment on above: Order Comment: KYE Q ordered by Discern Expert. Result Comment: 1:40 , 1:80 - considered to be a low titer.2-3% of the normal population carries a low titer anti-nuclear antibody.1:60, 1:320, 1:640, >1:640 - considered to be a moderate to high titer. Performed By: #### 1 34284, 067910, 636346, 229628 ####[facility] [address] [place], [place] [id number]) [phone] Director: Tyrone Tuttle MD AUTO DIFFon 07-19-2017 Basophils Auto #/vol (Bld) 0.04 x1000 Normal 0.00-0.20 [facility] Comment on above: Order Comment: FAX T O [phone] Performed By: #### 1 87876, 0115555, 293943, 8595476 ####[facility] [address] [place] [id number] Medical Director: Tyrone Tuttle MD Basos % 0.6 % Normal [facility] Comment on above: Order Comment: FAX T O [phone] Performed By: #### 1 01520, 8617716, 976925, 1335169 ####[facility] [address] [place] [address] Medical Director: Tyrone Tuttle MD Eos Count 0.12 x1000 Normal 0.00-0.50 [facility] Comment on above: Order Comment: FAX T O [phone] Performed By: #### 1 97087, 1923614, 441173, 7390569 ####[facility] [address] [place] [address] Medical Director: Tyrone Tuttle MD Eosinophils/100 leukocytes 1.7 % Normal [facility] Comment on above: Order Comment: FAX T O [phone] Performed By: #### 1 35742, 6710024, 034661, 2601098 ####[facility] [address] [place] [address] Medical Director: Tyrone Tuttle MD Lymphocytes 1.49 x1000 Normal 1.20-4.80 [facility] Comment on above: Order Comment: FAX T O [phone] Performed By: #### 1 44051, 4343459, 018931, 9870129 ####[facility] [address] [place] [address] Medical Director: Tyrone Tuttle MD Lymphocytes/100 leukocytes 20.2 % Normal [facility] Comment on above: Order Comment: FAX T O [phone] Performed By: #### 1 00828, 0610202, 249984, 3006916 ####[facility] [address] [place] [address] Medical Director: Tyrone Tuttle MD Rich Count 0.78 x1000 Normal 0.10-1.00 [facility] Comment on above: Order Comment: FAX T O [phone] Performed By: #### 1 28967, 0819993, 733631, 4876982 ####[facility] [address] [place] [address] Medical Director: Tyrone Tuttle MD Monocytes/100 leukocytes 10.6 % Normal [facility] Comment on above: Order Comment: FAX T O [phone] Performed By: #### 1 71442, 1701830, 568831, 5648869 ####[facility] [address] [place] [address] Medical Director: Tyrone Tuttle MD Neutrophils 4.92 x1000 Normal 1.40-8.80 [facility] Comment on above: Order Comment: FAX T O [phone] Performed By: #### 1 93435, 1066372, 844977, 3521058 ####[facility] [address] [place] [address] Medical Director: Tyrone Tuttle MD Neutrophils/100 WBC Auto (Bld) 66.9 % Normal [facility] Comment on above: Order Comment: FAX T O [phone] Performed By: #### 1 37646, 7977029, 224857, 1369551 ####[facility] [address] [place] [address] Medical Director: Tyrone Tuttle MD [facility] 07-[facility]-2017 Albumin/Globulin Ratio 1.2 {ratio} Normal [facility] Comment on above: Order Comment: FAX T O [phone] Performed By: #### 1 89262, 4949047, 620499, 4874966 ####[facility] [address] [place] [address] Medical Director: Tyrone Tuttle MD BUN/Creatinine Ratio 13.9 mg/mg Normal [facility] Comment on above: Order Comment: FAX T O [phone] Performed By: #### 1 10796, 7410493, 691718, 0765252 ####[facility] [address] [place] [address] Medical Director: Tyrone Tuttle MD eGFR (non-black) mL/min/{1.73_m2} Normal So [facility] Comment on above: Order Comment: FAX T O [phone] Result Comment: Non GFR CalcMedical judgement is necessary to interpret GFR. The calculated GFR may not accurately reflect renal status in patients >70 years, women, acutely ill hospitalized patients and patients with acute renal failure or known renal disease.Note:Creatinine clearance (not GFR) should be used for drug dosing. Performed By: #### 1 56869, 5474470, 990086, 3057593 ####[facility] [address] [place] [address] Medical Director: Tyrone Tuttle MD Result Comment: Afri can [place] GFR Calc Globulin 3.0 g/dL Normal [facility] Comment on above: Order Comment: FAX T O [phone] Performed By: #### 1 29047, 9604867, 693463, 1022038 ####[facility] [address] [place] [address] Medical Director: Tyrone Tuttle MD Osmolality 277 mOsm/kg Normal 275-295 [facility] Comment on above: Order Comment: FAX T O [phone] Performed By: #### 1 70764, 2607655, 387707, 9941124 ####[facility] [address] [place] [address] Medical Director: Tyrone Tuttle MD Albumin 3.6 g/dL Normal 3.4-5.0 [facility] Comment on above: Order Comment: FAX T O [phone] Performed By: #### 1 35001, 0991492, 967150, 7008003 ####[facility] [address] [place] [address] Medical Director: Tyrone Tuttle MD Alk Phos 71 unit/L Normal 45-117 [facility] Comment on above: Order Comment: FAX T O [phone] Performed By: #### 1 91591, 8188435, 466129, 3238899 ####[facility] [address] [place] [address] Medical Director: Tyorne Tuttle MD Bilirubin (total) 0.54 mg/dL Normal 0.20-1.00 [facility] Comment on above: Order Comment: FAX T O [phone] Performed By: #### 1 74661, 0756020, 050281, 7366531 ####[facility] [address] [place], [place] [id number]) [phone] Director: Tyrone Tuttle MD Calcium 8.8 mg/dL Normal 8.5-10.5 [facility] Comment on above: Order Comment: FAX T O [phone] Performed By: #### 1 74333, [id number], [id number], [id number] ####[facility] [address] [place] [address] Medical Director: Tyrone Tuttle MD Chloride 109 mmol/L Normal 100-109 [facility] Comment on above: Order Comment: FAX T O [phone] Performed By: #### 1 90141, [id number], 864386, [id number] ####[facility] [address] [place], [place] [id number]) [phone] Director: Tyrone Tuttle MD CO2 27.6 mmol/L Normal 21.0-32.0 [facility] Comment on above: Order Comment: FAX T O [phone] Performed By: #### 1 35302, 2745712, 413256, [id number] ####[facility] [address] [place] [address] Medical Director: Tyrone Tuttle MD Creatinine 0.9 mg/dL Normal 0.6-1.0 [facility] Comment on above: Order Comment: FAX T O [phone] Performed By: #### 1 88038, 3767403, 283234, [id number] ####[facility] [address] [place] [address] Medical Director: Tyrone Tuttle MD Glucose mass conc 87 mg/dL Normal 72-100 [facility] Comment on above: Order Comment: FAX T O [phone] Result Comment: Lona puncture should occur prior to sulfasalazine administration due to the potential for falsely depressed results. Venipuncture should occur prior to sulfapyridine administration due to the potential falsely elevated results.Baseline assay values before administration of sulfasalazine and sulfapyridine therapy would not be affected. Performed By: #### 1 98454, [id number], 209937, [id number] ####[facility] [address] [place], [place] [id number]) [phone] Director: Tyrone Tuttle MD GOT 11 unit/L Low 15-37 [facility] Comment on above: Order Comment: FAX T O [phone] Result Comment: Lona puncture should occur prior to sulfasalazine and/or sulfapyridine administration due to the potential for falsely depressed results.Baseline assay values before administration of sulfasalazine and sulfapyridine therapy would not be affected. Performed By: #### 1 55635, [id number], 922003, 2625533 ####[facility] [address] [place] [address] Medical Director: Tyrone Tuttle MD GPT 18 unit/L Normal 13-56 [facility] Comment on above: Order Comment: FAX T O [phone] Result Comment: Lona puncture should occur prior to sulfasalazine and/or sulfapyridine administration due to the potential for falsely depressed results.Baseline assay values before administration of sulfasalazine and sulfapyridine therapy would not be affected. Performed By: #### 1 96221, 0805852, 063361, [id number] ####[facility] [address] [place] [address] Medical Director: Tyrone Tuttle MD Potassium molar conc 4.2 mmol/L Normal 3.5-5.1 [facility] Comment on above: Order Comment: FAX T O [phone] Performed By: #### 1 75078, 1447656, 016342, 5379830 ####[facility] [address] [place] [address] Medical Director: Tyrone Tuttle MD Protein 6.6 g/dL Normal 6.0-8.5 [facility] Comment on above: Order Comment: FAX T O [phone] Performed By: #### 1 26924, 8463098, 416817, 2322355 ####[facility] [address] [place] [address] Medical Director: Tyrone Tuttle MD Sodium 139 mmol/L Normal 135-145 [facility] Comment on above: Order Comment: FAX T O [phone] Performed By: #### 1 96141, 6671534, 525651, 1907634 ####[facility] [address] [place] [address] Medical Director: Tyrone Tuttle MD Urea nitrogen 12 mg/dL Normal 10-20 [facility] Comment on above: Order Comment: FAX T O [phone] Performed By: #### 1 13234, 2853039, 048560, 6482474 ####[facility] [address] [place] [address] Medical Director: Tyrone Tuttle MD CRP QUANTon 07-19-2017 C-Reactive Protein, Quantitative <0.3 Normal 0.0-0.3 [facility] Comment on above: Order Comment: FAX T O [phone] Performed By: #### 1 40414, 7415205, 597182, 7664253 ####[facility] [address]wr[address] [place] [address] Medical Director: Tyrone Tuttle MD HEMOon 07-19-2017 DIFF? No Normal [facility] Comment on above: Order Comment: FAX T O [phone] Performed By: #### 1 13839, 8834783, 547967, 2675070 ####[facility] [address] [place] [address] Medical Director: Tyrone Tuttle MD Erythrocyte distribution width Auto Ratio (RBC) 14.1 % Normal 11.5-14.5 [facility] Comment on above: Order Comment: FAX T O [phone] Performed By: #### 1 69095, 9024221, 115550, 8691633 ####[facility] [address]cl[address] [place] [address] Medical Director: Tyrone Tuttle MD Erythrocytes (RBC) 4.66 x10 Normal 4.20-5.40 [facility] Comment on above: Order Comment: FAX T O [phone] Result Comment: Note : RBC morphology is normal unless otherwise stated. Evaluation performed only if differential is requested. Performed By: #### 1 42660, 6664196, 275538, 1593302 ####[facility] [address] [place] [address] Medical Director: Tyrone Tuttle MD Hematocrit (HCT) 40.7 % Normal 36.0-46.0 [facility] Comment on above: Order Comment: FAX T O [phone] Performed By: #### 1 73312, 8502126, 158469, 2452737 ####[facility] [address] [place] [address] Medical Director: Tyrone Tuttle MD Hemoglobin mass conc (Bld) 13.8 g/dL Normal 12.0-16.0 [facility] Comment on above: Order Comment: FAX T O [phone] Performed By: #### 1 10869, 6625349, 888242, 5801702 ####[facility] [address]cp[address] [place] [address] Medical Director: Tyrone Tuttle MD MCH 29.6 pg Normal 27.0-34.0 [facility] Comment on above: Order Comment: FAX T O [phone] Performed By: #### 1 80958, 9901259, 421814, 1245383 ####[facility] [address]ve[address] [place] [address] Medical Director: Tyrone Tuttle MD MCHC mass conc (RBC) 33.9 g/dL Normal 32.0-37.0 [facility] Comment on above: Order Comment: FAX T O [phone] Performed By: #### 1 56801, 7614380, 522014, 2214553 ####[facility] [address] [place] [address] Medical Director: Tyrone Tuttle MD MCV 87.2 fL Normal 80.0-100.0 [facility] Comment on above: Order Comment: FAX T O [phone] Performed By: #### 1 02539, 6066174, 105723, 8276132 ####[facility] [address] [place] [address] Medical Director: Tyrone Tuttle MD Nucleated erythrocytes 0 /100WBC Normal [facility] Comment on above: Order Comment: FAX T O [phone] Performed By: #### 1 71055, 8074533, 718443, 0216749 ####[facility] [address]zr[address] [place] [address] Medical Director: Tyrone Tuttle MD Platelet mean volume (PMV) 9.1 fL Normal 7.4-10.4 [facility] Comment on above: Order Comment: FAX T O [phone] Performed By: #### 1 53774, 6148796, 996607, 8044315 ####[facility] [address] [place] [address] Medical Director: Tyrone Tuttle MD Platelets 267 x1000 Normal 150-450 [facility] Comment on above: Order Comment: FAX T O [phone] Performed By: #### 1 33504, 1825148, 585841, 1431092 ####[facility] [address] [place] [address] Medical Director: Tyrone Tuttle MD WBC (Leukocytes) 7.4 x10 Normal 4.5-11.0 [facility] Comment on above: Order Comment: FAX T O [phone] Performed By: #### 1 05382, 5398705, 578230, 6581237 ####[facility] [address]zv[address] [place] [address] Medical Director: Tyrone Tuttle MD WBC (Leukocytes) 7.4 10*3/uL Normal [facility] Comment on above: Order Comment: FAX T O [phone] Performed By: #### 1 05437, 7991941, 742855, 1363010 ####[facility] [address]bi[address] [place] [address] Medical Director: Tyrone Tuttle MD XR CHEST 2V PA LATon 018 XR CHEST 2V PA LAT Clinical Indication: Chronic cough Findings: The osseous and mediastinal structures are unremarkable. The heart is not enlarged. The lungs are inflated and clear of consolidation or effusion. Impression: Negative chest. Normal [facility] Comment on above: Order Comment: FAX T O [phone] Result Comment: Tech nologist: TSRDictated By: EYAL LOZANO, RUCHISigned By: EYAL LOZANO, RUCHISigned Out: 07/19/17 15:20:34 XR FINGER(S) RIGHT 2+ VIEWSo n 07-07-2017 XR FINGER(S) RIGHT 2+ VIEWS 2 views right little finger reveals congruent PIP joint with large volar lip avulsion fracture from the proximal phalanxDictated by: JED ROSARIO on TueJuly 07, 2017 4:25:07 PM EDTTranscribed by: JED ROSARIO on TueJuly 07, 2017 4:25:07 PM EDTFinalized by: JED ROSARIO on TueJuly 07, 2017 4:25:07 PM EDT [facility] XR Finger(s) Right 2+ Viewso n 07-07-2017 XR Finger(s) Right 2+ Views 2 views right little finger reveals congruent PIP joint with large volar lip avulsion fracture from the proximal phalanx Invalid Interpretation Code [facility] XR FINGER(S) RIGHT 2+ VIEWSo n 06-29-2017 XR FINGER(S) RIGHT 2+ VIEWS Right little finger reveals the volar plate avulsion fracture that is quite large but the joint is still congruous at the PIP jointDictated by: JED ROSARIO on TueJune 29, 2017 5:03:27 PM EDTTranscribed by: JED ROSARIO on TueJune 29, 2017 5:03:27 PM EDTFinalized by: JED ROSARIO on TueJune 29, 2017 5:03:27 PM EDT Normal [facility] XR Finger(s) Right 2+ Viewso n 06-29-2017 XR Finger(s) Right 2+ Views Right little finger reveals the volar plate avulsion fracture that is quite large but the joint is still congruous at the PIP joint Invalid Interpretation Code [employer] [facility] Vital Signs Date Time Vital Sign Value Performing Clinician Faci lity 05-24-2024 08:41-0400 Body mass index (BMI) [Ratio] 20.69 kg/m2 Robin Allred MD Work Phone: [facility] 05-24-2024 08:41-0400 Body weight 65.41 kg Robin Allred MD Work Phone: [facility] 05-24-2024 08:41-0400 Diastolic blood pressure 68 mm[Hg] Robin Allred MD Work Phone: [facility] 05-24-2024 08:41-0400 Heart rate 73 /min Robin Allred MD Work Phone: [facility] 05-24-2024 08:41-0400 SaO2% (BldA) [Mass fraction] 97 % Robin Allred MD Work Phone: [facility] 05-24-2024 08:41-0400 Systolic blood pressure 110 mm[Hg] Robin Allred MD Work Phone: [facility] 02-10-2024 09:33-0500 Body mass index (BMI) [Ratio] 20.27 kg/m2 Bony WHELAN Work Phone: [facility] 02-10-2024 09:33-0500 Body weight 64.09 kg Bony Sy CARTOGRAPHIC TECHNICIAN-HOSPICE HOME CARE COORDINATOR Work Phone: [facility] 02-10-2024 09:33-0500 Diastolic blood pressure 84 mm[Hg] Bony Sy CARTOGRAPHIC TECHNICIAN-HOSPICE HOME CARE COORDINATOR Work Phone: [facility] 02-10-2024 09:33-0500 Heart rate 85 /min Bony Sy CARTOGRAPHIC TECHNICIAN-HOSPICE HOME CARE COORDINATOR Work Phone: [facility] 02-10-2024 09:33-0500 SaO2% (BldA) [Mass fraction] 91 % Bony Sy CARTOGRAPHIC TECHNICIAN-HOSPICE HOME CARE COORDINATOR Work Phone: [facility] 02-10-2024 09:33-0500 Systolic blood pressure 130 mm[Hg] Bony Sy CARTOGRAPHIC TECHNICIAN-HOSPICE HOME CARE COORDINATOR Work Phone: [facility] 02-07-2024 10:42-0500 Body height 177.8 cm Bony Sy CARTOGRAPHIC TECHNICIAN-HOSPICE HOME CARE COORDINATOR Work Phone: [facility] 02-07-2024 10:42-0500 Body mass index (BMI) [Ratio] 20.1 kg/m2 Bony Sy CARTOGRAPHIC TECHNICIAN-HOSPICE HOME CARE COORDINATOR Work Phone: [facility] 02-07-2024 10:42-0500 Body weight 63.55 kg Bony Sy CARTOGRAPHIC TECHNICIAN-HOSPICE HOME CARE COORDINATOR Work Phone: [facility] 02-07-2024 10:42-0500 Diastolic blood pressure 75 mm[Hg] Bony Sy CARTOGRAPHIC TECHNICIAN-HOSPICE HOME CARE COORDINATOR Work Phone: [facility] 02-07-2024 10:42-0500 Heart rate 84 /min Bony Sy CARTOGRAPHIC TECHNICIAN-HOSPICE HOME CARE COORDINATOR Work Phone: [facility] 02-07-2024 10:42-0500 SaO2% (BldA) [Mass fraction] 98 % Bony Sy CARTOGRAPHIC TECHNICIAN-HOSPICE HOME CARE COORDINATOR Work Phone: [facility] 02-07-2024 10:42-0500 Systolic blood pressure 111 mm[Hg] Bony Sy CARTOGRAPHIC TECHNICIAN-HOSPICE HOME CARE COORDINATOR Work Phone: [facility] 12-20-2023 11:29-0400 Body mass index (BMI) [Ratio] 20.02 kg/m2 Brooklynn Christensen CARTOGRAPHIC TECHNICIAN-HOSPICE HOME CARE COORDINATOR Work Phone: [facility] 12-20-2023 11:29-0400 Body weight 63.3 kg Brooklynn Christensen CARTOGRAPHIC TECHNICIAN-HOSPICE HOME CARE COORDINATOR Work Phone: [facility] 12-20-2023 11:29-0400 Diastolic blood pressure 70 mm[Hg] Brooklynn Christensen CARTOGRAPHIC TECHNICIAN-HOSPICE HOME CARE COORDINATOR Work Phone: [facility] 12-20-2023 11:29-0400 Heart rate 84 /min Brooklynn Christensen CARTOGRAPHIC TECHNICIAN-HOSPICE HOME CARE COORDINATOR Work Phone: [facility] 12-20-2023 11:29-0400 Respiratory rate 16 /min Brooklynn Christensen CARTOGRAPHIC TECHNICIAN-HOSPICE HOME CARE COORDINATOR Work Phone: [facility] 12-20-2023 11:29-0400 Systolic blood pressure 110 mm[Hg] Brooklynn Christensen CARTOGRAPHIC TECHNICIAN-HOSPICE HOME CARE COORDINATOR Work Phone: [facility] 11-30-2023 14:00-0400 Diastolic blood pressure 77 mm[Hg] Jed Quiroz DO Work Phone: [facility] 11-30-2023 14:00-0400 Heart rate 88 /min Jed Quiroz DO Work Phone: [facility] 11-30-2023 14:00-0400 Respiratory rate 20 /min Jed Quiroz DO Work Phone: [facility] 11-30-2023 14:00-0400 SaO2% (BldA) [Mass fraction] 98 % Jed Quiroz DO Work Phone: [facility] 11-30-2023 14:00-0400 Systolic blood pressure 121 mm[Hg] Jed Quiroz DO Work Phone: [facility] 11-30-2023 11:44-0400 Body height 177.8 cm Jed Quiroz DO Work Phone: [facility] 11-30-2023 11:44-0400 Body mass index (BMI) [Ratio] 19.23 kg/m2 Jed Quiroz DO Work Phone: [facility] 11-30-2023 11:44-0400 Body temperature 97.81 [degF] Jed Quiroz DO Work Phone: [facility] 11-30-2023 11:44-0400 Body weight 60.78 kg Jed Quiroz DO Work Phone: [facility] 11-23-2023 08:03-0400 Body mass index (BMI) [Ratio] 19.8 kg/m2 Robin Allred MD Work Phone: [facility] 11-23-2023 08:03-0400 Body weight 62.6 kg Robin Allred MD Work Phone: [facility] 11-23-2023 08:03-0400 Diastolic blood pressure 64 mm[Hg] Robin Allred MD Work Phone: [facility] 11-23-2023 08:03-0400 Heart rate 90 /min Robin Allred MD Work Phone: [facility] 11-23-2023 08:03-0400 SaO2% (BldA) [Mass fraction] 89 % Robin Allred MD Work Phone: [facility] 11-23-2023 08:03-0400 Systolic blood pressure 96 mm[Hg] Robin Allred MD Work Phone: [facility] 11-08-2023 08:11-0400 Body height 177.8 cm Raymond Stentz PA-C Work Phone: [facility] 11-08-2023 08:11-0400 Body mass index (BMI) [Ratio] 19.51 kg/m2 Raymond Stentz PA-C Work Phone: [facility] 11-08-2023 08:11-0400 Body weight 61.69 kg Raymond Stentz PA-C Work Phone: [facility] 11-08-2023 08:11-0400 Diastolic blood pressure 70 mm[Hg] Raymond Stentz PA-C Work Phone: [facility] 11-08-2023 08:11-0400 Heart rate 109 /min Raymond Stentz PA-C Work Phone: [facility] 11-08-2023 08:11-0400 SaO2% (BldA) [Mass fraction] 98 % Raymond Stentz PA-C Work Phone: [facility] 11-08-2023 08:11-0400 Systolic blood pressure 104 mm[Hg] Raymond Stentz PA-C Work Phone: [facility] 10-12-2023 09:15-0400 Body mass index (BMI) [Ratio] 18.65 kg/m2 Niranjan Acevedo MD Work Phone: [facility] 10-12-2023 09:15-0400 Body weight 58.97 kg Niranjan Acevedo MD Work Phone: [facility] 10-12-2023 09:15-0400 Diastolic blood pressure 69 mm[Hg] Niranjan Acevedo MD Work Phone: [facility] 10-12-2023 09:15-0400 Heart rate 69 /min Niranjan Acevedo MD Work Phone: [facility] 10-12-2023 09:15-0400 Respiratory rate 20 /min Niranjan Acevedo MD Work Phone: [facility] 10-12-2023 09:15-0400 Systolic blood pressure 114 mm[Hg] Niranjan Acevedo MD Work Phone: [facility] 09-01-2023 13:58-0400 Body height 179.1 cm Kaushik Barber CARTOGRAPHIC TECHNICIAN-HOSPICE HOME CARE COORDINATOR Work Phone: [facility] 09-01-2023 13:58-0400 Body mass index (BMI) [Ratio] 18.39 kg/m2 Kaushik Vargasin CARTOGRAPHIC TECHNICIAN-HOSPICE HOME CARE COORDINATOR Work Phone: [facility] 09-01-2023 13:58-0400 Body weight 58.97 kg Kaushik Vargasin CARTOGRAPHIC TECHNICIAN-HOSPICE HOME CARE COORDINATOR Work Phone: [facility] 09-01-2023 13:58-0400 Diastolic blood pressure 84 mm[Hg] Kaushik Vargasin CARTOGRAPHIC TECHNICIAN-HOSPICE HOME CARE COORDINATOR Work Phone: [facility] 09-01-2023 13:58-0400 Heart rate 80 /min Kaushik Sunil CARTOGRAPHIC TECHNICIAN-HOSPICE HOME CARE COORDINATOR Work Phone: [facility] 09-01-2023 13:58-0400 Respiratory rate 16 /min Kaushik Sunil CARTOGRAPHIC TECHNICIAN-HOSPICE HOME CARE COORDINATOR Work Phone: [facility] 09-01-2023 13:58-0400 Systolic blood pressure 121 mm[Hg] Kaushik Vargasin CARTOGRAPHIC TECHNICIAN-HOSPICE HOME CARE COORDINATOR Work Phone: [facility] 08-30-2023 11:32-0400 Body height 177.8 cm Rui Vargas MD Work Phone: [facility] 08-30-2023 11:32-0400 Body mass index (BMI) [Ratio] 19.37 kg/m2 Rui Vargas MD Work Phone: [facility] 08-30-2023 11:32-0400 Body weight 61.24 kg Rui Vargas MD Work Phone: [facility] 08-30-2023 11:32-0400 Diastolic blood pressure 80 mm[Hg] Rui Vargas MD Work Phone: [facility] 08-30-2023 11:32-0400 Heart rate 78 /min Rui Vargsa MD Work Phone: [facility] 08-30-2023 11:32-0400 Systolic blood pressure 120 mm[Hg] Rui Vargas MD Work Phone: [facility] 08-05-2023 09:49-0400 Body height 177.8 cm Rui Vargas MD Work Phone: [facility] 08-05-2023 09:49-0400 Body mass index (BMI) [Ratio] 19.34 kg/m2 Rui Vargas MD Work Phone: [facility] 08-05-2023 09:49-0400 Body weight 61.15 kg Rui Vargas MD Work Phone: [facility] 08-05-2023 09:49-0400 Diastolic blood pressure 60 mm[Hg] Rui Vargas MD Work Phone: [facility] 08-05-2023 09:49-0400 Heart rate 74 /min Rui Vargas MD Work Phone: [facility] 08-05-2023 09:49-0400 Systolic blood pressure 100 mm[Hg] Rui Vargas MD Work Phone: [facility] 08-02-2023 08:20-0400 Body height 177.8 cm Jelly Veras MD Work Phone: [facility] 08-02-2023 08:20-0400 Body mass index (BMI) [Ratio] 19.74 kg/m2 Jelly Veras MD Work Phone: [facility] 08-02-2023 08:20-0400 Body weight 62.41 kg Jelly Veras MD Work Phone: [facility] 08-02-2023 08:20-0400 Diastolic blood pressure 64 mm[Hg] Jelly Veras MD Work Phone: [facility] 08-02-2023 08:20-0400 Systolic blood pressure 110 mm[Hg] Jelly Veras MD Work Phone: [facility] 07-28-2023 07:27-0400 Body height 177.8 cm [facility] 07-28-2023 07:27-0400 Body mass index (BMI) [Ratio] 19.23 kg/m2 [facility] 07-28-2023 07:27-0400 Body weight 60.78 kg [facility] 07-21-2023 14:00-0400 Body height 177.8 cm Robin Allred MD Work Phone: [facility] 07-21-2023 14:00-0400 Body mass index (BMI) [Ratio] 19.64 kg/m2 Robin Allred MD Work Phone: [facility] 07-21-2023 14:00-0400 Body weight 62.1 kg Robin Allred MD Work Phone: [facility] 07-21-2023 14:00-0400 Diastolic blood pressure 78 mm[Hg] Robin Allred MD Work Phone: [facility] 07-21-2023 14:00-0400 Heart rate 90 /min Robin Allred MD Work Phone: [facility] 07-21-2023 14:00-0400 SaO2% (BldA) [Mass fraction] 98 % Robin Allred MD Work Phone: [facility] 07-21-2023 14:00-0400 Systolic blood pressure 118 mm[Hg] Robin Allred MD Work Phone: [facility] 07-19-2023 08:34-0400 Body height 177.8 cm Jelly Veras MD Work Phone: [facility] 07-19-2023 08:34-0400 Body mass index (BMI) [Ratio] 19.6 kg/m2 Jelly Veras MD Work Phone: [facility] 07-19-2023 08:34-0400 Body weight 61.96 kg Jelly Veras MD Work Phone: [facility] 07-19-2023 08:34-0400 Diastolic blood pressure 60 mm[Hg] Jelly Veras MD Work Phone: [facility] 07-19-2023 08:34-0400 Systolic blood pressure 102 mm[Hg] Jelly Veras MD Work Phone: [facility] 07-06-2023 10:37-0400 Body height 177.8 cm Ru Mcwilliams MD Work Phone: [facility] 07-06-2023 10:37-0400 Body mass index (BMI) [Ratio] 19.51 kg/m2 Ru Mcwilliams MD Work Phone: [facility] 07-06-2023 10:37-0400 Body weight 61.69 kg Ru Mcwilliams MD Work Phone: [facility] 07-06-2023 10:37-0400 Diastolic blood pressure 75 mm[Hg] Ru Mcwilliams MD Work Phone: [facility] 07-06-2023 10:37-0400 Heart rate 77 /min Ru Mcwilliams MD Work Phone: [facility] 07-06-2023 10:37-0400 Systolic blood pressure 120 mm[Hg] Ru Mcwilliams MD Work Phone: [facility] 04-28-2023 09:20-0500 Body mass index (BMI) [Ratio] 19.1 kg/m2 Robin Allred MD Work Phone: [facility] 04-28-2023 09:20-0500 Body temperature 97.39 [degF] Robin Allred MD Work Phone: [facility] 04-28-2023 09:20-0500 Body weight 60.37 kg Robin Allred MD Work Phone: [facility] 04-28-2023 09:20-0500 Diastolic blood pressure 64 mm[Hg] Robin Allred MD Work Phone: [facility] 04-28-2023 09:20-0500 Heart rate 77 /min Robin Allred MD Work Phone: [facility] 04-28-2023 09:20-0500 SaO2% (BldA) [Mass fraction] 97 % Robin Allred MD Work Phone: [facility] 04-28-2023 09:20-0500 Systolic blood pressure 90 mm[Hg] Robin Allred MD Work Phone: [facility] 04-14-2023 09:36-0500 Body height 177.8 cm [facility] 04-14-2023 09:36-0500 Body mass index (BMI) [Ratio] 18.94 kg/m2 [facility] 04-14-2023 09:36-0500 Body weight 59.88 kg [facility] 03-31-2023 07:28-0500 Body mass index (BMI) [Ratio] 19.23 kg/m2 Ru Mcwilliams MD Work Phone: 1(254)550-031181 [address] 03-31-2023 07:28-0500 Body weight 60.78 kg Ru Mcwilliams MD Work Phone: 8(951)155-472581 [address] 03-31-2023 07:28-0500 Respiratory rate 16 /min Ru Mcwilliams MD Work Phone: 4(211)549-602581 [address] 03-10-2023 10:09-0500 Body height 177.8 cm Ru Mcwilliams MD Work Phone: 9(686)913-908981 [address] 03-10-2023 10:09-0500 Body mass index (BMI) [Ratio] 19.51 kg/m2 Ru Mcwilliams MD Work Phone: 4(695)882-217181 [address] 03-10-2023 10:09-0500 Body weight 61.69 kg Ru Mcwilliams MD Work Phone: 5(776)[phone] [address] 02-18-2023 08:41-0500 Body height 177.8 cm Robin Allred MD Work Phone: [facility] 02-18-2023 08:41-0500 Body mass index (BMI) [Ratio] 18.93 kg/m2 Robin Allred MD Work Phone: [facility] 02-18-2023 08:41-0500 Body temperature 96.8 [degF] Robin Allred MD Work Phone: [facility] 02-18-2023 08:41-0500 Body weight 59.83 kg Robin Allred MD Work Phone: [facility] 02-18-2023 08:41-0500 Diastolic blood pressure 72 mm[Hg] Robin Allred MD Work Phone: [facility] 02-18-2023 08:41-0500 Heart rate 81 /min Robin Allred MD Work Phone: [facility] 02-18-2023 08:41-0500 SaO2% (BldA) [Mass fraction] 93 % Robin Allred MD Work Phone: [facility] 02-18-2023 08:41-0500 Systolic blood pressure 112 mm[Hg] Robin Allred MD Work Phone: [facility] 02-10-2023 14:56-0500 Body mass index (BMI) [Ratio] 19.18 kg/m2 Spike Gandhi MD Work Phone: [facility] 02-10-2023 14:56-0500 Body temperature 97.5 [degF] Spike Gandhi MD Work Phone: [facility] 02-10-2023 14:56-0500 Body weight 60.65 kg Spike Gandhi MD Work Phone: [facility] 02-10-2023 14:56-0500 Diastolic blood pressure 80 mm[Hg] Spike Gandhi MD Work Phone: [facility] 02-10-2023 14:56-0500 Systolic blood pressure 108 mm[Hg] Spike Gandhi MD Work Phone: [facility] 01-20-2023 08:59-0500 Body mass index (BMI) [Ratio] 19.46 kg/m2 Robin Allred MD Work Phone: [facility] 01-20-2023 08:59-0500 Body temperature 96.91 [degF] Robin Allred MD Work Phone: [facility] 01-20-2023 08:59-0500 Body weight 61.51 kg Robin Allred MD Work Phone: [facility] 01-20-2023 08:59-0500 Diastolic blood pressure 70 mm[Hg] Robin Allred MD Work Phone: [facility] 01-20-2023 08:59-0500 Heart rate 81 /min Robin Allred MD Work Phone: [facility] 01-20-2023 08:59-0500 SaO2% (BldA) [Mass fraction] 90 % Robin Allred MD Work Phone: [facility] 01-20-2023 08:59-0500 Systolic blood pressure 108 mm[Hg] Robin Allred MD Work Phone: [facility] 12-23-2022 07:30-0400 Body height 177.8 cm [facility] 12-23-2022 07:30-0400 Body weight 65.49 kg [facility] 12-20-2022 08:44-0400 Body mass index (BMI) [Ratio] 20.76 kg/m2 Robin Allred MD Work Phone: [facility] 12-20-2022 08:44-0400 Body weight 65.64 kg Robin Allred MD Work Phone: [facility] 12-20-2022 08:44-0400 Diastolic blood pressure 64 mm[Hg] Robin Allred MD Work Phone: [facility] 12-20-2022 08:44-0400 Heart rate 85 /min Robin Allred MD Work Phone: [facility] 12-20-2022 08:44-0400 SaO2% (BldA) [Mass fraction] 99 % Robin Allred MD Work Phone: [facility] 12-20-2022 08:44-0400 Systolic blood pressure 100 mm[Hg] Robin Allred MD Work Phone: [facility] 12-02-2022 13:32-0400 Body height 177.8 cm Brady Li MD Work Phone: [facility] 12-02-2022 13:32-0400 Body mass index (BMI) [Ratio] 21.29 kg/m2 Brady Li MD Work Phone: [facility] 12-02-2022 13:32-0400 Body weight 67.31 kg Brady Li MD Work Phone: [facility] 12-02-2022 13:32-0400 Diastolic blood pressure 80 mm[Hg] Brady Li MD Work Phone: [facility] 12-02-2022 13:32-0400 Heart rate 76 /min Brady Li MD Work Phone: [facility] 12-02-2022 13:32-0400 Systolic blood pressure 104 mm[Hg] Bardy Li MD Work Phone: [facility] 11-30-2022 11:00-0400 Body height 177.8 cm [facility] 11-30-2022 11:00-0400 Body weight 67.13 kg [facility] 11-04-2022 09:43-0400 Body height 177.8 cm Robin Allred Work Phone: [facility] Work Phone: 11-04-2022 09:43-0400 Body mass index (BMI) [Ratio] 21.58 kg/m2 Robin Allred Work Phone: [facility] Work Phone: 11-04-2022 09:43-0400 Body surface area Derived from formula 1.85 m2 Robin L Brigida Work Phone: [facility] Work Phone: 11-04-2022 09:43-0400 Body weight 68.21 kg Robin L Brigida Work Phone: [facility] Work Phone: 11-04-2022 09:43-0400 Diastolic blood pressure 68 mm[Hg] Robin L Brigida Work Phone: [facility] Work Phone: 11-04-2022 09:43-0400 Heart rate 78 /min Robin L Brigida Work Phone: [facility] Work Phone: 11-04-2022 09:43-0400 Systolic blood pressure 102 mm[Hg] Robin L Brigida Work Phone: [facility] Work Phone: 10-20-2022 07:49-0400 Body mass index (BMI) [Ratio] 22.01 kg/m2 Robin L Brigida Work Phone: [facility] Work Phone: 10-20-2022 07:49-0400 Body surface area Derived from formula 1.86 m2 Robin L Brigida Work Phone: [facility]Kivjkcd[facility]Igvnx[facility] Work Phone: 10-20-2022 07:49-0400 Body weight 69.57 kg Robin L Brigida Work Phone: [facility]Pzrxj[facility] Work Phone: 10-18-2022 08:22-0400 Body height 176.5 cm Robin Allred MD Work Phone: [facility] 10-18-2022 08:22-0400 Body mass index (BMI) [Ratio] 22.39 kg/m2 Robin Allred MD Work Phone: [facility] 10-18-2022 08:22-0400 Body weight 69.76 kg Robin Allred MD Work Phone: [facility] 10-18-2022 08:22-0400 Diastolic blood pressure 70 mm[Hg] Robin Allred MD Work Phone: [facility] 10-18-2022 08:22-0400 Heart rate 76 /min Robin Allred MD Work Phone: [facility] 10-18-2022 08:22-0400 SaO2% (BldA) [Mass fraction] 96 % Robin Allred MD Work Phone: [facility] 10-18-2022 08:22-0400 Systolic blood pressure 100 mm[Hg] Robin Allred MD Work Phone: [facility] 07-13-2022 08:31-0400 Body height 177.8 cm Robin Allred Work Phone: [place] [address] [place] Work Phone: 07-13-2022 08:31-0400 Body mass index (BMI) [Ratio] 26.22 kg/m2 Robin Allred Work Phone: [place] [address] [place] Work Phone: 07-13-2022 08:31-0400 Body surface area Derived from formula 2.01 m2 Robin Allred Work Phone: [facility] [address] Work Phone: 07-13-2022 08:31-0400 Body weight 82.9 kg Robin Allred Work Phone: [place] [address] [place] Work Phone: 07-13-2022 08:31-0400 Diastolic blood pressure 70 mm[Hg] Robin Allred Work Phone: [place] [address] [place] Work Phone: 07-13-2022 08:31-0400 Systolic blood pressure 118 mm[Hg] Robin L Brigida Work Phone: [address] Work Phone: 07-12-2022 06:11-0400 Body height 177.8 cm Yaneth Rosario MD Work Phone: [facility] 07-12-2022 06:11-0400 Body mass index (BMI) [Ratio] 25.72 kg/m2 Yaneth Rosario MD Work Phone: [facility] 07-12-2022 06:11-0400 Body weight 81.3 kg Yaneth Rosario MD Work Phone: [facility] 06-09-2022 14:18-0400 Body height 177.8 cm Robin L Brigida Work Phone: [facility] [address] Work Phone: 06-09-2022 14:18-0400 Body mass index (BMI) [Ratio] 28.34 kg/m2 Robin L Brigida Work Phone: [facility] Work Phone: 06-09-2022 14:18-0400 Body surface area Derived from formula 2.08 m2 Robin L Brigida Work Phone: [facility] [address] Work Phone: 06-09-2022 14:18-0400 Body temperature 207.32 [degF] Robin L Brigida Work Phone: [facility] Work Phone: 06-09-2022 14:18-0400 Body weight 89.59 kg Robin L Brigida Work Phone: [facility] Work Phone: 06-09-2022 14:18-0400 Diastolic blood pressure 82 mm[Hg] Robin L Brigida Work Phone: [facility] Work Phone: 06-09-2022 14:18-0400 Heart rate 81 /min Robin Allred Work Phone: [facility] Work Phone: 06-09-2022 14:18-0400 Respiratory rate 18 /min Robin Allred Work Phone: [facility] Work Phone: 06-09-2022 14:18-0400 SaO2% (BldA) [Mass fraction] 96 % Robin Allred Work Phone: [facility] Work Phone: 06-09-2022 14:18-0400 Systolic blood pressure 124 mm[Hg] Robin Allred Work Phone: [facility] Work Phone: 04-22-2022 10:10-0500 Body height 176.5 cm Robin Allred Work Phone: [facility] Work Phone: 04-22-2022 10:10-0500 Body mass index (BMI) [Ratio] 31.23 kg/m2 Robin Valdiviaer Work Phone: [facility] Work Phone: 04-22-2022 10:10-0500 Body surface area Derived from formula 2.14 m2 Robin Valdiviaer Work Phone: [facility] Work Phone: 04-22-2022 10:10-0500 Body temperature 96.62 [degF] Robin Valdiviaer Work Phone: [facility] Work Phone: 04-22-2022 10:10-0500 Body weight 97.3 kg Robin L Brigida Work Phone: [facility] Work Phone: 04-22-2022 10:10-0500 Diastolic blood pressure 79 mm[Hg] Robin L Brigida Work Phone: [facility] Work Phone: 04-22-2022 10:10-0500 Heart rate 85 /min Robin L Brigida Work Phone: [facility] Work Phone: 04-22-2022 10:10-0500 Respiratory rate 17 /min Robin L Brigida Work Phone: [facility] Work Phone: 04-22-2022 10:10-0500 SaO2% (BldA) [Mass fraction] 100 % Robin L Brigida Work Phone: [facility] Work Phone: 04-22-2022 10:10-0500 Systolic blood pressure 144 mm[Hg] Robin L Brigida Work Phone: [facility] Work Phone: 04-22-2022 10:10-0500 3 1 Robin L Brigida Work Phone: [facility] Work Phone: Comment on above: [employer] 04-14-2022 07:54-0500 Body mass index (BMI) [Ratio] 70.1 kg/m2 Robin L Brigida Work Phone: [facility] Work Phone: 04-14-2022 07:54-0500 Body surface area Derived from formula 1.6 m2 Robin L Brigida Work Phone: [facility] Work Phone: 04-14-2022 07:54-0500 Body weight 97.3 kg Robin L Brigida Work Phone: [facility] Work Phone: 03-30-2022 10:02-0500 Body height 117.81 cm Robin L Brigida Work Phone: [facility] Work Phone: 03-30-2022 10:02-0500 Body mass index (BMI) [Ratio] 70.27 kg/m2 Robin L Brigida Work Phone: [facility] [address] Work Phone: 03-30-2022 10:02-0500 Body surface area Derived from formula 1.6 m2 Rboin L Brigida Work Phone: [facility] [address] Work Phone: 03-30-2022 10:02-0500 Body weight 97.52 kg Robin L Brigida Work Phone: [facility] Work Phone: 03-30-2022 10:02-0500 Diastolic blood pressure 80 mm[Hg] Robin L Brigida Work Phone: [facility] Work Phone: 03-30-2022 10:02-0500 Systolic blood pressure 140 mm[Hg] Robin L Brigida Work Phone: [facility] Work Phone: 01-19-2022 08:32-0500 Body height 117.8 cm Robin L Brigida Work Phone: [facility] Work Phone: 01-19-2022 08:32-0500 Body mass index (BMI) [Ratio] 70.38 kg/m2 Robin L Brigida Work Phone: [facility] Work Phone: 01-19-2022 08:32-0500 Body surface area Derived from formula 1.6 m2 Robin L Brigida Work Phone: [facility] Work Phone: 01-19-2022 08:32-0500 Body weight 97.66 kg Robin L Brigida Work Phone: [facility] Work Phone: 01-19-2022 08:32-0500 Diastolic blood pressure 82 mm[Hg] Robin L Brigida Work Phone: [facility] Work Phone: 01-19-2022 08:32-0500 Heart rate 88 /min Robin L Brigida Work Phone: [facility] Work Phone: 01-19-2022 08:32-0500 SaO2% (BldA) [Mass fraction] 99 % Robin L Brigida Work Phone: [facility] Work Phone: 01-19-2022 08:32-0500 Systolic blood pressure 108 mm[Hg] Robin L Brigida Work Phone: [facility] Work Phone: 01-13-2022 09:03-0500 Body height 177.8 cm Robin L Brigida Work Phone: [facility] Work Phone: 01-13-2022 09:03-0500 Body mass index (BMI) [Ratio] 31.19 kg/m2 Robin L Brigida Work Phone: [facility] Work Phone: 01-13-2022 09:03-0500 Body surface area Derived from formula 2.16 m2 Robin L Brigida Work Phone: [facility] Work Phone: 01-13-2022 09:03-0500 Body weight 98.61 kg Robin L Brigida Work Phone: [facility] Work Phone: 01-13-2022 09:03-0500 Diastolic blood pressure 72 mm[Hg] Robin L Brigida Work Phone: [facility] Work Phone: 01-13-2022 09:03-0500 Heart rate 84 /min Robin L Brigida Work Phone: [facility] Work Phone: 01-13-2022 09:03-0500 Systolic blood pressure 120 mm[Hg] Robin L Brigida Work Phone: [facility] Work Phone: 12-17-2021 11:03-0400 Body height 177.8 cm Robin L Brigida Work Phone: [facility] [address] Work Phone: 12-17-2021 11:03-0400 Body mass index (BMI) [Ratio] 30.56 kg/m2 Robin L Brigida Work Phone: [facility] [address] Work Phone: 12-17-2021 11:03-0400 Body surface area Derived from formula 2.14 m2 Robin L Brigida Work Phone: [facility] Work Phone: 12-17-2021 11:03-0400 Body weight 96.62 kg Robin L Brigida Work Phone: [facility] [address] Work Phone: 12-17-2021 11:03-0400 Diastolic blood pressure 82 mm[Hg] Robin L Brigida Work Phone: [facility] Work Phone: 12-17-2021 11:03-0400 Systolic blood pressure 140 mm[Hg] Robin L Brigida [facility] Work Phone: 2021 08:08-0400 Body mass index (BMI) [Ratio] 30.78 kg/m2 Robin L Brigida Work Phone: [facility] Work Phone: 2021 08:08-0400 Body surface area Derived from formula 2.15 m2 Robin L Brigida Work Phone: [facility]Obvgjyp[facility]Mkboxgn Work Phone: 2021 08:08-0400 Body weight 97.3 kg Robin L Brigida Work Phone: [facility] Work Phone: 11-26-2021 08:01-0400 Body height 177.8 cm Robin L Brigida Work Phone: [facility] Work Phone: 11-26-2021 08:01-0400 Body mass index (BMI) [Ratio] 30.48 kg/m2 Robin L Brigida Work Phone: [facility] Work Phone: 11-26-2021 08:01-0400 Body surface area Derived from formula 2.14 m2 Robin L Brigida Work Phone: [facility] Work Phone: 11-26-2021 08:01-0400 Body weight 96.34 kg Robin L Brigida Work Phone: [facility] Work Phone: 11-26-2021 08:01-0400 Diastolic blood pressure 82 mm[Hg] Robin L Brigida Work Phone: [facility] Work Phone: 11-26-2021 08:01-0400 Heart rate 73 /min Robin L Brigida Work Phone: [facility] Work Phone: 11-26-2021 08:01-0400 SaO2% (BldA) [Mass fraction] 94 % Robin L Brigida Work Phone: [facility] Work Phone: 11-26-2021 08:01-0400 Systolic blood pressure 122 mm[Hg] Robin L Brigida Work Phone: [facility] Work Phone: 08-31-2021 10:35-0400 Body height 177.8 cm Robin L Brigida Work Phone: [facility] Work Phone: 08-31-2021 10:35-0400 Body mass index (BMI) [Ratio] 30.34 kg/m2 Robin L Brigida Work Phone: [facility] Work Phone: 08-31-2021 10:35-0400 Body surface area Derived from formula 2.14 m2 Robin L Brigida Work Phone: [facility] Work Phone: 08-31-2021 10:35-0400 Body weight 95.91 kg Robin L Brigdia Work Phone: [facility] Work Phone: 08-31-2021 10:35-0400 Diastolic blood pressure 80 mm[Hg] Robin L Brigida Work Phone: [facility] Work Phone: 08-31-2021 10:35-0400 Heart rate 76 /min Robin L Brigida Work Phone: [facility] Work Phone: 08-31-2021 10:35-0400 Systolic blood pressure 118 mm[Hg] Robin L Brigida Work Phone: [facility] Work Phone: 08-05-2021 11:51-0400 Body height 177.8 cm Robin L Brigida Work Phone: [facility] Work Phone: 08-05-2021 11:51-0400 Body mass index (BMI) [Ratio] 30.71 kg/m2 Robin L Brigida Work Phone: [facility]kakpko[facility]Veoaxft Work Phone: 08-05-2021 11:51-0400 Body surface area Derived from formula 2.15 m2 Robin L Brigida Work Phone: [facility] Work Phone: 08-05-2021 11:51-0400 Body weight 97.07 kg Robin L Brigida Work Phone: CP-Vvnocft-Bxmgmye Work Phone: 07-21-2021 08:39-0400 Body height 177.8 cm Robin L Brigida Work Phone: [place] [address] [place] Work Phone: 07-21-2021 08:39-0400 Body mass index (BMI) [Ratio] 30.75 kg/m2 Robin L Brigida Work Phone: [place] [address] [place] Work Phone: 07-21-2021 08:39-0400 Body surface area Derived from formula 2.15 m2 Robin L Brigida Work Phone: [place] [address] [place] Work Phone: 07-21-2021 08:39-0400 Body weight 97.2 kg Robin L Brigida Work Phone: [facility] [address] Work Phone: 07-21-2021 08:39-0400 Diastolic blood pressure 60 mm[Hg] Robin L Brigida Work Phone: [address] Work Phone: 07-21-2021 08:39-0400 Systolic blood pressure 116 mm[Hg] Robin L Brigida Work Phone: [address] Work Phone: 06-22-2021 08:44-0400 Body height 177.8 cm Robin L Brigida Work Phone: [address] Work Phone: 06-22-2021 08:44-0400 Body mass index (BMI) [Ratio] 31.16 kg/m2 Rboin L Brigida Work Phone: [address] Work Phone: 06-22-2021 08:44-0400 Body surface area Derived from formula 2.16 m2 Robin L Brigida Work Phone: [address] Work Phone: 06-22-2021 08:44-0400 Body weight 98.5 kg Robin L Brigida Work Phone: [address] Work Phone: 06-22-2021 08:44-0400 Diastolic blood pressure 68 mm[Hg] Robin L Brigida Work Phone: [address] Work Phone: 06-22-2021 08:44-0400 Systolic blood pressure 122 mm[Hg] Robin L Brigida Work Phone: [address] Work Phone: 05-25-2021 07:58-0400 Body height 177.8 cm Robin L Brigida Work Phone: [facility] Work Phone: 05-25-2021 07:58-0400 Body mass index (BMI) [Ratio] 30.99 kg/m2 Robin L Brigida Work Phone: [facility] Work Phone: 05-25-2021 07:58-0400 Body surface area Derived from formula 2.16 m2 Robin L Brigida Work Phone: [facility] Work Phone: 05-25-2021 07:58-0400 Body weight 97.97 kg Robin L Brigida Work Phone: [facility] Work Phone: 05-25-2021 07:58-0400 Diastolic blood pressure 86 mm[Hg] Robin L Brigida Work Phone: [facility] Work Phone: 05-25-2021 07:58-0400 Heart rate 86 /min Robin L Brigida Work Phone: [facility] Work Phone: 05-25-2021 07:58-0400 Systolic blood pressure 120 mm[Hg] Robin L Brigida Work Phone: [facility] Work Phone: 01-23-2021 08:45-0500 Body height 177.8 cm Robin L Brigida Work Phone: [facility] Work Phone: 01-23-2021 08:45-0500 Body mass index (BMI) [Ratio] 29.76 kg/m2 Robin L Brigida Work Phone: [facility] Work Phone: 01-23-2021 08:45-0500 Body surface area Derived from formula 2.12 m2 Robin L Brigida Work Phone: [facility] Work Phone: 01-23-2021 08:45-0500 Body weight 94.07 kg Robin L Brigida Work Phone: [facility] Work Phone: 01-23-2021 08:45-0500 Diastolic blood pressure 86 mm[Hg] Robin L Brigida Work Phone: [facility] Work Phone: 01-23-2021 08:45-0500 Heart rate 86 /min Robin L Brigida Work Phone: [facility] Work Phone: 01-23-2021 08:45-0500 Systolic blood pressure 120 mm[Hg] Robin L Brigida Work Phone: [facility] Work Phone: 01-19-2021 07:53-0500 Body height 177.8 cm Robin L Brigida Work Phone: ID-Aixbpjo-Zbdtjjm Work Phone: 01-19-2021 07:53-0500 Body mass index (BMI) [Ratio] 29.45 kg/m2 Robin L Brigida Work Phone: HQ[facility]Syzbexz-Qbycyqc Work Phone: 01-19-2021 07:53-0500 Body surface area Derived from formula 2.11 m2 Robin L Brigida Work Phone: FT-Taxigfc-Ivsowyv Work Phone: 01-19-2021 07:53-0500 Body weight 93.1 kg Robin L Brigida Work Phone: QU-Sofifji-Kowpgvf Work Phone: 01-19-2021 07:53-0500 Diastolic blood pressure 78 mm[Hg] Robin L Brigida Work Phone: WL-Aaactlt-Tkeyiqa Work Phone: 01-19-2021 07:53-0500 Heart rate 78 /min Robin L Brigida Work Phone: SV-Elhuonj-Kunalcg Work Phone: 01-19-2021 07:53-0500 Systolic blood pressure 128 mm[Hg] Robin L Brigida Work Phone: [facility] Work Phone: 12-22-2020 15:12-0400 Body height 177.8 cm Robin L Brigida Work Phone: [facility] Work Phone: 12-22-2020 15:12-0400 Body mass index (BMI) [Ratio] 29.56 kg/m2 Robin L Brigida Work Phone: [facility] Work Phone: 12-22-2020 15:12-0400 Body surface area Derived from formula 2.11 m2 Robin L Brigida Work Phone: [facility] Work Phone: 12-22-2020 15:12-0400 Body weight 93.44 kg Robin L Brigida Work Phone: [facility] Work Phone: 12-22-2020 15:12-0400 Diastolic blood pressure 80 mm[Hg] Robin L Brigida Work Phone: [facility] Work Phone: 12-22-2020 15:12-0400 Heart rate 88 /min Robin L Brigida Work Phone: [facility] Work Phone: 12-22-2020 15:12-0400 SaO2% (BldA) [Mass fraction] 96 % Robin L Brigida Work Phone: [facility] Work Phone: 12-22-2020 15:12-0400 Systolic blood pressure 120 mm[Hg] Robin L Brigida Work Phone: [facility] Work Phone: 11-20-2020 18:30-0400 Diastolic blood pressure 77 mm[Hg] Robin Brigida Other Phone: [facility] 11-20-2020 18:30-0400 Heart rate 89 /min Robin Brigida Other Phone: [facility] 11-20-2020 18:30-0400 Respiratory rate 20 /min Robin Brigida Other Phone: [facility] 11-20-2020 18:30-0400 SaO2% (BldA) [Mass fraction] 96 % Robin Brigida Other Phone: [facility] 11-20-2020 18:30-0400 Systolic blood pressure 118 mm[Hg] Robin Brigida Other Phone: [facility] 11-20-2020 15:54-0400 Body height 177.8 cm Robin Brigida Other Phone: [facility] 11-20-2020 15:54-0400 Body temperature 99.68 [degF] Robin Brigida Other Phone: [facility] 11-20-2020 15:54-0400 Body weight 95.5 kg Robin Brigida Other Phone: [facility] 10-13-2020 13:09-0400 Diastolic blood pressure 80 mm[Hg] Robin L Brigida Work Phone: [facility] Work Phone: 10-13-2020 13:09-0400 Heart rate 90 /min Robin L Brigida Work Phone: [facility] Work Phone: 10-13-2020 13:09-0400 Systolic blood pressure 133 mm[Hg] Robin L Brigida Work Phone: [facility] Work Phone: 09-08-2020 07:46-0400 Body height 177.8 cm Robin L Brigida Work Phone: CV-Lwagopd-Ezdwfee Work Phone: 09-08-2020 07:46-0400 Body mass index (BMI) [Ratio] 30.72 kg/m2 Robin Allred Work Phone: ES-Koexgzs-Fncjran Work Phone: 09-08-2020 07:46-0400 Body surface area Derived from formula 2.15 m2 Robin Allred Work Phone: VB-Iizegmy-Btdjcqs Work Phone: 09-08-2020 07:46-0400 Body weight 97.13 kg Robin Allred Work Phone: AH-Kzvgone-Rqmauuo Work Phone: 06-04-2020 11:26-0400 BMI (Body Mass Index) 30.88 kg/m2 Edison Nag Mallapareddi [facility] Work Phone: 06-04-2020 11:26-0400 Body weight 97.6 kg Edison Nag Mallapareddi [facility] Work Phone: 06-04-2020 11:26-0400 BP Diastolic 72 mm[Hg] Edison Nag Mallapareddi [facility] Work Phone: 06-04-2020 11:26-0400 BP Systolic 116 mm[Hg] Edison Nag Mallapareddi [facility] Work Phone: 06-04-2020 11:26-0400 BSA (Body Surface Area) 2.15 m2 Edison Nag Mallapareddi [facility] Work Phone: 06-04-2020 11:26-0400 Height 177.8 cm Edison Nag Mallapareddi [facility] Work Phone: 06-04-2020 11:26-0400 Pulse (Heart Rate) 76 /min Edison Nag Mallapareddi [facility] Work Phone: 05-21-2020 10:01-0400 BMI (Body Mass Index) 30.71 kg/m2 Ru Mcwilliams II XZ-Pjhkxup-Ikinaig Work Phone: 05-21-2020 10:01-0400 Body weight 97.08 kg Ru Mcwilliams II BA-Llgmejj-Atnnn nd Work Phone: 05-21-2020 10:01-0400 BP Diastolic 77 mm[Hg] Ru Mcwilliams II IV-Uasitgv-Ukszg nd Work Phone: 05-21-2020 10:01-0400 BP Systolic 147 mm[Hg] Ru Mcwilliams II OG-Jbgnsnw-Giusl nd Work Phone: 05-21-2020 10:01-0400 BSA (Body Surface Area) 2.15 m2 Ru Mcwilliams II QH-Gddimps-Wbvcopd Work Phone: 05-21-2020 10:01-0400 Height 177.8 cm Ru Mcwilliams II TP-Apujnsi-Voesw nd Work Phone: 05-21-2020 10:01-0400 Pulse (Heart Rate) 75 /min Ru Mcwilliams II SM-Loglert-Ff hland Work Phone: 05-05-2020 09:51-0400 BMI (Body Mass Index) 30.13 kg/m2 Ru Mcwilliams II AM-Inskiwx-Opdegna Work Phone: 05-05-2020 09:51-0400 Body weight 95.26 kg Ru Mcwilliams II YE-Gfksman-Mebcz nd Work Phone: 05-05-2020 09:51-0400 BSA (Body Surface Area) 2.13 m2 Ru Mcwilliams II LH-Jalgisl-Blisflw Work Phone: 05-05-2020 09:51-0400 Height 177.8 cm Ru Mcwilliams II PE-Fhdtvrx-Gjqjy nd Work Phone: 11-19-2019 09:42-0400 BMI (Body Mass Index) 29.56 kg/m2 Robin Allred MP-B[facility] Work Phone: 11-19-2019 09:42-0400 Body weight 93.44 kg [facility] Work Phone: 11-19-2019 09:42-0400 BP Diastolic 80 mm[Hg] Robin Allred [facility] Work Phone: 11-19-2019 09:42-0400 BP Systolic 120 mm[Hg] [facility] Work Phone: 11-19-2019 09:42-0400 BSA (Body Surface Area) 2.11 m2 [facility] Work Phone: 11-19-2019 09:42-0400 Height 177.8 cm [facility] Work Phone: 11-19-2019 09:42-0400 Pulse (Heart Rate) 87 /min [facility] Work Phone: 11-16-2019 11:37-0400 BMI (Body Mass Index) 29.51 kg/m2 [facility] Work Phone: 11-16-2019 11:37-0400 Body Temperature 96.9 [degF] [facility] Work Phone: 11-16-2019 11:37-0400 Body weight 93.3 kg [facility] Work Phone: 11-16-2019 11:37-0400 BP Diastolic 70 mm[Hg] [facility] Work Phone: Comment on above: Location: LUE; Position: Sitting 11-16-2019 11:37-0400 BP Systolic 110 mm[Hg] Robin Allred [facility] Work Phone: Comment on above: Location: LUE; Position: Sitting 11-16-2019 11:37-0400 BSA (Body Surface Area) 2.11 m2 [facility] Work Phone: 11-16-2019 11:37-0400 Height 177.8 cm Robin Allred [facility] Work Phone: 11-07-2019 11:19-0400 BMI (Body Mass Index) 29.36 kg/m2 Robin Allred [facility] Work Phone: 11-07-2019 11:19-0400 Body Temperature 97.3 [degF] Robin [facility] Work Phone: 11-07-2019 11:19-0400 Body weight 92.8 kg Robin Allred [facility] Work Phone: 11-07-2019 11:19-0400 BP Diastolic 76 mm[Hg] Robin Allred [facility] Work Phone: 11-07-2019 11:19-0400 BP Systolic 122 mm[Hg] Robin Allred [facility] Work Phone: 11-07-2019 11:19-0400 BSA (Body Surface Area) 2.11 m2 Robin Allred [facility] Work Phone: 11-07-2019 11:19-0400 Height 177.8 cm Robin Allred [facility] Work Phone: 10-30-2019 16:39-0400 Body height 177.[address] UROLOGY NURSE NN-Unxbvew-Vpkarit Work Phone: 10-30-2019 16:39-0400 Body mass index (BMI) [Ratio] 29.36 kg/m2 [address] UROLOGY NURSE FX-Lbkoxeo-Pxjnvqa Work Phone: 10-30-2019 16:39-0400 Body surface area Derived from formula 2.11 m2 [id number] [facility] GK-Ppugnvt-Dvdjahq Work Phone: 10-30-2019 16:39-0400 Body temperature 97.7 [degF] [id number] [facility] N[facility]SE GU-Djyvdik-Xzpxird Work Phone: Comment on above: Method: Temporal 10-30-2019 16:39-0400 Body weight 92.8 kg [id number] [facility] N[facility]SE NQ-Hseozmn-Qstpwgp Work Phone: 10-30-2019 16:39-0400 Diastolic blood pressure 84 mm[Hg] [id number] [place] [address] UROLOGY NURSE MY-Lhaxdli-Neayqop Work Phone: Comment on above: Location: LUE; Position: Sitting 10-30-2019 16:39-0400 Systolic blood pressure 110 mm[Hg] [address] UROLOGY NURSE XD-Xyykpwe-Qnfhkkc Work Phone: Comment on above: Location: LUE; Position: Sitting 10-03-2019 09:47-0400 BMI (Body Mass Index) 29.61 kg/m2 [id number] [facility] PROCEDURE RM EN-Xefejhc-Eexqlhl Work Phone: 10-03-2019 09:47-0400 Body weight 93.61 kg [id number] [facility] PROCEDURE RM SR-Azyczml-Kiufdeo Work Phone: 10-03-2019 09:47-0400 BSA (Body Surface Area) 2.12 m2 [id number] [facility] PROCEDURE RM FD-Gijhfjd-Nlhborx Work Phone: 10-03-2019 09:47-0400 Height 177.8 cm [id number] [facility] PROCEDURE RM RD-Ysjykce-Rwewjaj Work Phone: 07-20-2019 10:58-0400 BMI (Body Mass Index) 30.2 kg/m2 Robin Allred [facility] Work Phone: 07-20-2019 10:58-0400 Body Temperature 98 [degF] Robin Allred [facility] Work Phone: 07-20-2019 10:58-0400 Body weight 95.48 kg Robin Allred [facility] Work Phone: 07-20-2019 10:58-0400 BP Diastolic 70 mm[Hg] Robin Allred [facility] Work Phone: 07-20-2019 10:58-0400 BP Systolic 110 mm[Hg] Robin Allred [facility] Work Phone: 07-20-2019 10:58-0400 BSA (Body Surface Area) 2.13 m2 Robin [facility]red [facility] Work Phone: 07-20-2019 10:58-0400 Height 177.8 cm Robin Allred [facility] Work Phone: 05-23-2019 09:46-0400 BMI (Body Mass Index) 31.06 kg/m2 [id number] [facility] PROCEDURE RM GB-Caxuwfm-Nywclba Work Phone: 05-23-2019 09:46-0400 Body weight 98.2 kg [id number] [facility] PROCEDURE RM DB-Ssnxsis-Decocyq Work Phone: 05-23-2019 09:46-0400 BSA (Body Surface Area) 2.16 m2 [id number] [facility] PROCEDURE RM DE-Vpftnkf-Ldgwckp Work Phone: 05-23-2019 09:46-0400 Height 177.8 cm [id number] [facility] PROCEDURE RM HF-Mrqudem-Orohxjo Work Phone: 04-20-2019 09:54-0500 BMI (Body Mass Index) 30.02 kg/m2 Brooklynn Christensen [facility] Work Phone: 04-20-2019 09:54-0500 Body weight 94.92 kg Brooklynn Christensen [facility] Work Phone: 04-20-2019 09:54-0500 BP Diastolic 82 mm[Hg] Brooklynn Christensen [facility] Work Phone: Comment on above: Location: LUE; 04-20-2019 09:54-0500 BP Systolic 130 mm[Hg] [facility] Work Phone: Comment on above: Location: LUE; 04-20-2019 09:54-0500 BSA (Body Surface Area) 2.13 m2 [facility] Work Phone: 04-20-2019 09:54-0500 Height 177.8 cm [facility] Work Phone: 04-20-2019 09:54-0500 Pulse (Heart Rate) 80 /min Brooklynn Low [facility] Work Phone: 02-20-2019 10:14-0500 BMI (Body Mass Index) 29.99 kg/m2 Ru Mcwilliams II LH-Ddknftv-Ugpkaff Work Phone: 02-20-2019 10:14-0500 Body weight 94.8 kg Ru Mcwilliams II SW-Fuhegyo-Tfomv nd Work Phone: 02-20-2019 10:14-0500 BP Diastolic 87 mm[Hg] Ru Mcwilliams II JO-Lyblhpa-Tgpts nd Work Phone: 02-20-2019 10:14-0500 BP Systolic 146 mm[Hg] Ru Mcwilliams II AF-Ymcqxgr-Tzpus nd Work Phone: 02-20-2019 10:14-0500 BSA (Body Surface Area) 2.13 m2 Ru Mcwilliams II GY-Jdzyqvf-Xnnxrjn Work Phone: 02-20-2019 10:14-0500 Height 177.8 cm Ru Mcwilliams II QP-Uqxlkcn-Nekxn nd Work Phone: 02-20-2019 10:14-0500 Pulse (Heart Rate) 87 /min Ru Mcwilliams II FR-Xilvrbk-Dg hland Work Phone: 02-20-2019 10:11-0500 BMI (Body Mass Index) 30.06 kg/m2 Ru Mcwilliams II UC-Guqwwzz-Rfuiwvz Work Phone: 02-20-2019 10:11-0500 Body weight 95.03 kg Ru Mcwilliams II RO-Xpqnpnn-Klaqj nd Work Phone: 02-20-2019 10:11-0500 BSA (Body Surface Area) 2.13 m2 Ru Mcwilliams II PL-Egwpeap-Ftzcvvh Work Phone: 02-20-2019 10:11-0500 Height 177.8 cm Ru Mcwilliams II XD-Votrchq-Wibsk nd Work Phone: 01-24-2019 09:43-0500 BMI (Body Mass Index) 30.32 kg/m2 Ru Gomesk II [facility] Work Phone: 01-24-2019 09:43-0500 Body weight 95.85 kg Ru Mcwilliams II [facility] Work Phone: 01-24-2019 09:43-0500 BP Diastolic 82 mm[Hg] Ru Gomesk II [facility] Work Phone: 01-24-2019 09:43-0500 BP Systolic 130 mm[Hg] Ru Gomesk II [facility] Work Phone: 01-24-2019 09:43-0500 BSA (Body Surface Area) 2.14 m2 Ru Mcwilliams II [facility] Work Phone: 01-24-2019 09:43-0500 Height 177.8 cm Ru Mcwilliams II [facility] Work Phone: 01-24-2019 09:43-0500 Pulse (Heart Rate) 72 /min uR Gomesk II MP-Bazine [facility] Work Phone: 01-17-2019 10:08-0500 BMI (Body Mass Index) 30.17 kg/m2 [id number] [facility] PROCEDURE RM FI-Yomkbgk-Aivrvwg Work Phone: 01-17-2019 10:08-0500 Body weight 95.37 kg [id number] [facility] PROCEDURE RM EN-Kzzxaww-Pswjlvt Work Phone: 01-17-2019 10:08-0500 BP Diastolic 75 mm[Hg] [id number] [facility] PROCEDURE RM KJ-Mkgbyhq-Tnrrhcs Work Phone: 01-17-2019 10:08-0500 BP Systolic 127 mm[Hg] [id number] [facility] PROCEDURE RM CG-Mdfsncs-Eubdqve Work Phone: 01-17-2019 10:08-0500 BSA (Body Surface Area) 2.13 m2 [id number] [facility] PROCEDURE RM CG-Smdupmn-Hovbvhg Work Phone: 01-17-2019 10:08-0500 Height 177.8 cm [id number] [facility] PROCEDURE RM TT-Kchsmtp-Nvnjuxu Work Phone: 01-17-2019 10:08-0500 Pulse (Heart Rate) 76 /min [id number] [facility] PROCEDURE RM PT-Fujgwys-Cbmmyhu Work Phone: 01-03-2019 16:10-0500 BMI (Body Mass Index) 29.99 kg/m2 Ru Mcwilliams II ZY-Vuwxmuk-Gwnkajf Work Phone: 01-03-2019 16:10-0500 Body weight 94.8 kg Ru Gomesk II GA-Ojqgvkk-Fvbai nd Work Phone: 01-03-2019 16:10-0500 BP Diastolic 74 mm[Hg] Ru Gomesk II QY-Qrwtebk-Dmexv nd Work Phone: 01-03-2019 16:10-0500 BP Systolic 108 mm[Hg] Ru Gomesk II IA-Wefulik-Fkqnv nd Work Phone: 01-03-2019 16:10-0500 BSA (Body Surface Area) 2.13 m2 Ru Gomesk II MV-Jdyetnu-Nkgxzfh Work Phone: 01-03-2019 16:10-0500 Height 177.8 cm Ru Gomesk II GT-Afubuoq-Ogyjb nd Work Phone: 01-03-2019 16:10-0500 Pulse (Heart Rate) 85 /min Ru Mcwilliams II ER-Lsynlxm-Gi hland Work Phone: 12-22-2018 10:38-0400 BMI (Body Mass Index) 29.05 kg/m2 Robin Allred [facility] Work Phone: 12-22-2018 10:38-0400 Body weight 93.16 kg Robin Allred [facility] Work Phone: 12-22-2018 10:38-0400 BP Diastolic 88 mm[Hg] Robin Allred [facility] Work Phone: 12-22-2018 10:38-0400 BP Systolic 122 mm[Hg] Robin Allred [facility] Work Phone: 12-22-2018 10:38-0400 BSA (Body Surface Area) 2.12 m2 Robin Allred -[facility] Work Phone: 12-22-2018 10:38-0400 Height 179.07 cm Robin Allred -[facility] Work Phone: 12-22-2018 10:38-0400 Pulse (Heart Rate) 88 /min Robin Allred -Deysi [facility] Work Phone: 06-29-2017 13:12-0400 BMI (Body Mass Index) 26.54 kg/m2 Jedjyoti Rosario [facility] 06-29-2017 13:12-0400 Height [facility] 06-29-2017 13:12-0400 Weight 83.92 kg Jed Rosario [facility] Encounters Encounter Date Encounter Type Care Provider Facility Start: 07-30-2024 ambulatory [facility] Facility: [facility] Start: 07-27-2024 End: 07-27-2024 ambulatory [facility] Ambulatory Start: 06-26-2024 End: 06-26-2024 ambulatory [facility] Ambulatory Start: 05-24-2024 End: 05-24-2024 Subsequent hospital visit by physician Zheng [id number] [facility] Comment on above: Chronic right should er pain Chronic pain of left knee Start: 05-24-2024 End: 05-24-2024 Office outpatient visit 25 minutes Robin Allred MD Work Phone: [facility] Comment on above: Visual changes (Prim anastasia Dx); History of Wen fundoplication; Chronic pain of left knee; Chronic right shoulder pain; Montanez's neuroma of left foot; Strain of left supraspinatus muscle, initial encounter Start: 05-24-2024 End: 05-24-2024 ambulatory [facility] Start: 05-15-2024 End: 05-15-2024 [facility] Start: 04-24-2024 End: 04-24-2024 [facility] Ambulatory Start: 03-27-2024 End: 03-27-2024 ambulatory [facility] Ambulatory Start: 02-27-2024 End: 02-27-2024 ambulatory [facility] Ambulatory Start: 02-10-2024 End: 02-10-2024 Subsequent hospital visit by physician Zheng [id number] [facility] Comment on above: Upper respiratory tr act infection, unspecified type Start: 02-10-2024 End: 02-10-2024 Office outpatient visit 15 minutes Bony Sy CARTOGRAPHIC TECHNICIAN-HOSPICE HOME CARE COORDINATOR Work Phone: [facility] Comment on above: Upper respiratory tr act infection, unspecified type (Primary Dx) Start: 02-10-2024 End: 02-10-2024 ambulatory [facility] Start: 02-07-2024 End: 02-07-2024 Office outpatient visit 15 minutes Bony Sy CARTOGRAPHIC TECHNICIAN-HOSPICE HOME CARE COORDINATOR Work Phone: [facility] Comment on above: Upper respiratory tr act infection, unspecified type (Primary Dx); Hypovitaminosis D Start: 02-07-2024 End: 02-07-2024 ambulatory BONY SY [facility] Ambulatory Start: 02-07-2024 Encounter for other preprocedural examination Elen Marcanthony [facility] Start: 01-25-2024 End: 01-25-2024 ambulatory Robin Allred Facility[facility] Start: 01-25-2024 End: 01-25-2024 ambulatory [facility] Ambulatory Start: 01-10-2024 End: 01-10-2024 ambulatory Elen Bray Facility:[facility] Start: 01-04-2024 End: 01-04-2024 ambulatory Ceasar Louie Facility:[facility] Start: 12-29-2023 End: 12-29-2023 Subsequent hospital visit by physician Zheng Infante 1 [facility] Comment on above: Rib pain on left ike e Start: 12-29-2023 End: 12-29-2023 ambulatory [facility] Start: 12-28-2023 End: 12-28-2023 ambulatory Elen Bray Facility:[facility] Start: 12-28-2023 End: 12-28-2023 ambulatory [facility] Ambulatory Start: 12-27-2023 End: 12-27-2023 ambulatory [facility] Start: 12-20-2023 End: 12-20-2023 Office outpatient visit 25 minutes Brooklynn Christensen CARTOGRAPHIC TECHNICIAN-HOSPICE HOME CARE COORDINATOR Work Phone: [facility] Comment on above: Acute frontal sinusi tis, recurrence not specified (Primary Dx); Rib pain on left side; Borderline low oxygen saturation level Start: 12-20-2023 End: 12-20-2023 ambulatory [facility] Ambulatory Start: 12-19-2023 End: 12-19-2023 ambulatory Robinvirgilio Allred Facility:[facility] Start: 11-30-2023 End: 11-30-2023 ambulatory JED QUIROZ [facility] Start: 11-30-2023 End: 11-30-2023 ambulatory JED QUIROZ [facility] Start: 11-30-2023 End: 11-30-2023 Subsequent hospital visit by physician Zheng Mcwilliams [employer] [facility] Comment on above: Arrived Start: 11-30-2023 End: 11-30-2023 Emergency department patient visit Jed Quiroz DO Work Phone: [facility] Comment on above: Chest pain, unspecif ied type (Primary Dx) Start: 11-25-2023 End: 11-25-2023 Subsequent hospital visit by physician Zheng [id number] [facility] Comment on above: Menopause Start: 11-25-2023 End: 11-25-2023 ambulatory [facility] Start: 11-23-2023 End: 11-23-2023 Office outpatient visit 25 minutes Robin Allred MD Work Phone: [facility] Comment on above: Menopause (Primary D x); Moderate persistent asthma without complication (HHS-HCC); Sjogren syndrome with keratoconjunctivitis (Multi); Dry mouth; Hypovitaminosis D; Low serum vitamin B12; Acquired hypothyroidism Start: 11-23-2023 End: 11-23-2023 ambulatory [facility] Ambulatory Start: 11-11-2023 End: 11-11-2023 ambulatory [facility] Facility:[facility] Start: 11-08-2023 End: 11-08-2023 Subsequent hospital visit by physician Zheng [id number] [facility] Comment on above: Rib pain on left ike e Start: 11-08-2023 End: 11-08-2023 Office outpatient visit 15 minutes Raymond Ayers PA-C Work Phone: [facility] Comment on above: Rib pain on left ike e (Primary Dx) Start: 11-08-2023 End: 11-08-2023 ambulatory [facility] Start: 11-02-2023 End: 11-02-2023 ambulatory [facility] Facility:[facility] Start: 10-28-2023 End: 10-28-2023 ambulatory [facility] Start: 10-12-2023 End: 10-12-2023 Office outpatient new 30 minutes Niranjan Acevedo MD Work Phone: [facility] Comment on above: Encounter for nonpro creative genetic counseling (Primary Dx); BRCA negative; Nipple discharge; Family history of breast cancer; Family history of ovarian cancer; Family history of colon cancer Start: 10-12-2023 End: 10-12-2023 ambulatory [facility] Start: 09-14-2023 End: 09-14-2023 ambulatory [facility] Ambulatory Start: 09-01-2023 End: 09-01-2023 Office outpatient visit 25 minutes Kaushik Sunil POLK-HOSPICE HOME CARE COORDINATOR Work Phone: [facility] Comment on above: Breast pain (Primary Dx); Nipple discharge; BRCA negative Start: 09-01-2023 End: 09-01-2023 ambulatory KAUSHIK [facility] Start: 08-30-2023 End: 08-30-2023 Office outpatient visit 15 minutes Rui Vargas MD Work Phone: [facility] Comment on above: Nipple discharge (Pr imary Dx) Start: 08-30-2023 End: 08-30-2023 ambulatory [facility] Ambulatory Start: 08-23-2023 ambulatory [facility] Facility: [facility] Start: 08-23-2023 End: 08-23-2023 Subsequent hospital visit by physician [facility] Comment on above: Breast pain, right Start: 08-23-2023 End: 08-23-2023 [facility] Start: 08-09-2023 ambulatory [facility] Facility: [facility] Start: 08-09-2023 End: 08-09-2023 Subsequent hospital visit by physician [facility] 2 [facility] Comment on above: Breast pain, right Start: 08-09-2023 End: 08-09-2023 [facility] Start: 08-05-2023 End: 08-05-2023 Office outpatient new 45 minutes Rui Vargas MD Work Phone: [facility] Comment on above: Breast pain, right Start: 08-05-2023 End: 08-05-2023 ambulatory [facility] Amb[facility] Start: 08-02-2023 End: 08-02-2023 Office outpatient visit 15 minutes Jelly Veras MD Work Phone: [facility] Comment on above: Vaginal dryness, men opausal (Primary Dx) Start: 08-02-2023 End: 08-02-2023 ambulatory [facility] Ambulatory Start: 07-28-2023 ambulatory Robin Allred Facility: [facility] Start: 07-28-2023 End: 07-28-2023 Subsequent hospital visit by physician Zheng Thorpe [facility] Comment on above: Encounter for screen ing mammogram for malignant neoplasm of breast Start: 07-28-2023 End: 07-28-2023 ambulatory [facility] Start: 07-25-2023 End: 07-25-2023 Subsequent hospital visit by physician Zheng [place] 1 [facility] Comment on above: Epigastric pain Start: 07-25-2023 End: 07-25-2023 ambulatory [facility] Start: 07-21-2023 End: 07-21-2023 ambulatory [facility] Start: 07-21-2023 End: 07-21-2023 Office outpatient visit 25 minutes Robin Allred MD Work Phone: [facility] Comment on above: Dry mouth (Primary D x); Epigastric pain; History of Wen fundoplication Start: 07-20-2023 End: 07-20-2023 Subsequent hospital visit by physician Zehng Worthington 2 [facility] Comment on above: Postmenopausal bleed ing Start: 07-20-2023 End: 07-20-2023 ambulatory JELLY [facility] Start: 07-19-2023 End: 07-19-2023 Patient encounter status Jelly Veras MD Work Phone: [facility] Start: 07-19-2023 End: 07-19-2023 Periodic preventive med est patient 40-64yrs Jelly Veras MD Work Phone: [facility] Comment on above: Postmenopausal bleed ing (Primary Dx); Encounter for gynecological examination without abnormal finding; Pap smear for cervical cancer screening; Encounter for screening mammogram for malignant neoplasm of breast; Breast pain, right Start: 07-06-2023 End: 07-06-2023 Office outpatient visit 15 minutes Ru Mcwilliams MD Work Phone: [facility] Comment on above: Hx of renal calculi (Primary Dx); Malignant neoplasm of urinary bladder, unspecified site (Multi) Start: 07-06-2023 End: 07-06-2023 ambulatory RU MCWILLIAMS [facility] Start: 07-06-2023 End: 07-06-2023 Subsequent hospital visit by physician Zheng [id number] [facility] Comment on above: Left renal stone Start: 06-21-2023 End: 06-21-2023 ambulatory [facility] Start: 04-28-2023 End: 04-28-2023 Office outpatient visit 15 minutes Robin Allred MD Work Phone: [facility] Comment on above: Hypovitaminosis D (P rimary Dx); Acquired hypothyroidism Start: 04-25-2023 End: 04-25-2023 ambulatory [facility] Start: 04-14-2023 End: 04-14-2023 Patient encounter procedure Urology [id number] Procedure Room [facility] Comment on above: Left renal stone (Pr imary Dx); Bladder tumor Start: 04-14-2023 End: 04-14-2023 Subsequent hospital visit by physician Zheng [id number] X-Ray [facility] Comment on above: Left renal stone Start: 03-31-2023 End: 03-31-2023 Office outpatient visit 25 minutes Ru Mcwilliams MD Work Phone: [facility] Comment on above: History of bladder c ancer; Gross hematuria Start: 03-21-2023 End: 03-21-2023 Subsequent hospital visit by physician Zheng Infante 1 [facility] Comment on above: History of bladder c ancer; Gross hematuria Start: 03-10-2023 End: 03-10-2023 Patient encounter procedure Ru Mcwilliams MD Work Phone: [facility] Comment on above: Gross hematuria (Cayla rui Dx); History of bladder cancer Start: 02-18-2023 End: 02-18-2023 Office outpatient visit 15 minutes Robin Allred MD Work Phone: [facility] Comment on above: Cachexia (CMS/HCC) ( Primary Dx) Start: 02-10-2023 End: 02-10-2023 Office outpatient visit 25 minutes Spike Gandhi MD Work Phone: [facility] Comment on above: Keratoconjunctivitis sicca (CMS/HCC) (Primary Dx); Malignant neoplasm of urinary bladder, unspecified site (CMS/HCC); Moderate protein-calorie malnutrition (CMS/HCC); Acquired hypothyroidism; History of Wen fundoplication Start: 01-20-2023 End: 01-20-2023 Office outpatient visit 25 minutes Robin Allred MD Work Phone: [facility] Comment on above: Moderate protein-steffany orie malnutrition (CMS/HCC) (Primary Dx) Start: 01-20-2023 End: 01-20-2023 ambulatory [facility] Work Phone: Start: 01-20-2023 End: 01-20-2023 Discharged Recurring [facility] Work Phone: Start: 12-20-2022 End: 12-20-2022 Office outpatient visit 15 minutes Robin Allred MD Work Phone: [facility] Comment on above: Acquired hypothyroid ism (Primary Dx); Weight loss; Moderate persistent asthma without complication Start: 2022 End: 2022 Subsequent hospital visit by physician Zheng Arellano 2 [facility] Comment on above: Generalized postpran dial abdominal pain Start: 12-07-2022 End: 12-07-2022 Subsequent hospital visit by physician Zheng Worthington 2 [facility] Comment on above: Postprandial epigast paco pain Start: 12-02-2022 End: 12-02-2022 Office outpatient visit 15 minutes Brady Li MD Work Phone: [facility] Comment on above: Postprandial epigast paco pain (Primary Dx) Start: 11-30-2022 End: 12-21-2022 ambulatory [facility] Work Phone: Start: 11-30-2022 End: 12-21-2022 Discharged Recurring [facility] Work Phone: Start: 11-22-2022 End: 11-22-2022 Subsequent hospital visit by physician Zheng Arellano 2 [facility] Start: 11-22-2022 End: 11-22-2022 Subsequent hospital visit by physician Zheng Nv 2 [facility] Comment on above: Epigastric pain Start: 11-04-2022 Office consultation new/estab patient 60 min Robin Allred Work Phone: [facility] Work Phone: Start: 10-20-2022 Patient encounter procedure Do sonam Allred Work Phone: JC-Brdwpic-Ukrwvpq Work Phone: Start: 10-18-2022 End: 10-18-2022 Office outpatient visit 15 minutes Robin Allred MD Work Phone: [facility] Comment on above: Epigastric pain (Cayla rui Dx) Start: 10-13-2022 Chart Update Robin voss Work Phone: FM-Emfwcqg-Mlwcwji Work Phone: Start: 10-12-[address] Robin Abraham Facility:[id number] Start: 09-24-2022 Transcribe Orders Robin Allred MD Work Phone: [facility] Comment on above: Epigastric pain (Cayla rui Dx) Start: 09-21-[address] Robin Abraham Facility:[id number] Start: 09-20-2022 AUDIT Robin voss Work Phone: IN-Glphbrq-Jtfrdfme HC 232 DO Work Phone: Start: 09-20-[address] Robin Abraham Facility:[id number] Start: 09-08-2022 Chart Update Robin voss Work Phone: VG-Hcmutyp-Ayetdgg Work Phone: Start: 08-03-[address] Robin Abraham Facility:[id number] Start: 07-28-[address] Robin Abraham Facility:9509 Start: 07-21-2022 Chart Update Robin voss Work Phone: [address] Work Phone: Start: 07-21-2022 ambulatory Jelly Veras Facility:1 [id number] Start: 07-12-2022 End: 07-12-2022 Subsequent hospital visit by physician Yaneth Rosario MD Work Phone: [facility] Comment on above: Gastro-esophageal re flux disease without esophagitis; Diaphragmatic hernia without obstruction or gangrene; Dysphagia, unspecified; Nonrheumatic mitral (valve) prolapse; Unspecified asthma, uncomplicated; Personal history of urinary calculi; Personal history of malignant neoplasm of bladder; Syncope and collapse; Hypothyroidism, unspecified; Idiopathic progressive neuropathy; Ventricular premature depolarization; Fibromyalgia; Tubal ligation status Start: 07-09-[address] Robin Abraham Facility:[id number] Start: 06-29-2022 End: 06-29-[address] Robin Allred Facility:[id number] Start: 06-29-2022 AUDIT Robin voss Work Phone: [facility] [address] Work Phone: Start: 06-09-[address] Robin Abraham Facility:[id number] Start: 06-04-[address] Robin Abraham Facility:[id number] Start: 05-11-2022 End: 05-11-[address] Yaneth Rosario Facility:9531 Start: 04-22-2022 Office outpatient ne w 60 minutes Robin Allred Work Phone: [facility] [facility] [address] [place] Work Phone: Start: 04-22-2022 Patient encounter procedure Do sonam Valdiviaer Work Phone: [facility] Work Phone: Start: 04-14-2022 CYSTOSCOPY, Provider : [facility] UROLOGY PROCEDURE RM,[id number], Status: Pen, Time: 7:30 AM Robin Allred Work Phone: [facility] [address] Work Phone: Start: 04-12-2022 AUDIT Robin Calos Cruz r Work Phone: [facility] [address] Work Phone: Start: 04-08-2022 Transcribe Orders Preeti Almendarez ae DO Work Phone: [facility] Comment on above: Hiatal hernia (Prima ry Dx); Gastroesophageal reflux disease, unspecified whether esophagitis present Start: 03-10-2022 Chart Update Robin vsos Work Phone: [facility] [address] Work Phone: Start: 03-02-2022 End: 03-02-[address] Jordin Ho Facility:[id number] Start: 01-19-[address] Robin Abraham Facility:[id number] Start: 01-19-2022 Office outpatient vi sit 15 minutes Robin Allred Work Phone: [facility] Work Phone: Start: 01-18-2022 PFT, Provider: GALI STALLINGS PFT ROOM,[id number], Status: Pen, Time: 10:00 AM Robin Allred Work Phone: [facility] Work Phone: Start: 01-13-[address] Robin Abraham Facility:[id number] Start: 01-13-2022 Office outpatient vi sit 15 minutes Robin Allred Work Phone: [facility] Work Phone: Start: 01-04-2022 AUDIT Robin L Nancy r Work Phone: [facility] [address] Work Phone: Start: 12-17-2021 Office outpatient vi sit 25 minutes Robin L Brigida Work Phone: [facility] [address] Work Phone: Start: 2021 CYSTOSCOPY, Provider : UATSDIN UROLOGY PROCEDURE RM,[id number], Status: Pen, Time: 8:00 AM Robin L Brigida Work Phone: [facility] Work Phone: Start: 2021 Patient encounter procedure Do uglas L Brigida Work Phone: PE-Bcwyyjx-Etidiai Work Phone: Start: 12-04-[address] Robin Abraham Facility:9509 Start: 11-26-2021 Office outpatient vi sit 25 minutes Robin L Brigida Work Phone: [facility] Work Phone: Start: 09-04-2021 AUDIT Robin L Nancy r Work Phone: [facility] Work Phone: Start: 08-31-2021 Office outpatient vi sit 15 minutes Robin L Brigida Work Phone: [facility] Work Phone: Start: 08-07-2021 AUDIT Robin L Nancy r Work Phone: [facility] Work Phone: Start: 08-06-2021 AUDIT Robin L Nancy r Work Phone: [facility] Work Phone: Start: 08-05-2021 Patient encounter procedure Do uglas L Brigida Work Phone: BD-Jgzkkuw-Wznrtny Work Phone: Start: 07-28-2021 Chart Update Robin L Nancy r Work Phone: UU-Xxvwmoh-Imrrnny Work Phone: Start: 07-27-2021 Chart Update Robin L Nancy r Work Phone: GZ-Bjoazfc-Vitemgi Work Phone: Start: 07-21-2021 Office outpatient vi sit 15 minutes Robin L Brigida Work Phone: [place] [address] [place] Work Phone: Start: 06-30-2021 Chart Update Robin L Nancy r Work Phone: [place] [address] [place] Work Phone: Start: 06-24-2021 Chart Update Robin L Nancy r Work Phone: [place] [address] [employer] Work Phone: Start: 06-22-2021 Periodic preventive med est patient 40-64yrs Robin L Brigida Work Phone: [place] [address] [place] Work Phone: Start: 05-26-2021 Chart Update Robin L Nancy r Work Phone: [facility] Work Phone: Start: 05-25-2021 Office outpatient vi sit 25 minutes Robin L Brigida Work Phone: [facility] Work Phone: Start: 01-23-2021 Office outpatient vi sit 15 minutes Robin L Brigida Work Phone: [facility] Work Phone: Start: 01-20-2021 Chart Update Robin L Nancy r Work Phone: [facility] Work Phone: Start: 01-19-2021 Patient encounter procedure Do uglas L Brigida Work Phone: EF-Ttfdaiw-Vseebas Work Phone: Start: 01-13-2021 AUDIT Robin L Nancy r Work Phone: -[facility] Work Phone: Start: 12-23-2020 AUDIT Robin L Nancy r Work Phone: [facility] Work Phone: Start: 12-22-2020 Office outpatient vi sit 25 minutes Robin L Brigida Work Phone: [facility] Work Phone: Start: 12-18-2020 NPVCANCER, Provider: Alisa Cesar, Status: Pen, Time: 8:30 AM Robin L Brigida Work Phone: [facility] Work Phone: Start: 12-16-2020 AUDIT Robin L Nancy r Work Phone: [facility] Work Phone: Start: 12-15-2020 AUDIT Robin L Nancy r Work Phone: [facility] Work Phone: Start: 12-10-2020 AUDIT Robin L Nancy r Work Phone: [facility] Work Phone: Start: 11-26-2020 AUDIT Robin L Nancy r Work Phone: [facility] Work Phone: Start: 11-21-2020 AUDIT Robin L Nancy r Work Phone: [facility] Work Phone: Start: 11-20-2020 End: 11-20-2020 Emergency department patient visit Alisahazel Antonio [facility] Start: 11-20-2020 Office outpatient vi sit 15 minutes Robin L Brigida Work Phone: -[facility] Work Phone: Start: 10-13-2020 AUDIT Robin L Nancy r Work Phone: PF-Jvgmkray-Tynwmba e Kae Work Phone: Start: 10-13-2020 Office consultation new/estab patient 60 min Robin L Brigida Work Phone: [facility] Work Phone: Start: 09-18-2020 AUDIT Robin L Nancy r Work Phone: [facility] Work Phone: Start: 09-17-2020 AUDIT Robin L Nancy r Work Phone: [facility] Work Phone: Start: 09-08-2020 Patient encounter procedure Do uglas L Brigida Work Phone: GX-Jixejde-Cyyhbcp Work Phone: Start: 05-21-2020 Patient encounter procedure Ru Pec k II YM-Arnkaxl-Vqjxlaj Work Phone: Start: 05-05-2020 Patient encounter procedure Ru Pec k II BI-Nbwojub-Hgkapve Work Phone: Start: 04-30-2020 End: 04-30-2020 Orders Only Tita Елена Arroyo Work Phone: [facility] Start: 04-17-2020 Patient encounter procedure Ru Pec k II JB-Wropnpr-Kyuqaus Work Phone: Start: 04-03-2020 Patient encounter procedure Ru Pec k II IF-Duqkoab-Ekuuupb Work Phone: Start: 03-03-2020 Patient encounter procedure Ru Pec k II EF-Vknybxr-Ovmbpvk Work Phone: Start: 02-27-2020 Patient encounter procedure Ru Pec k II WH-Uexlbcs-Xjslwkn Work Phone: Start: 02-18-2020 Patient encounter procedure Ru Gomes k II ZC-Ehpfgvs-Vfkkwiw Work Phone: Start: 02-06-2020 Patient encounter procedure Ru Gomes k II VO-Dzhitse-Fvgemyq Work Phone: Start: 02-05-2020 Patient encounter procedure Ru Gomes k II SL-Nezizuh-Lqwqcoz Work Phone: Start: 02-04-2020 Patient encounter procedure Ru Gomes k II FQ-Ivhemwi-Mxboruz Work Phone: Start: 12-17-2019 Patient encounter procedure Ru Pec k II CN-Nsiqwin-Ladldfc Work Phone: Start: 12-03-2019 Patient encounter procedure Ru Gomes k II GW-Elunwbp-Ugutink Work Phone: Start: 11-19-2019 Patient encounter procedure Robin Allred [facility] Work Phone: Start: 11-16-2019 Patient encounter procedure Robin Valdiviaer -[facility] Work Phone: Start: 11-07-2019 Patient encounter procedure Robin Allred -[facility] Work Phone: Start: 11-05-2019 Patient encounter procedure SM [id number] [facility] UROLOGY NURSE NE-Qlnkzos-Dpoovzr Work Phone: Start: 10-30-2019 Patient encounter procedure SM [id number] [facility]OLOGY NURSE GC-Hayzfsy-Ssegjwt Work Phone: Start: 10-22-2019 Patient encounter procedure SM [id number] [facility] NURSE OD-Tlrbfay-Gwnrsxw Work Phone: Start: 10-15-2019 Patient encounter procedure SM [id number] [facility]OLOGY NURSE PR-Bvtqdaa-Soeexql Work Phone: Start: 10-03-2019 Patient encounter procedure SM [id number] [facility]OLOGY PROCEDURE RM UM-Mzrshit-Urtrcdj Work Phone: Start: 08-17-2019 Patient encounter procedure SM [id number] [facility] UROLOGY PROCEDURE RM OW-Bfrzqsz-Aveqixv Work Phone: Start: 08-15-2019 End: 08-15-2019 Subsequent hospital visit by physician Katalina Dooley Work Phone: [facility] Comment on above: Arrived Start: 08-06-2019 Patient encounter procedure Robin Allred [facility] [address] Work Phone: Start: 07-20-2019 Patient encounter procedure Robin Allred [facility] Work Phone: Start: 06-20-2019 Patient encounter procedure Robin Allred [facility] Work Phone: Start: 06-13-2019 Patient encounter procedure SM [id number] [facility]OLOGY NURSE SE-Qqdyqoa-Sojfzgi Work Phone: Start: 06-06-2019 Patient encounter procedure SM [id number] [facility]OLOGY NURSE PK-Pjgzhlb-Defwuiv Work Phone: Start: 05-23-2019 Patient encounter procedure SM [id number] [facility] UROLOGY PROCEDURE RM MC-Tfclljr-Imytstu Work Phone: Start: 04-25-2019 Patient encounter procedure SM [id number] [facility]OLOGY NURSE LS-Viiexmj-Xziiwzi Work Phone: Start: 04-20-2019 Patient encounter procedure Brooklynn Se butch [facility] Work Phone: Start: 04-18-2019 Patient encounter procedure Brooklynn Se butch [facility] Work Phone: Start: 04-11-2019 Patient encounter procedure Brooklynn Se butch [facility] Work Phone: Start: 04-04-2019 Patient encounter procedure Brooklynn Se butch [facility] Work Phone: Start: 03-26-2019 Patient encounter procedure Brooklynn Se butch [facility] Work Phone: Start: 03-19-2019 Patient encounter procedure Brooklynn Se butch [facility] Work Phone: Start: 02-27-2019 Patient encounter procedure Brooklynn Bergeron butch -[facility] Work Phone: Start: 02-20-2019 Patient encounter procedure Ru Pec k II OI-Qntirnp-Jjpsmfc Work Phone: Start: 01-24-2019 Patient encounter procedure Ru Pec k II -[facility] Work Phone: Start: 01-17-2019 Patient encounter procedure SM [id number] U[facility]SDIN UROLOGY PROCEDURE RM AU-Kuxsggx-Ybobixf Work Phone: Start: 01-03-2019 Patient encounter procedure Ru Pec k II BY-Rfaceps-Vynmtej Work Phone: Start: 12-22-2018 Patient encounter procedure [facility] Work Phone: Start: 12-22-2018 Patient encounter procedure Robin Brigida [facility] Work Phone: Start: 05-17-2018 End: 05-18-2018 Patient encounter procedure Robin Brigida Facility:[facility] Start: 05-04-2018 End: 05-05-2018 Patient encounter procedure Brooklynn Christensen Facility:[facility] Start: 04-20-2018 Patient encounter procedure Robin Allred [facility] Work Phone: Start: 04-18-2018 End: 04-19-2018 Patient encounter procedure Brooklynn Christensen Facility:[facility] Start: 04-18-2018 End: 04-19-2018 Patient encounter procedure Brooklynn Christensen Facility:[facility] Start: 04-05-2018 End: 04-06-2018 Patient encounter procedure Spike Murrayer Facility:[facility] Start: 03-21-2018 End: 03-22-2018 Patient encounter procedure Robin Brigida Facility:[facility] Start: 03-17-2018 End: 03-17-2018 Telephone encounter Corrine Live Vasquez Work Phone: [facility] Comment on above: Medical Records Start: 03-09-2018 End: 03-10-2018 Patient encounter procedure Brooklynn Christensen Facility:[facility] Start: 02-06-2018 Patient encounter procedure Robin Allred -[facility] Work Phone: Start: 01-01-2018 Patient encounter procedure Elpidio U . Sourav Facility:[facility] Start: 12-07-2017 Patient encounter procedure Robin Allred [facility] Work Phone: Start: 11-28-2017 Patient encounter procedure Robin Allred -[facility] Work Phone: Start: 11-07-2017 End: 11-08-2017 Patient encounter procedure Elpidio U Sourav Facility:[facility] Start: 11-07-2017 Patient encounter procedure Robin Allred [facility] Work Phone: Start: 09-13-2017 Patient encounter CORRINE VASQUEZ [facility] Start: 08-29-2017 End: 08-30-2017 Patient encounter procedure Brooklynn Christensen Facility:[facility] Start: 08-25-2017 End: 08-25-2017 Patient encounter JED ROSARIO [facility] Start: 08-17-2017 End: 08-18-2017 Patient encounter procedure Brooklynn Christensen Facility:[facility] Start: 08-16-2017 End: 08-17-2017 Patient encounter procedure Brooklynn Christensen Facility:[facility] Start: 08-10-2017 End: 08-10-2017 Ambulatory Jed Rosario Work Phone: [facility] Start: 08-08-2017 Patient encounter Jed Rosario Fa cility:[place] Start: 07-26-2017 End: 07-26-2017 Patient encounter JED ROSARIO [facility] Start: 07-26-2017 End: 07-26-2017 Office/outpatient visit, est, level 2 Jed Rosario Work Phone: [facility] Start: 07-19-2017 End: 07-20-2017 Ambulatory KATALINA JACOBO Facility:[id number] Start: 07-19-2017 Patient encounter procedure Robin Allred [facility] Work Phone: Start: 07-07-2017 End: 07-07-2017 Patient encounter JED ROSARIO [facility] Start: 07-07-2017 End: 07-07-2017 Office/outpatient visit, est, level 2 Jed Rosario Work Phone: [facility] Start: 06-29-2017 End: 06-29-2017 Patient encounter JED ROSARIO [facility] Start: 06-29-2017 End: 06-29-2017 Office/outpatient visit, new, level 2 Jed Rosario Work Phone: [facility] Start: 06-29-2017 Patient encounter procedure Preeti mendoza Facility:[facility] cervix - scre ening done Robin Allred Work Phone: DS-Gxopsmc-Ttefjbi Work Phone: Comment on above: 06/11/2020: Negative 04/20/2019: Negative; Encounter for gyneco logical examination (general) (routine) without abnormal findings Robin Allred Work Phone: [facility] Work Phone: Comment on above: 06/11/2020: Negative 04/20/2019: Negative; 06/22/2021: CoTest n [id number]/11/2020: Scgryues72/28/2020: Negative; 07/13/2022: Negative 06/22/2021: CoTest tedvxcxe88/21/2021: Kchgjqst05/28/2020: Negative; Patient encounter procedure Daryn Allred Work Phone: QA-Zzuqpco-Twlhzok Work Phone: Patient encounter status Robin Calos Allred Work Phone: OM-Cseygry-Nzmfvje Work Phone: Procedures Date Procedure Procedure Detail Performing Clinician Start: 05-15-2024 Thyrotropin [Units/volume] in Serum or Plasma Robin Allred MD Work Phone: Start: 11-30-2023 Sars-cov-2 detection by dna/rna Jed Quiroz DO Work Phone: Start: 11-30-2023 End: 11-30-2023 Ecg routine ecg w/least 12 lds trcg only w/o i&r Jed Quiroz DO Work Phone: Start: 11-30-2023 Radiologic exam chest single view Hetal Quiroz DO Work Phone: Start: 11-30-2023 End: 11-30-2023 Comprehensive metabolic panel Jed Quirzo DO Work Phone: Start: 11-30-2023 Troponin I.cardiac panel - Serum or Plasma by High sensitivity method Jed Quiroz DO Work Phone: Start: 11-25-2023 Dxa bone density study 1/> sites axial skel Robin Allred MD Work Phone: Start: 08-09-2023 Us breast uni real time with image limited Rui Vargas MD Work Phone: Start: 07-28-2023 End: 07-28-2023 Screening digital breast tomosynthesis bi Jelly Veras MD Work Phone: Start: 07-25-2023 Radiologic exam upr gi trc single contrast study Robin Allred MD Work Phone: Start: 07-19-2023 Microscopic observation [Identifier] in Cervix by Cyto stain Zheng Mammo Start: 07-06-2023 XR ABDOMEN 1 VIEW RU MCWILLIAMS Start: 06-21-2023 CBC panel - Blood by Automated count ROBIN ALLRED Start: 06-21-2023 Comprehensive metabolic 2000 panel - Serum or Plasma ROBIN ALLRED Start: 06-21-2023 Lipid panel ROBIN ALLRED Start: 06-21-2023 TSH WITH REFLEX TO FREE T4 IF ABNORMAL ROBIN ALLRED Start: 06-21-2023 Lipid 1996 panel - Serum or Plasma Ru Mcwilliams MD Work Phone: Start: 06-21-2023 Thyrotropin [Units/volume] in Serum or Plasma Ru Mcwilliams MD Work Phone: Start: 04-25-2023 CBC panel - Blood by Automated count ROBIN ALLRED Start: 04-25-2023 Comprehensive metabolic 2000 panel - Serum or Plasma ROBIN ALLRED Start: 04-25-2023 Lipid panel ROBIN ALLRED Start: 04-25-2023 TSH WITH REFLEX TO FREE T4 IF ABNORMAL ROBIN ALLRED Start: 04-25-2023 Lipid 1996 panel - Serum or Plasma Maribel Allred MD Work Phone: Start: 04-25-2023 Thyrotropin [Units/volume] in Serum or Plasma Robin Allred MD Work Phone: Start: 04-14-2023 Radiologic exam abdomen 1 view Ru solano MD Work Phone: Start: 03-21-2023 Ct abdomen & pelvis w/o contrst 1/> body re Ru Mcwilliams MD Work Phone: Start: 02-10-2023 Thyrotropin [Units/volume] in Serum or Plasma Robin Allred MD Work Phone: Start: 2022 Hepatobil syst imag inc gb w/pharma intervenj Brady Li MD Work Phone: Start: 12-07-2022 Us abdominal real time w/image limited Brady Li MD Work Phone: Start: 11-22-2022 Gastric emptying imaging study Brady dutton MD Work Phone: Start: 08-03-2022 Thyrotropin [Units/volume] in Serum or Plasma Brady Li MD Work Phone: Start: 07-28-2022 Follow-up visit Start: 07-21-2022 Mammography Robin Allred MD Work Phone: Start: 07-13-2022 Microscopic observation [Identifier] in Cervix by Cyto stain Robin Allred MD Work Phone: Start: 12-17-2021 Thyrotropin [Units/volume] in Serum or Plasma Robin Allred MD Work Phone: Start: 11-20-2020 End: 11-20-2020 EKG impression Alisa Antonio Start: 05-05-2020 Assay of urea nitrogen quantitative Ru Mcwilliams II Start: 05-05-2020 Creatinine blood Ru Mcwilliams II Start: 11-20-2019 Lipid 1996 panel - Serum or Plasma Maribel Allred MD Work Phone: Start: 11-19-2019 Assay of magnesium Robin Brigida Start: 11-19-2019 CT Cardiac Scoring Robin Valdiviaer Start: 11-19-2019 Lipid panel Robin Allred Start: 11-19-2019 Xray Upper GI with KUB Robin Allred Start: 10-03-2019 Assay of urea nitrogen quantitative [id number] [facility] PROCEDURE RM Start: 10-03-2019 Creatinine blood [id number] [facility] PROCEDURE RM Start: 10-03-2019 Ct abdomen & pelvis w/contrast material [id number] UROLOGY PROCEDURE RM Start: 08-17-2019 TSH WITH REFLEX TO FREE T4 IF ABNORMAL [id number] [facility] UROLOGY PROCEDURE RM Start: 08-15-2019 End: 08-15-2019 Radiography of wrist Katalina Lópezamosfransisco Work Phone: Start: 08-15-2019 X-ray of lumbosacral spine Katalina morris Work Phone: Start: 08-15-2019 Radiography of cervical spine Katalina Espino St ain[facility]romi Work Phone: Start: 08-15-2019 Diagnostic radiography of sacroiliac joints Katalina Dooley Work Phone: Start: 08-15-2019 Radiography of hand Katalina Lópezamosfransisco Work Phone: Start: 08-10-2019 End: 08-10-2019 Colonoscopy Preeti Jay Start: 08-10-2019 Colonoscopy Robin Live Brigida Work Phone: Start: 08-01-2019 Cardiac Stress Test Robinvirgilio Allred Start: 07-20-2019 Cardiac Stress Test Robin Brigida Start: 04-20-2019 MG Breast screening Brooklynn Christensen Start: 04-20-2019 Microscopic observation [Identifier] in Cervix by Cyto stain.thin prep Brooklynn Christensen Start: 02-27-2019 TSH WITH REFLEX TO FREE T4 IF ABNORMAL Brooklynn Christensen Start: 01-30-2019 Operation on bladder Robin Live Brigida Work Phone: Comment on above: Removed cancer; Start: 01-16-2019 Xray Abdomen AP View Robin Allred Start: 01-03-2019 Assay of urea nitrogen quantitative Ru Mcwilliams II Start: 01-03-2019 Creatinine blood Ru Mcwilliams II Start: 01-03-2019 CT Urogram Ru Mcwilliams II Start: 12-22-2018 Assay of magnesium Robin Allred Start: 12-22-2018 Blood count complete auto&auto difrntl wbc Robin Allred Start: 12-22-2018 Comprehensive metabolic 2000 panel Maribel as Brigida Start: 12-22-2018 Cyanocobalamin vitamin b-12 Robin Nancy r Start: 12-22-2018 Holter Monitor 3-14 Days Robin Allred Start: 12-22-2018 TSH WITH REFLEX TO FREE T4 IF ABNORMAL Robin Allred Start: 12-22-2018 Ultrasound Kidney Bilateral Robin Cruz r Appendectomy Robin Allred Esophageal hiatus hernia repair Robin Allred Work Phone: Comment on above: 05/28/2022 with Wen; Esophagogastroduodenoscopy D ouglas Calos Allred Work Phone: H/O: tubal ligation Tubal ligati on status Yaneth Rosario MD Work Phone: End: 01-30-2019 Operation on bladder Ru Mcwilliams II Other bilateral liga tion and division of fallopian tubes Robin Allred Plan of Treatment Date Care Activity Detail Author Start: 08-09-2029 Screening for malignant neoplasm of colon [facility] Start: 07-18-2028 Screening for malignant neoplasm of cervix [facility] Start: 06-20-2028 Lipid panel Lipid Panel [facility] Start: 04-24-2028 Lipid panel Lipid Panel [facility] Start: 07-18-2026 Screening for malignant neoplasm of cervix Pap Smear [facility] Start: 11-24-2025 Screening for osteoporosis Bone Density Scan [facility] Start: 07-13-2025 Screening for malignant neoplasm of cervix [facility] Start: 05-15-2025 Thyroid stimulating hormone measurement TSH Level [facility] Start: 11-26-2024 End: 11-26-2024 Patient encounter procedure 11/26/2024 8:40 AM EDT Office Visit [facility] [address] [place] [id number] Robin Allred MD [address] [facility] [place] [address] [facility] Start: 11-19-2024 Lipid panel Lipid Panel [facility] Start: 10-22-2024 Influenza vaccination Influenza Vaccine (Season Ended) [facility] Start: 09-12-2024 End: 09-12-2024 Patient encounter procedure 09/12/2024 7:30 AM EDT Procedure Visit [facility] [address] [place] [id number] [facility] Start: 07-27-2024 Screening for malignant neoplasm of breast Mammogram [facility] Start: 07-20-2024 End: 07-20-2024 Patient encounter procedure [facility] Start: 07-19-2024 Yearly Adult Physical Yearly Adult Physical [facility] Start: 06-20-2024 Thyroid stimulating hormone measurement TSH Level [facility] Start: 05-24-2024 End: 05-24-2025 XR Knee - left 1 or 2 Views [facility] Service Area Work Phone: Comment on above: Expected: 05/24/2024, Expires: Once for 1 Occurrenc es starting 05/24/2024 until 05/24/2024 Start: 05-24-2024 End: 05-24-2025 XR Shoulder - right 2 Views [facility] Work Phone: Comment on above: Expected: 05/24/2024, Expires: Once for 1 Occurrenc es starting 05/24/2024 until 05/24/2024 Start: 05-24-2024 Subsequent hospital visit by physician [facility] Comment on above: Chronic pain of left knee Chronic right should er pain Start: 05-24-2024 End: 05-24-2024 Patient encounter procedure 05/24/2024 8:40 AM EDT Office Visit [facility] [address] [place] [address] Robin Allred MD [address] [facility], [address] [place] [address] [facility] Start: 04-24-2024 Thyroid stimulating hormone measurement TSH Level [facility] Start: 04-24-2024 End: 04-24-2024 Clinical Support 04/24/2024 8:00 AM EST Clini steffany Support [facility] [address] [place] [address] [facility] Start: 03-27-2024 End: 03-27-2024 Clinical Support 03/27/2024 8:00 AM EST Clini steffany Support [facility] [address] [place] [address] [facility] Start: 02-27-2024 End: 02-27-2024 Clinical Support 02/27/2024 8:00 AM EST Clini steffany Support [facility] [address] [place] [address] [facility] Start: 02-14-2024 End: 02-14-2024 Patient encounter procedure 02/14/2024 8:40 AM EST Office Visit [facility] [address] [place] [address] Bony Sy, CARTOGRAPHIC TECHNICIAN-HOSPICE HOME CARE COORDINATOR [address] [facility], [address] [place] [address] [facility] Start: 02-11-2024 Thyroid stimulating hormone measurement TSH Level [facility] Start: 02-10-2024 End: 02-09-2025 Heterophile Ab [Presence] in Serum, Plasma or Blood by Rapid immunoassay [facility] Work Phone: Comment on above: Expected: 02/10/2024 (Approximate), Expi res: 02/09/2025 Start: 02-10-2024 End: 02-09-2025 XR Chest 2 Views [facility] Service Area Work Phone: Comment on above: Expected: 02/10/2024, Expires: Once for 1 Occurrenc es starting 02/10/2024 until 02/10/2024 Start: 02-10-2024 Subsequent hospital visit by physician 02/10/2024 10:00 AM EST Hospital Encounter [facility] [address] [place] [address] Upper respiratory tract infection, unspecified type [facility] Comment on above: Upper respiratory tract infection, unspe cified type Start: 01-25-2024 End: 01-25-2024 Clinical Support 01/25/2024 8:00 AM EST Clini steffany Support [facility] [address] [place] [address] [facility] Start: 12-28-2023 End: 12-28-2023 Clinical Support 12/28/2023 8:00 AM EST Clini steffany Support [facility] [address] [place] [address] [facility] Start: 12-27-2023 End: 12-27-2023 ambulatory 12/27/2023 8:00 AM EST Infus ion [facility] [address] [place] [address] [facility] Start: 12-20-2023 End: 12-19-2024 CT Chest WO contrast CT chest wo IV contrast Imag ing Routine Rib pain on left side Expected: 12/20/2023, Expires: 12/19/2024 [facility] Service Area Work Phone: Comment on above: Expected: 12/20/2023, Expires: Start: 11-23-2023 End: 11-22-2024 25-hydroxyvitamin D3 [Mass/volume] in Serum or Plasma Vitamin D 25-Hydroxy,Total (for eval of Vitamin D levels) Lab Routine Hypovitaminosis D Expected: 11/23/2023 (Approximate), Expires: 11/22/2024 [facility] Work Phone: Comment on above: Expected: 11/23/2023 (Approximate), Expi res: 11/22/2024 Start: 11-23-2023 End: 11-22-2024 Cobalamin (Vitamin B12) [Mass/volume] in Serum or Plasma Vitamin B12 Lab Routine Low serum vitamin B12 Expected: 11/23/2023 (Approximate), Expires: 11/22/2024 [facility] Work Phone: Comment on above: Expected: 11/23/2023 (Approximate), Expi res: 11/22/2024 Start: 11-23-2023 End: 11-22-2024 DXA Skeletal system Views for bone density XR DEXA bone density Imaging Routine Menopause Expected: 11/23/2023, Expires: 11/22/2024 [facility] Service Area Work Phone: Comment on above: Expected: 11/23/2023, Expires: Start: 11-23-2023 End: 11-22-2024 TSH with reflex to Free T4 if abnormal TSH with reflex to Free T4 if abnormal Lab Routine Acquired hypothyroidism Expected: 11/23/2023 (Approximate), Expires: 11/22/2024 [facility] Work Phone: Comment on above: Expected: 11/23/2023 (Approximate), Expi res: 11/22/2024 Start: 11-23-2023 End: 11-23-2023 Patient encounter procedure 11/23/2023 8:00 AM EDT Office Visit [facility] [address] [place] [phone] Robin Allred MD [address] [facility], [address] [place] [address] [facility] Start: 11-08-2023 End: 11-07-2024 XR Ribs - left 2 Views XR ribs left 2 views Imaging Routine Rib pain on left side Expected: 11/08/2023, Expires: 11/07/2024 [facility] Service Area Work Phone: Comment on above: Expected: 11/08/2023, Expires: Start: 10-29-2023 End: 04-27-2024 25-hydroxyvitamin D3 [Mass/volume] in Serum or Plasma Vitamin D 25-Hydroxy,Total (for eval of Vitamin D levels) Lab Routine Hypovitaminosis D Expected: 10/29/2023, Expires: 04/27/2024 [facility] Work Phone: Comment on above: Expected: 10/29/2023, Expires: Start: 10-29-2023 End: 04-27-2024 CBC panel - Blood by Automated count CBC Lab Routine Hypovitaminosis D Expected: 10/29/2023, Expires: 04/27/2024 [facility] Work Phone: Comment on above: Expected: 10/29/2023, Expires: Start: 10-29-2023 End: 04-27-2024 Cobalamin (Vitamin B12) [Mass/volume] in Serum or Plasma Vitamin B12 Lab Routine Hypovitaminosis D Expected: 10/29/2023, Expires: 04/27/2024 [facility] Work Phone: Comment on above: Expected: 10/29/2023, Expires: Start: 10-29-2023 End: 04-27-2024 Comprehensive metabolic 2000 panel - Serum or Plasma Comprehensive Metabolic Panel Lab Routine Hypovitaminosis D Expected: 10/29/2023, Expires: 04/27/2024 [facility] Service Area Work Phone: Comment on above: Expected: 10/29/2023, Expires: Start: 10-23-2023 COVID-19 Vaccine () COVID-19 Vaccine () [facility] Start: 10-23-2023 COVID-19 Vaccine ( season) COVID-19 Vaccine () [facility] Start: 10-23-2023 Influenza vaccination [facility] Start: 10-12-2023 End: 10-12-2023 Patient encounter procedure 10/12/2023 9:00 AM EDT Office Visit [facility] [address] [place] [address] 1[address] [place] [address] [place] [address] [facility] [place] [address] [facility] Start: 09-14-2023 End: 09-14-2023 Patient encounter procedure 09/14/2023 8:30 AM EDT Procedure Visit [facility] [address] [place] [address] [facility] Start: 08-30-2023 End: 08-30-2023 Patient encounter procedure 08/30/2023 11:30 AM EDT Office Visit [facility] [address] [place] [address] Rui Vargas MD [address] [place] [address] [facility] Start: 08-19-2023 End: 08-19-2023 Patient encounter procedure 08/19/2023 10:30 AM EDT Office Visit [facility] [address] [place] [phone] Rui Vargas MD [address] [place] [address] [facility] Start: 08-09-2023 End: 08-09-2023 Patient encounter procedure 08/09/2023 8:30 AM EDT Appointment [address] [address] [facility] Start: 08-05-2023 End: 10-04-2024 US Breast - right limited BI US breast limited right Imaging Routine Breast pain, right Expected: 08/05/2023 (Approximate), Expires: 10/04/2024 [facility] Service Area Work Phone: Comment on above: Expected: 08/05/2023 (Approximate), Expi res: 10/04/2024 Start: 08-05-2023 End: 08-05-2023 Patient encounter procedure 08/05/2023 10:00 AM EDT Office Visit [facility] [address] [place] [phone] Rui Vargas MD [address] [place] [address] [facility] Start: 08-04-2023 Thyroid stimulating hormone measurement TSH Level [facility] Start: 08-02-2023 End: 08-02-2023 Patient encounter procedure 08/02/2023 8:30 AM EDT Office Visit [facility] [address] [place] [address] Jelly Veras MD [address] [facility], [address] [place] [address] [facility] Start: 07-28-2023 End: 07-28-2023 Patient encounter procedure 07/28/2023 7:30 AM EDT Appointment [address] [address] [facility] Start: 07-27-2023 End: 07-27-2023 Patient encounter procedure 07/27/2023 7:45 AM EDT Appointment [facility] [address] [place] [phone] [facility] Start: 07-25-2023 End: 07-25-2023 Patient encounter procedure 07/25/2023 9:30 AM EDT Appointment [address] [address] [facility] Start: 07-22-2023 Screening for malignant neoplasm of breast Mammogram [facility] Start: 07-21-2023 End: 07-21-2023 Patient encounter procedure 07/21/2023 2:00 PM EDT Office Visit [facility] [address] [place] [address] Robin Allred MD [address] [facility], [address] [place] [address] [facility] Start: 07-21-2023 End: 07-20-2024 Sjogrens syndrome-A extractable nuclear Ab [Units/volume] in Serum by Immunoassay [facility] Service Area Work Phone: Comment on above: Expected: 07/21/2023 (Approximate), Expi res: 07/20/2024 Start: 07-21-2023 End: 07-20-2024 Sjogrens syndrome-B extractable nuclear Ab [Units/volume] in Serum by Immunoassay [facility] Work Phone: Comment on above: Expected: 07/21/2023 (Approximate), Expi res: 07/20/2024 Start: 07-21-2023 End: 07-20-2024 XR Abdomen and RF Gastrointestinal tract upper W contrast PO FL upper GI w KUB Imaging Routine Epigastric pain Expected: 07/21/2023, Expires: 07/20/2024 [facility] Work Phone: Comment on above: Expected: 07/21/2023, Expires: Start: 07-20-2023 End: 07-20-2023 Patient encounter procedure 07/20/2023 7:30 AM EDT Appointment [address] [phone] [facility] Start: 07-19-2023 End: 08-18-2024 DBT Breast - bilateral BI mammo bilateral screening tomosynthesis Imaging Routine Encounter for screening mammogram for malignant neoplasm of breast Expected: 07/19/2023, Expires: 08/18/2024 [facility] Service Area Work Phone: Comment on above: Expected: 07/19/2023, Expires: Start: 07-19-2023 End: 07-18-2024 US Pelvis transvaginal US PELVIS TRANSABDOMINAL WITH TRANSVAGINAL Imaging Routine Postmenopausal bleeding Expected: 07/19/2023, Expires: 07/18/2024 [facility] Work Phone: Comment on above: Expected: 07/19/2023, Expires: Start: 07-19-2023 Patient encounter procedure ANNUAL, Provider: Jelly Veras, Status: Pen, Time: 8:30 AM [address] Work Phone: Start: 07-19-2023 End: 07-19-2023 Patient encounter procedure 07/19/2023 8:30 AM EDT Office Visit [facility] [place] [address] [address] [place] [address] Jelly Veras MD [facility] [address] [facility], [address] [address] [facility] Start: 07-06-2023 End: 07-06-2023 Patient encounter procedure [facility] Start: 06-21-2023 End: 12-21-2023 CBC panel - Blood by Automated count CBC Lab Routine Acquired hypothyroidism Weight loss Expected: 06/21/2023, Expires: 12/21/2023 [facility] Work Phone: Comment on above: Expected: 06/21/2023, Expires: Start: 06-21-2023 End: 12-21-2023 Comprehensive metabolic 2000 panel - Serum or Plasma Comprehensive Metabolic Panel Lab Routine Acquired hypothyroidism Weight loss Expected: 06/21/2023, Expires: 12/21/2023 [facility] Service Area Work Phone: Comment on above: Expected: 06/21/2023, Expires: Start: 06-21-2023 End: 12-21-2023 Lipid 1996 panel - Serum or Plasma Lipid Panel Lab Routine Acquired hypothyroidism Weight loss Expected: 06/21/2023, Expires: 12/21/2023 [facility] Work Phone: Comment on above: Expected: 06/21/2023, Expires: Start: 06-21-2023 End: 12-21-2023 TSH with reflex to Free T4 if abnormal TSH with reflex to Free T4 if abnormal Lab Routine Acquired hypothyroidism Weight loss Expected: 06/21/2023, Expires: 12/21/2023 [facility] Work Phone: Comment on above: Expected: 06/21/2023, Expires: Start: 04-28-2023 End: 04-28-2023 Patient encounter procedure 04/28/2023 9:20 AM EST Office Visit [facility] [address] [facility] [address] [place] [address] Robin Allred MD [address] [facility], [facility] [address] [place] [address] [facility] Start: 04-15-2023 End: 04-15-2023 Patient encounter procedure 04/15/2023 8:00 AM EST Office Visit [facility] [address] [facility] [address] [place] [address] Robin Allred MD [address] [facility], [address] [place] [address] [facility] Start: 04-14-2023 End: 04-14-2024 XR Abdomen Single view [facility] Work Phone: Comment on above: Expected: 04/14/2023, Expires: 5 Once for 1 Occurrenc es starting 04/14/2023 until 04/14/2023 Start: 04-06-2023 End: 04-06-2024 XR Abdomen Single view XR abdomen 1 view Imaging Routine Left renal stone Expected: 04/06/2023, Expires: 04/06/2024 [facility] Service Area Work Phone: Comment on above: Expected: 04/06/2023, Expires: 5 Start: 03-31-2023 End: 03-31-2023 Patient encounter procedure 03/31/2023 7:30 AM EST Office Visit [facility] [address] [facility] [address] [place] [address] Ru Mcwilliams MD [address] [place] [address] [facility] Start: 03-16-2023 End: 03-16-2023 Patient encounter procedure 03/16/2023 8:00 AM EST Office Visit [facility] [address] [facility] [address] [place] [phone] Robin Allred MD [address] [facility], [address] [place] [address] [facility] Start: 03-10-2023 End: 03-17-2023 Bacteria identified in Urine by Culture Urine Culture Microbiology Routine Gross hematuria Expected: 03/10/2023 (Approximate), Expires: 03/17/2023 [facility] Work Phone: Comment on above: Expected: 03/10/2023 (Approximate), Expi res: 03/17/2023 Start: 03-10-2023 End: 03-10-2024 CT Kidney and Ureter and Urinary bladder 3D post processing WO and W contrast IV CT urography w 3D volume rendered imaging Imaging Routine History of bladder cancer Gross hematuria Expected: 03/10/2023, Expires: 03/10/2024 [facility] Work Phone: Comment on above: Expected: 03/10/2023, Expires: Start: 03-10-2023 End: 03-10-2023 Patient encounter procedure 03/10/2023 8:40 AM EST Office Visit [place] [address] [place] [address] Robin Allred MD [address] [facility], [address] [place] [address] [facility] Start: 02-18-2023 End: 02-18-2023 Patient encounter procedure 02/18/2023 8:40 AM EST Office Visit [place] [address] [place] [address] Robin Allred MD [address] [facility], [address] [place] [address] [facility] Start: 02-10-2023 End: 02-11-2024 CBC panel - Blood by Automated count CBC Lab Routine Moderate protein-calorie malnutrition (CMS/HCC) Expected: 02/10/2023 (Approximate), Expires: 02/11/2024 [facility] Work Phone: Comment on above: Expected: 02/10/2023 (Approximate), Expi res: 02/11/2024 Start: 02-10-2023 End: 02-11-2024 Comprehensive metabolic 2000 panel - Serum or Plasma Comprehensive Metabolic Panel Lab Routine Moderate protein-calorie malnutrition (CMS/HCC) Expected: 02/10/2023 (Approximate), Expires: 02/11/2024 [facility] Work Phone: Comment on above: Expected: 02/10/2023 (Approximate), Expi res: 02/11/2024 Start: 02-10-2023 End: 02-11-2024 Triiodothyronine (T3) [Mass/volume] in Serum or Plasma Triiodothyronine, Total Lab Routine Moderate protein-calorie malnutrition (CMS/HCC) Expected: 02/10/2023 (Approximate), Expires: 02/11/2024 [facility] Work Phone: Comment on above: Expected: 02/10/2023 (Approximate), Expi res: 02/11/2024 Start: 02-10-2023 End: 02-11-2024 TSH with reflex to Free T4 if abnormal TSH with reflex to Free T4 if abnormal Lab Routine Moderate protein-calorie malnutrition (CMS/HCC) Expected: 02/10/2023 (Approximate), Expires: 02/11/2024 [facility] Work Phone: Comment on above: Expected: 02/10/2023 (Approximate), Expi res: 02/11/2024 Start: 01-20-2023 End: 01-21-2024 25-hydroxyvitamin D3 [Mass/volume] in Serum or Plasma Vitamin D 25-Hydroxy,Total (for eval of Vitamin D levels) Lab Routine Moderate protein-calorie malnutrition (CMS/HCC) Expected: 01/20/2023 (Approximate), Expires: 01/21/2024 [facility] Service Area Work Phone: Comment on above: Expected: 01/20/2023 (Approximate), Expi res: 01/21/2024 Start: 01-20-2023 End: 01-21-2024 Beta hydroxybutyrate [Mass or Moles/volume] in Serum or Plasma Beta Hydroxybutyrate Lab Routine Moderate protein-calorie malnutrition (CMS/HCC) Expected: 01/20/2023 (Approximate), Expires: 01/21/2024 [facility] Work Phone: Comment on above: Expected: 01/20/2023 (Approximate), Expi res: 01/21/2024 Start: 01-20-2023 End: 01-21-2024 CBC W Auto Differential panel - Blood CBC and Auto Differential Lab Routine Moderate protein-calorie malnutrition (CMS/HCC) Expected: 01/20/2023 (Approximate), Expires: 01/21/2024 [facility] Work Phone: Comment on above: Expected: 01/20/2023 (Approximate), Expi res: 01/21/2024 Start: 01-20-2023 End: 01-21-2024 Cobalamin (Vitamin B12) [Mass/volume] in Serum or Plasma Vitamin B12 Lab Routine Moderate protein-calorie malnutrition (CMS/HCC) Expected: 01/20/2023 (Approximate), Expires: 01/21/2024 [facility] Work Phone: Comment on above: Expected: 01/20/2023 (Approximate), Expi res: 01/21/2024 Start: 01-20-2023 End: 01-21-2024 Comprehensive metabolic 2000 panel - Serum or Plasma Comprehensive Metabolic Panel Lab Routine Moderate protein-calorie malnutrition (CMS/HCC) Expected: 01/20/2023 (Approximate), Expires: 01/21/2024 [facility] Work Phone: Comment on above: Expected: 01/20/2023 (Approximate), Expi res: 01/21/2024 Start: 01-20-2023 End: 01-21-2024 Ferritin [Mass/volume] in Serum or Plasma Ferritin Lab Routine Moderate protein-calorie malnutrition (CMS/HCC) Expected: 01/20/2023 (Approximate), Expires: 01/21/2024 [facility] Work Phone: Comment on above: Expected: 01/20/2023 (Approximate), Expi res: 01/21/2024 Start: 01-20-2023 End: 01-21-2024 Prealbumin [Mass/volume] in Serum or Plasma Prealbumin Lab Routine Moderate protein-calorie malnutrition (CMS/HCC) Expected: 01/20/2023 (Approximate), Expires: 01/21/2024 [facility] Work Phone: Comment on above: Expected: 01/20/2023 (Approximate), Expi res: 01/21/2024 Start: 01-20-2023 End: 01-21-2024 Transferrin [Mass/volume] in Serum or Plasma Transferrin Lab Routine Moderate protein-calorie malnutrition (CMS/HCC) Expected: 01/20/2023 (Approximate), Expires: 01/21/2024 [facility] Work Phone: Comment on above: Expected: 01/20/2023 (Approximate), Expi res: 01/21/2024 Start: 12-20-2022 End: 12-20-2022 Patient encounter procedure 12/20/2022 8:40 AM EDT Office Visit [facility] [address] [place] [address] Robin Allred MD [address] [facility], [address] [place] [address] [facility] Start: 12-17-2022 Thyroid stimulating hormone measurement TSH Level [facility] Start: 12-02-2022 FUV, Provider: Brady Li, Status: Pen, Time: 1:30 PM FUV, Provider: Brady Li, Status: Pen, Time: 1:30 PM [facility] Work Phone: Start: 12-02-2022 End: 12-03-2023 US Abdomen RUQ US right upper quadrant Imag ing Routine Postprandial epigastric pain Expected: 12/02/2022, Expires: 12/03/2023 [facility] Service Area Work Phone: Comment on above: Expected: 12/02/2022, Expires: Start: 11-04-2022 NPV, Provider: Brady Li, Status: Pen, Time: 9:30 AM NPV, Provider: Brady Li, Status: Pen, Time: 9:30 AM [id number] Work Phone: Start: 10-22-2022 COVID-19 Vaccine ( season) COVID-19 Vaccine ( season) [facility] Start: 10-22-2022 Influenza vaccination [facility] Start: 10-20-2022 CYSTOSCOPY, Provider: UATSDIN UROLOGY PROCEDURE RM,[id number], Status: Pen, Time: 7:30 AM CYSTOSCOPY, Provider: UATSDIN UROLOGY PROCEDURE RM,[id number], Status: Pen, Time: 7:30 AM [id number] Work Phone: Start: 10-13-2022 CYSTOSCOPY, Provider: UATSDIN UROLOGY PROCEDURE RM,[id number], Status: Pen, Time: 7:30 AM CYSTOSCOPY, Provider: UATSDIN UROLOGY PROCEDURE RM,[id number], Status: Pen, Time: 7:30 AM MG-CT Surgery-[facility] Work Phone: Start: 07-28-2022 VIRFUVJASWANT, Provider: Yaneth Rosario, Status: Pen, Time: 1:45 PM VIRFUVHOME, Provider: Yaneth Rosario, Status: Pen, Time: 1:45 PM [facility] [address] [place] Work Phone: Start: 07-27-2022 FUV, Provider: Preeti Jay, Status: Pen, Time: 2:00 PM FUV, Provider: Preeti Jay, Status: Pen, Time: 2:00 PM [facility] [address] [place] Work Phone: Start: 07-13-2022 Patient encounter procedure ANNUAL, Provider: Jelly Veras, Status: Pen, Time: 8:30 AM [facility] [address] Work Phone: Start: 07-08-2022 VIRFUVJASWANT, Provider: Yaneth Rosario, Status: Pen, Time: 11:15 AM VIRFUVHOME, Provider: Yaneth Rosario, Status: Pen, Time: 11:15 AM [facility] [address] Work Phone: Start: 06-23-2022 Patient encounter procedure ANNUAL, Provider: Jelly Veras, Status: Pen, Time: 8:30 AM [facility] [address] [place] Work Phone: Start: 06-09-2022 POV, Provider: Yaneth Rosario, Status: Pen, Time: 2:45 PM POV, Provider: Yaneth Rosario, Status: Pen, Time: 2:45 PM [facility] Work Phone: Start: 05-28-2022 SURGCMC, Provider: Yaneth Rosario, Status: Pen, Time: 11:00 AM [facility]: Yaneth Rosario, Status: Pen, Time: 11:00 AM [facility] Work Phone: Start: 05-27-2022 FUV, Provider: Robin Allred, Status: Pen, Time: 8:00 AM FUV, Provider: Robin Allred, Status: Pen, Time: 8:00 AM [facility] Work Phone: Start: 05-19-2022 NPV, Provider: Yaneth Rosario, Status: Pen, Time: 12:15 PM NPV, Provider: Yaneth Rosario, Status: Pen, Time: 12:15 PM [place] [address] Work Phone: Start: 04-14-2022 CYSTOSCOPY, Provider: UATSDIN UROLOGY PROCEDURE RM,[id number], Status: Pen, Time: 7:30 AM CYSTOSCOPY, Provider: UATSDIN UROLOGY PROCEDURE RM,[id number], Status: Pen, Time: 7:30 AM JZ-Sodhjan-Dnzylq d Work Phone: Start: 02-18-2022 NPV, Provider: Preeti Jay, Status: Pen, Time: 9:30 AM NPV, Provider: Preeti Jay, Status: Pen, Time: 9:30 AM KW-Szwvpgq-Avyjbh d Work Phone: Start: 01-26-2022 FUV, Provider: Edison Olivarez, Status: Pen, Time: 7:40 AM FUV, Provider: Edison Olivarez, Status: Pen, Time: 7:40 AM [facility] Work Phone: Start: 01-18-2022 PFT, Provider: UATSDIN PFT ROOM,[id number], Status: Pen, Time: 10:00 AM PFT, Provider: UATSDIN PFT ROOM,[id number], Status: Pen, Time: 10:00 AM [facility] 120 Work Phone: Start: 12-28-2021 PFT, Provider: UATSDIN PFT ROOM,[id number], Status: Pen, Time: 9:00 AM PFT, Provider: UATSDIN PFT ROOM,[id number], Status: Pen, Time: 9:00 AM [facility] 120 Work Phone: Start: 12-15-2021 PFT, Provider: UATSDIN PFT ROOM,[id number], Status: Pen, Time: 10:00 AM PFT, Provider: UATSDIN PFT ROOM,[id number], Status: Pen, Time: 10:00 AM [facility] Work Phone: Start: 2021 CYSTOSCOPY, Provider: UATSDIN UROLOGY PROCEDURE RM,[id number], Status: Pen, Time: 8:00 AM CYSTOSCOPY, Provider: UATSDIN UROLOGY PROCEDURE RM,[id number], Status: Pen, Time: 8:00 AM [facility] Work Phone: Start: 12-07-2021 PFT, Provider: UATSDIN PFT ROOM,[id number], Status: Pen, Time: 10:00 AM PFT, Provider: UATSDIN PFT ROOM,[id number], Status: Pen, Time: 10:00 AM [facility] Work Phone: Start: 11-26-2021 EPV, Provider: Robin Allred, Status: Pen, Time: 8:00 AM EPV, Provider: Robin Allred, Status: Pen, Time: 8:00 AM [facility] Work Phone: Start: 10-22-2021 Influenza vaccination Sequential Influenza Vaccine (#1) [facility] Start: 09-14-2021 EPV, Provider: Yovani Segovia, Status: Pen, Time: 9:15 AM EPV, Provider: Yovani Segovia, Status: Pen, Time: 9:15 AM [facility] Work Phone: Start: 08-05-2021 CYSTOSCOPY, Provider: UATSDIN UROLOGY PROCEDURE RM,[id number], Status: Pen, Time: 11:00 AM CYSTOSCOPY, Provider: UATSDIN UROLOGY PROCEDURE RM,[id number], Status: Pen, Time: 11:[address] Work Phone: Start: 07-21-2021 FUV, Provider: Jelly Veras, Status: Pen, Time: 8:30 AM FUV, Provider: Jelly Veras, Status: Pen, Time: 8:[address] Work Phone: Start: 07-13-2021 CYSTOSCOPY, Provider: UATSDIN UROLOGY PROCEDURE RM,[id number], Status: Pen, Time: 7:30 AM CYSTOSCOPY, Provider: UATSDIN UROLOGY PROCEDURE RM,[id number], Status: Pen, Time: 7:30 AM [facility] Work Phone: Start: 06-22-2021 Patient encounter procedure ANNUAL, Provider: Jelly Veras, Status: Pen, Time: 8:30 AM [facility] Work Phone: Start: 06-12-2021 Patient encounter procedure [facility] Start: 05-25-2021 EPV, Provider: Robin Allred, Status: Pen, Time: 8:00 AM EPV, Provider: Robin Allred, Status: Pen, Time: 8:00 AM [facility] Work Phone: Start: 01-23-2021 FUV, Provider: Robin Allred, Status: Pen, Time: 8:40 AM FUV, Provider: Robin Allred, Status: Pen, Time: 8:40 AM [facility] Work Phone: Start: 01-19-2021 CYSTOSCOPY, Provider: UATSDIN UROLOGY PROCEDURE RM,[id number], Status: Pen, Time: 7:30 AM CYSTOSCOPY, Provider: UATSDIN UROLOGY PROCEDURE RM,[id number], Status: Pen, Time: 7:30 AM MZ-Swoettf-Vtzqwn d Work Phone: Start: 01-19-2021 Patient encounter procedure [facility] Start: 12-22-2020 FUV, Provider: Robin Allred, Status: Pen, Time: 3:00 PM FUV, Provider: Robin Allred, Status: Pen, Time: 3:00 PM [facility] Work Phone: Start: 12-18-2020 NPVCANCER, Provider: Alisa Cesar, Status: Pen, Time: 8:30 AM NPVCANCER, Provider: Alisa Cesar, Status: Pen, Time: 8:30 AM [facility] Work Phone: Start: 12-18-2020 Patient encounter procedure [facility] Start: 11-20-2020 End: 11-21-2021 Casirivimab - Imdevimab (EUA ) / NaCL 0.9% IVPB. 100 mL ; 100 mL -- Casirivimab. 600 mg -- Imdevimab. 600 mg IntraVenous Piggyback OnceRecommended Infusion Time: 30 minute(s)Clinician Notes: The Provider has given and reviewed the EUA fact sheet with the patient/caregiver, informed patient/caregiver of alternatives, and informed that the product is an unapproved drug that is authorized under Emergency Use Authorization.Monitor Patient for at least 1 hour post infusion Start: 20-Nov-2020 End: 20-Nov-2021 Ordered: 20-Nov-2020 Alisa Antonio Intent Comments: The Provider has given and reviewed the EUA fact sheet with the patient/caregiver, informed patient/caregiver of alternatives, and informed that the product is an unapproved drug that is authorized under Emergency Use Authorization.Monitor Patient for at least 1 hour post infusion [facility] Comment on above: The Provider has given and reviewed the EUA fact sheet with the patient/caregiver, informed patient/caregiver of alternatives, and informed that the product is an unapproved drug that is authorized under Emergency Use Authorization.Monitor Patient for at least 1 hour post infusion Start: 10-13-2020 MAMMOGVST, Provider: Daniela Johnson, Status: Pen, Time: 9:00 AM MAMMOGVST, Provider: Daniela Johnson, Status: Pen, Time: 9:00 AM MP[facility]into[facility]omer Work Phone: Start: 10-10-2020 FUV, Provider: Santos Cameron, Status: Pen, Time: 8:45 AM FUV, Provider: Santos Cameron, Status: Pen, Time: 8:45 AM KC-Jvarifh-Jbbnpu d Work Phone: Start: 10-06-2020 NPVGENERAL, Provider: Ru Rios, Status: Pen, Time: 11:00 AM NPVGENERAL, Provider: Ru Rios, Status: Pen, Time: 11:00 AM CO-Sytfdzb-Hhfvur d Work Phone: Start: 08-14-2020 TSH n TSH [facility] Start: 12-18-2019 Past history of procedure [facility] Comment on above: Left ESWL Cystoscopy with Left RPG and Ureteroscopy with Lt ESWL Start: 11-23-[address] Cardiac Scoring [facility] Work Phone: Start: 11-23-2019 Xray Upper GI with KUB [facility] Work Phone: Start: 10-23-2019 Influenza vaccination INFLUENZA VACCINE (Season Ended) [facility] Start: 10-23-2019 Influenza vaccination given Sequential Influenza Vaccine (#1) [facility] Start: 10-03-2019 Assay of urea nitrogen quantitative Blood Urea Nitrogen, Serum CW-Lkkrfjd-Udzvhq d Work Phone: Start: 10-03-2019 Creatinine measurement, serum Creatinine, Serum OJ-Eyvncqu-Uplnay d Work Phone: Start: 10-03-2019 Ct abdomen & pelvis w/contrast material CT Abdomen and Pelvis with IV Contrast HZ-Ihmgqpb-Dthisv d Work Phone: Start: 09-10-2019 End: 09-10-2019 Office Visit 09/10/2019 Office Visit Rheumatology Miah Ashley, Katalina Espino, DO [address] [place] [address] [facility] Start: 04-20-2019 MG Breast screening Mamm - Screening Mammogram w / Tomosynthesis [facility] Work Phone: Start: 04-20-2019 Microscopic observation Cyto stain.thin prep Nom (Cvx) 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, 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 [facility] Work Phone: Start: 01-16-2019 Xray Abdomen AP View VF-Danpfrv-Bjmeoy d Work Phone: Start: 01-08-2019 CT Urogram PK-Xdbeahs-Qrwoyi d Work Phone: Start: 10-22-2017 Influenza vaccination [facility] Start: 07-28-2017 End: 07-28-2017 Ambulatory 07/28/2017 [place] [address] [place] [id number] [phone] [facility] Start: 07-14-2017 End: 07-14-2017 Ambulatory 07/14/2017 Office Visit Spor Jed Thornton MD [address] [place] [address] [phone] [facility] Start: 2016 Administration of herpes zoster vaccine Zoster Vaccines (1 of 2) [facility] Start: 2016 Colonoscopy COLORECTAL CANCER SCREENING DISCUSSION [facility] Start: 2016 Protein mass conc COLON CANCER SCREENING DISCUSSION [facility] Work Phone: Start: 2016 Screening for malignant neoplasm of colon [facility] Start: 2016 Zoster vaccine hzv live for subcutaneous use ZOSTER (SHINGLES) VACCINE (1 of 2) [facility] Start: 2016 Zoster Vaccines (1 of 2) Zoster Vaccines (1 of 2) [facility] Start: 2006 Fasting lipid profile LIPID SCREENING [facility] Work Phone: Start: 2006 Protein mass conc MAMMOGRAM SCREENING DISCUSSION [facility] Work Phone: Start: 2006 Screening mammography MAMMOGRAM SCREENING DISCUSSION [facility]ron[facility]AA[facility] Start: 1988 DTaP/Tdap/Td Vaccines (1 - Tdap) DTaP/Tdap/Td Vaccines (1 - Tdap) [facility] Start: 12-10-1987 Screening for malignant neoplasm of cervix [facility] Start: 1985 Hepatitis A Vaccines (1 of 2 - Risk 2-dose series) Hepatitis A Vaccines (1 of 2 - Risk 2-dose series) [facility] Start: 1985 Hepatitis B Vaccines (1 of 3 - 19+ 3-dose series) Hepatitis B Vaccines (1 of 3 - 19+ 3-dose series) [facility] Start: 1985 Pneumococcal vaccination Pneumococcal Vaccine (1 of 2 - PCV) [facility] Start: 1985 Third diphtheria, tetanus and acellular pertussis (DTaP) vaccination TDAP (ADULT) [facility] Work Phone: Start: 1984 Diabetes mellitus screening Diabetes Screening [facility] Start: 1984 Hepatitis C antibody, confirmatory test Hepatitis C Screening [facility] Start: 1984 Hepatitis C screening Hepatitis C Screening [facility] Start: 1984 Tetanus vaccination TETANUS [facility] Work Phone: Start: 1982 COVID-19 Vaccine (1 of 2) COVID-19 Vaccine (1 of 2) [facility] Start: 1981 HIV screening [facility] Start: 12-10-1979 HIV screening HIV SCREENING DISCUSSION [facility] Work Phone: Start: 1978 Adolescent depression screening assessment Depression Screening (PHQ9) [facility] Start: 1978 Depression screening using PHQ-9 (Patient Health Questionnaire 9) score Depression Screening (PHQ-2/9) [facility] Start: 1972 Pneumococcal Vaccine: Pediatrics (0 to 5 Years) and At-Risk Patients (6 to 64 Years) (1 - PCV) Pneumococcal Vaccine: Pediatrics (0 to 5 Years) and At-Risk Patients (6 to 64 Years) (1 - PCV) [facility] Start: 1972 Pneumococcal Vaccine: Pediatrics (0 to 5 Years) and At-Risk Patients (6 to 64 Years) (1 of 2 - PCV) Pneumococcal Vaccine: Pediatrics (0 to 5 Years) and At-Risk Patients (6 to 64 Years) (1 of 2 - PCV) [facility] Start: 12-10-1971 COVID-19 Vaccine (#1) COVID-19 Vaccine (#1) [facility] Start: 1969 History and physical examination, annual for health maintenance Wellness Visit [facility] Start: 12-10-1967 MMR Vaccines (1 of 1 - Standard series) MMR Vaccines (1 of 1 - Standard series) [facility] Start: 06-10-1967 COVID-19 Vaccine (#1) COVID-19 Vaccine (#1) [facility] Start: 1966 Hepatitis B Vaccines (1 of 3 - 3-dose series) Hepatitis B Vaccines (1 of 3 - 3-dose series) [facility] Start: 1966 HIV screening HIV Screening [facility] Start: 1966 Screening colonoscopy [facility] Start: 1966 Screening for malignant neoplasm of cervix PAP SMEAR [facility] Start: 1966 Screening for malignant neoplasm of colon [facility] Start: 1966 Screening mammography Mammogram [facility] Start: 1966 Tetanus vaccination [facility] Start: 1966 Yearly Adult Physical Yearly Adult Physical [facility] End: 12-29-2023 CT Chest WO contrast [facility] Work Phone: Comment on above: Once for 1 Occurrences starting 12/29/19 until 12/29/2023 End: 03-21-2023 CT Kidney and Ureter and Urinary bladder 3D post processing WO and W contrast IV [facility] Work Phone: Comment on above: Once for 1 Occurrences starting 03/21/19 until 03/21/2023 Cytology Cervical or vaginal smear or scraping study THINPREP PAP Pathology and Cytology Routine Encounter for gynecological examination without abnormal finding Pap smear for cervical cancer screening 07/19/2023 8:37 AM EDT [facility] Work Phone: End: 11-30-2023 ECG 12 lead ECG 12 lead ECG STAT Every 1 hour for 2 Occurrences starting 11/30/2023 until 11/30/2023 [facility] Work Phone: Comment on above: Every 1 hour for 2 Occurrences starting 11/30/2023 until 11/30/2023 H/O: surgery S/P bladder tumo r excision with fulguration [facility] H/O: tubal ligation History of tubal liga tion [facility] History of appendectomy History of appendectomy [facility] History of colonoscopy Status post colonoscopy [facility] End: 08-23-2023 MR Breast - bilateral W contrast IV [facility] Work Phone: Comment on above: Once for 1 Occurrences starting 08/23/19 until 08/23/2023 Past history of procedure History of esophagogastroduodenoscopy (EGD) [facility] End: 07-20-2023 US Pelvis transvaginal [facility] Work Phone: Comment on above: Once for 1 Occurrences starting 07/20/19 until 07/20/2023 End: 07-06-2023 XR Abdomen Single view [facility] Work Phone: Comment on above: Once for 1 Occurrences starting 07/06/19 until 07/06/2023 End: 11-08-2023 XR Ribs Views and Chest PA [facility] Work Phone: Comment on above: Once for 1 Occurrences starting 11/08/19 until 11/08/2023 NEGATED: Highlighted row has been ruled out! Planned Goals not documented [facility] Work Phone: Immunizations Immunization Date Immunization Notes Care Provider Fa ce 03-26-2019 bacillus calmette-gu tracey vaccine; Translations: [BCG Vaccine Injection Injectable] Brooklynn Christensen [facility] Work Phone: Comment on above: Series: Payers Date Payer Category Payer Self-pay 2022 Managed Care (Private) 1.2.8 [id number] 2017 Unknown [id number] 2017 Unknown 2017 Unknown [id number] 1966 Unknown [id number] 2.16.84 0.1.653071.3.579.2.717 1966 Unknown [id number] 2.16.84 0.1.059361.3.579.2.717 1966 Unknown [id number] 2.16.84 0.1.249943.3.579.2.717 1966 Unknown [id number] 2.16.8 40.1.062741.3.579.2.1046 1966 Unknown [id number] 2.16.8 40.1.476331.3.579.2.1046 1966 Unknown [id number] 2.16.8 40.1.411036.3.579.2.1046 1966 Unknown [id number] 2.16.8 40.1.433165.3.579.2.1069 1966 Unknown [id number] 2.16.8 40.1.286060.3.579.2.1069 1966 Unknown [id number] 2.16.8 40.1.304476.3.579.2.1069 1966 Unknown [id number] 2.16.8 40.1.834410.3.579.2.1069 1966 Unknown [id number] 2.16.8 40.1.247664.3.579.2.1069 1966 Unknown [id number] 2.16.8 40.1.943312.3.579.2.1069 1966 Unknown [id number] 2.16.8 40.1.623451.3.579.2.1069 1966 Unknown [id number] 2.16.8 40.1.448757.3.579.2.1069 1966 Unknown [id number] 2.16.8 40.1.011307.3.579.2.1069 1966 Unknown [id number] 2.16.8 40.1.911725.3.579.2.9 1966 Unknown [id number] 2.16.8 40.1.908082.3.579.2.1069 1966 Unknown [id number] 2.16.8 40.1.375639.3.579.2.9 1966 Unknown [id number] 2.16.8 40.1.746571.3.579.2.9 1966 Unknown [id number] 2.16.8 40.1.128087.3.579.2.3 1966 Unknown [id number] 2.16. 840.1.868560.3.579.2.5 1966 Unknown [id number] 2.16.8 40.1.846843.3.579.2.5 1966 Unknown [id number] 2.16.8 40.1.861935.3.579.2.5 1966 Unknown [id number] 2.16.8 40.1.895030.3.579.2.5 1966 Unknown [id number] 2.16.8 40.1.539845.3.579.2.1245 1966 Unknown [id number] 2.16.8 40.1.674933.3.579.2.3 1966 Unknown [id number] 2.16.8 40.1.696402.3.579.2.1243 1966 Unknown [id number] 2.16.8 40.1.547557.3.579.2.1243 1966 Unknown [id number] 2.16.8 40.1.006351.3.579.2.1243 1966 Unknown [id number] 2.16.8 40.1.469562.3.579.2.3 1966 Unknown [id number] 2.16.8 40.1.316413.3.579.2.1243 1966 Unknown [id number] 2.16.8 40.1.439344.3.579.2.1243 1966 Unknown [id number] 2.16.8 40.1.423948.3.579.2.3 1966 Unknown [id number] 2.16.8 40.1.528110.3.579.2.1243 1966 Unknown [id number] 2.16.8 40.1.155441.3.579.2.3 1966 Unknown [id number] 2.16.8 40.1.618930.3.579.2.1243 1966 Unknown [id number] 2.16.8 40.1.016956.3.579.2.3 1966 Unknown [id number] 2.16.8 40.1.362676.3.579.2.1243 1966 Unknown [id number] 2.16.8 40.1.005228.3.579.2.3 1966 Unknown [id number] 2.16.8 40.1.541292.3.579.2.3 1966 Unknown [id number] 2.16.8 40.1.785941.3.579.2.1243 1966 Unknown [id number] 2.16.8 40.1.711420.3.579.2.3 1966 Unknown [id number] 2.16.8 40.1.741929.3.579.2.1243 1966 Unknown [id number] 2.16. 840.1.834964.3.579.2.1244 1966 Unknown [id number] 2.16. 840.1.962505.3.579.2.1244 1966 Unknown [id number] 2.16. 840.1.633927.3.579.2.1244 1966 Unknown [id number] 2.16. 840.1.349985.3.579.2.1244 1966 Unknown [id number] 2.16. 840.1.352476.3.579.2.1244 1966 Unknown [id number] 2.16. 840.1.642285.3.579.2.1244 1966 Unknown [id number] 2.16. 840.1.813511.3.579.2.1244 1966 Unknown [id number] 2.16. 840.1.829275.3.579.2.1244 1966 Unknown [id number] 2.16. 840.1.997031.3.579.2.1244 1966 Unknown [id number] 2.16. 840.1.120380.3.579.2.1244 1966 Unknown [id number] 2.16. 840.1.845534.3.579.2.1244 1966 Unknown [id number] 2.16. 840.1.551364.3.579.2.1244 1966 Unknown [id number] 2.16.8 40.1.269903.3.579.2.1244 1966 Unknown [id number] 2.16.8 40.1.137187.3.579.2.1244 1966 Unknown [id number] 2.16.8 40.1.003204.3.579.2.1244 1966 Unknown [id number] 2.16.8 40.1.146509.3.579.2.1244 1966 Unknown [id number] 2.16.8 40.1.177515.3.579.2.1244 Unknown [id number] 2.16.8 40.1.892327.3.579.2.243 Unknown [id number] 2.16.8 40.1.931088.3.579.2.462 Unknown [id number] 2.16.8 40.1.347097.3.579.2.462 Unknown [id number] 2.16.8 40.1.151412.3.579.2.462 Unknown [id number] 2.16.8 40.1.477020.3.579.2.462 Unknown [id number] 2.16.8 40.1.580442.3.579.2.462 Unknown [id number] 2.16.8 40.1.424903.3.579.2.462 Unknown [id number] 2.16.8 40.1.170662.3.579.2.462 Unknown [id number] 2.16.8 40.1.972071.3.579.2.462 Unknown [id number] 2.16.8 40.1.383950.3.579.2.462 Unknown [id number] 2.16.8 40.1.611660.3.579.2.462 Unknown [id number] 2.16.8 40.1.396914.3.579.2.462 Unknown [id number] 2.16.8 40.1.886883.3.579.2.462 Unknown [id number] 2.16.8 40.1.628950.3.579.2.462 Social History Date Type Detail Facility Start: 07-26-2017 End: 08-03-2022 Tobacco smoking status WIIS Never smoker [facility] Start: 1965 Sex Assigned At Not on file O [facility] Start: 08-15-2019 End: 08-03-2022 Tobacco use and exposure Never used [facility] Start: 08-15-2019 Alcohol intake Current non-dr candy cutter machine of alcohol (finding) [facility] Start: 08-02-2018 End: 05-24-2024 No alcohol use No alcohol use [facility] Comment on above: 3.5miles daily.; Tobacco smoking consumption unknown [facility] Start: 08-02-2018 End: 05-24-2024 Tobacco use panel [facility] Start: 1965 [facility] Start: 04-29-2022 Gender identity Identifies as female gender (finding) [facility] Work Phone: Start: 04-29-2022 Sexual orientation Heterosexual (fin ding) [facility] Work Phone: Start: 11-22-2022 End: 05-24-2024 Exposure to SARS-CoV-2 (event) Not sure [facility] Start: 12-20-2022 End: 05-24-2024 Alcohol intake Lifetime non-drinker (finding) [facility] Work Phone: NEGATED: Highlighted row - - [facility] Work Phone: Medical Equipment Procedure Code Equipment Code Equipment Origin al Text Equipment Identifier Dates Stent, Polaris U ltra 5fr 24cm, Disposable - Sn/A - [id number] Start: 04-05-2023 Stent, Polaris U ltra 5fr 24cm, Disposable - Sn/A - [id number] Start: 04-05-2023 Functional Status Date Assessment Result Facility NEGATED: Highlighted row Functional performance Functional status health issues are not documented Disease [facility] Work Phone: Mental Status Date Assessment Result Facility NEGATED: Highlighted row Cognitive function [Interpretation] Cognitive status health issues are not documented Disease [facility] Work Phone: Clinical Notes 06-22-2020 to 05-24-2024 Robin Allred MD - 05/24/2024 8:40 AM EDTPatient InstructionsCLEOPATRA Garcia - 02/10/2024 9:40 AM CLEOPATRA Nicole - 02/07/2024 10:40 AM ESTPatient Instructions Note Date & Type Note Facility 05-24-2024 History of Present illness Narrative Subjective Patient ID: Sandra Christianson is a 58 y.o. female who presents for Asthma, Hypothyroidism, Dry Mouth, and B12 Injection. HPI Patient Health Questionnaire-2 Score: 0 (05/24/2024 8:40 AM) Labs reviewed vitamin D 84 will change to 2 x per month TSH therapeutic euthyroid B12 508 CMP normal except for low protein of 6.0 H/o wen fundoplication pt has gained 8 pounds since 10/12/2023 Slowly gaining weight. 3 pounds since her last visit Cont nausea Demineralizationon xray Take vitamin D 2 and vit d has improved nicely 3 tums per day right eye has seen eye doctor optometry 2 weeks ago No change in glasses needed Eye feels blurry now has a black dot in vision States had a hemorrhage No pain but has persistent blurry vision x 4 weeks No amaurosis fugax or vision loss Dry mouth takes evoxax once a month works well Left foot 2 nd toe carrasco constantly Wakes up at night Right shoulder carrasco and left knee burning and pain x 12 months If moves joints makes worse Review of Systems Objective BP 110/68 Pulse 73 Wt 65.4 kg (144 lb 3.2 oz) SpO2 97% BMI 20.69 kg/m Physical Exam Vitals reviewed. Constitutional: Appearance: Normal appearance. HENT: Head: Normocephalic and atraumatic. Eyes: Conjunctiva/sclera: Conjunctivae normal. Cardiovascular: Rate and Rhythm: Normal rate and regular rhythm. Pulmonary: Effort: Pulmonary effort is normal. Breath sounds: Normal breath sounds. Musculoskeletal: Cervical back: Neck supple. Comments: Right shoulder full range of motion however has pain along the right supraspinatus normal muscle strength normal reflexes Left knee full range of motion no crepitus left hip full range of motion Left second toe and part of the third medial toe goes numb to patient she has decreased vibratory sensation. Skin: General: Skin is warm and dry. Neurological: General: No focal deficit present. Mental Status: She is alert and oriented to person, place, and time. Psychiatric: Mood and Affect: Mood normal. Behavior: Behavior normal. Thought Content: Thought content normal. Judgment: Judgment normal. Assessment/Plan Diagnoses and all orders for this visit: Visual changes - Referral to Ophthalmology; Future History of Wen fundoplication - ondansetron (Zofran) 4 mg tablet; Take 1 tablet (4 mg) by mouth every 8 hours if needed for nausea or vomiting for up to 7 days. Chronic pain of left knee - XR knee left 1-2 views; Future Chronic right shoulder pain - XR shoulder right 2+ views; Future Montanez's neuroma of left foot Strain of left supraspinatus muscle, initial encounter Home exercises given for shoulder. No treatment for Montanez's neuroma at this point Left knee x-ray if shows arthritis will recommend Voltaren gel. documented in this encounter [facility] Work Phone: 05-24-2024 Instructions Robin Allred MD - 05/24/2024 8:40 AM EDT documented in this encounter [facility] Work Phone: 02-10-2024 History of Present illness Narrative Subjective Patient ID: Sandra Christianson is a 58 y.o. female who presents for Cold Symptoms (Symptoms have not improved since last visit. Also stating ribs hurt, because her blanket got caught on a door handle and she fell.). Patient presents for follow-up for evaluation of upper respiratory infection. States she is not feeling any better after starting Zithromax. She has been having some right rib pain after a mechanical fall. Pain is worsened with cough. Lungs clear throughout. Will get chest x-ray to evaluate injury. Does have some enlargement of cervical lymph node. Will get Rich screen as well. Will call patient with test results and possible antibiotic therapy if necessary. Review of Systems Constitutional: Positive for chills and fatigue. Negative for diaphoresis and unexpected weight change. HENT: Positive for rhinorrhea and sinus pain. Negative for dental problem, tinnitus and trouble swallowing. Eyes: Negative for visual disturbance. Respiratory: Positive for cough. Negative for chest tightness and shortness of breath. Cardiovascular: Positive for chest pain (Right rib cage). Negative for palpitations and leg swelling. Gastrointestinal: Negative for abdominal pain, constipation, diarrhea, nausea and rectal pain. Endocrine: Negative for polydipsia, polyphagia and polyuria. Genitourinary: Negative for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 Status:Active Family history of diabetes m ellitus(V18.0, Z83.3) Status:Active Father Name Dates Details Family history of Status:Active Family history of multiple m yeloma(V16.7, Z80.7) Status:Active Sister Name Dates Details Family history of asthma(V17 .5, Z82.5) Status:Active Family history of osteoarthr itis(V17.89, Z82.69) Status:Active Family history of diabetes m ellitus(V18.0, Z83.3) Status:Active Family history of Cervical c ancer screening(V76.2, Z12.4) Status:Active natural daughter Name Dates Details Family history of polycystic ovarian syndrome(V18.7, Z84.2) Status:Active Family history of asthma(V17 .5, Z82.5) Status:Active natural son Name Dates Details Family history of Graves' di sease(V18.19, Z83.49) Status:Active Family history of gynecomast ia(V18.7, Z84.2) Status:Active Grandparent Name Dates Details Family history of diabetes m ellitus(V18.0, Z83.3) Status:Active Grandmother Name Dates Details Family history of cerebrovas cular accident (CVA)(V17.1, Z82.3) Status:Active Family history of gout(V18.1 9, Z82.69) Status:Active aunt Name Dates Details Family history of diabetes m ellitus(V18.0, Z83.3) Status:Active Family history of malignant neoplasm of breast(V16.3, Z80.3) Status:Active uncle Name Dates Details Family history of diabetes m ellitus(V18.0, Z83.3) Status:Active Mother Name Dates Details Family history of diabetes m ellitus(V18.0, Z83.3) Status:Active Family history of asthma(V17 .5, Z82.5) Status:Active Family history of hypertensi on(V17.49, Z82.49) Status:Active Family history of hyperlipid emia(V18.19, Z83.438) Status:Active Family history of arthritis( V17.7, Z82.61) Status:Active Family history of neoplasm o f brain(V19.8, Z84.89) Status:Active Father Name Dates Details Family history of multiple m yeloma(V16.7, Z80.7) Status:Active Family history of Status:Active Sister Name Dates Details Family history of diabetes m ellitus(V18.0, Z83.3) Status:Active Family history of Cervical c ancer screening(V76.2, Z12.4) Status:Active Family history of asthma(V17 .5, Z82.5) Status:Active Family history of osteoarthr itis(V17.89, Z82.69) Status:Active natural daughter Name Dates Details Family history of polycystic ovarian syndrome(V18.7, Z84.2) Status:Active Family history of asthma(V17 .5, Z82.5) Status:Active natural son Name Dates Details Family history of Graves' di sease(V18.19, Z83.49) Status:Active Family history of gynecomast ia(V18.7, Z84.2) Status:Active Grandparent Name Dates Details Family history of diabetes m ellitus(V18.0, Z83.3) Status:Active Grandmother Name Dates Details Family history of cerebrovas cular accident (CVA)(V17.1, Z82.3) Status:Active Family history of gout(V18.1 9, Z82.69) Status:Active aunt Name Dates Details Family history of diabetes m ellitus(V18.0, Z83.3) Status:Active Family history of malignant neoplasm of breast(V16.3, Z80.3) Status:Active uncle Name Dates Details Family history of diabetes m ellitus(V18.0, Z83.3) Status:Active Mother Name Dates Details Family history of diabetes m ellitus(V18.0, Z83.3) Status:Active Family history of asthma(V17 .5, Z82.5) Status:Active Family history of hypertensi on(V17.49, Z82.49) Status:Active Family history of hyperlipid emia(V18.19, Z83.438) Status:Active Family history of arthritis( V17.7, Z82.61) Status:Active Family history of neoplasm o f brain(V19.8, Z84.89) Status:Active Father Name Dates Details Family history of multiple m yeloma(V16.7, Z80.7) Status:Active Family history of Status:Active Sister Name Dates Details Family history of diabetes m ellitus(V18.0, Z83.3) Status:Active Family history of Cervical c ancer screening(V76.2, Z12.4) Status:Active Family history of asthma(V17 .5, Z82.5) Status:Active Family history of osteoarthr itis(V17.89, Z82.69) Status:Active natural daughter Name Dates Details Family history of polycystic ovarian syndrome(V18.7, Z84.2) Status:Active Family history of asthma(V17 .5, Z82.5) Status:Active natural son Name Dates Details Family history of Graves' di sease(V18.19, Z83.49) Status:Active Family history of gynecomast ia(V18.7, Z84.2) Status:Active Grandparent Name Dates Details Family history of diabetes m ellitus(V18.0, Z83.3) Status:Active Grandmother Name Dates Details Family history of cerebrovas cular accident (CVA)(V17.1, Z82.3) Status:Active Family history of gout(V18.1 9, Z82.69) Status:Active aunt Name Dates Details Family history of diabetes m ellitus(V18.0, Z83.3) Status:Active Family history of malignant neoplasm of breast(V16.3, Z80.3) Status:Active uncle Name Dates Details Family history of diabetes m ellitus(V18.0, Z83.3) Status:Active Mother Name Dates Details Family history of diabetes m ellitus(V18.0, Z83.3) Status:Active Family history of asthma(V17 .5, Z82.5) Status:Active Family history of hypertensi on(V17.49, Z82.49) Status:Active Family history of hyperlipid emia(V18.19, Z83.438) Status:Active Family history of arthritis( V17.7, Z82.61) Status:Active Family history of neoplasm o f brain(V19.8, Z84.89) Status:Active Father Name Dates Details Family history of multiple m yeloma(V16.7, Z80.7) Status:Active Family history of Status:Active Sister Name Dates Details Family history of diabetes m ellitus(V18.0, Z83.3) Status:Active Family history of Cervical c ancer screening(V76.2, Z12.4) Status:Active Family history of asthma(V17 .5, Z82.5) Status:Active Family history of osteoarthr itis(V17.89, Z82.69) Status:Active natural daughter Name Dates Details Family history of polycystic ovarian syndrome(V18.7, Z84.2) Status:Active Family history of asthma(V17 .5, Z82.5) Status:Active natural son Name Dates Details Family history of Graves' di sease(V18.19, Z83.49) Status:Active Family history of gynecomast ia(V18.7, Z84.2) Status:Active Grandparent Name Dates Details Family history of diabetes m ellitus(V18.0, Z83.3) Status:Active Grandmother Name Dates Details Family history of cerebrovas cular accident (CVA)(V17.1, Z82.3) Status:Active Family history of gout(V18.1 9, Z82.69) Status:Active aunt Name Dates Details Family history of diabetes m ellitus(V18.0, Z83.3) Status:Active Family history of malignant neoplasm of breast(V16.3, Z80.3) Status:Active uncle Name Dates Details Family history of diabetes m ellitus(V18.0, Z83.3) Status:Active Mother Name Dates Details Family history of diabetes m ellitus(V18.0, Z83.3) Status:Active Family history of asthma(V17 .5, Z82.5) Status:Active Family history of hypertensi on(V17.49, Z82.49) Status:Active Family history of hyperlipid emia(V18.19, Z83.438) Status:Active Family history of arthritis( V17.7, Z82.61) Status:Active Family history of neoplasm o f brain(V19.8, Z84.89) Status:Active Father Name Dates Details Family history of multiple m yeloma(V16.7, Z80.7) Status:Active Family history of Status:Active Sister Name Dates Details Family history of diabetes m ellitus(V18.0, Z83.3) Status:Active Family history of Cervical c ancer screening(V76.2, Z12.4) Status:Active Family history of asthma(V17 .5, Z82.5) Status:Active Family history of osteoarthr itis(V17.89, Z82.69) Status:Active natural daughter Name Dates Details Family history of polycystic ovarian syndrome(V18.7, Z84.2) Status:Active Family history of asthma(V17 .5, Z82.5) Status:Active natural son Name Dates Details Family history of Graves' di sease(V18.19, Z83.49) Status:Active Family history of gynecomast ia(V18.7, Z84.2) Status:Active Grandparent Name Dates Details Family history of diabetes m ellitus(V18.0, Z83.3) Status:Active Grandmother Name Dates Details Family history of cerebrovas cular accident (CVA)(V17.1, Z82.3) Status:Active Family history of gout(V18.1 9, Z82.69) Status:Active aunt Name Dates Details Family history of diabetes m ellitus(V18.0, Z83.3) Status:Active Family history of malignant neoplasm of breast(V16.3, Z80.3) Status:Active uncle Name Dates Details Family history of diabetes m ellitus(V18.0, Z83.3) Status:Active Mother Name Dates Details Family history of diabetes m ellitus(V18.0, Z83.3) Status:Active Family history of asthma(V17 .5, Z82.5) Status:Active Family history of hypertensi on(V17.49, Z82.49) Status:Active Family history of hyperlipid emia(V18.19, Z83.438) Status:Active Family history of arthritis( V17.7, Z82.61) Status:Active Family history of neoplasm o f brain(V19.8, Z84.89) Status:Active Father Name Dates Details Family history of multiple m yeloma(V16.7, Z80.7) Status:Active Family history of Status:Active Sister Name Dates Details Family history of diabetes m ellitus(V18.0, Z83.3) Status:Active Family history of Cervical c ancer screening(V76.2, Z12.4) Status:Active Family history of asthma(V17 .5, Z82.5) Status:Active Family history of osteoarthr itis(V17.89, Z82.69) Status:Active natural daughter Name Dates Details Family history of polycystic ovarian syndrome(V18.7, Z84.2) Status:Active Family history of asthma(V17 .5, Z82.5) Status:Active natural son Name Dates Details Family history of Graves' di sease(V18.19, Z83.49) Status:Active Family history of gynecomast ia(V18.7, Z84.2) Status:Active Grandparent Name Dates Details Family history of diabetes m ellitus(V18.0, Z83.3) Status:Active Grandmother Name Dates Details Family history of cerebrovas cular accident (CVA)(V17.1, Z82.3) Status:Active Family history of gout(V18.1 9, Z82.69) Status:Active aunt Name Dates Details Family history of malignant neoplasm of breast(V16.3, Z80.3) Status:Active Family history of diabetes m ellitus(V18.0, Z83.3) Status:Active uncle Name Dates Details Family history of diabetes m ellitus(V18.0, Z83.3) Status:Active Mother Name Dates Details Family history of asthma(V17 .5, Z82.5) Status:Active Family history of hypertensi on(V17.49, Z82.49) Status:Active Family history of hyperlipid emia(V18.19, Z83.438) Status:Active Family history of arthritis( V17.7, Z82.61) Status:Active Family history of neoplasm o f brain(V19.8, Z84.89) Status:Active Family history of diabetes m ellitus(V18.0, Z83.3) Status:Active Father Name Dates Details Family history of Status:Active Family history of multiple m yeloma(V16.7, Z80.7) Status:Active Sister Name Dates Details Family history of asthma(V17 .5, Z82.5) Status:Active Family history of osteoarthr itis(V17.89, Z82.69) Status:Active Family history of diabetes m ellitus(V18.0, Z83.3) Status:Active Family history of Cervical c ancer screening(V76.2, Z12.4) Status:Active natural daughter Name Dates Details Family history of polycystic ovarian syndrome(V18.7, Z84.2) Status:Active Family history of asthma(V17 .5, Z82.5) Status:Active natural son Name Dates Details Family history of Graves' di sease(V18.19, Z83.49) Status:Active Family history of gynecomast ia(V18.7, Z84.2) Status:Active Grandparent Name Dates Details Family history of diabetes m ellitus(V18.0, Z83.3) Status:Active Grandmother Name Dates Details Family history of cerebrovas cular accident (CVA)(V17.1, Z82.3) Status:Active Family history of gout(V18.1 9, Z82.69) Status:Active aunt Name Dates Details Family history of diabetes m ellitus(V18.0, Z83.3) Status:Active Family history of malignant neoplasm of breast(V16.3, Z80.3) Status:Active uncle Name Dates Details Family history of diabetes m ellitus(V18.0, Z83.3) Status:Active Mother Name Dates Details Family history of diabetes m ellitus(V18.0, Z83.3) Status:Active Family history of asthma(V17 .5, Z82.5) Status:Active Family history of hypertensi on(V17.49, Z82.49) Status:Active Family history of hyperlipid emia(V18.19, Z83.438) Status:Active Family history of arthritis( V17.7, Z82.61) Status:Active Family history of neoplasm o f brain(V19.8, Z84.89) Status:Active Father Name Dates Details Family history of multiple m yeloma(V16.7, Z80.7) Status:Active Family history of Status:Active Sister Name Dates Details Family history of diabetes m ellitus(V18.0, Z83.3) Status:Active Family history of Cervical c ancer screening(V76.2, Z12.4) Status:Active Family history of asthma(V17 .5, Z82.5) Status:Active Family history of osteoarthr itis(V17.89, Z82.69) Status:Active natural daughter Name Dates Details Family history of polycystic ovarian syndrome(V18.7, Z84.2) Status:Active Family history of asthma(V17 .5, Z82.5) Status:Active natural son Name Dates Details Family history of Graves' di sease(V18.19, Z83.49) Status:Active Family history of gynecomast ia(V18.7, Z84.2) Status:Active Grandparent Name Dates Details Family history of diabetes m ellitus(V18.0, Z83.3) Status:Active Grandmother Name Dates Details Family history of cerebrovas cular accident (CVA)(V17.1, Z82.3) Status:Active Family history of gout(V18.1 9, Z82.69) Status:Active aunt Name Dates Details Family history of diabetes m ellitus(V18.0, Z83.3) Status:Active Family history of malignant neoplasm of breast(V16.3, Z80.3) Status:Active uncle Name Dates Details Family history of diabetes m ellitus(V18.0, Z83.3) Status:Active Mother Name Dates Details Family history of diabetes m ellitus(V18.0, Z83.3) Status:Active Family history of asthma(V17 .5, Z82.5) Status:Active Family history of hypertensi on(V17.49, Z82.49) Status:Active Family history of hyperlipid emia(V18.19, Z83.438) Status:Active Family history of arthritis( V17.7, Z82.61) Status:Active Family history of neoplasm o f brain(V19.8, Z84.89) Status:Active Father Name Dates Details Family history of multiple m yeloma(V16.7, Z80.7) Status:Active Family history of Status:Active Sister Name Dates Details Family history of diabetes m ellitus(V18.0, Z83.3) Status:Active Family history of Cervical c ancer screening(V76.2, Z12.4) Status:Active Family history of asthma(V17 .5, Z82.5) Status:Active Family history of osteoarthr itis(V17.89, Z82.69) Status:Active natural daughter Name Dates Details Family history of polycystic ovarian syndrome(V18.7, Z84.2) Status:Active Family history of asthma(V17 .5, Z82.5) Status:Active natural son Name Dates Details Family history of Graves' di sease(V18.19, Z83.49) Status:Active Family history of gynecomast ia(V18.7, Z84.2) Status:Active Grandparent Name Dates Details Family history of diabetes m ellitus(V18.0, Z83.3) Status:Active Grandmother Name Dates Details Family history of cerebrovas cular accident (CVA)(V17.1, Z82.3) Status:Active Family history of gout(V18.1 9, Z82.69) Status:Active aunt Name Dates Details Family history of diabetes m ellitus(V18.0, Z83.3) Status:Active Family history of malignant neoplasm of breast(V16.3, Z80.3) Status:Active uncle Name Dates Details Family history of diabetes m ellitus(V18.0, Z83.3) Status:Active Mother Name Dates Details Family history of diabetes m ellitus(V18.0, Z83.3) Status:Active Family history of asthma(V17 .5, Z82.5) Status:Active Family history of hypertensi on(V17.49, Z82.49) Status:Active Family history of hyperlipid emia(V18.19, Z83.438) Status:Active Family history of arthritis( V17.7, Z82.61) Status:Active Family history of neoplasm o f brain(V19.8, Z84.89) Status:Active Father Name Dates Details Family history of multiple m yeloma(V16.7, Z80.7) Status:Active Family history of Status:Active Sister Name Dates Details Family history of diabetes m ellitus(V18.0, Z83.3) Status:Active Family history of Cervical c ancer screening(V76.2, Z12.4) Status:Active Family history of asthma(V17 .5, Z82.5) Status:Active Family history of osteoarthr itis(V17.89, Z82.69) Status:Active natural daughter Name Dates Details Family history of polycystic ovarian syndrome(V18.7, Z84.2) Status:Active Family history of asthma(V17 .5, Z82.5) Status:Active natural son Name Dates Details Family history of Graves' di sease(V18.19, Z83.49) Status:Active Family history of gynecomast ia(V18.7, Z84.2) Status:Active Grandparent Name Dates Details Family history of diabetes m ellitus(V18.0, Z83.3) Status:Active Grandmother Name Dates Details Family history of cerebrovas cular accident (CVA)(V17.1, Z82.3) Status:Active Family history of gout(V18.1 9, Z82.69) Status:Active aunt Name Dates Details Family history of diabetes m ellitus(V18.0, Z83.3) Status:Active Family history of malignant neoplasm of breast(V16.3, Z80.3) Status:Active uncle Name Dates Details Family history of diabetes m ellitus(V18.0, Z83.3) Status:Active Mother Name Dates Details Family history of diabetes m ellitus(V18.0, Z83.3) Status:Active Family history of asthma(V17 .5, Z82.5) Status:Active Family history of hypertensi on(V17.49, Z82.49) Status:Active Family history of hyperlipid emia(V18.19, Z83.438) Status:Active Family history of arthritis( V17.7, Z82.61) Status:Active Family history of neoplasm o f brain(V19.8, Z84.89) Status:Active Father Name Dates Details Family history of multiple m yeloma(V16.7, Z80.7) Status:Active Family history of Status:Active Sister Name Dates Details Family history of diabetes m ellitus(V18.0, Z83.3) Status:Active Family history of Cervical c ancer screening(V76.2, Z12.4) Status:Active Family history of asthma(V17 .5, Z82.5) Status:Active Family history of osteoarthr itis(V17.89, Z82.69) Status:Active natural daughter Name Dates Details Family history of polycystic ovarian syndrome(V18.7, Z84.2) Status:Active Family history of asthma(V17 .5, Z82.5) Status:Active natural son Name Dates Details Family history of Graves' di sease(V18.19, Z83.49) Status:Active Family history of gynecomast ia(V18.7, Z84.2) Status:Active Grandparent Name Dates Details Family history of diabetes m ellitus(V18.0, Z83.3) Status:Active Grandmother Name Dates Details Family history of cerebrovas cular accident (CVA)(V17.1, Z82.3) Status:Active Family history of gout(V18.1 9, Z82.69) Status:Active aunt Name Dates Details Family history of malignant neoplasm of breast(V16.3, Z80.3) Status:Active Family history of diabetes m ellitus(V18.0, Z83.3) Status:Active uncle Name Dates Details Family history of diabetes m ellitus(V18.0, Z83.3) Status:Active Mother Name Dates Details Family history of asthma(V17 .5, Z82.5) Status:Active Family history of hypertensi on(V17.49, Z82.49) Status:Active Family history of hyperlipid emia(V18.19, Z83.438) Status:Active Family history of arthritis( V17.7, Z82.61) Status:Active Family history of neoplasm o f brain(V19.8, Z84.89) Status:Active Family history of diabetes m ellitus(V18.0, Z83.3) Status:Active Father Name Dates Details Family history of Status:Active Family history of multiple m yeloma(V16.7, Z80.7) Status:Active Sister Name Dates Details Family history of asthma(V17 .5, Z82.5) Status:Active Family history of osteoarthr itis(V17.89, Z82.69) Status:Active Family history of diabetes m ellitus(V18.0, Z83.3) Status:Active Family history of Cervical c ancer screening(V76.2, Z12.4) Status:Active natural daughter Name Dates Details Family history of polycystic ovarian syndrome(V18.7, Z84.2) Status:Active Family history of asthma(V17 .5, Z82.5) Status:Active natural son Name Dates Details Family history of Graves' di sease(V18.19, Z83.49) Status:Active Family history of gynecomast ia(V18.7, Z84.2) Status:Active Grandparent Name Dates Details Family history of diabetes m ellitus(V18.0, Z83.3) Status:Active Grandmother Name Dates Details Family history of cerebrovas cular accident (CVA)(V17.1, Z82.3) Status:Active Family history of gout(V18.1 9, Z82.69) Status:Active aunt Name Dates Details Family history of diabetes m ellitus(V18.0, Z83.3) Status:Active Family history of malignant neoplasm of breast(V16.3, Z80.3) Status:Active uncle Name Dates Details Family history of diabetes m ellitus(V18.0, Z83.3) Status:Active Mother Name Dates Details Family history of diabetes m ellitus(V18.0, Z83.3) Status:Active Family history of asthma(V17 .5, Z82.5) Status:Active Family history of hypertensi on(V17.49, Z82.49) Status:Active Family history of hyperlipid emia(V18.19, Z83.438) Status:Active Family history of arthritis( V17.7, Z82.61) Status:Active Family history of neoplasm o f brain(V19.8, Z84.89) Status:Active Father Name Dates Details Family history of multiple m yeloma(V16.7, Z80.7) Status:Active Family history of Status:Active Sister Name Dates Details Family history of diabetes m ellitus(V18.0, Z83.3) Status:Active Family history of Cervical c ancer screening(V76.2, Z12.4) Status:Active Family history of asthma(V17 .5, Z82.5) Status:Active Family history of osteoarthr itis(V17.89, Z82.69) Status:Active natural daughter Name Dates Details Family history of polycystic ovarian syndrome(V18.7, Z84.2) Status:Active Family history of asthma(V17 .5, Z82.5) Status:Active natural son Name Dates Details Family history of Graves' di sease(V18.19, Z83.49) Status:Active Family history of gynecomast ia(V18.7, Z84.2) Status:Active Grandparent Name Dates Details Family history of diabetes m ellitus(V18.0, Z83.3) Status:Active Grandmother Name Dates Details Family history of cerebrovas cular accident (CVA)(V17.1, Z82.3) Status:Active Family history of gout(V18.1 9, Z82.69) Status:Active aunt Name Dates Details Family history of malignant neoplasm of breast(V16.3, Z80.3) Status:Active Family history of diabetes m ellitus(V18.0, Z83.3) Status:Active uncle Name Dates Details Family history of diabetes m ellitus(V18.0, Z83.3) Status:Active Mother Name Dates Details Family history of asthma(V17 .5, Z82.5) Status:Active Family history of hypertensi on(V17.49, Z82.49) Status:Active Family history of hyperlipid emia(V18.19, Z83.438) Status:Active Family history of arthritis( V17.7, Z82.61) Status:Active Family history of neoplasm o f brain(V19.8, Z84.89) Status:Active Family history of diabetes m ellitus(V18.0, Z83.3) Status:Active Father Name Dates Details Family history of Status:Active Family history of multiple m yeloma(V16.7, Z80.7) Status:Active Sister Name Dates Details Family history of asthma(V17 .5, Z82.5) Status:Active Family history of osteoarthr itis(V17.89, Z82.69) Status:Active Family history of diabetes m ellitus(V18.0, Z83.3) Status:Active Family history of Cervical c ancer screening(V76.2, Z12.4) Status:Active natural daughter Name Dates Details Family history of polycystic ovarian syndrome(V18.7, Z84.2) Status:Active Family history of asthma(V17 .5, Z82.5) Status:Active natural son Name Dates Details Family history of Graves' di sease(V18.19, Z83.49) Status:Active Family history of gynecomast ia(V18.7, Z84.2) Status:Active Grandparent Name Dates Details Family history of diabetes m ellitus(V18.0, Z83.3) Status:Active Grandmother Name Dates Details Family history of cerebrovas cular accident (CVA)(V17.1, Z82.3) Status:Active Family history of gout(V18.1 9, Z82.69) Status:Active aunt Name Dates Details Family history of malignant neoplasm of breast(V16.3, Z80.3) Status:Active Family history of diabetes m ellitus(V18.0, Z83.3) Status:Active uncle Name Dates Details Family history of diabetes m ellitus(V18.0, Z83.3) Status:Active Mother Name Dates Details Family history of asthma(V17 .5, Z82.5) Status:Active Family history of hypertensi on(V17.49, Z82.49) Status:Active Family history of hyperlipid emia(V18.19, Z83.438) Status:Active Family history of arthritis( V17.7, Z82.61) Status:Active Family history of neoplasm o f brain(V19.8, Z84.89) Status:Active Family history of diabetes m ellitus(V18.0, Z83.3) Status:Active Father Name Dates Details Family history of Status:Active Family history of multiple m yeloma(V16.7, Z80.7) Status:Active Sister Name Dates Details Family history of asthma(V17 .5, Z82.5) Status:Active Family history of osteoarthr itis(V17.89, Z82.69) Status:Active Family history of diabetes m ellitus(V18.0, Z83.3) Status:Active Family history of Cervical c ancer screening(V76.2, Z12.4) Status:Active natural daughter Name Dates Details Family history of polycystic ovarian syndrome(V18.7, Z84.2) Status:Active Family history of asthma(V17 .5, Z82.5) Status:Active natural son Name Dates Details Family history of Graves' di sease(V18.19, Z83.49) Status:Active Family history of gynecomast ia(V18.7, Z84.2) Status:Active Grandparent Name Dates Details Family history of diabetes m ellitus(V18.0, Z83.3) Status:Active Grandmother Name Dates Details Family history of cerebrovas cular accident (CVA)(V17.1, Z82.3) Status:Active Family history of gout(V18.1 9, Z82.69) Status:Active aunt Name Dates Details Family history of malignant neoplasm of breast(V16.3, Z80.3) Status:Active Family history of diabetes m ellitus(V18.0, Z83.3) Status:Active uncle Name Dates Details Family history of diabetes m ellitus(V18.0, Z83.3) Status:Active Mother Name Dates Details Family history of asthma(V17 .5, Z82.5) Status:Active Family history of hypertensi on(V17.49, Z82.49) Status:Active Family history of hyperlipid emia(V18.19, Z83.438) Status:Active Family history of arthritis( V17.7, Z82.61) Status:Active Family history of neoplasm o f brain(V19.8, Z84.89) Status:Active Family history of diabetes m ellitus(V18.0, Z83.3) Status:Active Father Name Dates Details Family history of (7 99.9, R99) Status:Active Family history of multiple m yeloma(V16.7, Z80.7) Status:Active Sister Name Dates Details Family history of asthma(V17 .5, Z82.5) Status:Active Family history of osteoarthr itis(V17.89, Z82.69) Status:Active Family history of diabetes m ellitus(V18.0, Z83.3) Status:Active Family history of Cervical c ancer screening(V76.2, Z12.4) Status:Active natural daughter Name Dates Details Family history of polycystic ovarian syndrome(V18.7, Z84.2) Status:Active Family history of asthma(V17 .5, Z82.5) Status:Active natural son Name Dates Details Family history of Graves' di sease(V18.19, Z83.49) Status:Active Family history of gynecomast ia(V18.7, Z84.2) Status:Active Grandparent Name Dates Details Family history of diabetes m ellitus(V18.0, Z83.3) Status:Active Grandmother Name Dates Details Family history of cerebrovas cular accident (CVA)(V17.1, Z82.3) Status:Active Family history of gout(V18.1 9, Z82.69) Status:Active aunt Name Dates Details Family history of diabetes m ellitus(V18.0, Z83.3) Status:Active Family history of malignant neoplasm of breast(V16.3, Z80.3) Status:Active uncle Name Dates Details Family history of diabetes m ellitus(V18.0, Z83.3) Status:Active Mother Name Dates Details Family history of diabetes m ellitus(V18.0, Z83.3) Status:Active Family history of asthma(V17 .5, Z82.5) Status:Active Family history of hypertensi on(V17.49, Z82.49) Status:Active Family history of hyperlipid emia(V18.19, Z83.438) Status:Active Family history of arthritis( V17.7, Z82.61) Status:Active Family history of neoplasm o f brain(V19.8, Z84.89) Status:Active Father Name Dates Details Family history of multiple m yeloma(V16.7, Z80.7) Status:Active Family history of (7 99.9, R99) Status:Active Sister Name Dates Details Family history of diabetes m ellitus(V18.0, Z83.3) Status:Active Family history of Cervical c ancer screening(V76.2, Z12.4) Status:Active Family history of asthma(V17 .5, Z82.5) Status:Active Family history of osteoarthr itis(V17.89, Z82.69) Status:Active natural daughter Name Dates Details Family history of polycystic ovarian syndrome(V18.7, Z84.2) Status:Active Family history of asthma(V17 .5, Z82.5) Status:Active natural son Name Dates Details Family history of Graves' di sease(V18.19, Z83.49) Status:Active Family history of gynecomast ia(V18.7, Z84.2) Status:Active Grandparent Name Dates Details Family history of diabetes m ellitus(V18.0, Z83.3) Status:Active Grandmother Name Dates Details Family history of cerebrovas cular accident (CVA)(V17.1, Z82.3) Status:Active Family history of gout(V18.1 9, Z82.69) Status:Active aunt Name Dates Details Family history of diabetes m ellitus(V18.0, Z83.3) Status:Active Family history of malignant neoplasm of breast(V16.3, Z80.3) Status:Active uncle Name Dates Details Family history of diabetes m ellitus(V18.0, Z83.3) Status:Active Mother Name Dates Details Family history of diabetes m ellitus(V18.0, Z83.3) Status:Active Family history of asthma(V17 .5, Z82.5) Status:Active Family history of hypertensi on(V17.49, Z82.49) Status:Active Family history of hyperlipid emia(V18.19, Z83.438) Status:Active Family history of arthritis( V17.7, Z82.61) Status:Active Family history of neoplasm o f brain(V19.8, Z84.89) Status:Active Father Name Dates Details Family history of multiple m yeloma(V16.7, Z80.7) Status:Active Family history of (7 99.9, R99) Status:Active Sister Name Dates Details Family history of diabetes m ellitus(V18.0, Z83.3) Status:Active Family history of Cervical c ancer screening(V76.2, Z12.4) Status:Active Family history of asthma(V17 .5, Z82.5) Status:Active Family history of osteoarthr itis(V17.89, Z82.69) Status:Active natural daughter Name Dates Details Family history of polycystic ovarian syndrome(V18.7, Z84.2) Status:Active Family history of asthma(V17 .5, Z82.5) Status:Active natural son Name Dates Details Family history of Graves' di sease(V18.19, Z83.49) Status:Active Family history of gynecomast ia(V18.7, Z84.2) Status:Active Grandparent Name Dates Details Family history of diabetes m ellitus(V18.0, Z83.3) Status:Active Grandmother Name Dates Details Family history of cerebrovas cular accident (CVA)(V17.1, Z82.3) Status:Active Family history of gout(V18.1 9, Z82.69) Status:Active aunt Name Dates Details Family history of diabetes m ellitus(V18.0, Z83.3) Status:Active Family history of malignant neoplasm of breast(V16.3, Z80.3) Status:Active uncle Name Dates Details Family history of diabetes m ellitus(V18.0, Z83.3) Status:Active Mother Name Dates Details Family history of diabetes m ellitus(V18.0, Z83.3) Status:Active Family history of asthma(V17 .5, Z82.5) Status:Active Family history of hypertensi on(V17.49, Z82.49) Status:Active Family history of hyperlipid emia(V18.19, Z83.438) Status:Active Family history of arthritis( V17.7, Z82.61) Status:Active Family history of neoplasm o f brain(V19.8, Z84.89) Status:Active Father Name Dates Details Family history of multiple m yeloma(V16.7, Z80.7) Status:Active Family history of (7 99.9, R99) Status:Active Sister Name Dates Details Family history of diabetes m ellitus(V18.0, Z83.3) Status:Active Family history of Cervical c ancer screening(V76.2, Z12.4) Status:Active Family history of asthma(V17 .5, Z82.5) Status:Active Family history of osteoarthr itis(V17.89, Z82.69) Status:Active natural daughter Name Dates Details Family history of polycystic ovarian syndrome(V18.7, Z84.2) Status:Active Family history of asthma(V17 .5, Z82.5) Status:Active natural son Name Dates Details Family history of Graves' di sease(V18.19, Z83.49) Status:Active Family history of gynecomast ia(V18.7, Z84.2) Status:Active Grandparent Name Dates Details Family history of diabetes m ellitus(V18.0, Z83.3) Status:Active Grandmother Name Dates Details Family history of cerebrovas cular accident (CVA)(V17.1, Z82.3) Status:Active Family history of gout(V18.1 9, Z82.69) Status:Active aunt Name Dates Details Family history of diabetes m ellitus(V18.0, Z83.3) Status:Active Family history of malignant neoplasm of breast(V16.3, Z80.3) Status:Active uncle Name Dates Details Family history of diabetes m ellitus(V18.0, Z83.3) Status:Active Mother Name Dates Details Family history of diabetes m ellitus(V18.0, Z83.3) Status:Active Family history of asthma(V17 .5, Z82.5) Status:Active Family history of hypertensi on(V17.49, Z82.49) Status:Active Family history of hyperlipid emia(V18.19, Z83.438) Status:Active Family history of arthritis( V17.7, Z82.61) Status:Active Family history of neoplasm o f brain(V19.8, Z84.89) Status:Active Father Name Dates Details Family history of multiple m yeloma(V16.7, Z80.7) Status:Active Family history of (7 99.9, R99) Status:Active Sister Name Dates Details Family history of diabetes m ellitus(V18.0, Z83.3) Status:Active Family history of Cervical c ancer screening(V76.2, Z12.4) Status:Active Family history of asthma(V17 .5, Z82.5) Status:Active Family history of osteoarthr itis(V17.89, Z82.69) Status:Active natural daughter Name Dates Details Family history of polycystic ovarian syndrome(V18.7, Z84.2) Status:Active Family history of asthma(V17 .5, Z82.5) Status:Active natural son Name Dates Details Family history of Graves' di sease(V18.19, Z83.49) Status:Active Family history of gynecomast ia(V18.7, Z84.2) Status:Active Grandparent Name Dates Details Family history of diabetes m ellitus(V18.0, Z83.3) Status:Active Grandmother Name Dates Details Family history of cerebrovas cular accident (CVA)(V17.1, Z82.3) Status:Active Family history of gout(V18.1 9, Z82.69) Status:Active aunt Name Dates Details Family history of diabetes m ellitus(V18.0, Z83.3) Status:Active Family history of malignant neoplasm of breast(V16.3, Z80.3) Status:Active uncle Name Dates Details Family history of diabetes m ellitus(V18.0, Z83.3) Status:Active Mother Name Dates Details Family history of diabetes m ellitus(V18.0, Z83.3) Status:Active Family history of asthma(V17 .5, Z82.5) Status:Active Family history of hypertensi on(V17.49, Z82.49) Status:Active Family history of hyperlipid emia(V18.19, Z83.438) Status:Active Family history of arthritis( V17.7, Z82.61) Status:Active Family history of neoplasm o f brain(V19.8, Z84.89) Status:Active Father Name Dates Details Family history of multiple m yeloma(V16.7, Z80.7) Status:Active Family history of (7 99.9, R99) Status:Active Sister Name Dates Details Family history of diabetes m ellitus(V18.0, Z83.3) Status:Active Family history of Cervical c ancer screening(V76.2, Z12.4) Status:Active Family history of asthma(V17 .5, Z82.5) Status:Active Family history of osteoarthr itis(V17.89, Z82.69) Status:Active natural daughter Name Dates Details Family history of polycystic ovarian syndrome(V18.7, Z84.2) Status:Active Family history of asthma(V17 .5, Z82.5) Status:Active natural son Name Dates Details Family history of Graves' di sease(V18.19, Z83.49) Status:Active Family history of gynecomast ia(V18.7, Z84.2) Status:Active Grandparent Name Dates Details Family history of diabetes m ellitus(V18.0, Z83.3) Status:Active Grandmother Name Dates Details Family history of cerebrovas cular accident (CVA)(V17.1, Z82.3) Status:Active Family history of gout(V18.1 9, Z82.69) Status:Active aunt Name Dates Details Family history of malignant neoplasm of breast(V16.3, Z80.3) Status:Active Family history of diabetes m ellitus(V18.0, Z83.3) Status:Active uncle Name Dates Details Family history of diabetes m ellitus(V18.0, Z83.3) Status:Active Mother Name Dates Details Family history of asthma(V17 .5, Z82.5) Status:Active Family history of hypertensi on(V17.49, Z82.49) Status:Active Family history of hyperlipid emia(V18.19, Z83.438) Status:Active Family history of arthritis( V17.7, Z82.61) Status:Active Family history of neoplasm o f brain(V19.8, Z84.89) Status:Active Family history of diabetes m ellitus(V18.0, Z83.3) Status:Active Father Name Dates Details Family history of Status:Active Family history of multiple m yeloma(V16.7, Z80.7) Status:Active Sister Name Dates Details Family history of asthma(V17 .5, Z82.5) Status:Active Family history of osteoarthr itis(V17.89, Z82.69) Status:Active Family history of diabetes m ellitus(V18.0, Z83.3) Status:Active Family history of Cervical c ancer screening(V76.2, Z12.4) Status:Active natural daughter Name Dates Details Family history of polycystic ovarian syndrome(V18.7, Z84.2) Status:Active Family history of asthma(V17 .5, Z82.5) Status:Active natural son Name Dates Details Family history of Graves' di sease(V18.19, Z83.49) Status:Active Family history of gynecomast ia(V18.7, Z84.2) Status:Active Grandparent Name Dates Details Family history of diabetes m ellitus(V18.0, Z83.3) Status:Active Grandmother Name Dates Details Family history of cerebrovas cular accident (CVA)(V17.1, Z82.3) Status:Active Family history of gout(V18.1 9, Z82.69) Status:Active aunt Name Dates Details Family history of diabetes m ellitus(V18.0, Z83.3) Status:Active Family history of malignant neoplasm of breast(V16.3, Z80.3) Status:Active uncle Name Dates Details Family history of diabetes m ellitus(V18.0, Z83.3) Status:Active Mother Name Dates Details Family history of diabetes m ellitus(V18.0, Z83.3) Status:Active Family history of asthma(V17 .5, Z82.5) Status:Active Family history of hypertensi on(V17.49, Z82.49) Status:Active Family history of hyperlipid emia(V18.19, Z83.438) Status:Active Family history of arthritis( V17.7, Z82.61) Status:Active Family history of neoplasm o f brain(V19.8, Z84.89) Status:Active Father Name Dates Details Family history of multiple m yeloma(V16.7, Z80.7) Status:Active Family history of (7 99.9, R99) Status:Active Sister Name Dates Details Family history of diabetes m ellitus(V18.0, Z83.3) Status:Active Family history of Cervical c ancer screening(V76.2, Z12.4) Status:Active Family history of asthma(V17 .5, Z82.5) Status:Active Family history of osteoarthr itis(V17.89, Z82.69) Status:Active natural daughter Name Dates Details Family history of polycystic ovarian syndrome(V18.7, Z84.2) Status:Active Family history of asthma(V17 .5, Z82.5) Status:Active natural son Name Dates Details Family history of Graves' di sease(V18.19, Z83.49) Status:Active Family history of gynecomast ia(V18.7, Z84.2) Status:Active Grandparent Name Dates Details Family history of diabetes m ellitus(V18.0, Z83.3) Status:Active Grandmother Name Dates Details Family history of cerebrovas cular accident (CVA)(V17.1, Z82.3) Status:Active Family history of gout(V18.1 9, Z82.69) Status:Active aunt Name Dates Details Family history of diabetes m ellitus(V18.0, Z83.3) Status:Active Family history of malignant neoplasm of breast(V16.3, Z80.3) Status:Active uncle Name Dates Details Family history of diabetes m ellitus(V18.0, Z83.3) Status:Active Mother Name Dates Details Family history of diabetes m ellitus(V18.0, Z83.3) Status:Active Family history of asthma(V17 .5, Z82.5) Status:Active Family history of hypertensi on(V17.49, Z82.49) Status:Active Family history of hyperlipid emia(V18.19, Z83.438) Status:Active Family history of arthritis( V17.7, Z82.61) Status:Active Family history of neoplasm o f brain(V19.8, Z84.89) Status:Active Father Name Dates Details Family history of multiple m yeloma(V16.7, Z80.7) Status:Active Family history of Status:Active Sister Name Dates Details Family history of diabetes m ellitus(V18.0, Z83.3) Status:Active Family history of Cervical c ancer screening(V76.2, Z12.4) Status:Active Family history of asthma(V17 .5, Z82.5) Status:Active Family history of osteoarthr itis(V17.89, Z82.69) Status:Active natural daughter Name Dates Details Family history of polycystic ovarian syndrome(V18.7, Z84.2) Status:Active Family history of asthma(V17 .5, Z82.5) Status:Active natural son Name Dates Details Family history of Graves' di sease(V18.19, Z83.49) Status:Active Family history of gynecomast ia(V18.7, Z84.2) Status:Active Grandparent Name Dates Details Family history of diabetes m ellitus(V18.0, Z83.3) Status:Active Grandmother Name Dates Details Family history of cerebrovas cular accident (CVA)(V17.1, Z82.3) Status:Active Family history of gout(V18.1 9, Z82.69) Status:Active aunt Name Dates Details Family history of diabetes m ellitus(V18.0, Z83.3) Status:Active Family history of malignant neoplasm of breast(V16.3, Z80.3) Status:Active uncle Name Dates Details Family history of diabetes m ellitus(V18.0, Z83.3) Status:Active Mother Name Dates Details Family history of diabetes m ellitus(V18.0, Z83.3) Status:Active Family history of asthma(V17 .5, Z82.5) Status:Active Family history of hypertensi on(V17.49, Z82.49) Status:Active Family history of hyperlipid emia(V18.19, Z83.438) Status:Active Family history of arthritis( V17.7, Z82.61) Status:Active Family history of neoplasm o f brain(V19.8, Z84.89) Status:Active Father Name Dates Details Family history of multiple m yeloma(V16.7, Z80.7) Status:Active Family history of Status:Active Sister Name Dates Details Family history of diabetes m ellitus(V18.0, Z83.3) Status:Active Family history of Cervical c ancer screening(V76.2, Z12.4) Status:Active Family history of asthma(V17 .5, Z82.5) Status:Active Family history of osteoarthr itis(V17.89, Z82.69) Status:Active natural daughter Name Dates Details Family history of polycystic ovarian syndrome(V18.7, Z84.2) Status:Active Family history of asthma(V17 .5, Z82.5) Status:Active natural son Name Dates Details Family history of Graves' di sease(V18.19, Z83.49) Status:Active Family history of gynecomast ia(V18.7, Z84.2) Status:Active Grandparent Name Dates Details Family history of diabetes m ellitus(V18.0, Z83.3) Status:Active Grandmother Name Dates Details Family history of cerebrovas cular accident (CVA)(V17.1, Z82.3) Status:Active Family history of gout(V18.1 9, Z82.69) Status:Active aunt Name Dates Details Family history of diabetes m ellitus(V18.0, Z83.3) Status:Active Family history of malignant neoplasm of breast(V16.3, Z80.3) Status:Active uncle Name Dates Details Family history of diabetes m ellitus(V18.0, Z83.3) Status:Active Mother Name Dates Details Family history of diabetes m ellitus(V18.0, Z83.3) Status:Active Family history of asthma(V17 .5, Z82.5) Status:Active Family history of hypertensi on(V17.49, Z82.49) Status:Active Family history of hyperlipid emia(V18.19, Z83.438) Status:Active Family history of arthritis( V17.7, Z82.61) Status:Active Family history of neoplasm o f brain(V19.8, Z84.89) Status:Active Father Name Dates Details Family history of multiple m yeloma(V16.7, Z80.7) Status:Active Family history of (7 99.9, R99) Status:Active Sister Name Dates Details Family history of diabetes m ellitus(V18.0, Z83.3) Status:Active Family history of Cervical c ancer screening(V76.2, Z12.4) Status:Active Family history of asthma(V17 .5, Z82.5) Status:Active Family history of osteoarthr itis(V17.89, Z82.69) Status:Active natural daughter Name Dates Details Family history of polycystic ovarian syndrome(V18.7, Z84.2) Status:Active Family history of asthma(V17 .5, Z82.5) Status:Active natural son Name Dates Details Family history of Graves' di sease(V18.19, Z83.49) Status:Active Family history of gynecomast ia(V18.7, Z84.2) Status:Active Grandparent Name Dates Details Family history of diabetes m ellitus(V18.0, Z83.3) Status:Active Grandmother Name Dates Details Family history of cerebrovas cular accident (CVA)(V17.1, Z82.3) Status:Active Family history of gout(V18.1 9, Z82.69) Status:Active aunt Name Dates Details Family history of diabetes m ellitus(V18.0, Z83.3) Status:Active Family history of malignant neoplasm of breast(V16.3, Z80.3) Status:Active uncle Name Dates Details Family history of diabetes m ellitus(V18.0, Z83.3) Status:Active Mother Name Dates Details Family history of diabetes m ellitus(V18.0, Z83.3) Status:Active Family history of asthma(V17 .5, Z82.5) Status:Active Family history of hypertensi on(V17.49, Z82.49) Status:Active Family history of arthritis( V17.7, Z82.61) Status:Active Family history of neoplasm o f brain(V19.8, Z84.89) Status:Active Family history of hyperlipid emia(V18.19, Z83.438) Status:Active Father Name Dates Details Family history of multiple m yeloma(V16.7, Z80.7) Status:Active Family history of (7 99.9, R99) Status:Active Sister Name Dates Details Family history of diabetes m ellitus(V18.0, Z83.3) Status:Active Family history of Cervical c ancer screening(V76.2, Z12.4) Status:Active Family history of asthma(V17 .5, Z82.5) Status:Active Family history of osteoarthr itis(V17.89, Z82.69) Status:Active Family history of hyperlipid emia(V18.19, Z83.438) Status:Active natural daughter Name Dates Details Family history of polycystic ovarian syndrome(V18.7, Z84.2) Status:Active Family history of asthma(V17 .5, Z82.5) Status:Active natural son Name Dates Details Family history of Graves' di sease(V18.19, Z83.49) Status:Active Family history of gynecomast ia(V18.7, Z84.2) Status:Active Grandparent Name Dates Details Family history of diabetes m ellitus(V18.0, Z83.3) Status:Active Grandmother Name Dates Details Family history of cerebrovas cular accident (CVA)(V17.1, Z82.3) Status:Active Family history of gout(V18.1 9, Z82.69) Status:Active aunt Name Dates Details Family history of diabetes m ellitus(V18.0, Z83.3) Status:Active Family history of malignant neoplasm of breast(V16.3, Z80.3) Status:Active uncle Name Dates Details Family history of diabetes m ellitus(V18.0, Z83.3) Status:Active Mother Name Dates Details Family history of diabetes m ellitus(V18.0, Z83.3) Status:Active Family history of asthma(V17 .5, Z82.5) Status:Active Family history of hypertensi on(V17.49, Z82.49) Status:Active Family history of arthritis( V17.7, Z82.61) Status:Active Family history of neoplasm o f brain(V19.8, Z84.89) Status:Active Family history of hyperlipid emia(V18.19, Z83.438) Status:Active Father Name Dates Details Family history of multiple m yeloma(V16.7, Z80.7) Status:Active Family history of (7 99.9, R99) Status:Active Sister Name Dates Details Family history of diabetes m ellitus(V18.0, Z83.3) Status:Active Family history of Cervical c ancer screening(V76.2, Z12.4) Status:Active Family history of asthma(V17 .5, Z82.5) Status:Active Family history of osteoarthr itis(V17.89, Z82.69) Status:Active Family history of hyperlipid emia(V18.19, Z83.438) Status:Active natural daughter Name Dates Details Family history of polycystic ovarian syndrome(V18.7, Z84.2) Status:Active Family history of asthma(V17 .5, Z82.5) Status:Active natural son Name Dates Details Family history of Graves' di sease(V18.19, Z83.49) Status:Active Family history of gynecomast ia(V18.7, Z84.2) Status:Active Grandparent Name Dates Details Family history of diabetes m ellitus(V18.0, Z83.3) Status:Active Grandmother Name Dates Details Family history of cerebrovas cular accident (CVA)(V17.1, Z82.3) Status:Active Family history of gout(V18.1 9, Z82.69) Status:Active aunt Name Dates Details Family history of diabetes m ellitus(V18.0, Z83.3) Status:Active Family history of malignant neoplasm of breast(V16.3, Z80.3) Status:Active uncle Name Dates Details Family history of diabetes m ellitus(V18.0, Z83.3) Status:Active Mother Name Dates Details Family history of diabetes m ellitus(V18.0, Z83.3) Status:Active Family history of asthma(V17 .5, Z82.5) Status:Active Family history of hypertensi on(V17.49, Z82.49) Status:Active Family history of arthritis( V17.7, Z82.61) Status:Active Family history of neoplasm o f brain(V19.8, Z84.89) Status:Active Family history of hyperlipid emia(V18.19, Z83.438) Status:Active Father Name Dates Details Family history of multiple m yeloma(V16.7, Z80.7) Status:Active Family history of (7 99.9, R99) Status:Active Sister Name Dates Details Family history of diabetes m ellitus(V18.0, Z83.3) Status:Active Family history of Cervical c ancer screening(V76.2, Z12.4) Status:Active Family history of asthma(V17 .5, Z82.5) Status:Active Family history of osteoarthr itis(V17.89, Z82.69) Status:Active Family history of hyperlipid emia(V18.19, Z83.438) Status:Active Unknown Family Member Name Dates Details Family history of diabetes m ellitus: Mother, Sister, Grandparent, Aunt, Uncle(V18.0, Z83.3) Status:Active Cervical cancer screening: S ister Status:Active Family history of multiple m yeloma: Father(V16.7, Z80.7) Status:Active Family history of Graves' di sease: Son(V18.19, Z83.49) Status:Active Family history of gynecomast ia: Son(V18.7, Z84.2) Status:Active Family history of polycystic ovarian syndrome: Daughter(V18.7, Z84.2) Status:Active Family history of asthma: Mo ther, Daughter, Sister(V17.5, Z82.5) Status:Active Family history of cerebrovas cular accident (CVA): Grandmother(V17.1, Z82.3) Status:Active Family history of malignant neoplasm of breast: Aunt(V16.3, Z80.3) Status:Active : Father Status:Active Family history of hypertensi on: Mother(V17.49, Z82.49) Status:Active Family history of arthritis: Mother(V17.7, Z82.61) Status:Active Family history of osteoarthr itis: Sister(V17.89, Z82.69) Status:Active Family history of gout: Gran dmother(V18.19, Z82.69) Status:Active Family history of neoplasm o f brain: Mother(V19.8, Z84.89) Status:Active Family history of hyperlipid emia: Mother, Sister(V18.19, Z83.438) Status:Active Unknown Family Member Name Dates Details Family history of diabetes m ellitus: Mother, Sister, Grandparent, Aunt, Uncle(V18.0, Z83.3) Status:Active Cervical cancer screening: S ister Status:Active Family history of multiple m yeloma: Father(V16.7, Z80.7) Status:Active Family history of Graves' di sease: Son(V18.19, Z83.49) Status:Active Family history of gynecomast ia: Son(V18.7, Z84.2) Status:Active Family history of polycystic ovarian syndrome: Daughter(V18.7, Z84.2) Status:Active Family history of asthma: Mo ther, Daughter, Sister(V17.5, Z82.5) Status:Active Family history of cerebrovas cular accident (CVA): Grandmother(V17.1, Z82.3) Status:Active Family history of malignant neoplasm of breast: Aunt(V16.3, Z80.3) Status:Active : Father Status:Active Family history of hypertensi on: Mother(V17.49, Z82.49) Status:Active Family history of arthritis: Mother(V17.7, Z82.61) Status:Active Family history of osteoarthr itis: Sister(V17.89, Z82.69) Status:Active Family history of gout: Gran dmother(V18.19, Z82.69) Status:Active Family history of neoplasm o f brain: Mother(V19.8, Z84.89) Status:Active Family history of hyperlipid emia: Mother, Sister(V18.19, Z83.438) Status:Active Unknown Family Member Name Dates Details Family history of Graves' di sease: Son(V18.19, Z83.49) Status:Active Family history of gynecomast ia: Son(V18.7, Z84.2) Status:Active Family history of polycystic ovarian syndrome: Daughter(V18.7, Z84.2) Status:Active Family history of asthma: Mo ther, Daughter, Sister(V17.5, Z82.5) Status:Active Family history of cerebrovas cular accident (CVA): Grandmother(V17.1, Z82.3) Status:Active Family history of malignant neoplasm of breast: Aunt(V16.3, Z80.3) Status:Active : Father Status:Active Family history of hypertensi on: Mother(V17.49, Z82.49) Status:Active Family history of arthritis: Mother(V17.7, Z82.61) Status:Active Family history of osteoarthr itis: Sister(V17.89, Z82.69) Status:Active Family history of gout: Gran dmother(V18.19, Z82.69) Status:Active Family history of neoplasm o f brain: Mother(V19.8, Z84.89) Status:Active Family history of hyperlipid emia: Mother, Sister(V18.19, Z83.438) Status:Active Family history of multiple m yeloma: Father(V16.7, Z80.7) Status:Active Cervical cancer screening: Evi hanley Status:Active Family history of diabetes m ellitus: Mother, Sister, Grandparent, Aunt, Uncle(V18.0, Z83.3) Status:Active Unknown Family Member Name Dates Details Family history of diabetes m ellitus: Mother, Sister, Grandparent, Aunt, Uncle(V18.0, Z83.3) Status:Active Cervical cancer screening: S ister Status:Active Family history of multiple m yeloma: Father(V16.7, Z80.7) Status:Active Family history of Graves' di sease: Son(V18.19, Z83.49) Status:Active Family history of gynecomast ia: Son(V18.7, Z84.2) Status:Active Family history of polycystic ovarian syndrome: Daughter(V18.7, Z84.2) Status:Active Family history of asthma: Mo ther, Daughter, Sister(V17.5, Z82.5) Status:Active Family history of cerebrovas cular accident (CVA): Grandmother(V17.1, Z82.3) Status:Active Family history of malignant neoplasm of breast: Aunt(V16.3, Z80.3) Status:Active : Father Status:Active Family history of hypertensi on: Mother(V17.49, Z82.49) Status:Active Family history of arthritis: Mother(V17.7, Z82.61) Status:Active Family history of osteoarthr itis: Sister(V17.89, Z82.69) Status:Active Family history of gout: Gran dmother(V18.19, Z82.69) Status:Active Family history of neoplasm o f brain: Mother(V19.8, Z84.89) Status:Active Family history of hyperlipid emia: Mother, Sister(V18.19, Z83.438) Status:Active Unknown Family Member Name Dates Details Family history of diabetes m ellitus: Mother, Sister, Grandparent, Aunt, Uncle(V18.0, Z83.3) Status:Active Cervical cancer screening: S ister Status:Active Family history of multiple m yeloma: Father(V16.7, Z80.7) Status:Active Family history of Graves' di sease: Son(V18.19, Z83.49) Status:Active Family history of gynecomast ia: Son(V18.7, Z84.2) Status:Active Family history of polycystic ovarian syndrome: Daughter(V18.7, Z84.2) Status:Active Family history of asthma: Mo ther, Daughter, Sister(V17.5, Z82.5) Status:Active Family history of cerebrovas cular accident (CVA): Grandmother(V17.1, Z82.3) Status:Active Family history of malignant neoplasm of breast: Aunt(V16.3, Z80.3) Status:Active : Father Status:Active Family history of hypertensi on: Mother(V17.49, Z82.49) Status:Active Family history of arthritis: Mother(V17.7, Z82.61) Status:Active Family history of osteoarthr itis: Sister(V17.89, Z82.69) Status:Active Family history of gout: Gran dmother(V18.19, Z82.69) Status:Active Family history of neoplasm o f brain: Mother(V19.8, Z84.89) Status:Active Family history of hyperlipid emia: Mother, Sister(V18.19, Z83.438) Status:Active Unknown Family Member Name Dates Details Family history of diabetes m ellitus: Mother, Sister, Grandparent, Aunt, Uncle(V18.0, Z83.3) Status:Active Cervical cancer screening: S ister Status:Active Family history of multiple m yeloma: Father(V16.7, Z80.7) Status:Active Family history of Graves' di sease: Son(V18.19, Z83.49) Status:Active Family history of gynecomast ia: Son(V18.7, Z84.2) Status:Active Family history of polycystic ovarian syndrome: Daughter(V18.7, Z84.2) Status:Active Family history of asthma: Mo ther, Daughter, Sister(V17.5, Z82.5) Status:Active Family history of cerebrovas cular accident (CVA): Grandmother(V17.1, Z82.3) Status:Active Family history of malignant neoplasm of breast: Aunt(V16.3, Z80.3) Status:Active : Father Status:Active Family history of hypertensi on: Mother(V17.49, Z82.49) Status:Active Family history of arthritis: Mother(V17.7, Z82.61) Status:Active Family history of osteoarthr itis: Sister(V17.89, Z82.69) Status:Active Family history of gout: Gran dmother(V18.19, Z82.69) Status:Active Family history of neoplasm o f brain: Mother(V19.8, Z84.89) Status:Active Family history of hyperlipid emia: Mother, Sister(V18.19, Z83.438) Status:Active Unknown Family Member Name Dates Details Family history of diabetes m ellitus: Mother, Sister, Grandparent, Aunt, Uncle(V18.0, Z83.3) Status:Active Cervical cancer screening: Evi hanley Status:Active Family history of multiple m yeloma: Father(V16.7, Z80.7) Status:Active Family history of Graves' di sease: Son(V18.19, Z83.49) Status:Active Family history of gynecomast ia: Son(V18.7, Z84.2) Status:Active Family history of polycystic ovarian syndrome: Daughter(V18.7, Z84.2) Status:Active Family history of asthma: Mo ther, Daughter, Sister(V17.5, Z82.5) Status:Active Family history of cerebrovas cular accident (CVA): Grandmother(V17.1, Z82.3) Status:Active : Father Status:Active Family history of hypertensi on: Mother(V17.49, Z82.49) Status:Active Family history of arthritis: Mother(V17.7, Z82.61) Status:Active Family history of osteoarthr itis: Sister(V17.89, Z82.69) Status:Active Family history of gout: Gran dmother(V18.19, Z82.69) Status:Active Family history of neoplasm o f brain: Mother(V19.8, Z84.89) Status:Active Family history of hyperlipid emia: Mother, Sister(V18.19, Z83.438) Status:Active Family history of malignant neoplasm of breast: Aunt, Paternal Aunt(V16.3, Z80.3) Status:Active Family history of malignant neoplasm of ovary: Paternal Aunt, Paternal Cousin(V16.41, Z80.41) Status:Active Family history of malignant neoplasm of prostate: Paternal Cousin(V16.42, Z80.42) Status:Active Unknown Family Member Name Dates Details Family history of diabetes m ellitus: Mother, Sister, Grandparent, Aunt, Uncle(V18.0, Z83.3) Status:Active Cervical cancer screening: S ister Status:Active Family history of multiple m yeloma: Father(V16.7, Z80.7) Status:Active Family history of Graves' di sease: Son(V18.19, Z83.49) Status:Active Family history of gynecomast ia: Son(V18.7, Z84.2) Status:Active Family history of polycystic ovarian syndrome: Daughter(V18.7, Z84.2) Status:Active Family history of asthma: Mo ther, Daughter, Sister(V17.5, Z82.5) Status:Active Family history of cerebrovas cular accident (CVA): Grandmother(V17.1, Z82.3) Status:Active : Father Status:Active Family history of hypertensi on: Mother(V17.49, Z82.49) Status:Active Family history of arthritis: Mother(V17.7, Z82.61) Status:Active Family history of osteoarthr itis: Sister(V17.89, Z82.69) Status:Active Family history of gout: Gran dmother(V18.19, Z82.69) Status:Active Family history of neoplasm o f brain: Mother(V19.8, Z84.89) Status:Active Family history of hyperlipid emia: Mother, Sister(V18.19, Z83.438) Status:Active Family history of malignant neoplasm of breast: Aunt, Paternal Aunt(V16.3, Z80.3) Status:Active Family history of malignant neoplasm of ovary: Paternal Aunt, Paternal Cousin(V16.41, Z80.41) Status:Active Family history of malignant neoplasm of prostate: Paternal Cousin(V16.42, Z80.42) Status:Active Unknown Family Member Name Dates Details Family history of diabetes m ellitus: Mother, Sister, Grandparent, Aunt, Uncle(V18.0, Z83.3) Status:Active Cervical cancer screening: S ister Status:Active Family history of multiple m yeloma: Father(V16.7, Z80.7) Status:Active Family history of Graves' di sease: Son(V18.19, Z83.49) Status:Active Family history of gynecomast ia: Son(V18.7, Z84.2) Status:Active Family history of polycystic ovarian syndrome: Daughter(V18.7, Z84.2) Status:Active Family history of asthma: Mo ther, Daughter, Sister(V17.5, Z82.5) Status:Active Family history of cerebrovas cular accident (CVA): Grandmother(V17.1, Z82.3) Status:Active : Father Status:Active Family history of hypertensi on: Mother(V17.49, Z82.49) Status:Active Family history of arthritis: Mother(V17.7, Z82.61) Status:Active Family history of osteoarthr itis: Sister(V17.89, Z82.69) Status:Active Family history of gout: Gran dmother(V18.19, Z82.69) Status:Active Family history of neoplasm o f brain: Mother(V19.8, Z84.89) Status:Active Family history of hyperlipid emia: Mother, Sister(V18.19, Z83.438) Status:Active Family history of malignant neoplasm of breast: Aunt, Paternal Aunt(V16.3, Z80.3) Status:Active Family history of malignant neoplasm of ovary: Paternal Aunt, Paternal Cousin(V16.41, Z80.41) Status:Active Family history of malignant neoplasm of prostate: Paternal Cousin(V16.42, Z80.42) Status:Active Unknown Family Member Name Dates Details Family history of diabetes m ellitus: Mother, Sister, Grandparent, Aunt, Uncle(V18.0, Z83.3) Status:Active Cervical cancer screening: S ister Status:Active Family history of multiple m yeloma: Father(V16.7, Z80.7) Status:Active Family history of Graves' di sease: Son(V18.19, Z83.49) Status:Active Family history of gynecomast ia: Son(V18.7, Z84.2) Status:Active Family history of polycystic ovarian syndrome: Daughter(V18.7, Z84.2) Status:Active Family history of asthma: Mo ther, Daughter, Sister(V17.5, Z82.5) Status:Active Family history of cerebrovas cular accident (CVA): Grandmother(V17.1, Z82.3) Status:Active : Father Status:Active Family history of hypertensi on: Mother(V17.49, Z82.49) Status:Active Family history of arthritis: Mother(V17.7, Z82.61) Status:Active Family history of osteoarthr itis: Sister(V17.89, Z82.69) Status:Active Family history of gout: Gran dmother(V18.19, Z82.69) Status:Active Family history of neoplasm o f brain: Mother(V19.8, Z84.89) Status:Active Family history of hyperlipid emia: Mother, Sister(V18.19, Z83.438) Status:Active Family history of malignant neoplasm of breast: Aunt, Paternal Aunt(V16.3, Z80.3) Status:Active Family history of malignant neoplasm of ovary: Paternal Aunt, Paternal Cousin(V16.41, Z80.41) Status:Active Family history of malignant neoplasm of prostate: Paternal Cousin(V16.42, Z80.42) Status:Active Unknown Family Member Name Dates Details Family history of diabetes m ellitus: Mother, Sister, Grandparent, Aunt, Uncle(V18.0, Z83.3) Status:Active Cervical cancer screening: S ister Status:Active Family history of multiple m yeloma: Father(V16.7, Z80.7) Status:Active Family history of Graves' di sease: Son(V18.19, Z83.49) Status:Active Family history of gynecomast ia: Son(V18.7, Z84.2) Status:Active Family history of polycystic ovarian syndrome: Daughter(V18.7, Z84.2) Status:Active Family history of asthma: Mo ther, Daughter, Sister(V17.5, Z82.5) Status:Active Family history of cerebrovas cular accident (CVA): Grandmother(V17.1, Z82.3) Status:Active : Father Status:Active Family history of hypertensi on: Mother(V17.49, Z82.49) Status:Active Family history of arthritis: Mother(V17.7, Z82.61) Status:Active Family history of osteoarthr itis: Sister(V17.89, Z82.69) Status:Active Family history of gout: Gran dmother(V18.19, Z82.69) Status:Active Family history of neoplasm o f brain: Mother(V19.8, Z84.89) Status:Active Family history of hyperlipid emia: Mother, Sister(V18.19, Z83.438) Status:Active Family history of malignant neoplasm of breast: Aunt, Paternal Aunt(V16.3, Z80.3) Status:Active Family history of malignant neoplasm of ovary: Paternal Aunt, Paternal Cousin(V16.41, Z80.41) Status:Active Family history of malignant neoplasm of prostate: Paternal Cousin(V16.42, Z80.42) Status:Active Unknown Family Member Name Dates Details Family history of diabetes m ellitus: Mother, Sister, Grandparent, Aunt, Uncle(V18.0, Z83.3) Status:Active Cervical cancer screening: S ister Status:Active Family history of multiple m yeloma: Father(V16.7, Z80.7) Status:Active Family history of Graves' di sease: Son(V18.19, Z83.49) Status:Active Family history of gynecomast ia: Son(V18.7, Z84.2) Status:Active Family history of polycystic ovarian syndrome: Daughter(V18.7, Z84.2) Status:Active Family history of asthma: Mo ther, Daughter, Sister(V17.5, Z82.5) Status:Active Family history of cerebrovas cular accident (CVA): Grandmother(V17.1, Z82.3) Status:Active : Father Status:Active Family history of hypertensi on: Mother(V17.49, Z82.49) Status:Active Family history of arthritis: Mother(V17.7, Z82.61) Status:Active Family history of osteoarthr itis: Sister(V17.89, Z82.69) Status:Active Family history of gout: Gran dmother(V18.19, Z82.69) Status:Active Family history of neoplasm o f brain: Mother(V19.8, Z84.89) Status:Active Family history of hyperlipid emia: Mother, Sister(V18.19, Z83.438) Status:Active Family history of malignant neoplasm of breast: Aunt, Paternal Aunt(V16.3, Z80.3) Status:Active Family history of malignant neoplasm of ovary: Paternal Aunt, Paternal Cousin(V16.41, Z80.41) Status:Active Family history of malignant neoplasm of prostate: Paternal Cousin(V16.42, Z80.42) Status:Active Unknown Family Member Name Dates Details Family history of diabetes m ellitus: Mother, Sister, Grandparent, Aunt, Uncle(V18.0, Z83.3) Status:Active Cervical cancer screening: Evi hanley Status:Active Family history of multiple m yeloma: Father(V16.7, Z80.7) Status:Active Family history of Graves' di sease: Son(V18.19, Z83.49) Status:Active Family history of gynecomast ia: Son(V18.7, Z84.2) Status:Active Family history of polycystic ovarian syndrome: Daughter(V18.7, Z84.2) Status:Active Family history of asthma: Mo ther, Daughter, Sister(V17.5, Z82.5) Status:Active Family history of cerebrovas cular accident (CVA): Grandmother(V17.1, Z82.3) Status:Active : Father Status:Active Family history of hypertensi on: Mother(V17.49, Z82.49) Status:Active Family history of arthritis: Mother(V17.7, Z82.61) Status:Active Family history of osteoarthr itis: Sister(V17.89, Z82.69) Status:Active Family history of gout: Gran dmother(V18.19, Z82.69) Status:Active Family history of neoplasm o f brain: Mother(V19.8, Z84.89) Status:Active Family history of hyperlipid emia: Mother, Sister(V18.19, Z83.438) Status:Active Family history of malignant neoplasm of breast: Aunt, Paternal Aunt(V16.3, Z80.3) Status:Active Family history of malignant neoplasm of ovary: Paternal Aunt, Paternal Cousin(V16.41, Z80.41) Status:Active Family history of malignant neoplasm of prostate: Paternal Cousin(V16.42, Z80.42) Status:Active Unknown Family Member Name Dates Details Family history of diabetes m ellitus: Mother, Sister, Grandparent, Aunt, Uncle(V18.0, Z83.3) Status:Active Cervical cancer screening: S ister Status:Active Family history of multiple m yeloma: Father(V16.7, Z80.7) Status:Active Family history of Graves' di sease: Son(V18.19, Z83.49) Status:Active Family history of gynecomast ia: Son(V18.7, Z84.2) Status:Active Family history of polycystic ovarian syndrome: Daughter(V18.7, Z84.2) Status:Active Family history of asthma: Mo ther, Daughter, Sister(V17.5, Z82.5) Status:Active Family history of cerebrovas cular accident (CVA): Grandmother(V17.1, Z82.3) Status:Active : Father Status:Active Family history of hypertensi on: Mother(V17.49, Z82.49) Status:Active Family history of arthritis: Mother(V17.7, Z82.61) Status:Active Family history of osteoarthr itis: Sister(V17.89, Z82.69) Status:Active Family history of gout: Gran dmother(V18.19, Z82.69) Status:Active Family history of neoplasm o f brain: Mother(V19.8, Z84.89) Status:Active Family history of hyperlipid emia: Mother, Sister(V18.19, Z83.438) Status:Active Family history of malignant neoplasm of breast: Aunt, Paternal Aunt(V16.3, Z80.3) Status:Active Family history of malignant neoplasm of ovary: Paternal Aunt, Paternal Cousin(V16.41, Z80.41) Status:Active Family history of malignant neoplasm of prostate: Paternal Cousin(V16.42, Z80.42) Status:Active Unknown Family Member Name Dates Details Family history of diabetes m ellitus: Mother, Sister, Grandparent, Aunt, Uncle(V18.0, Z83.3) Status:Active Cervical cancer screening: S ister Status:Active Family history of multiple m yeloma: Father(V16.7, Z80.7) Status:Active Family history of Graves' di sease: Son(V18.19, Z83.49) Status:Active Family history of gynecomast ia: Son(V18.7, Z84.2) Status:Active Family history of polycystic ovarian syndrome: Daughter(V18.7, Z84.2) Status:Active Family history of asthma: Mo ther, Daughter, Sister(V17.5, Z82.5) Status:Active Family history of cerebrovas cular accident (CVA): Grandmother(V17.1, Z82.3) Status:Active : Father Status:Active Family history of hypertensi on: Mother(V17.49, Z82.49) Status:Active Family history of arthritis: Mother(V17.7, Z82.61) Status:Active Family history of osteoarthr itis: Sister(V17.89, Z82.69) Status:Active Family history of gout: Gran dmother(V18.19, Z82.69) Status:Active Family history of neoplasm o f brain: Mother(V19.8, Z84.89) Status:Active Family history of hyperlipid emia: Mother, Sister(V18.19, Z83.438) Status:Active Family history of malignant neoplasm of breast: Aunt, Paternal Aunt(V16.3, Z80.3) Status:Active Family history of malignant neoplasm of ovary: Paternal Aunt, Paternal Cousin(V16.41, Z80.41) Status:Active Family history of malignant neoplasm of prostate: Paternal Cousin(V16.42, Z80.42) Status:Active Unknown Family Member Name Dates Details Family history of diabetes m ellitus: Mother, Sister, Grandparent, Aunt, Uncle(V18.0, Z83.3) Status:Active Cervical cancer screening: S ister Status:Active Family history of multiple m yeloma: Father(V16.7, Z80.7) Status:Active Family history of Graves' di sease: Son(V18.19, Z83.49) Status:Active Family history of gynecomast ia: Son(V18.7, Z84.2) Status:Active Family history of polycystic ovarian syndrome: Daughter(V18.7, Z84.2) Status:Active Family history of asthma: Mo ther, Daughter, Sister(V17.5, Z82.5) Status:Active Family history of cerebrovas cular accident (CVA): Grandmother(V17.1, Z82.3) Status:Active : Father Status:Active Family history of hypertensi on: Mother(V17.49, Z82.49) Status:Active Family history of arthritis: Mother(V17.7, Z82.61) Status:Active Family history of osteoarthr itis: Sister(V17.89, Z82.69) Status:Active Family history of gout: Gran dmother(V18.19, Z82.69) Status:Active Family history of neoplasm o f brain: Mother(V19.8, Z84.89) Status:Active Family history of hyperlipid emia: Mother, Sister(V18.19, Z83.438) Status:Active Family history of malignant neoplasm of breast: Aunt, Paternal Aunt(V16.3, Z80.3) Status:Active Family history of malignant neoplasm of ovary: Paternal Aunt, Paternal Cousin(V16.41, Z80.41) Status:Active Family history of malignant neoplasm of prostate: Paternal Cousin(V16.42, Z80.42) Status:Active Unknown Family Member Name Dates Details Family history of diabetes m ellitus: Mother, Sister, Grandparent, Aunt, Uncle(V18.0, Z83.3) Status:Active Cervical cancer screening: Evi hanley Status:Active Family history of multiple m yeloma: Father(V16.7, Z80.7) Status:Active Family history of Graves' di sease: Son(V18.19, Z83.49) Status:Active Family history of gynecomast ia: Son(V18.7, Z84.2) Status:Active Family history of polycystic ovarian syndrome: Daughter(V18.7, Z84.2) Status:Active Family history of asthma: Mo ther, Daughter, Sister(V17.5, Z82.5) Status:Active Family history of cerebrovas cular accident (CVA): Grandmother(V17.1, Z82.3) Status:Active : Father Status:Active Family history of hypertensi on: Mother(V17.49, Z82.49) Status:Active Family history of arthritis: Mother(V17.7, Z82.61) Status:Active Family history of osteoarthr itis: Sister(V17.89, Z82.69) Status:Active Family history of gout: Gran dmother(V18.19, Z82.69) Status:Active Family history of neoplasm o f brain: Mother(V19.8, Z84.89) Status:Active Family history of hyperlipid emia: Mother, Sister(V18.19, Z83.438) Status:Active Family history of malignant neoplasm of breast: Aunt, Paternal Aunt(V16.3, Z80.3) Status:Active Family history of malignant neoplasm of ovary: Paternal Aunt, Paternal Cousin(V16.41, Z80.41) Status:Active Family history of malignant neoplasm of prostate: Paternal Cousin(V16.42, Z80.42) Status:Active Unknown Family Member Name Dates Details Family history of Graves' di sease: Son(V18.19, Z83.49) Status:Active Family history of gynecomast ia: Son(V18.7, Z84.2) Status:Active Family history of polycystic ovarian syndrome: Daughter(V18.7, Z84.2) Status:Active Family history of asthma: Mo ther, Daughter, Sister(V17.5, Z82.5) Status:Active Family history of cerebrovas cular accident (CVA): Grandmother(V17.1, Z82.3) Status:Active : Father Status:Active Family history of hypertensi on: Mother(V17.49, Z82.49) Status:Active Family history of arthritis: Mother(V17.7, Z82.61) Status:Active Family history of osteoarthr itis: Sister(V17.89, Z82.69) Status:Active Family history of gout: Gran dmother(V18.19, Z82.69) Status:Active Family history of neoplasm o f brain: Mother(V19.8, Z84.89) Status:Active Family history of hyperlipid emia: Mother, Sister(V18.19, Z83.438) Status:Active Family history of malignant neoplasm of breast: Aunt, Paternal Aunt(V16.3, Z80.3) Status:Active Family history of malignant neoplasm of ovary: Paternal Aunt, Paternal Cousin(V16.41, Z80.41) Status:Active Family history of malignant neoplasm of prostate: Paternal Cousin(V16.42, Z80.42) Status:Active Family history of multiple m yeloma: Father(V16.7, Z80.7) Status:Active Cervical cancer screening: S ister Status:Active Family history of diabetes m ellitus: Mother, Sister, Grandparent, Aunt, Uncle(V18.0, Z83.3) Status:Active Unknown Family Member Name Dates Details Family history of diabetes m ellitus: Mother, Sister, Grandparent, Aunt, Uncle(V18.0, Z83.3) Status:Active Cervical cancer screening: S ister Status:Active Family history of multiple m yeloma: Father(V16.7, Z80.7) Status:Active Family history of Graves' di sease: Son(V18.19, Z83.49) Status:Active Family history of gynecomast ia: Son(V18.7, Z84.2) Status:Active Family history of polycystic ovarian syndrome: Daughter(V18.7, Z84.2) Status:Active Family history of asthma: Mo ther, Daughter, Sister(V17.5, Z82.5) Status:Active Family history of cerebrovas cular accident (CVA): Grandmother(V17.1, Z82.3) Status:Active : Father Status:Active Family history of hypertensi on: Mother(V17.49, Z82.49) Status:Active Family history of arthritis: Mother(V17.7, Z82.61) Status:Active Family history of osteoarthr itis: Sister(V17.89, Z82.69) Status:Active Family history of gout: Gran dmother(V18.19, Z82.69) Status:Active Family history of neoplasm o f brain: Mother(V19.8, Z84.89) Status:Active Family history of hyperlipid emia: Mother, Sister(V18.19, Z83.438) Status:Active Family history of malignant neoplasm of breast: Aunt, Paternal Aunt(V16.3, Z80.3) Status:Active Family history of malignant neoplasm of ovary: Paternal Aunt, Paternal Cousin(V16.41, Z80.41) Status:Active Family history of malignant neoplasm of prostate: Paternal Cousin(V16.42, Z80.42) Status:Active Unknown Family Member Name Dates Details Family history of Graves' di sease: Son(V18.19, Z83.49) Status:Active Family history of gynecomast ia: Son(V18.7, Z84.2) Status:Active Family history of polycystic ovarian syndrome: Daughter(V18.7, Z84.2) Status:Active Family history of asthma: Mo ther, Daughter, Sister(V17.5, Z82.5) Status:Active Family history of cerebrovas cular accident (CVA): Grandmother(V17.1, Z82.3) Status:Active : Father Status:Active Family history of hypertensi on: Mother(V17.49, Z82.49) Status:Active Family history of arthritis: Mother(V17.7, Z82.61) Status:Active Family history of osteoarthr itis: Sister(V17.89, Z82.69) Status:Active Family history of gout: Gran dmother(V18.19, Z82.69) Status:Active Family history of hyperlipid emia: Mother, Sister(V18.19, Z83.438) Status:Active Family history of malignant neoplasm of breast: Aunt, Paternal Aunt(V16.3, Z80.3) Status:Active Family history of malignant neoplasm of ovary: Paternal Aunt, Paternal Cousin(V16.41, Z80.41) Status:Active Family history of malignant neoplasm of prostate: Paternal Cousin(V16.42, Z80.42) Status:Active Family history of neoplasm o f brain: Mother(V19.8, Z84.89) Status:Active Family history of multiple m yeloma: Father(V16.7, Z80.7) Status:Active Cervical cancer screening: S ister Status:Active Family history of diabetes m ellitus: Mother, Sister, Grandparent, Aunt, Uncle(V18.0, Z83.3) Status:Active Unknown Family Member Name Dates Details Family history of Graves' di sease: Son(V18.19, Z83.49) Status:Active Family history of gynecomast ia: Son(V18.7, Z84.2) Status:Active Family history of polycystic ovarian syndrome: Daughter(V18.7, Z84.2) Status:Active Family history of asthma: Mo ther, Daughter, Sister(V17.5, Z82.5) Status:Active Family history of cerebrovas cular accident (CVA): Grandmother(V17.1, Z82.3) Status:Active : Father Status:Active Family history of hypertensi on: Mother(V17.49, Z82.49) Status:Active Family history of arthritis: Mother(V17.7, Z82.61) Status:Active Family history of osteoarthr itis: Sister(V17.89, Z82.69) Status:Active Family history of gout: Gran dmother(V18.19, Z82.69) Status:Active Family history of neoplasm o f brain: Mother(V19.8, Z84.89) Status:Active Family history of hyperlipid emia: Mother, Sister(V18.19, Z83.438) Status:Active Family history of malignant neoplasm of breast: Aunt, Paternal Aunt(V16.3, Z80.3) Status:Active Family history of malignant neoplasm of ovary: Paternal Aunt, Paternal Cousin(V16.41, Z80.41) Status:Active Family history of malignant neoplasm of prostate: Paternal Cousin(V16.42, Z80.42) Status:Active Family history of multiple m yeloma: Father(V16.7, Z80.7) Status:Active Cervical cancer screening: S ister Status:Active Family history of diabetes m ellitus: Mother, Sister, Grandparent, Aunt, Uncle(V18.0, Z83.3) Status:Active Unknown Family Member Name Dates Details Family history of Graves' di sease: Son(V18.19, Z83.49) Status:Active Family history of gynecomast ia: Son(V18.7, Z84.2) Status:Active Family history of polycystic ovarian syndrome: Daughter(V18.7, Z84.2) Status:Active Family history of asthma: Mo ther, Daughter, Sister(V17.5, Z82.5) Status:Active Family history of cerebrovas cular accident (CVA): Grandmother(V17.1, Z82.3) Status:Active : Father Status:Active Family history of hypertensi on: Mother(V17.49, Z82.49) Status:Active Family history of arthritis: Mother(V17.7, Z82.61) Status:Active Family history of osteoarthr itis: Sister(V17.89, Z82.69) Status:Active Family history of gout: Gran dmother(V18.19, Z82.69) Status:Active Family history of neoplasm o f brain: Mother(V19.8, Z84.89) Status:Active Family history of hyperlipid emia: Mother, Sister(V18.19, Z83.438) Status:Active Family history of malignant neoplasm of breast: Aunt, Paternal Aunt(V16.3, Z80.3) Status:Active Family history of malignant neoplasm of ovary: Paternal Aunt, Paternal Cousin(V16.41, Z80.41) Status:Active Family history of malignant neoplasm of prostate: Paternal Cousin(V16.42, Z80.42) Status:Active Family history of multiple m yeloma: Father(V16.7, Z80.7) Status:Active Cervical cancer screening: S ister Status:Active Family history of diabetes m ellitus: Mother, Sister, Grandparent, Aunt, Uncle(V18.0, Z83.3) Status:Active natural daughter Name Dates Details Family history of polycystic ovarian syndrome(V18.7, Z84.2) Status:Active Family history of asthma(V17 .5, Z82.5) Status:Active natural son Name Dates Details Family history of Graves' di sease(V18.19, Z83.49) Status:Active Family history of gynecomast ia(V18.7, Z84.2) Status:Active Grandparent Name Dates Details Family history of diabetes m ellitus(V18.0, Z83.3) Status:Active Grandmother Name Dates Details Family history of cerebrovas cular accident (CVA)(V17.1, Z82.3) Status:Active Family history of gout(V18.1 9, Z82.69) Status:Active aunt Name Dates Details Family history of diabetes m ellitus(V18.0, Z83.3) Status:Active Family history of malignant neoplasm of breast(V16.3, Z80.3) Status:Active uncle Name Dates Details Family history of diabetes m ellitus(V18.0, Z83.3) Status:Active Mother Name Dates Details Family history of diabetes m ellitus(V18.0, Z83.3) Status:Active Family history of asthma(V17 .5, Z82.5) Status:Active Family history of hypertensi on(V17.49, Z82.49) Status:Active Family history of hyperlipid emia(V18.19, Z83.438) Status:Active Family history of arthritis( V17.7, Z82.61) Status:Active Family history of neoplasm o f brain(V19.8, Z84.89) Status:Active Father Name Dates Details Family history of multiple m yeloma(V16.7, Z80.7) Status:Active Family history of (7 99.9, R99) Status:Active Sister Name Dates Details Family history of diabetes m ellitus(V18.0, Z83.3) Status:Active Family history of Cervical c ancer screening(V76.2, Z12.4) Status:Active Family history of asthma(V17 .5, Z82.5) Status:Active Family history of osteoarthr itis(V17.89, Z82.69) Status:Active Unknown Family Member Name Dates Details Family history of diabetes m ellitus: Mother, Sister, Grandparent, Aunt, Uncle(V18.0, Z83.3) Status:Active Cervical cancer screening: S ister Status:Active Family history of multiple m yeloma: Father(V16.7, Z80.7) Status:Active Family history of Graves' di sease: Son(V18.19, Z83.49) Status:Active Family history of gynecomast ia: Son(V18.7, Z84.2) Status:Active Family history of polycystic ovarian syndrome: Daughter(V18.7, Z84.2) Status:Active Family history of asthma: Mo ther, Daughter, Sister(V17.5, Z82.5) Status:Active Family history of cerebrovas cular accident (CVA): Grandmother(V17.1, Z82.3) Status:Active : Father Status:Active Family history of hypertensi on: Mother(V17.49, Z82.49) Status:Active Family history of arthritis: Mother(V17.7, Z82.61) Status:Active Family history of osteoarthr itis: Sister(V17.89, Z82.69) Status:Active Family history of gout: Gran dmother(V18.19, Z82.69) Status:Active Family history of neoplasm o f brain: Mother(V19.8, Z84.89) Status:Active Family history of hyperlipid emia: Mother, Sister(V18.19, Z83.438) Status:Active Family history of malignant neoplasm of breast: Aunt, Paternal Aunt(V16.3, Z80.3) Status:Active Family history of malignant neoplasm of ovary: Paternal Aunt, Paternal Cousin(V16.41, Z80.41) Status:Active Family history of malignant neoplasm of prostate: Paternal Cousin(V16.42, Z80.42) Status:Active Unknown Family Member Name Dates Details Family history of diabetes m ellitus: Mother, Sister, Grandparent, Aunt, Uncle(V18.0, Z83.3) Status:Active Cervical cancer screening: S ister Status:Active Family history of multiple m yeloma: Father(V16.7, Z80.7) Status:Active Family history of Graves' di sease: Son(V18.19, Z83.49) Status:Active Family history of gynecomast ia: Son(V18.7, Z84.2) Status:Active Family history of polycystic ovarian syndrome: Daughter(V18.7, Z84.2) Status:Active Family history of asthma: Mo ther, Daughter, Sister(V17.5, Z82.5) Status:Active Family history of cerebrovas cular accident (CVA): Grandmother(V17.1, Z82.3) Status:Active : Father Status:Active Family history of hypertensi on: Mother(V17.49, Z82.49) Status:Active Family history of arthritis: Mother(V17.7, Z82.61) Status:Active Family history of osteoarthr itis: Sister(V17.89, Z82.69) Status:Active Family history of gout: Gran dmother(V18.19, Z82.69) Status:Active Family history of neoplasm o f brain: Mother(V19.8, Z84.89) Status:Active Family history of hyperlipid emia: Mother, Sister(V18.19, Z83.438) Status:Active Family history of malignant neoplasm of breast: Aunt, Paternal Aunt(V16.3, Z80.3) Status:Active Family history of malignant neoplasm of ovary: Paternal Aunt, Paternal Cousin(V16.41, Z80.41) Status:Active Family history of malignant neoplasm of prostate: Paternal Cousin(V16.42, Z80.42) Status:Active Unknown Family Member Name Dates Details Family history of Graves' di sease: Son(V18.19, Z83.49) Status:Active Family history of gynecomast ia: Son(V18.7, Z84.2) Status:Active Family history of polycystic ovarian syndrome: Daughter(V18.7, Z84.2) Status:Active Family history of asthma: Mo ther, Daughter, Sister(V17.5, Z82.5) Status:Active Family history of cerebrovas cular accident (CVA): Grandmother(V17.1, Z82.3) Status:Active : Father Status:Active Family history of hypertensi on: Mother(V17.49, Z82.49) Status:Active Family history of arthritis: Mother(V17.7, Z82.61) Status:Active Family history of osteoarthr itis: Sister(V17.89, Z82.69) Status:Active Family history of gout: Gran dmother(V18.19, Z82.69) Status:Active Family history of neoplasm o f brain: Mother(V19.8, Z84.89) Status:Active Family history of multiple m yeloma: Father(V16.7, Z80.7) Status:Active Cervical cancer screening: S ister Status:Active Family history of diabetes m ellitus: Mother, Sister, Grandparent, Aunt, Uncle(V18.0, Z83.3) Status:Active Family history of hyperlipid emia: Mother, Sister(V18.19, Z83.438) Status:Active Family history of malignant neoplasm of breast: Aunt, Paternal Aunt(V16.3, Z80.3) Status:Active Family history of malignant neoplasm of prostate: Paternal Cousin(V16.42, Z80.42) Status:Active Family history of malignant neoplasm of ovary: Sister, Maternal Aunt, Paternal Cousin(V16.41, Z80.41) Status:Active Unknown Family Member Name Dates Details Family history of diabetes m ellitus: Mother, Sister, Grandparent, Aunt, Uncle(V18.0, Z83.3) Status:Active Cervical cancer screening: Evi hanley Status:Active Family history of multiple m yeloma: Father(V16.7, Z80.7) Status:Active Family history of Graves' di sease: Son(V18.19, Z83.49) Status:Active Family history of gynecomast ia: Son(V18.7, Z84.2) Status:Active Family history of polycystic ovarian syndrome: Daughter(V18.7, Z84.2) Status:Active Family history of asthma: Mo ther, Daughter, Sister(V17.5, Z82.5) Status:Active Family history of cerebrovas cular accident (CVA): Grandmother(V17.1, Z82.3) Status:Active : Father Status:Active Family history of hypertensi on: Mother(V17.49, Z82.49) Status:Active Family history of arthritis: Mother(V17.7, Z82.61) Status:Active Family history of osteoarthr itis: Sister(V17.89, Z82.69) Status:Active Family history of gout: Gran dmother(V18.19, Z82.69) Status:Active Family history of neoplasm o f brain: Mother(V19.8, Z84.89) Status:Active Family history of hyperlipid emia: Mother, Sister(V18.19, Z83.438) Status:Active Family history of malignant neoplasm of breast: Aunt, Paternal Aunt(V16.3, Z80.3) Status:Active Family history of malignant neoplasm of prostate: Paternal Cousin(V16.42, Z80.42) Status:Active Family history of malignant neoplasm of ovary: Sister, Maternal Aunt, Paternal Cousin(V16.41, Z80.41) Status:Active Unknown Family Member Name Dates Details Family history of diabetes m ellitus: Mother, Sister, Grandparent, Aunt, Uncle(V18.0, Z83.3) Status:Active Cervical cancer screening: S ister Status:Active Family history of multiple m yeloma: Father(V16.7, Z80.7) Status:Active Family history of Graves' di sease: Son(V18.19, Z83.49) Status:Active Family history of gynecomast ia: Son(V18.7, Z84.2) Status:Active Family history of polycystic ovarian syndrome: Daughter(V18.7, Z84.2) Status:Active Family history of asthma: Mo ther, Daughter, Sister(V17.5, Z82.5) Status:Active Family history of cerebrovas cular accident (CVA): Grandmother(V17.1, Z82.3) Status:Active : Father Status:Active Family history of hypertensi on: Mother(V17.49, Z82.49) Status:Active Family history of arthritis: Mother(V17.7, Z82.61) Status:Active Family history of osteoarthr itis: Sister(V17.89, Z82.69) Status:Active Family history of gout: Gran dmother(V18.19, Z82.69) Status:Active Family history of neoplasm o f brain: Mother(V19.8, Z84.89) Status:Active Family history of hyperlipid emia: Mother, Sister(V18.19, Z83.438) Status:Active Family history of malignant neoplasm of breast: Aunt, Paternal Aunt(V16.3, Z80.3) Status:Active Family history of malignant neoplasm of prostate: Paternal Cousin(V16.42, Z80.42) Status:Active Family history of malignant neoplasm of ovary: Sister, Maternal Aunt, Paternal Cousin(V16.41, Z80.41) Status:Active Unknown Family Member Name Dates Details Family history of diabetes m ellitus: Mother, Sister, Grandparent, Aunt, Uncle(V18.0, Z83.3) Status:Active Cervical cancer screening: Evi hanley Status:Active Family history of multiple m yeloma: Father(V16.7, Z80.7) Status:Active Family history of Graves' di sease: Son(V18.19, Z83.49) Status:Active Family history of gynecomast ia: Son(V18.7, Z84.2) Status:Active Family history of polycystic ovarian syndrome: Daughter(V18.7, Z84.2) Status:Active Family history of asthma: Mo ther, Daughter, Sister(V17.5, Z82.5) Status:Active Family history of cerebrovas cular accident (CVA): Grandmother(V17.1, Z82.3) Status:Active : Father Status:Active Family history of hypertensi on: Mother(V17.49, Z82.49) Status:Active Family history of arthritis: Mother(V17.7, Z82.61) Status:Active Family history of osteoarthr itis: Sister(V17.89, Z82.69) Status:Active Family history of gout: Gran dmother(V18.19, Z82.69) Status:Active Family history of neoplasm o f brain: Mother(V19.8, Z84.89) Status:Active Family history of hyperlipid emia: Mother, Sister(V18.19, Z83.438) Status:Active Family history of malignant neoplasm of breast: Aunt, Paternal Aunt(V16.3, Z80.3) Status:Active Family history of malignant neoplasm of prostate: Paternal Cousin(V16.42, Z80.42) Status:Active Family history of malignant neoplasm of ovary: Sister, Maternal Aunt, Paternal Cousin(V16.41, Z80.41) Status:Active Unknown Family Member Name Dates Details Family history of Graves' di sease: Son(V18.19, Z83.49) Status:Active Family history of gynecomast ia: Son(V18.7, Z84.2) Status:Active Family history of polycystic ovarian syndrome: Daughter(V18.7, Z84.2) Status:Active Family history of asthma: Mo ther, Daughter, Sister(V17.5, Z82.5) Status:Active Family history of cerebrovas cular accident (CVA): Grandmother(V17.1, Z82.3) Status:Active : Father Status:Active Family history of hypertensi on: Mother(V17.49, Z82.49) Status:Active Family history of arthritis: Mother(V17.7, Z82.61) Status:Active Family history of osteoarthr itis: Sister(V17.89, Z82.69) Status:Active Family history of gout: Gran dmother(V18.19, Z82.69) Status:Active Family history of neoplasm o f brain: Mother(V19.8, Z84.89) Status:Active Family history of multiple m yeloma: Father(V16.7, Z80.7) Status:Active Cervical cancer screening: Evi hanley Status:Active Family history of diabetes m ellitus: Mother, Sister, Grandparent, Aunt, Uncle(V18.0, Z83.3) Status:Active Family history of hyperlipid emia: Mother, Sister(V18.19, Z83.438) Status:Active Family history of malignant neoplasm of breast: Aunt, Paternal Aunt(V16.3, Z80.3) Status:Active Family history of malignant neoplasm of prostate: Paternal Cousin(V16.42, Z80.42) Status:Active Family history of malignant neoplasm of ovary: Sister, Maternal Aunt, Paternal Cousin(V16.41, Z80.41) Status:Active Unknown Family Member Name Dates Details Family history of Graves' di sease: Son(V18.19, Z83.49) Status:Active Family history of gynecomast ia: Son(V18.7, Z84.2) Status:Active Family history of polycystic ovarian syndrome: Daughter(V18.7, Z84.2) Status:Active Family history of asthma: Mo ther, Daughter, Sister(V17.5, Z82.5) Status:Active Family history of cerebrovas cular accident (CVA): Grandmother(V17.1, Z82.3) Status:Active : Father Status:Active Family history of hypertensi on: Mother(V17.49, Z82.49) Status:Active Family history of arthritis: Mother(V17.7, Z82.61) Status:Active Family history of osteoarthr itis: Sister(V17.89, Z82.69) Status:Active Family history of gout: Gran dmother(V18.19, Z82.69) Status:Active Family history of neoplasm o f brain: Mother(V19.8, Z84.89) Status:Active Family history of hyperlipid emia: Mother, Sister(V18.19, Z83.438) Status:Active Family history of malignant neoplasm of breast: Aunt, Paternal Aunt(V16.3, Z80.3) Status:Active Family history of malignant neoplasm of prostate: Paternal Cousin(V16.42, Z80.42) Status:Active Family history of malignant neoplasm of ovary: Sister, Maternal Aunt, Paternal Cousin(V16.41, Z80.41) Status:Active Family history of multiple m yeloma: Father(V16.7, Z80.7) Status:Active Cervical cancer screening: S ister Status:Active Family history of diabetes m ellitus: Mother, Sister, Grandparent, Aunt, Uncle(V18.0, Z83.3) Status:Active Unknown Family Member Name Dates Details Family history of diabetes m ellitus: Mother, Sister, Grandparent, Aunt, Uncle(V18.0, Z83.3) Status:Active Cervical cancer screening: S ister Status:Active Family history of multiple m yeloma: Father(V16.7, Z80.7) Status:Active Family history of Graves' di sease: Son(V18.19, Z83.49) Status:Active Family history of gynecomast ia: Son(V18.7, Z84.2) Status:Active Family history of polycystic ovarian syndrome: Daughter(V18.7, Z84.2) Status:Active Family history of asthma: Mo ther, Daughter, Sister(V17.5, Z82.5) Status:Active Family history of cerebrovas cular accident (CVA): Grandmother(V17.1, Z82.3) Status:Active : Father Status:Active Family history of hypertensi on: Mother(V17.49, Z82.49) Status:Active Family history of arthritis: Mother(V17.7, Z82.61) Status:Active Family history of osteoarthr itis: Sister(V17.89, Z82.69) Status:Active Family history of gout: Gran dmother(V18.19, Z82.69) Status:Active Family history of neoplasm o f brain: Mother(V19.8, Z84.89) Status:Active Family history of hyperlipid emia: Mother, Sister(V18.19, Z83.438) Status:Active Family history of malignant neoplasm of breast: Aunt, Paternal Aunt(V16.3, Z80.3) Status:Active Family history of malignant neoplasm of prostate: Paternal Cousin(V16.42, Z80.42) Status:Active Family history of malignant neoplasm of ovary: Sister, Maternal Aunt, Paternal Cousin(V16.41, Z80.41) Status:Active Unknown Family Member Name Dates Details Family history of Graves' di sease: Son(V18.19, Z83.49) Status:Active Family history of gynecomast ia: Son(V18.7, Z84.2) Status:Active Family history of polycystic ovarian syndrome: Daughter(V18.7, Z84.2) Status:Active Family history of asthma: Mo ther, Daughter, Sister(V17.5, Z82.5) Status:Active Family history of cerebrovas cular accident (CVA): Grandmother(V17.1, Z82.3) Status:Active : Father Status:Active Family history of hypertensi on: Mother(V17.49, Z82.49) Status:Active Family history of arthritis: Mother(V17.7, Z82.61) Status:Active Family history of osteoarthr itis: Sister(V17.89, Z82.69) Status:Active Family history of gout: Gran dmother(V18.19, Z82.69) Status:Active Family history of neoplasm o f brain: Mother(V19.8, Z84.89) Status:Active Family history of hyperlipid emia: Mother, Sister(V18.19, Z83.438) Status:Active Family history of malignant neoplasm of breast: Aunt, Paternal Aunt(V16.3, Z80.3) Status:Active Family history of malignant neoplasm of prostate: Paternal Cousin(V16.42, Z80.42) Status:Active Family history of malignant neoplasm of ovary: Sister, Maternal Aunt, Paternal Cousin(V16.41, Z80.41) Status:Active Family history of multiple m yeloma: Father(V16.7, Z80.7) Status:Active Cervical cancer screening: S ister Status:Active Family history of diabetes m ellitus: Mother, Sister, Grandparent, Aunt, Uncle(V18.0, Z83.3) Status:Active Unknown Family Member Name Dates Details Family history of Graves' di sease: Son(V18.19, Z83.49) Status:Active Family history of gynecomast ia: Son(V18.7, Z84.2) Status:Active Family history of polycystic ovarian syndrome: Daughter(V18.7, Z84.2) Status:Active Family history of asthma: Mo ther, Daughter, Sister(V17.5, Z82.5) Status:Active Family history of cerebrovas cular accident (CVA): Grandmother(V17.1, Z82.3) Status:Active : Father Status:Active Family history of hypertensi on: Mother(V17.49, Z82.49) Status:Active Family history of arthritis: Mother(V17.7, Z82.61) Status:Active Family history of osteoarthr itis: Sister(V17.89, Z82.69) Status:Active Family history of gout: Gran dmother(V18.19, Z82.69) Status:Active Family history of neoplasm o f brain: Mother(V19.8, Z84.89) Status:Active Family history of hyperlipid emia: Mother, Sister(V18.19, Z83.438) Status:Active Family history of malignant neoplasm of breast: Aunt, Paternal Aunt(V16.3, Z80.3) Status:Active Family history of malignant neoplasm of prostate: Paternal Cousin(V16.42, Z80.42) Status:Active Family history of malignant neoplasm of ovary: Sister, Maternal Aunt, Paternal Cousin(V16.41, Z80.41) Status:Active Family history of multiple m yeloma: Father(V16.7, Z80.7) Status:Active Cervical cancer screening: S ister Status:Active Family history of diabetes m ellitus: Mother, Sister, Grandparent, Aunt, Uncle(V18.0, Z83.3) Status:Active Unknown Family Member Name Dates Details Family history of Graves' di sease: Son(V18.19, Z83.49) Status:Active Family history of gynecomast ia: Son(V18.7, Z84.2) Status:Active Family history of polycystic ovarian syndrome: Daughter(V18.7, Z84.2) Status:Active Family history of asthma: Mo ther, Daughter, Sister(V17.5, Z82.5) Status:Active Family history of cerebrovas cular accident (CVA): Grandmother(V17.1, Z82.3) Status:Active : Father Status:Active Family history of hypertensi on: Mother(V17.49, Z82.49) Status:Active Family history of arthritis: Mother(V17.7, Z82.61) Status:Active Family history of osteoarthr itis: Sister(V17.89, Z82.69) Status:Active Family history of gout: Gran dmother(V18.19, Z82.69) Status:Active Family history of neoplasm o f brain: Mother(V19.8, Z84.89) Status:Active Family history of hyperlipid emia: Mother, Sister(V18.19, Z83.438) Status:Active Family history of malignant neoplasm of breast: Aunt, Paternal Aunt(V16.3, Z80.3) Status:Active Family history of malignant neoplasm of prostate: Paternal Cousin(V16.42, Z80.42) Status:Active Family history of multiple m yeloma: Father(V16.7, Z80.7) Status:Active Cervical cancer screening: S ister Status:Active Family history of diabetes m ellitus: Mother, Sister, Grandparent, Aunt, Uncle(V18.0, Z83.3) Status:Active Family history of malignant neoplasm of ovary: Sister, Maternal Aunt, Paternal Cousin(V16.41, Z80.41) Status:Active Unknown Family Member Name Dates Details Family history of diabetes m ellitus: Mother, Sister, Grandparent, Aunt, Uncle(V18.0, Z83.3) Status:Active Cervical cancer screening: S ister Status:Active Family history of multiple m yeloma: Father(V16.7, Z80.7) Status:Active Family history of Graves' di sease: Son(V18.19, Z83.49) Status:Active Family history of gynecomast ia: Son(V18.7, Z84.2) Status:Active Family history of polycystic ovarian syndrome: Daughter(V18.7, Z84.2) Status:Active Family history of asthma: Mo ther, Daughter, Sister(V17.5, Z82.5) Status:Active Family history of cerebrovas cular accident (CVA): Grandmother(V17.1, Z82.3) Status:Active : Father Status:Active Family history of hypertensi on: Mother(V17.49, Z82.49) Status:Active Family history of arthritis: Mother(V17.7, Z82.61) Status:Active Family history of osteoarthr itis: Sister(V17.89, Z82.69) Status:Active Family history of gout: Gran dmother(V18.19, Z82.69) Status:Active Family history of neoplasm o f brain: Mother(V19.8, Z84.89) Status:Active Family history of hyperlipid emia: Mother, Sister(V18.19, Z83.438) Status:Active Family history of malignant neoplasm of breast: Aunt, Paternal Aunt(V16.3, Z80.3) Status:Active Family history of malignant neoplasm of prostate: Paternal Cousin(V16.42, Z80.42) Status:Active Family history of malignant neoplasm of ovary: Sister, Maternal Aunt, Paternal Cousin(V16.41, Z80.41) Status:Active Unknown Family Member Name Dates Details Family history of Graves' di sease: Son(V18.19, Z83.49) Status:Active Family history of gynecomast ia: Son(V18.7, Z84.2) Status:Active Family history of polycystic ovarian syndrome: Daughter(V18.7, Z84.2) Status:Active Family history of asthma: Mo ther, Daughter, Sister(V17.5, Z82.5) Status:Active Family history of cerebrovas cular accident (CVA): Grandmother(V17.1, Z82.3) Status:Active : Father Status:Active Family history of hypertensi on: Mother(V17.49, Z82.49) Status:Active Family history of arthritis: Mother(V17.7, Z82.61) Status:Active Family history of osteoarthr itis: Sister(V17.89, Z82.69) Status:Active Family history of gout: Gran dmother(V18.19, Z82.69) Status:Active Family history of neoplasm o f brain: Mother(V19.8, Z84.89) Status:Active Family history of hyperlipid emia: Mother, Sister(V18.19, Z83.438) Status:Active Family history of malignant neoplasm of breast: Aunt, Paternal Aunt(V16.3, Z80.3) Status:Active Family history of malignant neoplasm of prostate: Paternal Cousin(V16.42, Z80.42) Status:Active Family history of malignant neoplasm of ovary: Sister, Maternal Aunt, Paternal Cousin(V16.41, Z80.41) Status:Active Family history of multiple m yeloma: Father(V16.7, Z80.7) Status:Active Cervical cancer screening: S ister Status:Active Family history of diabetes m ellitus: Mother, Sister, Grandparent, Aunt, Uncle(V18.0, Z83.3) Status:Active Unknown Family Member Name Dates Details Family history of diabetes m ellitus: Mother, Sister, Grandparent, Aunt, Uncle(V18.0, Z83.3) Status:Active Cervical cancer screening: S ister Status:Active Family history of multiple m yeloma: Father(V16.7, Z80.7) Status:Active Family history of Graves' di sease: Son(V18.19, Z83.49) Status:Active Family history of gynecomast ia: Son(V18.7, Z84.2) Status:Active Family history of polycystic ovarian syndrome: Daughter(V18.7, Z84.2) Status:Active Family history of asthma: Mo ther, Daughter, Sister(V17.5, Z82.5) Status:Active Family history of cerebrovas cular accident (CVA): Grandmother(V17.1, Z82.3) Status:Active : Father Status:Active Family history of hypertensi on: Mother(V17.49, Z82.49) Status:Active Family history of arthritis: Mother(V17.7, Z82.61) Status:Active Family history of osteoarthr itis: Sister(V17.89, Z82.69) Status:Active Family history of gout: Gran dmother(V18.19, Z82.69) Status:Active Family history of neoplasm o f brain: Mother(V19.8, Z84.89) Status:Active Family history of hyperlipid emia: Mother, Sister(V18.19, Z83.438) Status:Active Family history of malignant neoplasm of breast: Aunt, Paternal Aunt(V16.3, Z80.3) Status:Active Family history of malignant neoplasm of prostate: Paternal Cousin(V16.42, Z80.42) Status:Active Family history of malignant neoplasm of ovary: Sister, Maternal Aunt, Paternal Cousin(V16.41, Z80.41) Status:Active Unknown Family Member Name Dates Details Family history of diabetes m ellitus: Mother, Sister, Grandparent, Aunt, Uncle(V18.0, Z83.3) Status:Active Cervical cancer screening: S ister Status:Active Family history of multiple m yeloma: Father(V16.7, Z80.7) Status:Active Family history of Graves' di sease: Son(V18.19, Z83.49) Status:Active Family history of gynecomast ia: Son(V18.7, Z84.2) Status:Active Family history of polycystic ovarian syndrome: Daughter(V18.7, Z84.2) Status:Active Family history of asthma: Mo ther, Daughter, Sister(V17.5, Z82.5) Status:Active Family history of cerebrovas cular accident (CVA): Grandmother(V17.1, Z82.3) Status:Active : Father Status:Active Family history of hypertensi on: Mother(V17.49, Z82.49) Status:Active Family history of arthritis: Mother(V17.7, Z82.61) Status:Active Family history of osteoarthr itis: Sister(V17.89, Z82.69) Status:Active Family history of gout: Gran dmother(V18.19, Z82.69) Status:Active Family history of neoplasm o f brain: Mother(V19.8, Z84.89) Status:Active Family history of hyperlipid emia: Mother, Sister(V18.19, Z83.438) Status:Active Family history of malignant neoplasm of breast: Aunt, Paternal Aunt(V16.3, Z80.3) Status:Active Family history of malignant neoplasm of prostate: Paternal Cousin(V16.42, Z80.42) Status:Active Family history of malignant neoplasm of ovary: Sister, Maternal Aunt, Paternal Cousin(V16.41, Z80.41) Status:Active Unknown Family Member Name Dates Details Family history of diabetes m ellitus: Mother, Sister, Grandparent, Aunt, Uncle(V18.0, Z83.3) Status:Active Cervical cancer screening: S ister Status:Active Family history of multiple m yeloma: Father(V16.7, Z80.7) Status:Active Family history of Graves' di sease: Son(V18.19, Z83.49) Status:Active Family history of gynecomast ia: Son(V18.7, Z84.2) Status:Active Family history of polycystic ovarian syndrome: Daughter(V18.7, Z84.2) Status:Active Family history of asthma: Mo ther, Daughter, Sister(V17.5, Z82.5) Status:Active Family history of cerebrovas cular accident (CVA): Grandmother(V17.1, Z82.3) Status:Active : Father Status:Active Family history of hypertensi on: Mother(V17.49, Z82.49) Status:Active Family history of arthritis: Mother(V17.7, Z82.61) Status:Active Family history of osteoarthr itis: Sister(V17.89, Z82.69) Status:Active Family history of gout: Gran dmother(V18.19, Z82.69) Status:Active Family history of neoplasm o f brain: Mother(V19.8, Z84.89) Status:Active Family history of hyperlipid emia: Mother, Sister(V18.19, Z83.438) Status:Active Family history of malignant neoplasm of breast: Aunt, Paternal Aunt(V16.3, Z80.3) Status:Active Family history of malignant neoplasm of prostate: Paternal Cousin(V16.42, Z80.42) Status:Active Family history of malignant neoplasm of ovary: Sister, Maternal Aunt, Paternal Cousin(V16.41, Z80.41) Status:Active Unknown Family Member Name Dates Details Family history of Graves' di sease: Son(V18.19, Z83.49) Status:Active Family history of gynecomast ia: Son(V18.7, Z84.2) Status:Active Family history of polycystic ovarian syndrome: Daughter(V18.7, Z84.2) Status:Active Family history of asthma: Mo ther, Daughter, Sister(V17.5, Z82.5) Status:Active Family history of cerebrovas cular accident (CVA): Grandmother(V17.1, Z82.3) Status:Active : Father Status:Active Family history of hypertensi on: Mother(V17.49, Z82.49) Status:Active Family history of arthritis: Mother(V17.7, Z82.61) Status:Active Family history of osteoarthr itis: Sister(V17.89, Z82.69) Status:Active Family history of gout: Gran dmother(V18.19, Z82.69) Status:Active Family history of neoplasm o f brain: Mother(V19.8, Z84.89) Status:Active Family history of hyperlipid emia: Mother, Sister(V18.19, Z83.438) Status:Active Family history of malignant neoplasm of breast: Aunt, Paternal Aunt(V16.3, Z80.3) Status:Active Family history of malignant neoplasm of prostate: Paternal Cousin(V16.42, Z80.42) Status:Active Family history of malignant neoplasm of ovary: Sister, Maternal Aunt, Paternal Cousin(V16.41, Z80.41) Status:Active Family history of multiple m yeloma: Father(V16.7, Z80.7) Status:Active Cervical cancer screening: S isduke Status:Active Family history of diabetes m ellitus: Mother, Sister, Grandparent, Aunt, Uncle(V18.0, Z83.3) Status:Active Unknown Family Member Name Dates Details Family history of diabetes m ellitus: Mother, Sister, Grandparent, Aunt, Uncle(V18.0, Z83.3) Status:Active Cervical cancer screening: S ister Status:Active Family history of multiple m yeloma: Father(V16.7, Z80.7) Status:Active Family history of Graves' di sease: Son(V18.19, Z83.49) Status:Active Family history of gynecomast ia: Son(V18.7, Z84.2) Status:Active Family history of polycystic ovarian syndrome: Daughter(V18.7, Z84.2) Status:Active Family history of asthma: Mo ther, Daughter, Sister(V17.5, Z82.5) Status:Active Family history of cerebrovas cular accident (CVA): Grandmother(V17.1, Z82.3) Status:Active : Father Status:Active Family history of hypertensi on: Mother(V17.49, Z82.49) Status:Active Family history of arthritis: Mother(V17.7, Z82.61) Status:Active Family history of osteoarthr itis: Sister(V17.89, Z82.69) Status:Active Family history of gout: Gran dmother(V18.19, Z82.69) Status:Active Family history of neoplasm o f brain: Mother(V19.8, Z84.89) Status:Active Family history of hyperlipid emia: Mother, Sister(V18.19, Z83.438) Status:Active Family history of malignant neoplasm of breast: Aunt, Paternal Aunt(V16.3, Z80.3) Status:Active Family history of malignant neoplasm of prostate: Paternal Cousin(V16.42, Z80.42) Status:Active Family history of malignant neoplasm of ovary: Sister, Maternal Aunt, Paternal Cousin(V16.41, Z80.41) Status:Active Unknown Family Member Name Dates Details Family history of diabetes m ellitus: Mother, Sister, Grandparent, Aunt, Uncle(V18.0, Z83.3) Status:Active Cervical cancer screening: S ister Status:Active Family history of multiple m yeloma: Father(V16.7, Z80.7) Status:Active Family history of Graves' di sease: Son(V18.19, Z83.49) Status:Active Family history of gynecomast ia: Son(V18.7, Z84.2) Status:Active Family history of polycystic ovarian syndrome: Daughter(V18.7, Z84.2) Status:Active Family history of asthma: Mo ther, Daughter, Sister(V17.5, Z82.5) Status:Active Family history of cerebrovas cular accident (CVA): Grandmother(V17.1, Z82.3) Status:Active : Father Status:Active Family history of hypertensi on: Mother(V17.49, Z82.49) Status:Active Family history of arthritis: Mother(V17.7, Z82.61) Status:Active Family history of osteoarthr itis: Sister(V17.89, Z82.69) Status:Active Family history of gout: Gran dmother(V18.19, Z82.69) Status:Active Family history of neoplasm o f brain: Mother(V19.8, Z84.89) Status:Active Family history of hyperlipid emia: Mother, Sister(V18.19, Z83.438) Status:Active Family history of malignant neoplasm of breast: Aunt, Paternal Aunt(V16.3, Z80.3) Status:Active Family history of malignant neoplasm of prostate: Paternal Cousin(V16.42, Z80.42) Status:Active Family history of malignant neoplasm of ovary: Sister, Maternal Aunt, Paternal Cousin(V16.41, Z80.41) Status:Active Unknown Family Member Name Dates Details Family history of Graves' di sease: Son(V18.19, Z83.49) Status:Active Family history of gynecomast ia: Son(V18.7, Z84.2) Status:Active Family history of polycystic ovarian syndrome: Daughter(V18.7, Z84.2) Status:Active Family history of asthma: Mo ther, Daughter, Sister(V17.5, Z82.5) Status:Active Family history of cerebrovas cular accident (CVA): Grandmother(V17.1, Z82.3) Status:Active : Father Status:Active Family history of hypertensi on: Mother(V17.49, Z82.49) Status:Active Family history of arthritis: Mother(V17.7, Z82.61) Status:Active Family history of osteoarthr itis: Sister(V17.89, Z82.69) Status:Active Family history of gout: Gran dmother(V18.19, Z82.69) Status:Active Family history of neoplasm o f brain: Mother(V19.8, Z84.89) Status:Active Family history of hyperlipid emia: Mother, Sister(V18.19, Z83.438) Status:Active Family history of malignant neoplasm of breast: Aunt, Paternal Aunt(V16.3, Z80.3) Status:Active Family history of malignant neoplasm of prostate: Paternal Cousin(V16.42, Z80.42) Status:Active Family history of malignant neoplasm of ovary: Sister, Maternal Aunt, Paternal Cousin(V16.41, Z80.41) Status:Active Family history of multiple m yeloma: Father(V16.7, Z80.7) Status:Active Cervical cancer screening: Evi hanley Status:Active Family history of diabetes m ellitus: Mother, Sister, Grandparent, Aunt, Uncle(V18.0, Z83.3) Status:Active Unknown Family Member Name Dates Details Family history of Graves' di sease: Son(V18.19, Z83.49) Status:Active Family history of gynecomast ia: Son(V18.7, Z84.2) Status:Active Family history of polycystic ovarian syndrome: Daughter(V18.7, Z84.2) Status:Active Family history of asthma: Mo ther, Daughter, Sister(V17.5, Z82.5) Status:Active Family history of cerebrovas cular accident (CVA): Grandmother(V17.1, Z82.3) Status:Active : Father Status:Active Family history of hypertensi on: Mother(V17.49, Z82.49) Status:Active Family history of arthritis: Mother(V17.7, Z82.61) Status:Active Family history of osteoarthr itis: Sister(V17.89, Z82.69) Status:Active Family history of gout: Gran dmother(V18.19, Z82.69) Status:Active Family history of neoplasm o f brain: Mother(V19.8, Z84.89) Status:Active Family history of hyperlipid emia: Mother, Sister(V18.19, Z83.438) Status:Active Family history of malignant neoplasm of breast: Aunt, Paternal Aunt(V16.3, Z80.3) Status:Active Family history of malignant neoplasm of prostate: Paternal Cousin(V16.42, Z80.42) Status:Active Family history of malignant neoplasm of ovary: Sister, Maternal Aunt, Paternal Cousin(V16.41, Z80.41) Status:Active Family history of multiple m yeloma: Father(V16.7, Z80.7) Status:Active Cervical cancer screening: S ister Status:Active Family history of diabetes m ellitus: Mother, Sister, Grandparent, Aunt, Uncle(V18.0, Z83.3) Status:Active Unknown Family Member Name Dates Details Family history of Graves' di sease: Son(V18.19, Z83.49) Status:Active Family history of gynecomast ia: Son(V18.7, Z84.2) Status:Active Family history of polycystic ovarian syndrome: Daughter(V18.7, Z84.2) Status:Active Family history of asthma: Mo ther, Daughter, Sister(V17.5, Z82.5) Status:Active Family history of cerebrovas cular accident (CVA): Grandmother(V17.1, Z82.3) Status:Active : Father Status:Active Family history of hypertensi on: Mother(V17.49, Z82.49) Status:Active Family history of arthritis: Mother(V17.7, Z82.61) Status:Active Family history of osteoarthr itis: Sister(V17.89, Z82.69) Status:Active Family history of gout: Gran dmother(V18.19, Z82.69) Status:Active Family history of neoplasm o f brain: Mother(V19.8, Z84.89) Status:Active Family history of hyperlipid emia: Mother, Sister(V18.19, Z83.438) Status:Active Family history of malignant neoplasm of breast: Aunt, Paternal Aunt(V16.3, Z80.3) Status:Active Family history of malignant neoplasm of prostate: Paternal Cousin(V16.42, Z80.42) Status:Active Family history of multiple m yeloma: Father(V16.7, Z80.7) Status:Active Cervical cancer screening: S ister Status:Active Family history of diabetes m ellitus: Mother, Sister, Grandparent, Aunt, Uncle(V18.0, Z83.3) Status:Active Family history of malignant neoplasm of ovary: Sister, Maternal Aunt, Paternal Cousin(V16.41, Z80.41) Status:Active Unknown Family Member Name Dates Details Family history of diabetes m ellitus: Mother, Sister, Grandparent, Aunt, Uncle(V18.0, Z83.3) Status:Active Cervical cancer screening: S ister Status:Active Family history of multiple m yeloma: Father(V16.7, Z80.7) Status:Active Family history of Graves' di sease: Son(V18.19, Z83.49) Status:Active Family history of gynecomast ia: Son(V18.7, Z84.2) Status:Active Family history of polycystic ovarian syndrome: Daughter(V18.7, Z84.2) Status:Active Family history of asthma: Mo ther, Daughter, Sister(V17.5, Z82.5) Status:Active Family history of cerebrovas cular accident (CVA): Grandmother(V17.1, Z82.3) Status:Active : Father Status:Active Family history of hypertensi on: Mother(V17.49, Z82.49) Status:Active Family history of arthritis: Mother(V17.7, Z82.61) Status:Active Family history of osteoarthr itis: Sister(V17.89, Z82.69) Status:Active Family history of gout: Gran dmother(V18.19, Z82.69) Status:Active Family history of neoplasm o f brain: Mother(V19.8, Z84.89) Status:Active Family history of hyperlipid emia: Mother, Sister(V18.19, Z83.438) Status:Active Family history of malignant neoplasm of breast: Aunt, Paternal Aunt(V16.3, Z80.3) Status:Active Family history of malignant neoplasm of prostate: Paternal Cousin(V16.42, Z80.42) Status:Active Family history of malignant neoplasm of ovary: Sister, Maternal Aunt, Paternal Cousin(V16.41, Z80.41) Status:Active Unknown Family Member Name Dates Details Family history of diabetes m ellitus: Mother, Sister, Grandparent, Aunt, Uncle(V18.0, Z83.3) Status:Active Cervical cancer screening: S ister Status:Active Family history of multiple m yeloma: Father(V16.7, Z80.7) Status:Active Family history of Graves' di sease: Son(V18.19, Z83.49) Status:Active Family history of gynecomast ia: Son(V18.7, Z84.2) Status:Active Family history of polycystic ovarian syndrome: Daughter(V18.7, Z84.2) Status:Active Family history of asthma: Mo ther, Daughter, Sister(V17.5, Z82.5) Status:Active Family history of cerebrovas cular accident (CVA): Grandmother(V17.1, Z82.3) Status:Active : Father Status:Active Family history of hypertensi on: Mother(V17.49, Z82.49) Status:Active Family history of arthritis: Mother(V17.7, Z82.61) Status:Active Family history of osteoarthr itis: Sister(V17.89, Z82.69) Status:Active Family history of gout: Gran dmother(V18.19, Z82.69) Status:Active Family history of neoplasm o f brain: Mother(V19.8, Z84.89) Status:Active Family history of hyperlipid emia: Mother, Sister(V18.19, Z83.438) Status:Active Family history of malignant neoplasm of breast: Aunt, Paternal Aunt(V16.3, Z80.3) Status:Active Family history of malignant neoplasm of prostate: Paternal Cousin(V16.42, Z80.42) Status:Active Family history of malignant neoplasm of ovary: Sister, Maternal Aunt, Paternal Cousin(V16.41, Z80.41) Status:Active Unknown Family Member Name Dates Details Family history of Graves' di sease: Son(V18.19, Z83.49) Status:Active Family history of gynecomast ia: Son(V18.7, Z84.2) Status:Active Family history of polycystic ovarian syndrome: Daughter(V18.7, Z84.2) Status:Active Family history of asthma: Mo ther, Daughter, Sister(V17.5, Z82.5) Status:Active Family history of cerebrovas cular accident (CVA): Grandmother(V17.1, Z82.3) Status:Active : Father Status:Active Family history of hypertensi on: Mother(V17.49, Z82.49) Status:Active Family history of arthritis: Mother(V17.7, Z82.61) Status:Active Family history of osteoarthr itis: Sister(V17.89, Z82.69) Status:Active Family history of gout: Gran dmother(V18.19, Z82.69) Status:Active Family history of neoplasm o f brain: Mother(V19.8, Z84.89) Status:Active Family history of hyperlipid emia: Mother, Sister(V18.19, Z83.438) Status:Active Family history of malignant neoplasm of breast: Aunt, Paternal Aunt(V16.3, Z80.3) Status:Active Family history of malignant neoplasm of prostate: Paternal Cousin(V16.42, Z80.42) Status:Active Family history of malignant neoplasm of ovary: Sister, Maternal Aunt, Paternal Cousin(V16.41, Z80.41) Status:Active Family history of multiple m yeloma: Father(V16.7, Z80.7) Status:Active Cervical cancer screening: Evi hanley Status:Active Family history of diabetes m ellitus: Mother, Sister, Grandparent, Aunt, Uncle(V18.0, Z83.3) Status:Active Unknown Family Member Name Dates Details Family history of Graves' di sease: Son(V18.19, Z83.49) Status:Active Family history of gynecomast ia: Son(V18.7, Z84.2) Status:Active Family history of polycystic ovarian syndrome: Daughter(V18.7, Z84.2) Status:Active Family history of asthma: Mo ther, Daughter, Sister(V17.5, Z82.5) Status:Active Family history of cerebrovas cular accident (CVA): Grandmother(V17.1, Z82.3) Status:Active : Father Status:Active Family history of hypertensi on: Mother(V17.49, Z82.49) Status:Active Family history of arthritis: Mother(V17.7, Z82.61) Status:Active Family history of osteoarthr itis: Sister(V17.89, Z82.69) Status:Active Family history of gout: Gran dmother(V18.19, Z82.69) Status:Active Family history of neoplasm o f brain: Mother(V19.8, Z84.89) Status:Active Family history of hyperlipid emia: Mother, Sister(V18.19, Z83.438) Status:Active Family history of malignant neoplasm of breast: Aunt, Paternal Aunt(V16.3, Z80.3) Status:Active Family history of malignant neoplasm of prostate: Paternal Cousin(V16.42, Z80.42) Status:Active Family history of malignant neoplasm of ovary: Sister, Maternal Aunt, Paternal Cousin(V16.41, Z80.41) Status:Active Family history of multiple m yeloma: Father(V16.7, Z80.7) Status:Active Cervical cancer screening: S ister Status:Active Family history of diabetes m ellitus: Mother, Sister, Grandparent, Aunt, Uncle(V18.0, Z83.3) Status:Active Unknown Family Member Name Dates Details Family history of diabetes m ellitus: Mother, Sister, Grandparent, Aunt, Uncle(V18.0, Z83.3) Status:Active Cervical cancer screening: S ister Status:Active Family history of multiple m yeloma: Father(V16.7, Z80.7) Status:Active Family history of Graves' di sease: Son(V18.19, Z83.49) Status:Active Family history of gynecomast ia: Son(V18.7, Z84.2) Status:Active Family history of polycystic ovarian syndrome: Daughter(V18.7, Z84.2) Status:Active Family history of asthma: Mo ther, Daughter, Sister(V17.5, Z82.5) Status:Active Family history of cerebrovas cular accident (CVA): Grandmother(V17.1, Z82.3) Status:Active : Father Status:Active Family history of hypertensi on: Mother(V17.49, Z82.49) Status:Active Family history of arthritis: Mother(V17.7, Z82.61) Status:Active Family history of osteoarthr itis: Sister(V17.89, Z82.69) Status:Active Family history of gout: Gran dmother(V18.19, Z82.69) Status:Active Family history of neoplasm o f brain: Mother(V19.8, Z84.89) Status:Active Family history of hyperlipid emia: Mother, Sister(V18.19, Z83.438) Status:Active Family history of malignant neoplasm of breast: Aunt, Paternal Aunt(V16.3, Z80.3) Status:Active Family history of malignant neoplasm of prostate: Paternal Cousin(V16.42, Z80.42) Status:Active Family history of malignant neoplasm of ovary: Sister, Maternal Aunt, Paternal Cousin(V16.41, Z80.41) Status:Active Unknown Family Member Name Dates Details Family history of diabetes m ellitus: Mother, Sister, Grandparent, Aunt, Uncle(V18.0, Z83.3) Status:Active Cervical cancer screening: Evi hanley Status:Active Family history of multiple m yeloma: Father(V16.7, Z80.7) Status:Active Family history of Graves' di sease: Son(V18.19, Z83.49) Status:Active Family history of gynecomast ia: Son(V18.7, Z84.2) Status:Active Family history of polycystic ovarian syndrome: Daughter(V18.7, Z84.2) Status:Active Family history of asthma: Mo ther, Daughter, Sister(V17.5, Z82.5) Status:Active Family history of cerebrovas cular accident (CVA): Grandmother(V17.1, Z82.3) Status:Active : Father Status:Active Family history of hypertensi on: Mother(V17.49, Z82.49) Status:Active Family history of arthritis: Mother(V17.7, Z82.61) Status:Active Family history of osteoarthr itis: Sister(V17.89, Z82.69) Status:Active Family history of gout: Gran dmother(V18.19, Z82.69) Status:Active Family history of neoplasm o f brain: Mother(V19.8, Z84.89) Status:Active Family history of hyperlipid emia: Mother, Sister(V18.19, Z83.438) Status:Active Family history of malignant neoplasm of breast: Aunt, Paternal Aunt(V16.3, Z80.3) Status:Active Family history of malignant neoplasm of prostate: Paternal Cousin(V16.42, Z80.42) Status:Active Family history of malignant neoplasm of ovary: Sister, Maternal Aunt, Paternal Cousin(V16.41, Z80.41) Status:Active Unknown Family Member Name Dates Details Family history of diabetes m ellitus: Mother, Sister, Grandparent, Aunt, Uncle(V18.0, Z83.3) Status:Active Cervical cancer screening: S ister Status:Active Family history of multiple m yeloma: Father(V16.7, Z80.7) Status:Active Family history of Graves' di sease: Son(V18.19, Z83.49) Status:Active Family history of gynecomast ia: Son(V18.7, Z84.2) Status:Active Family history of polycystic ovarian syndrome: Daughter(V18.7, Z84.2) Status:Active Family history of asthma: Mo ther, Daughter, Sister(V17.5, Z82.5) Status:Active Family history of cerebrovas cular accident (CVA): Grandmother(V17.1, Z82.3) Status:Active : Father Status:Active Family history of hypertensi on: Mother(V17.49, Z82.49) Status:Active Family history of arthritis: Mother(V17.7, Z82.61) Status:Active Family history of osteoarthr itis: Sister(V17.89, Z82.69) Status:Active Family history of gout: Gran dmother(V18.19, Z82.69) Status:Active Family history of neoplasm o f brain: Mother(V19.8, Z84.89) Status:Active Family history of hyperlipid emia: Mother, Sister(V18.19, Z83.438) Status:Active Family history of malignant neoplasm of breast: Aunt, Paternal Aunt(V16.3, Z80.3) Status:Active Family history of malignant neoplasm of prostate: Paternal Cousin(V16.42, Z80.42) Status:Active Family history of malignant neoplasm of ovary: Sister, Maternal Aunt, Paternal Cousin(V16.41, Z80.41) Status:Active Unknown Family Member Name Dates Details Family history of diabetes m ellitus: Mother, Sister, Grandparent, Aunt, Uncle(V18.0, Z83.3) Status:Active Cervical cancer screening: Evi hanley Status:Active Family history of multiple m yeloma: Father(V16.7, Z80.7) Status:Active Family history of Graves' di sease: Son(V18.19, Z83.49) Status:Active Family history of gynecomast ia: Son(V18.7, Z84.2) Status:Active Family history of polycystic ovarian syndrome: Daughter(V18.7, Z84.2) Status:Active Family history of asthma: Mo ther, Daughter, Sister(V17.5, Z82.5) Status:Active Family history of cerebrovas cular accident (CVA): Grandmother(V17.1, Z82.3) Status:Active : Father Status:Active Family history of hypertensi on: Mother(V17.49, Z82.49) Status:Active Family history of arthritis: Mother(V17.7, Z82.61) Status:Active Family history of osteoarthr itis: Sister(V17.89, Z82.69) Status:Active Family history of gout: Gran dmother(V18.19, Z82.69) Status:Active Family history of neoplasm o f brain: Mother(V19.8, Z84.89) Status:Active Family history of hyperlipid emia: Mother, Sister(V18.19, Z83.438) Status:Active Family history of malignant neoplasm of breast: Aunt, Paternal Aunt(V16.3, Z80.3) Status:Active Family history of malignant neoplasm of prostate: Paternal Cousin(V16.42, Z80.42) Status:Active Family history of malignant neoplasm of ovary: Sister, Maternal Aunt, Paternal Cousin(V16.41, Z80.41) Status:Active Unknown Family Member Name Dates Details Family history of Graves' di sease: Son(V18.19, Z83.49) Status:Active Family history of gynecomast ia: Son(V18.7, Z84.2) Status:Active Family history of polycystic ovarian syndrome: Daughter(V18.7, Z84.2) Status:Active Family history of asthma: Mo ther, Daughter, Sister(V17.5, Z82.5) Status:Active Family history of cerebrovas cular accident (CVA): Grandmother(V17.1, Z82.3) Status:Active : Father Status:Active Family history of hypertensi on: Mother(V17.49, Z82.49) Status:Active Family history of arthritis: Mother(V17.7, Z82.61) Status:Active Family history of osteoarthr itis: Sister(V17.89, Z82.69) Status:Active Family history of gout: Gran dmother(V18.19, Z82.69) Status:Active Family history of neoplasm o f brain: Mother(V19.8, Z84.89) Status:Active Family history of hyperlipid emia: Mother, Sister(V18.19, Z83.438) Status:Active Family history of malignant neoplasm of breast: Aunt, Paternal Aunt(V16.3, Z80.3) Status:Active Family history of malignant neoplasm of prostate: Paternal Cousin(V16.42, Z80.42) Status:Active Family history of malignant neoplasm of ovary: Sister, Maternal Aunt, Paternal Cousin(V16.41, Z80.41) Status:Active Family history of multiple m yeloma: Father(V16.7, Z80.7) Status:Active Cervical cancer screening: S ister Status:Active Family history of diabetes m ellitus: Mother, Sister, Grandparent, Aunt, Uncle(V18.0, Z83.3) Status:Active Unknown Family Member Name Dates Details Family history of diabetes m ellitus: Mother, Sister, Grandparent, Aunt, Uncle(V18.0, Z83.3) Status:Active Cervical cancer screening: S ister Status:Active Family history of multiple m yeloma: Father(V16.7, Z80.7) Status:Active Family history of Graves' di sease: Son(V18.19, Z83.49) Status:Active Family history of gynecomast ia: Son(V18.7, Z84.2) Status:Active Family history of polycystic ovarian syndrome: Daughter(V18.7, Z84.2) Status:Active Family history of asthma: Mo ther, Daughter, Sister(V17.5, Z82.5) Status:Active Family history of cerebrovas cular accident (CVA): Grandmother(V17.1, Z82.3) Status:Active : Father Status:Active Family history of hypertensi on: Mother(V17.49, Z82.49) Status:Active Family history of arthritis: Mother(V17.7, Z82.61) Status:Active Family history of osteoarthr itis: Sister(V17.89, Z82.69) Status:Active Family history of gout: Gran dmother(V18.19, Z82.69) Status:Active Family history of neoplasm o f brain: Mother(V19.8, Z84.89) Status:Active Family history of hyperlipid emia: Mother, Sister(V18.19, Z83.438) Status:Active Family history of malignant neoplasm of breast: Aunt, Paternal Aunt(V16.3, Z80.3) Status:Active Family history of malignant neoplasm of prostate: Paternal Cousin(V16.42, Z80.42) Status:Active Family history of malignant neoplasm of ovary: Sister, Maternal Aunt, Paternal Cousin(V16.41, Z80.41) Status:Active Unknown Family Member Name Dates Details Family history of diabetes m ellitus: Mother, Sister, Grandparent, Aunt, Uncle(V18.0, Z83.3) Status:Active Cervical cancer screening: S isduke Status:Active Family history of multiple m yeloma: Father(V16.7, Z80.7) Status:Active Family history of Graves' di sease: Son(V18.19, Z83.49) Status:Active Family history of gynecomast ia: Son(V18.7, Z84.2) Status:Active Family history of polycystic ovarian syndrome: Daughter(V18.7, Z84.2) Status:Active Family history of asthma: Mo ther, Daughter, Sister(V17.5, Z82.5) Status:Active Family history of cerebrovas cular accident (CVA): Grandmother(V17.1, Z82.3) Status:Active : Father Status:Active Family history of hypertensi on: Mother(V17.49, Z82.49) Status:Active Family history of arthritis: Mother(V17.7, Z82.61) Status:Active Family history of osteoarthr itis: Sister(V17.89, Z82.69) Status:Active Family history of gout: Gran dmother(V18.19, Z82.69) Status:Active Family history of neoplasm o f brain: Mother(V19.8, Z84.89) Status:Active Family history of hyperlipid emia: Mother, Sister(V18.19, Z83.438) Status:Active Family history of malignant neoplasm of breast: Aunt, Paternal Aunt(V16.3, Z80.3) Status:Active Family history of malignant neoplasm of prostate: Paternal Cousin(V16.42, Z80.42) Status:Active Family history of malignant neoplasm of ovary: Sister, Maternal Aunt, Paternal Cousin(V16.41, Z80.41) Status:Active Advance Directives No Advanced Directives Records FoundLatest Code Status on File Code Status Date Activated Date Inactivated Comments Full Code 04/05/2023 9:42 AM Question Answer Comments Plan of Care: Code Status Discussion Completed Decision Maker: Patient Latest Code Status on File Code Status Date Activated Date Inactivated Comments Full Code 04/05/2023 9:42 AM Question Answer Comments Plan of Care: Code Status Discussion Completed Decision Maker: Patient Date Activated Date Inactivated Comments 04/05/2023 9:42 AM Question Answer Comments Plan of Care: Code Status Discussion Completed Decision Maker: Patient Date Activated Date Inactivated Comments 04/05/2023 9:42 AM Question Answer Comments Plan of Care: Code Status Discussion Completed Decision Maker: Patient Chief Complaint BLADDER CANCERBLADDER CANCERright breast painright breast pain* pt has been dx with COVID, sx are worse would like antibody infusion. * An interactive audio and video telecommunication system which permits real time communications between the patient (at the originating site) and provider (at the distant site) was utilized to providethis telehealth service. * Verbal consent was requested and obtained from FELA CHRISTIANSON on this date, 11/20/2020 01:00 PM ,for a telehealth visit. 1 month f/u covid pneumonia, still has cough and SOB.1 month f/u.BLADDER CANCER4 month f/u.Patient is here for her yearly exam and pap test. Menopause in 2018. Patient does self breast examsand states she is still having right breast pain and has noticed the nipple has retracted a little.PT HERE TODAY TO GO OVER RESULTS. PT HAS NO CONCERNS AT THIS TIME. LMP MENOPAUSE.Bladder CancerLump in the throat x 1 month.6 month.6 month.Bladder CancerNPV in office today for the feeling of a lump in the throat, food and pills getting stuck since August 2021. Patient has always had issues with constipation for several years. Patient believes she has had an EGD in the past. Has seen Dr. Ho and had Esoguard which was negative.* cough * congestion * headache * sore throat * ear ache * Has been exposed to croup, bronchitis and sinus infection * finished atb * still not feeling any better * pain in chest and back * wheezing * cough * headache * dizzy/lightheaded * fatigue GERDGERDGERDCysto-History of Bladder CancerPostprandial fullness Reason for Referral Specialty Diagnoses / Procedures Referred By Contac t Referred To Contact Radiology Diagnoses Postprandial epigastric pain Procedures US right upper quadrant Brady Li MD [address] [facility], [facility] [address] [place] [phone] Referral ID Status Reason Start Date Expiration Date Visits Requested Visits Authorized [id number] Pending Review Perform Procedure 3 05/31/2023 1 1 Referral ID Status Reason Start Date Expiration Date Visits Requested Visits Authorized [id number] Authorized Perform Procedure 3 05/31/2023 1 1 Specialty Diagnoses / Procedures Referred By Contac t Referred To Contact Radiology Diagnoses Generalized postprandial abdominal pain Procedures NM hepatobiliary w cholecystokinin Brady Li MD [address] [facility], [facility] [address] [place] [address] Referral ID Status Reason Start Date Expiration Date Visits Requested Visits Authorized [id number] Authorized Perform Procedure 3 12/07/2023 3 3 Specialty Diagnoses / Procedures Referred By Contac t Referred To Contact Radiology Diagnoses Epigastric pain Procedures NM gastric emptying solid Brady Li MD [address] [facility], [facility] [address] [place] [phone] Referral ID Status Reason Start Date Expiration Date Visits Requested Visits Authorized [id number] Authorized Perform Procedure 11/04/2022 05/03/2023 3 3 Specialty Diagnoses / Procedures Referred By Contac t Referred To Contact Diagnoses History of Wen fundoplication Spike Gandhi MD [address] [facility], [facility] [address] [place] [phone] Referral ID Status Reason Start Date Expiration Date V isits Requested Visits Authorized [id number] Pending Review 1 1 Specialty Diagnoses / Procedures Referred By Contac t Referred To Contact Diagnoses Keratoconjunctivitis sicca (CMS/HCC) Spike Gandhi MD [address] [facility], [facility] [address] [place] [phone] Referral ID Status Reason Start Date Expiration Date V isits Requested Visits Authorized [id number] Pending Review 1 1 Specialty Diagnoses / Procedures Referred By Contac t Referred To Contact Radiology Diagnoses History of bladder cancer Gross hematuria Procedures CT urography w 3D volume rendered imaging Ru Mcwilliams MD [address] [place] [address] Referral ID Status Reason Start Date Expiration Date Visits Requested Visits Authorized [id number] Pending Review Perform Procedure 03/10/2023 03/09/2024 1 1 Referral ID Status Reason Start Date Expiration Date Visits Requested Visits Authorized [id number] Authorized Perform Procedure 03/10/2023 03/09/2024 1 1 Specialty Diagnoses / Procedures Referred By Contac t Referred To Contact Radiology Diagnoses Left renal stone Procedures XR abdomen 1 view Ru Mcwilliams MD [address] [place] [address] Referral ID Status Reason Start Date Expiration Date Visits Requested Visits Authorized [id number] Authorized Perform Procedure 04/14/2023 04/13/2024 1 1 Referral ID Status Reason Start Date Expiration Date Visits Requested Visits Authorized [id number] Authorized Perform Procedure 04/06/2023 04/05/2024 1 1 Specialty Diagnoses / Procedures Referred By Contac t Referred To Contact Radiology Diagnoses Postmenopausal bleeding Procedures US PELVIS TRANSABDOMINAL WITH TRANSVAGINAL Jelly Veras MD [address] [facility], [facility] [address] [place] [address] Referral ID Status Reason Start Date Expiration Date Visits Requested Visits Authorized [id number] Authorized Perform Procedure 07/19/2023 07/18/2024 1 1 Specialty Diagnoses / Procedures Referred By Contac t Referred To Contact Radiology Diagnoses Epigastric pain Procedures FL upper GI w Robin Li MD [address] [facility], [facility] [address] [place] [address] Referral ID Status Reason Start Date Expiration Date Visits Requested Visits Authorized [id number] Authorized Perform Procedure 07/21/2023 07/20/2024 1 1 Specialty Diagnoses / Procedures Referred By Contac t Referred To Contact Radiology Diagnoses Encounter for screening mammogram for malignant neoplasm of breast Procedures BI mammo bilateral screening tomosynthesis Jelly Veras MD [address] [facility], [facility] [address] [place] [address] Referral ID Status Reason Start Date Expiration Date Visits Requested Visits Authorized [id number] Authorized Perform Procedure 07/19/2023 07/18/2024 1 1 Specialty Diagnoses / Procedures Referred By Contac t Referred To Contact Radiology Diagnoses Breast pain, right Procedures BI US breast limited right Rui Vargas MD [address] [facility] [address] [place] [address] Referral ID Status Reason Start Date Expiration Date Visits Requested Visits Authorized [id number] Authorized Perform Procedure 08/05/2023 08/04/2024 1 1 Specialty Diagnoses / Procedures Referred By Contac t Referred To Contact Radiology Diagnoses Menopause Procedures XR DEXA bone density Robin Allred MD [address] [facility], [address] [place] [address] Referral ID Status Reason Start Date Expiration Date Visits Requested Visits Authorized [id number] Authorized Perform Procedure 11/23/2023 11/22/2024 1 1 Specialty Diagnoses / Procedures Referred By Contac t Referred To Contact Radiology Diagnoses Breast pain, right Procedures MR breast bilateral w contrast full protocol MR breast bilateral w IV contrast fast screening self pay Rui Vargas MD [address] [place] [phone] Referral ID Status Reason Start Date Expiration Date Visits Requested Visits Authorized [id number] Authorized Perform Procedure 08/15/2023 08/14/2024 1 1 Specialty Diagnoses / Procedures Referred By Contac t Referred To Contact Radiology Diagnoses Rib pain on left side Procedures XR ribs left 2 views Raymond Ayers PA-C [address] [facility], [address] [place] [address] Referral ID Status Reason Start Date Expiration Date Visits Requested Visits Authorized [id number] Authorized Perform Procedure 11/08/2023 11/07/2024 1 1 Chief Complaint and Reason for Visit Chief Complaint DIET COUNS & SURV, A BN WT LOSS Chief Complaint DIET COUNS & SURV, A BN WT LOSS DIET COUNS & SURV, ABN WT LOSS Additional Source Comments INFORMATION SOURCE (unrecogn ized section and content) DATE CREATED AUTHOR 08/10/2017 [facility] DATE CREATED AUTHOR AUTHOR'S ORGANIZ ATION 09/02/2017 [facility] DATE CREATED AUTHOR AUTHOR'S ORGANIZ ATION 09/14/2017 [facility] DATE CREATED AUTHOR AUTHOR'S ORGANIZ ATION 10/21/2017 [facility] DATE CREATED AUTHOR AUTHOR'S ORGANIZ ATION 01/24/2018 [facility] DATE CREATED AUTHOR AUTHOR'S ORGANIZ ATION 04/27/[address] [facility] DATE CREATED AUTHOR AUTHOR'S ORGANIZ ATION 05/21/2018 [facility] DATE CREATED AUTHOR AUTHOR'S ORGANIZ ATION 09/10/2019 [facility] DATE CREATED AUTHOR AUTHOR'S ORGANIZ ATION 10/15/2020 [facility] DATE CREATED AUTHOR AUTHOR'S ORGANIZ ATION 08/04/2022 [facility] DATE CREATED AUTHOR AUTHOR'S ORGANIZ ATION 10/16/2022 [facility] DATE CREATED AUTHOR AUTHOR'S ORGANIZ ATION 11/06/2022 [facility] DATE CREATED AUTHOR AUTHOR'S ORGANIZ ATION 09/07/2023 [facility] DATE CREATED AUTHOR AUTHOR'S ORGANIZ ATION 12/02/2023 [facility] DATE CREATED AUTHOR AUTHOR'S ORGANIZ ATION 02/16/2024 [facility] DATE CREATED AUTHOR AUTHOR'S ORGANIZ ATION 05/17/2024 [facility] DATE CREATED AUTHOR AUTHOR'S ORGANIZ ATION 05/27/2024 [facility] DATE CREATED AUTHOR AUTHOR'S ORGANIZ ATION 07/26/2024 [facility] DATE CREATED AUTHOR AUTHOR'S ORGANIZ ATION 07/28/2024 [facility] Reason for Visit (unrecogniz ed section and content) Reason Comments Medical Records Reason Comments 1 month f/u Reason Comments 2 mth ov Specialty Diagnoses / Procedures Referred By Contac t Referred To Contact Radiology Diagnoses Epigastric pain Procedures NM gastric emptying solid Brady Li MD [address] [facility], [facility] [address] [place] [phone] Referral ID Status Reason Start Date Expiration Date Visits Requested Visits Authorized [id number] Authorized Perform Procedure 11/04/2022 05/03/2023 3 3 Specialty Diagnoses / Procedures Referred By Contac t Referred To Contact Radiology Diagnoses Postprandial epigastric pain Procedures US right upper quadrant Brady Li MD [address] [facility], [address] [place] [phone] Referral ID Status Reason Start Date Expiration Date Visits Requested Visits Authorized [id number] Authorized Perform Procedure 3 05/31/2023 1 1 Specialty Diagnoses / Procedures Referred By Georgette t Referred To Contact Radiology Diagnoses Generalized postprandial abdominal pain Procedures NM hepatobiliary w cholecystokinin Brady Li MD [address] [facility], [facility] [address] [place] [address] Referral ID Status Reason Start Date Expiration Date Visits Requested Visits Authorized [id number] Authorized Perform Procedure 3 12/07/2023 3 3 Reason Comments Other [id number], [id number] EGD, DI LATION FOR GERD, HIATALHERNIA K21.9, K44.9 Reason Comments Follow-up Pain from prior surg darrel in May, feels lumps in abdominal area, having all over body pain, weight loss of 80# since surgery; unable to eat much and is seeing a nutritionin [place] Reason Comments Moderate protein-calorie malnutrition Sa w Dr Allred on 01/20/23, labs were done on 01/20/23, prescription for the [employer] Extra Calories supplement was mailed to patient and she also has had a referral sent to [facility]. She is continuing to loose weight (85 pounds since May), having fatigue, and body aches. She does have a history of bladder cancer and is seeing Dr Mcwilliams. Reason Comments Asthma Hypothyroidism Lab Review 02/10/23 Reason Comments HISTORY OF BLADDER CANCER Specialty Diagnoses / Procedures Referred By Georgette jimenez Referred To Contact Radiology Diagnoses History of bladder cancer Gross hematuria Procedures CT urography w 3D volume rendered imaging Ru Mcwilliams MD [facility] [place] [address] Referral ID Status Reason Start Date Expiration Date Visits Requested Visits Authorized [id number] Authorized Perform Procedure 03/10/2023 03/09/[address] UROGRAM RESULTS Reason Comments BLADDER TUMOR Specialty Diagnoses / Procedures Referred By Georgette t Referred To Contact Radiology Diagnoses Left renal stone Procedures XR abdomen 1 view Ru Mcwilliams MD [address] [place] [id number] Referral ID Status Reason Start Date Expiration Date Visits Requested Visits Authorized [id number] Authorized Perform Procedure 04/06/2023 04/05/2024 1 1 Reason Comments Follow-up Lab Review Hypothyroidism Reason Comments Follow-up Patient here for fol low-up. Had KUB today. Patient states she continues with hematuria and cramping in her back. Referral ID Status Reason Start Date Expiration Date Visits Requested Visits Authorized [id number] Authorized Perform Procedure 04/14/2023 04/13/2024 1 1 Reason Comments Gynecologic Exam Patient here for a y early exam. Patient has c/o Right breast nipple pain and numbness. Patient has c/o vaginal dryness and bleeding with intercourse. LMP: ZACK Specialty Diagnoses / Procedures Referred By Contac t Referred To Contact Radiology Diagnoses Postmenopausal bleeding Procedures US PELVIS TRANSABDOMINAL WITH TRANSVAGINAL Jelly Veras MD [address] [facility], [facility] [address] [place] [phone] Referral ID Status Reason Start Date Expiration Date Visits Requested Visits Authorized [id number] Authorized Perform Procedure 07/19/2023 07/18/2024 1 1 Reason Comments Follow-up PT is here today for FUV. Also has somethings she would like to discuss with PCP. Specialty Diagnoses / Procedures Referred By Contac t Referred To Contact Radiology Diagnoses Epigastric pain Procedures FL upper GI w KUB Robin Allred MD [address] [facility], [address] [place] [address] Referral ID Status Reason Start Date Expiration Date Visits Requested Visits Authorized [id number] Authorized Perform Procedure 07/21/2023 07/20/2024 1 1 Specialty Diagnoses / Procedures Referred By Contac t Referred To Contact Radiology Diagnoses Encounter for screening mammogram for malignant neoplasm of breast Procedures BI mammo bilateral screening tomosynthesis Jelly Veras MD [address] [facility], [facility] [address] [place] [address] Referral ID Status Reason Start Date Expiration Date Visits Requested Visits Authorized [id number] Authorized Perform Procedure 07/19/2023 07/18/2024 1 1 Reason Comments Results Patient is here to r eview ultrasound results. Reason Comments Consult Referred by Dr. Svitlana chavira for right breast nipple pain x 2 years. Patient describes as a throbbing, numbing sensation. Denies any breast lumps, does have slight clear nipple discharge. Family hx with paternal aunts x 5 breast cancer and maternal niece. Specialty Diagnoses / Procedures Referred By Georgette t Referred To Contact General Surgery Diagnoses Breast pain, right Jelly Veras MD [address] [facility], [address] [place] [address] Referral ID Status Reason Start Date Expiration Date Visits Requested Visits Authorized [id number] Authorized Specialty Services Required 07/19/2023 07/18/2024 1 1 Specialty Diagnoses / Procedures Referred By Contac t Referred To Contact Radiology Diagnoses Breast pain, right Procedures BI US breast limited right Rui Vargas MD [address] [employer] [place] [id number] Referral ID Status Reason Start Date Expiration Date Visits Requested Visits Authorized [id number] Authorized Perform Procedure 08/05/2023 08/04/2024 1 1 Reason Comments Hypothyroidism 6 mo Dry Mouth 6 mo Asthma 6 mo Specialty Diagnoses / Procedures Referred By Contac t Referred To Contact Radiology Diagnoses Menopause Procedures XR DEXA bone density Robin Allred MD [address] [facility], [address] [place] [id number] Referral ID Status Reason Start Date Expiration Date Visits Requested Visits Authorized [id number] Authorized Perform Procedure 11/23/2023 11/22/2024 1 1 Reason Comments Chest Pain CP and hypoxia. Pt r eports he PCP recommended she be seen for this after he noticed it in their office. Pt not hypoxic on arrival Reason Comments Sore Throat Specialty Diagnoses / Procedures Referred By Contac t Referred To Contact Radiology Diagnoses Breast pain, right Procedures MR breast bilateral w contrast full protocol MR breast bilateral w IV contrast fast screening self pay Rui Vargas MD [address] [employer] [facility] [address] [place] [address] Referral ID Status Reason Start Date Expiration Date Visits Requested Visits Authorized [id number] Authorized Perform Procedure 08/15/2023 08/14/2024 1 1 Reason Comments Follow-up FU test, right breas t US 08-09-23 and bilat breast MRI 08-23-23. C/O right nipple discharge x 2 years that has recently increased. Denies nipple discharge, breast pain and lumps. Performs SBE at home. Reason Comments Follow-up Specialty Diagnoses / Procedures Referred By Georgette jimenez Referred To Contact Breast Surgery / Surgical Oncology Diagnoses Nipple discharge Rui Vargas MD [address] [facility] [address] [place] [address] Referral ID Status Reason Start Date Expiration Date Visits Requested Visits Authorized [id number] Authorized Specialty Services Required 08/30/2023 08/29/2024 1 1 Reason Comments Genetic Evaluation Specialty Diagnoses / Procedures Referred By Georgette jimenez Referred To Contact Genetics Diagnoses Nipple discharge Rui Vargas MD [address] [facility] [address] [place] [address] Referral ID Status Reason Start Date Expiration Date Visits Requested Visits Authorized [id number] Authorized Specialty Services Required 08/30/2023 08/29/2024 1 1 Reason Comments pt here due to recent fall Pt fell and injured left side rib area would like xray Specialty Diagnoses / Procedures Referred By Georgette jimenez Referred To Contact Radiology Diagnoses Rib pain on left side Procedures XR ribs 2 views left w chest pa or ap XR ribs left 2 views Raymond Ayers PA-C [address] [facility], [facility] [address] [place] [address] Referral ID Status Reason Start Date Expiration Date Visits Requested Visits Authorized [id number] Pending Review Perform Procedure 11/08/2023 11/07/2024 1 1 Reason Comments RSV exposure Pt reports she was e xposed to RSV. Reports she get pneumonia very easily. Reason Comments Cold Symptoms Symptoms have not im proved since last visit. Also stating ribs hurt, because her blanket got caught on a door handle and she fell. Reason Comments Asthma Hypothyroidism Dry Mouth B12 Injection <item> Privacy Markings (unrecogniz ed section and content) Section Author: Miladis Hill PROHIBITION ON REDISCLOSURE OF CONFIDENTIAL INFORMATION This notice accompanies a disclosure of information concerning a client made to you with the consent of such client. Care Teams (unrecognized sec tion and content) Shampoo Technician Relationship Specialty Start Date End Date Robin Allred MD [address] [place] [address] PCP - General Family Medicine 04/08/22 Preeti Jay DO [address] [facility] [address] [place] [address] Referring Physician Internal Medicine 04/08/22 Shampoo Technician Relationship Specialty Start Date End Date Robin Allred MD [address] [place] [address] PCP - General Family Medicine 04/08/22 Preeti Jay DO [address] [address] Referring Physician Internal Medicine 04/08/22 Shampoo Technician Relationship Specialty Start Date End Date Robin Allred MD [address] [facility], [facility] [address] [place] [address] PCP - General 02/21/18 Yovani Segovia APRN-HOSPICE HOME CARE COORDINATOR [address] [facility], [facility] [address] [place] [address] PCP - MMO ACO PCP 09/21/21 Shampoo Technician Relationship Specialty Start Date End Date Robin Allred MD [address] [facility], [address] [place] [phone] PCP - General 02/21/18 Edison Olivarez MD MPH [address] [facility], [address] [place] [phone] PCP - MMO ACO PCP 09/21/22 Shampoo Technician Relationship Specialty Start Date End Date Robin Allred MD [address] [facility], [address] [place] [phone] PCP - General 02/21/18 Edison Olivarez MD MPH [address] [facility], [address] [place] [phone] PCP - MMO ACO PCP 09/21/22 Team Status: Active Member Role Status Dates Dr. Robin Allred MD Primary Care Provider Active Team Status: Inactive Member Role Status Dates Dr. Robin Allred MD Primary Care Prov ider, Attending Provider, Referring Provider Active Shampoo Technician Relationship Specialty Start Date End Date Robin Allred MD [address] [facility], [address] [place] [phone] PCP - General 02/21/18 Edison Olivarez MD MPH [address] [facility], [address] [place] [address] PCP - MMO ACO PCP 09/21/22 Shampoo Technician Relationship Specialty Start Date End Date Robin Allred MD [address] [facility], [address] [place] [address] PCP - General 02/21/18 Edison Olivarez MD MPH [address] [facility], [address] [place] [address] PCP - MMO ACO PCP 09/21/22 Shampoo Technician Relationship Specialty Start Date End Date Robin Allred MD [address] [facility], [address] [place] [address] PCP - General 02/21/18 Yovani Segovia APRN-HOSPICE HOME CARE COORDINATOR [address] [facility], [address] [place] [address] PCP - MMO ACO PCP 09/21/21 09/20/22 Shampoo Technician Relationship Specialty Start Date End Date Robin Allred MD [address] [facility], [address] [place] [address] PCP - General 02/21/18 Edison Olivarez MD MPH [address] [facility], [address] [place] [address] PCP - MMO ACO PCP 09/21/22 Shampoo Technician Relationship Specialty Start Date End Date Robin Allred MD [address] [facility], [address] [place] [address] PCP - General 02/21/18 Edison Olivarez MD MPH [address] [facility], [address] [place] [address] PCP - MMO ACO PCP 09/21/22 Shampoo Technician Relationship Specialty Start Date End Date Robin Allred MD [address] [facility], [address] [place] [address] PCP - General 02/21/18 Edison Olivarez MD MPH [address] [facility], [address] [place] [address] PCP - MMO ACO PCP 09/21/22 Shampoo Technician Relationship Specialty Start Date End Date Robin Allred MD [address] [facility], [address] [place] [address] PCP - General 02/21/18 Edison Olivarez MD MPH [address] [facility], [address] [place] [address] PCP - MMO ACO PCP 09/21/22 Shampoo Technician Relationship Specialty Start Date End Date Robin Allred MD [address] [facility], [address] [place] [address] PCP - General 02/21/18 Edison Olivarez MD MPH [address] [facility], [address] [place] [address] PCP - MMO ACO PCP 09/21/22 Shampoo Technician Relationship Specialty Start Date End Date Robin Allred MD [address] [facility], [address] [place] [address] PCP - General 02/21/18 Edison Olivarez MD MPH [address] [facility], [address] [place] [address] PCP - MMO ACO PCP 09/21/22 Shampoo Technician Relationship Specialty Start Date End Date Robin Allred MD [address] [facility], [address] [place] [address] PCP - General 02/21/18 Edison Olivarez MD MPH [address] [facility], [address] [place] [address] PCP - MMO ACO PCP 09/21/22 Shampoo Technician Relationship Specialty Start Date End Date Robin Allred MD [address] [facility], [address] [place] [address] PCP - General 02/21/18 Edison Olivarez MD MPH [address] [facility], [address] [place] [address] PCP - MMO ACO PCP 09/21/22 Shampoo Technician Relationship Specialty Start Date End Date Robin Allred MD [address] [facility], [address] [place] [address] PCP - General 02/21/18 Edison Olivarez MD MPH [address] [facility], [address] [place] [address] PCP - MMO ACO PCP 09/21/22 Shampoo Technician Relationship Specialty Start Date End Date Robin Allred MD [address] [facility], [address] [place] [address] PCP - General 02/21/18 Edison Olivarez MD MPH [address] [facility], [address] [place] [address] PCP - MMO ACO PCP 09/21/22 Shampoo Technician Relationship Specialty Start Date End Date Robin Allred MD [address] [facility], [address] [place] [address] PCP - General 02/21/18 Edison Olivarez MD MPH [address] [facility], [address] [place] [address] PCP - MMO ACO PCP 09/21/22 Shampoo Technician Relationship Specialty Start Date End Date Robin Allred MD [address] [facility], [address] [place] [address] PCP - General 02/21/18 Robin Allred MD [address] [facility], [address] [place] [address] PCP - MMO ACO PCP 02/21/23 Shampoo Technician Relationship Specialty Start Date End Date Robin Allred MD [address] [facility], [address] [place] [address] PCP - General 02/21/18 Robin Allred MD [address] [facility], [address] [place] [address] PCP - MMO ACO PCP 02/21/23 Shampoo Technician Relationship Specialty Start Date End Date Robin Allred MD [address] [facility], [address] [place] [address] PCP - General 02/21/18 Robin Allred MD [address] [facility], [address] [place] [address] PCP - MMO ACO PCP 02/21/23 Shampoo Technician Relationship Specialty Start Date End Date Robin Allred MD [address] [facility], [address] [place] [address] PCP - General 02/21/18 Robin Allred MD [address] [facility], [address] [place] [address] PCP - MMO ACO PCP 02/21/23 Shampoo Technician Relationship Specialty Start Date End Date Robin Allred MD [address] [facility], [address] [place] [address] PCP - General 02/21/18 Robin Allred MD [address] [facility], [address] [place] [address] PCP - MMO ACO PCP 02/21/23 Shampoo Technician Relationship Specialty Start Date End Date Robin Allred MD [address] [facility], [address] [place] [address] PCP - General 02/21/18 Robin Allred MD [address] [facility], [address] [place] [address] PCP - MMO ACO PCP 02/21/23 Shampoo Technician Relationship Specialty Start Date End Date Robin Allred MD [address] [facility], [address] [place] [address] PCP - General 02/21/18 Robin Allred MD [address] [facility], [address] [place] [address] PCP - MMO ACO PCP 02/21/23 Shampoo Technician Relationship Specialty Start Date End Date Robin Allred MD [address] [facility], [address] [place] [address] PCP - General 02/21/18 Robin Allred MD [address] [facility], [address] [place] [address] PCP - MMO ACO PCP 02/21/23 Shampoo Technician Relationship Specialty Start Date End Date Robin Allred MD [address] [facility], [address] [place] [address] PCP - General 02/21/18 Robin Allred MD [address] [facility], [address] [place] [address] PCP - MMO ACO PCP 02/21/23 Shampoo Technician Relationship Specialty Start Date End Date Robin Allred MD [address] [facility], [address] [place] [address] PCP - General 02/21/18 Robin Allred MD [address] [facility], [address] [place], [facility] PCP - MMO ACO PCP 02/21/23 Ru Mcwilliams MD [address] [place] [address] Surgeon Urology 09/14/23 Shampoo Technician Relationship Specialty Start Date End Date Robin Allred MD [address] [facility], [address] [place], [facility] PCP - General 02/21/18 Robin Allred MD [address] [facility], [address] [place] [address] PCP - MMO ACO PCP 02/21/23 Ru Mcwilliams MD [address] [place] [address] Surgeon Urology 09/14/23 Shampoo Technician Relationship Specialty Start Date End Date Robin Allred MD [address] [facility], [address] [place] [address] PCP - General 02/21/18 Robin Allred MD [address] [facility], [address] [place] [address] PCP - MMO ACO PCP 02/21/23 Ru Mcwilliams MD [address] [place] [address] Surgeon Urology 09/14/23 Shampoo Technician Relationship Specialty Start Date End Date Robin Allred MD [address] [facility], [address] [place] [address] PCP - General 02/21/18 Robin Allred MD [address] [facility], [address] [place] [address] PCP - MMO ACO PCP 02/21/23 Ru Mcwilliams MD [address] [place] [address] Surgeon Urology 09/14/23 Shampoo Technician Relationship Specialty Start Date End Date Robin Allred MD [address] [facility], [address] [place] [address] PCP - General 02/21/18 Robin Allred MD [address] [facility], [address] [place] [address] PCP - MMO ACO PCP 02/21/23 Ru Mcwilliams MD [address] [place] [address] Surgeon Urology 09/14/23 Shampoo Technician Relationship Specialty Start Date End Date Robin Allred MD [address] [facility], [address] [place] [address] PCP - General 02/21/18 Robin Allred MD [address] [facility], [facility] [address] [place] [phone] PCP - MMO ACO PCP 02/21/23 Ru Mcwilliams MD [address] [place] [id number] Surgeon Urology 09/14/23 Shampoo Technician Relationship Specialty Start Date End Date Robin Allred MD [address] [facility], [facility] [address] [place] [address] PCP - General 02/21/18 Robin Allred MD [address] [facility], [facility] [address] [place] [phone] PCP - MMO ACO PCP 02/21/23 Shampoo Technician Relationship Specialty Start Date End Date Robin Allred MD [address] [facility], [address] [place] [address] PCP - General 02/21/18 Robin Allred MD [address] [facility], [address] [place] [address] PCP - MMO ACO PCP 02/21/23 Shampoo Technician Relationship Specialty Start Date End Date Robin Allred MD [address] [facility], [address] [place] [address] PCP - General 02/21/18 Robin Allred MD [address] [facility], [address] [place] [address] PCP - MMO ACO PCP 02/21/23 Ru Mcwilliams MD [address] [place] [address] Surgeon Urology 09/14/23 Shampoo Technician Relationship Specialty Start Date End Date Robin Allred MD [address] [facility], [address] [place] [address] PCP - General 02/21/18 Robin Allred MD [address] [facility], [address] [place] [address] PCP - MMO ACO PCP 02/21/23 Ru Mcwilliams MD [address] [place] [address] Surgeon Urology 09/14/23 Shampoo Technician Relationship Specialty Start Date End Date Robin Allred MD [address] [facility] [address] [place] [address] PCP - General 02/21/18 Robin Allred MD [address] [facility], [address] [place] [address] PCP - MMO ACO PCP 02/21/23 Ru Mcwilliams MD [address] [place] [address] Surgeon Urology 09/14/23 Shampoo Technician Relationship Specialty Start Date End Date Robin Allred MD [address] [facility], [address] [place] [address] PCP - General 02/21/18 Robin Allred MD [address] [facility], [address] [place] [address] PCP - MMO ACO PCP 02/21/23 Ru Mcwilliams MD [address] [place] [address] Surgeon Urology 09/14/23 Shampoo Technician Relationship Specialty Start Date End Date Robin Allred MD [address] [facility], [address] [place] [address] PCP - General 02/21/18 Robin Allred MD [address] [facility], [address] [place] [address] PCP - MMO ACO PCP 02/21/23 Ru Mcwilliams MD [address] [place] [address] Surgeon Urology 09/14/23 Shampoo Technician Relationship Specialty Start Date End Date Robin Allred MD [address] [facility], [facility] [address] [place] [phone] PCP - General 02/21/18 Robin Allred MD [address] [facility], [facility] [address] [place] [phone] PCP - MMO ACO PCP 02/21/23 Ru Mcwilliams MD [address] [place] [phone] Surgeon Urology 09/14/23 Shampoo Technician Relationship Specialty Start Date End Date Robin Allred MD [address] [facility], [place] [id number] PCP - General 02/21/18 Robin Allred MD [address] [facility], [place] [address] PCP - MMO ACO PCP 02/21/23 Ru Mcwilliams MD [address] [place] [phone] Surgeon Urology 09/14/23 Shampoo Technician Relationship Specialty Start Date End Date Robin Allred MD [address] [facility], [place] [id number] PCP - General 02/21/18 Robin Allred MD [address] [facility], [place] [id number] PCP - MMO ACO PCP 02/21/23 Ru Mcwilliams MD [address] [place] [address] Surgeon Urology 09/14/23 Goals (unrecognized section and content) Goals may be documented in a n alternate sectionGoals may be documented in an alternate section Scheduled Active and Recently Administ ered Medications (unrecognized section and content) Medication Order 11/28/2023 11/29/2023 11/30/2023 ketorolac (Toradol) injection 15 mg 15 mg, intravenous, Once, On Tue11/30/23 at 1215, For 1 dose 1400 (Not Given - Pr ovider: Tasneem Rizvi RN - Reason: Patient/family refused) ondansetron (Zofran) injection 4 mg 4 mg, intravenous, Once, On Tue11/30/23 at 1215, For 1 dose, When administering via IV Push, administer over 3-5 minutes. 1400 (Not Given - Pr ovider: Tasneem Rizvi RN - Reason: Patient/family refused) FOR RECORDS PERTAINING TO PATIENTS WHO ARE OR HAVE BEEN ENROLLED IN A CHEMICAL DEPENDENCY/SUBSTANCEABUSE PROGRAM, SOME INFORMATION MAY BE OMITTED. This clinical summary was aggregated from multiple sources. Caution should be exercised in using it in the provision of clinical care. This summary normalizes information from multiple sources, and as a consequence, information in this document may materially change the coding, format and clinical context of patient data. In addition, data may be omitted in some cases. CLINICAL DECISIONS SHOULD BE BASED ON THE PRIMARY CLINICAL RECORDS. [email or web address] [facility]. provides no warranty or guarantee of the accuracy or completeness of information in this document.
--- NOTE | 2024-07-30 07:16 | BI_ITS ---
EXAM: SCRN MAMM (CAD)W/AYSE BILAT DATE: 07/30/2024 CLINICAL HISTORY: F, Age 58 y/o , SCREENING BREAST CANCER RISK ASSESSMENT: Not assessed TECHNIQUE: Bilateral screening digital breast tomosynthesis with 2D and 3D images. Computer aided detection. COMPARISON: Prior exam(s) dated outside study dated July 28, 2023.. FINDINGS: TISSUE DENSITY: The breast tissue is extremely dense which lowers the sensitivity of mammography. Bilateral Breast Mammographic Findings: No significant masses, calcifications or other abnormalities are identified. No suspicious masses, areas of developing architectural distortion, or suspicious calcifications. There has been no significant interval change. BI/SCRN MAMM (CAD)W/AYSE BILAT IMPRESSION: OVERALL FINAL ASSESSMENT: BIRADS 1 NEGATIVE RECOMMENDATION: Routine annual follow-up in 1 Year A letter with findings and recommendations will be mailed to the patient. Reading Location: [place] [address]
== END | disposition home or self-care (01) ==
LOC: OPBI 07:08
PROVIDERS: PCP Family Medicine; Referring Provider Nurse Practitioner Family; Visit Provider Nurse Practitioner Family
DX: Z12.31 Encounter for screening mammogram for malignant neoplasm of breast (principal)
CPT/HCPCS: 77063; 77067

== ENCOUNTER → 2024-08-13 | Outpatient (CLI) | payer OTHER, SELFPAY ==
--- NOTE | 2024-08-13 | FLU_PTH ---
PATIENT: THOM CHRISTIANSON LOC: [facility] U#:[id number] AGE/SX: 58/F ROOM: RE08/13/[address]: Dr. Sandro Umaña MD : 1965 BED: DIS: 08/13/2024 SPEC #: [id number] RECD: 08/13/24 11:00 STATUS: JOHN REAshley #: [id number] VAUGHN: 08/13/24 00:[address]: Sandro Umaña DEPT: CYTOLOGY RECD BY: Kota Teran ENTERED: 08/14/24 08:11 SP TYPE: Fluid OTHR DR: Dr. Trey Allred MD Tissues: A - Urine Procedures: Special Stain Group II Surgery Specimen Level IV Cytospin Fluid HEADER OPERATION: Not noted PRE-OP DIAGNOSIS: Malignant neoplasm of bladder, unspecified TISSUE SUBMITTED: A- Urine for cytology - voided DIAGNOSIS CYTOLOGY A. Urine, voided (cytospin): * No malignant cells identified. * Mild acute inflammation, bacteria present. CYTOLOGY STUDY Slides are reviewed. CYTOLOGY GROSS A. Received is 70 ml of yellow-cloudy fluid labeled with the patient's name and and designated per the requisition as urine. Submitted for cytology preparation. Mr 08/14/2024 CPT: 92899
[2024-08-13 16:01] LABS: Cytology, Body Fluid / CSF SEE PATHOLOGY REPORT
== END | disposition home or self-care (01) ==
LOC: LABSPEC 15:34
PROVIDERS: PCP Family Medicine; Referring Provider Urology; Visit Provider Urology
DX: C67.9 Malignant neoplasm of bladder, unspecified (principal)
CPT/HCPCS: 88108; 88305; 88313

== ENCOUNTER → 2024-11-21 | Outpatient (CLI) | payer OTHER, SELFPAY ==
--- NOTE | 2024-11-21 12:21 | NEURO ---
NCS and/or EMG Patient Report Ordering Doctor: Maryuri Sotelo NP DATE OF SERVICE: 11/21/24 Fela presents with numbness tingling and weakness in both legs, more prominent on the left side. Electrodiagnostic findings: Right peroneal motor nerve demonstrates normal distal latency, amplitude and conduction velocity. Left peroneal motor nerve demonstrates normal distal latency and amplitude with reduced conduction velocity. No significant drop in conduction across the fibular head. Tibial motor response within normal limits bilaterally. Prolonged right tibial F?wave. Prolonged H?reflux bilaterally. Prolonged left sural latency. Prolonged right superficial peroneal and left superficial peroneal latencies. Needle EMG testing was performed in the lower limbs. 1+ fibrillations noted in the left gastrocnemius, left semitendinosis and left lower lumbar paraspinals. Motor unit action potentials with normal amplitude and duration. Electrodiagnostic impression: This an abnormal study of the lower limbs 1. Electrodiagnostic findings suggestive of an acute left S1 radiculopathy. Consider clinical correlation with lumbar spine imaging. 2. 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 Multi Select Codes Neurology Neurology Interp Codes: 93117-75 Musc test done w/n test comp (interp) (2) and 04095-26 Nrv cndj test 9-10 studies (interp)
[2024-11-22 04:07] LABS: PROLACTIN 7.0 ng/mL (3.6-25.2)
== END | disposition home or self-care (01) ==
LOC: PSN 08:06
PROVIDERS: Nurse Practitioner Family; PCP Family Medicine; Referring Provider Nurse Practitioner Family; Visit Provider Nurse Practitioner Family
DX: G62.9 Polyneuropathy, unspecified (principal); N95.0 Postmenopausal bleeding
CPT/HCPCS: 36415; 84146; 95886; 95911

== ENCOUNTER → 2024-11-22 | Outpatient (CLI) | payer OTHER, SELFPAY ==
--- NOTE | 2024-11-22 08:48 | US_ITS ---
PROCEDURE: BREAST LIMITED UNILATERAL 11/22/2024 right REASON FOR EXAM: F, Age 58 y/o , INVERTED NIPPLE WITH DISCHARGE Pain COMPARISON: Mammogram from 07/31/2019. TECHNIQUE: Procedure Code: USBRSTLIMIT Modality: US Procedure: BREAST LIMITED UNILATERAL Focused sonographic evaluation of the right breast in the retroareolar region, as well as at 10 o'clock. FINDINGS: No suspicious retroareolar abnormalities are noted. Specifically, no evidence of dilated ducts or evidence of a papilloma. However, at 10 o'clock, 3 cm from the nipple is a poorly defined hypoechoic shadowing nodule measuring 0.6 x 0.6 x 0.8 cm. Because the borders are incompletely defined and there is posterior shadowing, biopsy of this lesion is recommended. US/Breast Limited Unilateral IMPRESSION: Suspicious shadowing hypoechoic solid mass at 10 o'clock, 3 cm from the nipple. Biopsy recommended for further evaluation BI-RADS 4: SUSPICIOUS RECOMMENDATION: Biopsy Recommended Reading Location: [id number]
== END | disposition home or self-care (01) ==
LOC: OPBI 08:46
PROVIDERS: PCP Family Medicine; Referring Provider Nurse Practitioner Family; Visit Provider Nurse Practitioner Family
DX: N64.52 Nipple discharge (principal); N64.59 Other signs and symptoms in breast
CPT/HCPCS: 76642

== ENCOUNTER → 2024-12-05 | Outpatient (CLI) | payer OTHER, SELFPAY ==
--- NOTE | 2024-12-05 12:47 | US_ITS ---
PROCEDURE: BREAST LIMITED UNILATERAL 12/05/2024 REASON FOR EXAM: F, Age 58 y/o , ABNORMAL ULTRASOUND OF RIGHT BREAST COMPARISON: Prior ultrasound dated November 22, 2024. TECHNIQUE: Procedure Code: USBRSTLIMIT Modality: US Procedure: BREAST LIMITED UNILATERAL FINDINGS: The lateral aspect of the right breast was examined with ultrasound. There is evidence of dense fibroglandular tissue. No suspicious abnormality is seen. US/Breast Limited Unilateral IMPRESSION: No suspicious nodule is seen. BI-RADS 2: BENIGN RECOMMENDATION: Routine annual follow-up in 1 Year Reading Location: [facility]
--- NOTE | 2024-12-05 12:47 | US_ITS ---
PROCEDURE: BREAST LIMITED UNILATERAL 12/05/2024 REASON FOR EXAM: F, Age 58 y/o , ABNORMAL ULTRASOUND OF RIGHT BREAST COMPARISON: Prior ultrasound dated November 22, 2024. TECHNIQUE: Procedure Code: USBRSTLIMIT Modality: US Procedure: BREAST LIMITED UNILATERAL FINDINGS: The lateral aspect of the right breast was examined with ultrasound. There is evidence of dense fibroglandular tissue. No suspicious abnormality is seen. US/Breast Limited Unilateral IMPRESSION: No suspicious nodule is seen. BI-RADS 2: BENIGN RECOMMENDATION: Routine annual follow-up in 1 Year Reading Location: [facility]
== END | disposition home or self-care (01) ==
LOC: BIRAD 12:45
PROVIDERS: PCP Family Medicine; Referring Provider Surgery; Visit Provider Surgery
DX: R92.8 Other abnormal and inconclusive findings on diagnostic imaging of breast (principal)
CPT/HCPCS: 76642

== ENCOUNTER → 2024-12-12 | Outpatient (CLI) | payer OTHER, SELFPAY ==
--- NOTE | 2024-12-12 10:12 | MRI_ITS ---
PROCEDURE: BREAST BILATERAL W/O AND W 12/12/2024 REASON FOR EXAM: NIPPLE DISCHARGE/BREAST PAIN 59-year-old female presents with right breast pain, right nipple discharge and inverted right nipple for a few years. TECHNIQUE: Procedure Code: MRIBRSBILWW Modality: MR Procedure: BREAST BILATERAL W/O AND W CONTRAST: 13 mL of IV Clariscan COMPARISON: MRI breast 08/23/2023; ultrasound 12/05/2024, 11/22/2024; mammogram 07/30/2024 FINDINGS: TISSUE DENSITY: The breasts are extremely dense, which lowers the sensitivity of mammography. Background Parenchymal Enhancement: Mild RIGHT Breast: No suspicious mass or non-mass enhancement. LEFT Breast: No suspicious mass or non-mass enhancement. There are dilated ducts in the bilateral retroareolar regions. Other Findings: No suspicious axillary or internal mammary lymph nodes. Visualized portions of the thoracic and abdominal viscera are unremarkable. MRI/Breast Bilateral W/O and W IMPRESSION: There is no MR evidence of malignancy. OVERALL FINAL ASSESSMENT BI-RADS 2: BENIGN RECOMMENDATION: Routine annual follow-up in 1 Year Reading Location: [id number]
== END | disposition home or self-care (01) ==
PROVIDERS: PCP Family Medicine; Referring Provider Surgery; Visit Provider Surgery
DX: N64.52 Nipple discharge (principal); N64.4 Mastodynia; N63.0 Unspecified lump in unspecified breast
CPT/HCPCS: 77049; A9575; A4216; C8908

== ENCOUNTER 2025-01-07 11:50 | Day surgery (SDC) | payer OTHER, SELFPAY ==
[2025-01-07] VITALS (14 sets, daily range): BP systolic 117–149; BP diastolic 64–78; PULSE 77–108; RESP 16; TEMP 36.2–37; O2SAT 95–100; BMI 20.8
[2025-01-07] MEDS: Lactated Ringers 1,000 ML 15 ML IV (12:17)
--- NOTE | 2025-01-07 12:52 | PRE.ANES_ITS ---
ASA Classification* ASA Classification ASA Classification: 2 Assessment & Plan Anesthesia* Anesthesia Assessment Anesthesia Assessment: Discussed sedation and/or anesthesia options, risks, benefits, and alternatives with patient/parents/legal guardian/POA. Questions invited. The patient/parents/legal guardian/POA seems to understand and agrees to proceed with anesthesia plan. Reviewed the physical assessment, medical history, allergy history and patient home medications list prior to surgery/procedure/anesthetic and documented any changes. Performed airway and anesthesia risk assessments. Anesthesia Type Anesthesia Type: General History Source History Obtained from:: Patient and Chart Anesthesia Focused Assessment* Temperature: 98.2 F Pulse Rate: 77 Blood Pressure: 117/75 Respiratory Rate: 16 Pulse Ox: 100 Oxygen Delivery Method: Room Air Airway Assessment Mouth opens: >3 cm Mallampati Score: III Teeth Condition: Caps/Crowns (Patient has a left upper crown. It is tight.) and Missing (Patient has several missing teeth. Rest of the teeth are tight.) Neck Range of motion (ROM): Full ROM Labs Anesthesia Preop lab: CBC WBC, (4.4-11.0) 6.0 K/mm3 01/04/24, 07:20 RBC, (4.2-5.4) 4.96 M/mm3 01/04/24, 07:20 Hgb, (12.0-15.0) 15.2 g/dL H 01/04/24, 07:20 Hct, (37-47) 45.3 % 01/04/24, 07:20 Plt Count, (150-450) 259 K/mm3 01/04/24, 07:20 CHEMISTRY Potassium, (3.5-5.1) 4.1 mmol/L 01/04/24, 07:20 Sodium, (136-145) 143 mmol/L 01/04/24, 07:20 BUN, (7-18) 12 mg/dL 01/04/24, 07:20 Creatinine, (0.55-1.02) 0.75 mg/dL 01/04/24, 07:20 Glucose, (74-106) 59 mg/dL L 01/04/24, 07:20 COAG Pre-Assessment Diagnosis/Proposed Procedure Planned Operative Procedure(s): EXCISION RIGHT BREAST CENTRAL DUCT Anesthesia History Anesthesia History - web production assistant: Anesthesia History - web production assistant Hx Hospitalization No 12/27/24 14:56 Any Problems With Anesthesia Yes: N,V 12/27/24 14:56 Cholinesterase deficiency No 12/27/24 14:56 You/Your Family Experience No 12/27/24 14:56 fever (hyperthermia) with Relationship Recent Exposure to Contagious No 01/07/25 12:06 Disease Does patient have nerve No 12/27/24 14:56 stimulator Patient instructed to have device shut off --Does patient have Pacemaker No 01/07/25 12:06 or ICD? When Was Last Pacemaker Check QUESTION #4 FULL TEXT: You/Your Family Experience fever (hyperthermia) with Anesthesia Last Oral Intake Last Oral intake: Last Oral Intake NPO since 07:45 01/07/25 12:06 Meds taken in AM with sips of No 01/07/25 12:06 water? Meds patient instructed to take am of surgery Any additional information?: Yes NPO since: 07:45 (Patient water at 7:45 AM.) Meds taken in AM with sips of water?: No PONV PONV - web production assistant: PONV - web production assistant Female Yes 12/27/24 14:56 HX of Motion Sickness Yes 12/27/24 14:56 HX of N/V After Surgery Yes 12/27/24 14:56 Non-Smoker Yes 12/27/24 14:56 Duration of Surgery greater Yes 12/27/24 14:56 than 60 minutes Number of Risk Factors 5 12/27/24 14:56 PONV Score Severe Risk 12/27/24 14:56 Height & Weight Height & Weight: Anesthesia: Height & Weight Height 5 ft 10 in 01/07/25 12:06 Weight: 66 kg 01/07/25 12:06 Body Mass Index (BMI) 20.8 01/07/25 12:06 Respiratory Assessment Respiratory Assessment - web production assistant: Respiratory Tract Infection Hx - web production assistant Hx Respiratory Tract Infection No 12/27/24 14:56 STOP Sleep Apnea STOP Sleep Apnea - web production assistant: STOP Sleep Apnea - web production assistant Hx Hypertension Yes: NO MES FOR 2-3 YRS 12/27/24 14:56 Hx Sleep Apnea No 12/27/24 14:56 CPAP BIPAP Do you snore loudly (louder No 12/27/24 14:56 than talking or can be heard Do you often feel tired/ Yes 12/27/24 14:56 fatigued/ sleepy during daytime? Has anyone observed you stop No 12/27/24 14:56 breathing during sleep? STOP Results Positive 12/27/24 14:56 QUESTION #5 FULL TEXT : Do you snore loudly (louder than talking or can be heard through closed doors)? 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 - web production assistant: Tobacco Use History - web production assistant Tobacco Use Smoking Status Never smoker 12/27/24 14:56 Hx Tobacco Use No 12/27/24 14:56 Years Smoking Packs Smoked per Day Smoking Cessation Date was within the last 15 years Hx Smoking Cessation Date Hx Smoking Cessation Counseling Hematologic Medial History Hematologic Hx - web production assistant: Hematologic Medical Hx - activity specialist Hx of Blood Transfusion No 12/27/24 14:56 Hx of Transfusion in last 3 No 12/27/24 14:56 Months Date of Last Transfusion (if within last 3 months) Ever experience any problems No 12/27/24 14:56 with transfusion(s)? Specify any problems Hx of Preganancy in last 3 No 12/27/24 14:56 Months Nurse Filling Out Transfusion DSCHRIBER 12/27/24 14:56 & Questions: Date: 12/27/24 12/27/24 14:56 Time: 14:58 12/27/24 14:56 Patient unable to answer at this time (ie. confused, unrespo /Reproduction History /Reproductive History - web production assistant: /Reproductive Hx- web production assistant Hx Now No 12/27/24 14:56 Gestational Age (in weeks): EDC: Hx Hx Para Hx Section SAB No 12/27/24 14:56 Does the father of the baby or his family experience fever w Father of the baby Malignant Hypertension history comment Active Medications Active Medications: Current Medications Generic Name Dose Route Start Last Admin Trade Name Freq PRN Reason Stop Dose Admin Lactated Ringer's 1,000 mls @ 15 mls/hr 01/07/25 12:00 01/07/25 12:17 IV 15 mls/hr .Q48H CARLENE Administration PFSH Medical History History of steroid therapy Migraine headache Syncope History of ulceration Hypertension History of echocardiogram History of stress test Wears glasses Post-menopausal Cancer Back pain Non-smoker Leg cramps History of irregular heartbeat Nipple discharge Osteoporosis Fibromyalgia GERD (gastroesophageal reflux disease) Naseem's disease Asthma Bladder cancer Home Medications Medication Instructions Recorded Last Taken Type beclomethasone dipropionate 40 1 inh inhalation BID 12/06/23 History mcg/actuation HFA breath activated aerosol (Qvar RediHaler) levothyroxine 100 mcg tablet 100 mcg PO QDAY 11/02/23 01/09/24 History calcium carbonate (Antacid Ultra 400 mg PO TID 4 01/09/24 History Strength) cyanocobalamin (vitamin B-12) 100 mcg IM QMONTH 12/28/23 History 1,000 mcg/mL injection solution ergocalciferol (vitamin D2) 1,250 1,250 mcg PO QWEEK 1 03/04/23 01/07/24 History mcg (50,000 unit) capsule olodaterol 2.5 mcg/actuation mist 2 puff inhalation DA WAYNE 01/03/24 12/07/23 History for inhalation (Striverdi Respimat) albuterol sulfate 90 mcg/actuation 2 puff inhalation Q 4H PRN 12/27/24 Unknown History aerosol inhaler shortness of breath or wheez ing zoledronic acid 5 mg/100 mL in ea IV 01/07/25 12/27/24 History mannitol 5 %-water intravenous piggybck (Reclast) Allergy/AdvReac Type Severity Reaction Status Date / Time albuterol Allergy Hives Verified 01/07/25 12:02 Family History Mother Diabetes Thyroid disorder Hypertension Brain cancer Father Bone cancer Grandmother CVA (cerebral vascular accident) Diabetes CAD (coronary artery disease) Hypertension Aunt Breast cancer Aunt Breast cancer Surgical History History of hysteroscopy History of appendectomy H/O total cystectomy H/O tubal ligation History of Rustam fundoplication Social History adopted: No household members: spouse and family number of children: 3 current occupational status: employed 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 Physical Exam Resp clear to auscultation bilaterally
--- NOTE | 2025-01-07 13:01 | HP.PCM_ITS ---
History and Physical Date of Admission: 01/07/25 Date of Service: 12/24/24 MR#: [id number] Acct: [id number] Name: THOM CHRISTIANSON Rep #: [id number] : 1965 Provider: Dr. Nelda Velez MD Age/Sex: 59/F Location: [facility] Status: Signed Intake Vital Signs 11/28/2512:01 Height 5 ft 10 in Weight: 146 lb 6 oz BMI 20.9 BP 122/83 H Blood Pressure Location Rt brachial Position Sitting Respiration 17 Pulse 94 Pulse Source Monitor Pulse Oximetry (%) 96 Oxygen Delivery Method room air Intake Visit Reasons: discuss MRI/central duct excision Chief Complaint: discuss MRI/ central duct excision Is patient in pain?: Yes Allergies albuterol Allergy (Verified 12/24/24 15:13) Hives Medications Medication Instructions Recorded Confirmed Type beclomethasone dipropionate 40 1 inh inhalation BID 11/02/23 12/24/24 H istory mcg/actuation HFA breath activated aerosol (Qvar RediHaler) dextrin 3 gram/3.8 gram oral 3 g PO DAILY 11/02/23 12/24/24 History powder (Easy Fiber) levothyroxine 100 mcg tablet 100 mcg PO QDAY 11/02/23 12/24/24 Histor y multivitamin 1 tab PO QDAY 11/02/23 12/24/24 History calcium carbonate (Antacid Ultra 400 mg PO TID 12/19/23 12/24/24 History Strength) cyanocobalamin (vitamin B-12) 100 mcg IM QMONTH 12/19/23 12/24/24 Hist ory 1,000 mcg/mL injection solution ergocalciferol (vitamin D2) 1,250 1,250 mcg PO QWEEK 01/03/24 12/24/24 His tory mcg (50,000 unit) capsule olodaterol 2.5 mcg/actuation mist 2 puff inhalation DAILY 01/03/24 5 History for inhalation (Striverdi Respimat) lidocaine 4 % topical patch 1 patch topical QDAY PRN 12/24/24 History (Aspercreme (lidocaine)) [facility] Medical History Wears glasses Post-menopausal Cancer Thyroid disease Kidney stones Back pain History of hiatal hernia Non-smoker Leg cramps History of irregular heartbeat Nipple discharge Osteoporosis Fibromyalgia GERD (gastroesophageal reflux disease) Naseem's disease Asthma Bladder cancer Surgical History History of appendectomy H/O total cystectomy H/O tubal ligation History of Rustam fundoplication Family History Mother Diabetes Thyroid disorder Hypertension Brain cancer Father Bone cancer Grandmother CVA (cerebral vascular accident) Diabetes CAD (coronary artery disease) Hypertension Aunt Breast cancer Aunt Breast cancer Social History adopted: No household members: spouse and family number of children: 3 current occupational status: employed 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 Patient still having right nipple pain and spontaneous clear nipple discharge unchanged from previous. Patient's MRI was negative did not see any enhancing masses. Patient also did have a repeat ultrasound for a possible biopsy as initially was given a BI-RADS 4 however repeat ultrasound showed that was actually patient's normal breast tissue and the initial image was more artifact not an actual mass. ROS General General: Yes weight change (loss 88) and fatigue; No appetite, colon cancer, breast cancer or weakness HEENT HEENT: Yes swollen glands; No difficulty swallowing, eye injury, eye surgery or hoarseness Endo Endocrine: Yes thyroid disease; No diabetes mellitus, thyroid cancer, Hair loss, heat intolerance or cold intolerance Skin Skin: No rash or changing moles Breast Breast: Yes nipple discharge, breast pain and abnormal US; No left breast lump, right breast lump, abnormal mammogram or breast enlargement Musc Musculoskeletal: Yes back problems; No arthritis, rheumatoid arthritis, gout or joint pain Cardio Cardiovascular: Yes murmur; No pacemaker, heart disease, atrial fibrillation, high blood pressure, heart attack, heart stent, palpitations, shortness of breath with exertion or chest pain Psych Psychiatric: No depression, anxiety or hearing voices Resp Respiratory: Yes shortness of breath, No sleep apnea, No cough, No COPD, Yes asthma, No emphysema and No wheezing Gastro Gastrointestinal: Yes abdominal pain, No nausea or vomiting, No diarrhea, Yes constipation, No blood in stool, No acid reflux, Yes hemorrhoids, No ulcers, No gallbladder problem and No black,tarry stools Sai Hematologic: No blood thinners, No blood disorders, No bleeding, No anemia and No blood clots Neuro Neurologic: Yes numbness, Yes tingling and No weakness Exam Const General: cooperative, healthy appearing and no acute distress Resp Effort & Inspection: normal respiratory effort Cardio Rate: regular rate Psych Affect: normal affect Assessment and Plan Assessment and Plan (1) Breast discharge: Status: Acute Comment: Negative Mammogram this year. (2) Breast pain, right: Status: Acute (3) Inverted nipple: Status: Acute Plan Discussed with patient would recommend right breast central duct excision due to the spontaneous clear nipple discharge as well as breast pain. Currently all imaging mammogram repeat ultrasound and MRI are benign. Patient is concerned about undergoing surgery as she had a lot of issues after having her Rustam and she is still recovering. Discussed the procedure including risk not limited to but including bleeding, infection, loss of sensation of the nipple, need for further surgery, and anesthesia. Patient no further question this time. Patient will plan to schedule. Nelda Velez M.D. Pager: [phone] [facility] [address] [place] [address], [facility], [address] [place] [address] Office: [phone] Coding Level of Care Code Off vis,est,level 3 Diagnoses Breast discharge N64.52 Breast pain, right N64.4 Inverted nipple N64.59 12/25/24 1334 <Electronically signed by Nelda Velez MD> Date Nelda Velez MD
[2025-01-07] MEDS: Lactated Ringers 1,000 ML 1000 ML IV (13:25)
[2025-01-07] MEDS: Cefazolin 1 GM/5 ML Vial 2 GM IV (13:30)
[2025-01-07] MEDS: Lidocaine 1% (5 ml sdv) 5 ML Vial IV (13:31)
[2025-01-07] MEDS: DiphenhydrAMINE 50 MG/ML Syringe 12.5 MG IV (13:32)
--- NOTE | 2025-01-07 13:40 | BRBX_PTH ---
PATIENT: THOM CHRISTIANSON [place] [facility] [place][id number] AGE/SX: 59/F ROOM: RE01/07/[address]: Dr. Nelda Velez MD : 1965 BED: DIS: 01/07/2025 SPEC #: [id number] RECD: 01/07/25 15:08 STATUS: JOHN REAshley #: [id number] VAUGHN: 01/07/25 13:[address]: Nelda Velez DEPT: SURGICAL PATHOLOGY RECD BY: Kota Teran ENTERED: 01/08/25 10:07 SP TYPE: BREAST BX OT DR: Dr. Trey Allred MD Tissues: A - Right breast, NOS Procedures: Surgery Specimen Level IV HEADER OPERATION: Right breast central duct excision PRE-OP DIAGNOSIS: Breast discharge, breast pain, right, inverted nipple TISSUE SUBMITTED: A- Right breast central duct *long stitch- lateral, short stitch - superior* MICROSCOPIC DIAGNOSIS A. Right breast central duct, central duct excision: * Benign fibroadipose breast tissue with dilated ducts and areas of chronic periductal inflammation MICROSCOPIC DESCRIPTION Slides are reviewed. GROSS DESCRIPTION A. Received in formalin labeled with the patient's name and date of . Designated as " right breast central duct" is a 2.0 x 1.7 x 1.3 cm hamilton-yellow to pink-hamilton brown, fibrotic slightly irregular portion of soft tissue with orientation. There is a short suture designated as "anterior" and a long suture designated as "lateral". The specimen is inked as follows: Superior: RedInferior: BlueMedial: YellowLateral: OrangeAnterior: GreenPosterior: Black The specimen is serially sectioned from medial to lateral revealing diffusely fibrotic cut surfaces with focal cystic areas containing smooth, yellow-orange material. Entirely submitted, sequentially from medial to lateral in 4 cassettes. [place] [id number]
[2025-01-07] MEDS: fentaNYL 100 MCG/2 ML Ampul 200 MCG IV (13:57)
--- NOTE | 2025-01-07 14:21 | OP.PCM_ITS ---
Operative Report (Standard) Operative Information Date of Procedure: 01/07/25 Pre-Operative Diagnosis: Right breast/nipple pain, right nipple discharge Post-Operative Diagnosis: Same Surgery/Procedure Performed: Right breast central duct excision submarine advisory team watch officer: Yes Accountant Manager: Sharonda Clarke Tasks completed by first aid instructor: Opening & closing and Retracting Type of Anesthesia: General/Supplemental RN Documented Start/Stop Times: Operation Date: 01/07/25 13:40 Case Time Into Pre-Op 01/07/25 11:52 Out of Pre-Op 01/07/25 13:23 Anesthesia Start 01/07/25 13:25 Into Room 01/07/25 13:25 Procedure Start 01/07/25 13:43 Procedure End 01/07/25 14:30 Anesthesia End 01/07/25 14:36 Out of Room 01/07/25 14:36 Into Recovery 01/07/25 14:38 Into Phase II Recovery 01/07/25 15:56 Out of Recovery 01/07/25 15:56 Out of Phase II 01/07/25 18:01 Procedure Start Time: 13:43 Procedure Stop Time: 14:30 Select all DRAINS/GRAFTS/IMPLANTS that apply: None Special Medications: Ancef 2 g IV x 1 Estimated Blood Loss: <10 cc Specimen collected: Yes Description of specimen(s) removed: Right breast central duct excision Description of surgery: Patient was brought to the op room table placed supine on the table. Timeout was completed verifying correct patient, procedure, site, positioning, special equipment prior to beginning procedure. General anesthesia was induced. Right breast prepped draped usual sterile fashion. Curvilinear incision was planned at the areolar border. Lacrimal probe was placed into one of the ducts that did show some discharge with expression. Dissection under the nipple areolar complex was done with electrocautery on cut. Right nipple distal ducts were circumferentially dissected. This central duct excision was excised and oriented and sent to pathology. There is noted to be clogged multiple ducts with soft tannish material with expression. Cavity was irrigated with saline. 4-0 Vicryl was used to help prevent invert the nipple with a pursestring suture. Breast tissue brought together with interrupted 3-0 Vicryl sutures to help prevent nipple inversion. Incision was closed with separate dermal sutures of 3-0 Vicryl interrupted and skin was closed with 4-0 Monocryl running suture. Dermabond was placed. Fluffs and surgical bra was placed. Patient was e xtubated. Patient tolerated procedure well. Surgical Findings: See op note Complications Complications: No
--- NOTE | 2025-01-07 14:26 | DCINST_ITS ---
Discharge Instructions Diet Discharge Diet: No restrictions Activity Discharge Activity: May Not Drive (for 2-3 days or while taking narcotic pain meds.) May shower in (days): 1 Lifting Restrictions: 10 pounds for 1 week. Dressing / Incision Call your doctor if your incision/area has: Continuous Slow Oozing, Sudden Increased Bleeding, Increased Pain/ Swelling and Increased Redness Call your doctor if you observe: Fever of 101 or Higher Suture Line Care: Avoid Pulling/Pushing and Avoid Pinching/Bending Remove Dressing in: 1 day Additional Dressing/Incision Instructions:: Remove bulky dressing tomorrow. Dermabond (glue) was used at the incision this may start to peel off in about 5 days. Follow Up Care Please Follow Up With: Nelda Velez MD When: Please call [phone] for an appointment to be seen in 2 week. Call [phone] with any concerns after 4 PM/weekends. Test Results: Test results from this visit will be discussed in further detail at your follow- up appointment, if applicable. Discharge Plan Admission Attending Provider: Nelda Velez Primary Care Provider: Trey Allred Instructions Print Language: Kazakh Discharge Orders/Prescriptions Prescriptions: New oxycodone 5 mg capsule 5 mg PO Q6H PRN (Reason: pain) 3 Days Qty: 7 0RF Continued Qvar RediHaler 40 mcg/actuation HFA aerosol breath activated 1 inh inhalation BID levothyroxine 100 mcg tablet 100 mcg PO QDAY cyanocobalamin (vitamin B-12) 1,000 mcg/mL solution 100 mcg IM QMONTH calcium carbonate [Antacid Ultra Strength] 400 mg calcium (1,000 mg) tablet,chewable 400 mg PO TID albuterol sulfate 90 mcg/actuation HFA aerosol inhaler 2 puff inhalation Q4H PRN (Reason: shortness of breath or wheezing) zoledronic [id number] [Reclast] 5 mg/100 mL piggyback IV ergocalciferol (vitamin D2) 1,250 mcg (50,000 unit) capsule 1,250 mcg PO QWEEK Striverdi Respimat 2.5 mcg/actuation mist 2 puff inhalation DAILY Referrals / Follow Up: Trey Allred MD [Primary Care Provider, Family Practice] Disposition Disposition (needs filled in before D/C Order can be placed): Home, Self Care
--- NOTE | 2025-01-07 14:42 | PCM.POST.ANE ---
Anesthesia: Postop Eval I Current Vital Signs Temperature: 97.1 F Pulse Rate: 106 Blood Pressure: 149/74 Respiratory Rate: 16 Pulse Ox: 99 Oxygen Delivery Method: Room Air Assessment Airway patent: Yes Spontaneous unlabored respirations: Yes Mental status: Awake and Calm nausea: No Vomiting: No Anesthesia Complication: No Fluid Hydration Crystalloid volume administer (ml): 1,000 Total IV fluid infused: 1,000 Progress Note Anesthesia document: Postop Eval 1 completed: Yes
--- NOTE | 2025-01-07 16:33 | POSTOPAN2_ITS ---
Anesthesia Postop Eval I Sum Postop Eval Completion status Anesthesia document: Postop Eval 1 completed: Yes Anesthesia Postop Eval I Summary Anesthesia Postop Eval I Summary: Anesthesia Postop Eval I: Assessment Summary Airway patent Yes 01/07/25 14:42 RECRUITING INTERN.SKOBY Spontaneous unlabored Yes 01/07/25 14:42 RECRUITING INTERN.MAINE respirations Mental status Awake,Calm 01/07/25 14:42 RECRUITING INTERN.SKOBY nausea No 01/07/25 14:42 RECRUITING INTERN.MAXWELLOBY Vomiting No 01/07/25 14:42 RECRUITING INTERN.MAXWELLOBGuido Anesthesia Postop Eval I: Fluid Summary Crystalloid volume administer 1,000 01/07/25 14:42 RECRUITING INTERN.SKOBY (ml) Colloids volume administered ( ml) Blood Product volume administered (ml) Total IV fluid infused 1,000 01/07/25 14:42 RECRUITING INTERN.MAXWELLOBGuido Anesthesia Postop Eval I: Summary Notes Anesthesia Complication No 01/07/25 14:42 RECRUITING INTERN.MAINE Anesthesia Complication Comment: Post-operative progress note Anesthesia: Postop Eval II Evaluation Mental status: Awake and Calm Pain Level: 1 nausea: No Vomiting: No
--- NOTE | 2025-01-07 16:33 | PCM.POSTANE2 ---
Anesthesia Postop Eval I Sum Postop Eval Completion status Anesthesia document: Postop Eval 1 completed: Yes Anesthesia Postop Eval I Summary Anesthesia Postop Eval I Summary: Anesthesia Postop Eval I: Assessment Summary Airway patent Yes 01/07/25 14:42 ASSOCIATE PROFESSOR OF VIOLIN.SKOBY Spontaneous unlabored Yes 01/07/25 14:42 ASSOCIATE PROFESSOR OF VIOLIN.MAINE respirations Mental status Awake,Calm 01/07/25 14:42 ASSOCIATE PROFESSOR OF VIOLIN.SKOBY nausea No 01/07/25 14:42 ASSOCIATE PROFESSOR OF VIOLIN.MAXWELLOBY Vomiting No 01/07/25 14:42 ASSOCIATE PROFESSOR OF VIOLIN.MAXWELLOBGuido Anesthesia Postop Eval I: Fluid Summary Crystalloid volume administer 1,000 01/07/25 14:42 ASSOCIATE PROFESSOR OF VIOLIN.SKOBY (ml) Colloids volume administered ( ml) Blood Product volume administered (ml) Total IV fluid infused 1,000 01/07/25 14:42 ASSOCIATE PROFESSOR OF VIOLIN.MAXWELLOBGuido Anesthesia Postop Eval I: Summary Notes Anesthesia Complication No 01/07/25 14:42 ASSOCIATE PROFESSOR OF VIOLIN.MAINE Anesthesia Complication Comment: Post-operative progress note Anesthesia: Postop Eval II Evaluation Mental status: Awake and Calm Pain Level: 1 nausea: No Vomiting: No
== END 2025-01-07 18:01 | disposition home or self-care (01) ==
LOC: SDC 11:50 → AC 11:51
PROVIDERS: PCP Family Medicine; Referring Provider Family Medicine; Visit Provider Surgery
DX: N64.4 Mastodynia (principal); N64.52 Nipple discharge; J45.909 Unspecified asthma, uncomplicated; Z79.51 Long term (current) use of inhaled steroids; Z79.899 Other long term (current) drug therapy
CPT/HCPCS: 19120; 00400; 88305; A4216; J2405